=== PATIENT | male | born 1970 | race Caucasian/White ===

== ENCOUNTER 2018-01-31 11:06 | Inpatient (IN) | payer OTHER ==
--- NOTE | 2018-01-31 12:07 | PDOC ---
History of Present Illness - General Chief Complaint: Edema Stated Complaint: LEG PAIN Time Seen by Provider: 01/31/18 12:07 - History of Present Illness Initial Comments: Aaron Vigil is a 47yo man with a PMH of alcohol abuse (3-4 drinks per day) who presents complaining of bilateral leg swelling for the past week. He states that his legs are also painful and throbbing. He has not tried anything to alleviate the swelling and does not have a regular doctor; he does not take any medicatoins at home. He was seen previously in 2015 with a similar complaint. He denies any recent fevers, chills, chest pain, SOB, abdominal pain, change in bowel habits, or urinary symptoms. He does endorse increased abdominal girth over the past week. He is not aware of any underlying cardiac or renal pathology though he has not seen a doctor recently. Past History - Past Medical History Allergies/Adverse Reactions: Allergies Allergy/AdvReac Type Severity Reaction Status Date / Time No Known Drug Allergies Allergy Verified 01/31/18 11:33 cream cheese AdvReac Uncoded 01/31/18 11:33 Home Medications: Ambulatory Orders NK [No Known Home Medication] 01/31/18 Anemia: No Asthma: No Cancer: No Cardiac Disorders: No CVA: No COPD: No CHF: No Dementia: No Diabetes: No GI Disorders: No Disorders: No HTN: No Hypercholesterolemia: No Liver Disease: No Seizures: No Thyroid Disease: No - Surgical History Appendectomy: Yes - Suicide/Smoking/Psychosocial Hx Smoking History: Former smoker Have you smoked in the past 12 months: No If you are a former smoker, when did you quit?: 3 months ago Information on smoking cessation initiated: No Hx Alcohol Use: No Drug/Substance Use Hx: No Substance Use Type: Alcohol Review of Systems - Review of Systems Comments:: General: No fevers, no chills, no weight or appetite change, no malaise HEENT: No changes in vision, no changes in hearing, no congestion, no sore throat CV: No chest pain, no palpitations. +worsening LE edema Pulm: No SOB, no cough, no wheezing GI: No nausea or vomiting, no change in bowel habits, no melena. +Increased abdominal girth : No frequency, no urgency, no dysuria Musc: No back pain, no joint swelling, no recent injury Skin: No rash, no lesions, no erythema Endo: No excessive thirst, no heat/cold intolerance Heme: No unusual bruising or bleeding, no swollen glands Neuro: No syncope, no numbness/tingling, no focal weakness Vasc: No claudication Psych: No recent change in mood, no SI or HI *Physical Exam - Vital Signs Last Vital Signs Temp Pulse Resp BP Pulse Ox 99.3 F 100 H 17 147/87 99 01/31/18 11:30 01/31/18 11:30 01/31/18 11:30 01/31/18 11:30 01/31/18 11:30 - Physical Exam Comments: General: Comfortable, no acute distress HEENT: PERRL, EOMI, +scleral icterus, MMM, voice normal, normal neck ROM, no LAD Cards: RRR, no murmur appreciated Pulm: Comfortable on room air, clear to auscultation bilaterally Abd: Moderately distended, firm, no fluid wave, non-tender : No CVA tenderness Ext: Atraumatic. BLE minimally pitting edema, L 4+ and firm to knee, R 3+, mildly TTP. No skin breaks, lesions, or erythema noted. ROM intact. Strength 5/ 5 and equal bilaterally Vasc: Extremities WWP. Skin: +Mild jaundice, no rashes or lesions Neuro: A&Ox3, CN grossly intact, normal speech, motor/sensory grossly intact and symmetric Psych: Mood appropriate to situation ED Treatment Course - LABORATORY CBC & Chemistry Diagram: 01/31/18 12:40 01/31/18 12:43 Medical Decision Making - Medical Decision Making 01/31/18 12:33 Aaron Vigil is a 47yo man with a PMH of alcohol abuse, currently drinking 3-4 per day, who presents with bilateral LE edema L>R and increased abdominal girth. - Concern for underlying heart, kidney, or liver pathology. No known risk factors for DVT, but will r/o as leg swelling is asymmetric and legs are TTP. r/ o recent ACS event as a cause of new leg swelling - May have new ascites given increased abdominal girth, but abdomen is non- tender and vitals are normal - no concern for SBP at this time - CBC, CMP, lipase, mag, phos, CXR, EKG, trop. B/L duplex to r/o DVT 01/31/18 14:00 - CBC unremarkable - CMP notable for tbili 5.1, AST 93, ALT 33, alk phos 256 - Trop negative, EKG w/o concerns for ACS - CXR without acute pathology - Duplex pending - Page sent to hospitalist team for admission for suspected new liver failure, fluid overload 01/31/18 15:14 - Spoke to Pamela Byrd regarding admission. Will admit to med/surg under Dr Yu for diuresis and management of acute on chronic liver failure - 40mg IV lasix given for diuresis - On further questioning, Mr Vigil states that he does have 3-4 drinks per day, usually 24oz bottles of beer. His last was this morning, and he had one bottle. - Discussed admission with Mr Vigil. He agrees with this plan. Seen and discussed with Dr Isaacs. Edyta Hays PGY1 *DC/Admit/Observation/Transfer Diagnosis at time of Disposition: Alcoholism, Peripheral edema, Abnormal bilirubin test - Discharge Dispostion Decision to Admit order: Yes - Referrals - Patient Instructions - Post Discharge Activity
[2018-01-31 13:02] LABS: BASO % 5.6 % (0-2.0); EOS % 3.3 % (0-4.5); HEMATOCRIT 25.4 % (35.4-49); LYMPH % 22.9 % (8-40); MCH 29.1 pg (25.7-33.7); MCHC 31.6 g/dl (32.0-35.9); MEAN CELL VOLUME 92.2 fl (80-96); MEAN PLT VOLUME 9.7 fl (7.5-11.1); MONO % 23.8 % (3.8-10.2); NEUT % 44.4 % (42.8-82.8); PLATELET COUNT 148 K/MM3 (134-434); RBC 2.76 M/mm3 (4.00-5.60); RDW 20.9 % (11.9-15.9); WHITE BLOOD COUNT 4.5 K/mm3 (4.0-10.0)
--- NOTE | 2018-01-31 13:14 | PDOC ---
Attending Attestation - HPI HPI: 01/31/18 15:23 CC: Bilateral lower extremity edema. HPI: The patient is a 47 year old male, with a significant past medical history of alcohol abuse, who presents to the emergency department with, 1 week of worsening bilateral lower extremity edema L>R. Patient endorses pain to the area he describes . Patient He denies any recent fevers, chills, headache or dizziness. He denies any recent nausea, vomit, diarrhea or constipation. He denies any recent chest pain or shortness of breath. He denies any recent dysuria, frequency, urgency or hematuria. Allergies: NKDA - Physicial Exam PE: 01/31/18 15:33 Exam: Vitals: Triage Vital signs reviewed General Appearance: no acute distress, well nourished well developed, Head: Atraumatic, normocephalic +Eyes: Scleral icterus. Nose: No nasal congestion Neck: Supple;No Nuchal rigidity Chest Wall: Nontender Cardiac: Regular rate and rhythm, no murmurs, no rubs, no gallops, Lungs: Clear to auscultation bilateral, good air movement bilaterally, Abdomen: Soft, normal bowel sounds, nontender to palpation Rectal: Exam deferred +Extremities: 3+ pitting edema extending to abdomen. Full range of motion to all extremities, no cyanosis or clubbing +Skin: Jaundice. Neuro: AOX3; Cranial Nerves 2-12 grossly intact, Strength intact to all extremities, Sensation intact to all extremities Psych: normal mood, normal affect <Bishnu Puentes - Last Filed: 01/31/18 15:33> - Resident Resident Name: Edyta Hays - ED Attending Attestation I have performed the following: I have examined & evaluated the patient, The case was reviewed & discussed with the resident, I agree w/resident's findings & plan, Exceptions are as noted - Medical Decision Making 01/31/18 14:10 47 years old chronic alcoholism with evidence of jaundice and liver failure progressive edema in progressive edema spreading from legs thighs up to abdomen Patient with inability to ambulate secondary to edema We will admit hospital for diuresis and GI consultation <Juan Francisco Isaacs - Last Filed: 01/31/18 17:03> Attestations - Attestations 01/31/18 15:24 Documentation prepared by Bishnu Puentes, acting as emergency medical dispatcher for Juan Francisco Isaacs MD. <Bishnu Puentes - Last Filed: 01/31/18 15:33>
[2018-01-31 13:23] LABS: ALBUMIN 2.5 g/dl (3.4-5.0); ALK PHOS 256 U/L (45-117); ANION GAP 6 MMOL/L (8-16); BILIRUBIN,TOTAL 5.1 mg/dL (0.2-1); BLOOD UREA NITROGEN 6 mg/dL (7-18); CALCIUM 7.6 mg/dL (8.5-10.1); CHLORIDE 105 mmol/L (98-107); CHOLESTEROL 111 mg/dL (50-200); CO2 26 mmol/L (21-32); CREATININE 0.4 mg/dL (0.55-1.3); GLUCOSE,RANDOM 78 mg/dL (74-106); HDL CHOLESTEROL 37 mg/dL (40-60); MAGNESIUM 2.1 mg/dL (1.8-2.4); N-TERMINAL BNP 75.5 pg/ml (5-125); PHOSPHOROUS 3.3 mg/dL (2.5-4.9); SGOT/AST 93 U/L (15-37); SGPT/ALT 33 U/L (13-61); SODIUM 137 mmol/L (136-145); TOT PROT 6.5 g/dl (6.4-8.2); TRIGLYCERIDES 75 mg/dL (0-150)
[2018-01-31] MEDS ORDERED: FUROSEMIDE 40 MG/4 ML INJECTABLE VIAL IVPUSH ONE (13:59)
[2018-01-31] MEDS ORDERED: FUROSEMIDE 40 MG/4 ML INJECTABLE VIAL ONE (14:21)
[2018-01-31 14:48] LABS: ACANTHOCYTES 1+; ANISOCYTOSIS 2+; MACROCYTOSIS 0; OVALOCYTE 1+; PLATELET ESTIMATE DECREASED; TARGET CELLS 1+; TEAR DROP CELLS 1+
--- NOTE | 2018-01-31 15:17 | HP ---
CHIEF COMPLAINT: Bilateral lower extremity pain and swelling PCP: None HISTORY OF PRESENT ILLNESS 47 year-old male with a PMH significant for chronic alcohol abuse, cholecystitis , and pancreatitis. Presented to the ED today complaining of bilateral lower extremity pain and swelling x 1 week. Patient is a poor historian. He drinks every day, last drink this morning. He lives in a longterm. He does not take any medications, does not seek regular medical care. He denies fevers, sweats, chills. Denies chest pain, SOB, LOPEZ. Denies nausea, vomiting, diarrhea. Denies abdominal pain but does endorse increased abdominal girth over the past week. Recent Travel: No PAST MEDICAL HISTORY: Chronic alcohol abuse Cholecystitis Pancreatitis Lower extremity edema (2015) PAST SURGICAL HISTORY: Appendectomy Social History: homeless, lives in longterm Smoking: former Alcohol: 3-4 24oz beers daily; last drink today Drugs: denies Family History: Allergies No Known Drug Allergies Allergy (Verified 01/31/18 11:33) cream cheese Adverse Reaction (Uncoded 01/31/18 11:33) rash HOME MEDICATIONS: Home Medications Medication Instructions Recorded NK [No Known Home Medication] 01/31/18 REVIEW OF SYSTEMS CONSTITUTIONAL: Absent: fever, chills, diaphoresis, generalized weakness, malaise, loss of appetite, weight change HEENT: Absent: rhinorrhea, nasal congestion, throat pain, throat swelling, difficulty swallowing, mouth swelling, ear pain, eye pain, visual changes CARDIOVASCULAR: Absent: chest pain, syncope, palpitations, irregular heart rate, lightheadedness , peripheral edema RESPIRATORY: Absent: cough, shortness of breath, dyspnea with exertion, orthopnea, wheezing, stridor, hemoptysis GASTROINTESTINAL: +abdominal distension Absent: abdominal pain, abdominal distension, nausea, vomiting, diarrhea, constipation, melena, hematochezia GENITOURINARY: Absent: dysuria, frequency, urgency, hesitancy, hematuria, flank pain, genital pain MUSCULOSKELETAL: Absent: myalgia, arthralgia, joint swelling, back pain, neck pain SKIN: +lower extremity pain and swelling Absent: rash, itching, pallor HEMATOLOGIC/IMMUNOLOGIC: Absent: easy bleeding, easy bruising, lymphadenopathy, frequent infections ENDOCRINE: Absent: unexplained weight gain, unexplained weight loss, heat intolerance, cold intolerance NEUROLOGIC: Absent: headache, focal weakness or paresthesias, dizziness, unsteady gait, seizure, mental status changes, bladder or bowel incontinence PSYCHIATRIC: Absent: anxiety, depression, suicidal or homicidal ideation, hallucinations. PHYSICAL EXAMINATION Vital Signs - 24 hr 01/31/18 01/31/18 11:30 13:00 Temperature 99.3 F Pulse Rate 100 H Respiratory 17 Rate Blood Pressure 147/87 O2 Sat by Pulse 99 98 Oximetry (%) GENERAL: Awake, alert, and fully oriented, in no acute distress. EYES: Pupils equal, round and reactive to light, injected conjunctiva, icteric sclera LUNGS: Breath sounds equal, clear to auscultation bilaterally. No wheezes, and no crackles. No accessory muscle use. HEART: Regular rate and rhythm, S1 and S2 ABDOMEN: Distended, tympanic, +fluid wave, not tender; area of erythema, warmth , and small fluid filled blisters across the lower abdomen MUSCULOSKELETAL: Normal range of motion at all joints. No bony deformities or tenderness. No CVA tenderness. UPPER EXTREMITIES: 2+ pulses, warm, well-perfused. No cyanosis. No clubbing. No peripheral edema. LEFT LE: 4+ tense edema from toes to thigh, warm to touch, erythema, small fluid filled blister on top of foot RIGHT LE: 3+ edema NEUROLOGICAL: Cranial nerves II-XII intact. Laboratory Results - last 24 hr 01/31/18 01/31/18 01/31/18 12:40 12:40 12:43 WBC 4.5 RBC 2.76 L Hgb 8.0 L Hct 25.4 L D MCV 92.2 MCH 29.1 D MCHC 31.6 L RDW 20.9 H Plt Count 148 MPV 9.7 D Absolute Neuts (auto) 2.0 Neutrophils % 44.4 D Neutrophils % (Manual) 57.9 Band Neutrophils % 9.5 Lymphocytes % 22.9 D Lymphocytes % (Manual) 20.0 Monocytes % 23.8 H Monocytes % (Manual) 10 Eosinophils % 3.3 Eosinophils % (Manual) 0.0 Basophils % 5.6 H* Basophils % (Manual) 1.0 Myelocytes % (Man) 0 Promyelocytes % (Man) 0 Blast Cells % (Manual) 0 Nucleated RBC % 0 Metamyelocytes 1 Hypochromia 1+ Platelet Estimate Decreased Platelet Comment Present Polychromasia 2+ Poikilocytosis 2+ Anisocytosis 2+ Microcytosis 1+ Macrocytosis 0 Target Cells 1+ Tear Drop Cells 1+ Ovalocytes 1+ Antoine Cells 2+ Acanthocytes (Spur) 1+ Sodium 137 Potassium 4.0 Chloride 105 Carbon Dioxide 26 Anion Gap 6 L BUN 6 L Creatinine 0.4 L Creat Clearance w eGFR > 60 Random Glucose 78 Calcium 7.6 L Phosphorus Cancelled 3.3 Magnesium Cancelled 2.1 Total Bilirubin 5.1 H AST 93 H ALT 33 Alkaline Phosphatase 256 H Creatine Kinase Cancelled 178 Creatine Kinase Index 1.0 CK-MB (CK-2) 1.8 Troponin I Cancelled 0.02 B-Natriuretic Peptide 75.5 Total Protein 6.5 Albumin 2.5 L Triglycerides 75 Cholesterol 111 Total LDL Cholesterol 65 HDL Cholesterol 37 L Lipase Cancelled ASSESSMENT/PLAN: 47 year-old male with a PMH significant for chronic alcohol abuse, cholecystitis , and pancreatitis. Admitted for RLE and abdominal cellulitis, and acute alcohol withdrawal. RLE Cellulitis --CT RLE w/contrast pending --vanc, Zosyn Lower abdominal cellulitis --CTAP w/contrast pending Chronic alcohol abuse Acute alcohol withdrawal --librium taper --multi-vitamin bag --lipase wnl Visit type - Emergency Visit Emergency Visit: Yes ED Registration Date: 01/31/18 Care time: The patient presented to the Emergency Department on the above date and was hospitalized for further evaluation of their emergent condition. - New Patient This patient is new to me today: Yes Date on this admission: 02/04/18 - Critical Care Critical Care patient: No
--- NOTE | 2018-01-31 16:59 | EKG ---
Test Reason : Blood Pressure : / mmHG Vent. Rate : 089 BPM Atrial Rate : 089 BPM P-R Int : 148 ms QRS Dur : 092 ms QT Int : 402 ms P-R-T Axes : 015 -29 -04 degrees QTc Int : 489 ms NORMAL SINUS RHYTHM WITH SINUS ARRHYTHMIA PROLONGED QT ABNORMAL ECG WHEN COMPARED WITH ECG OF 06-SEP-2014 12:45, SINUS RHYTHM HAS REPLACED ECTOPIC ATRIAL RHYTHM Confirmed by BRY CORDOBA MD ([id number]) on 01/31/2018 4:58:39 PM Referred By: Confirmed By:BRY CORDOBA MD
[2018-01-31 17:31] LABS: URINE APPEARANCE CLEAR; URINE BILIRUBIN NEGATIVE (<2.0 mg/dL); URINE COLOR YELLOW; URINE GLUCOSE (UA) NEGATIVE (NEGATIVE); URINE KETONE NEGATIVE (NEGATIVE); URINE LEUK ESTERASE NEGATIVE (NEGATIVE); URINE NITRITE NEGATIVE (NEGATIVE); URINE PROTEIN NEGATIVE (NEGATIVE); URINE UROBILINOGEN 4.0 E.U/dl mg/dL (0.2-1.0)
[2018-01-31] MEDS ORDERED: VANCOMYCIN 1 GRAM (PRE-DOCKED) 1,000 MG/250 ML BAG IVPB ONE (20:08)
[2018-01-31] MEDS ORDERED: chlordiazePOXIDE HCL 25 MG CAPSULE PO ONE (20:18)
[2018-01-31] MEDS ORDERED: chlordiazePOXIDE HCL 25 MG CAPSULE PO PRN (20:18)
[2018-01-31] MEDS ORDERED: FOLIC ACID INJECTION - 1 MG, THIAMINE HCL 100 MG, MULTIVIT INJECTION ADULT 10 ML in SOD... IVPB ONE (20:19)
[2018-01-31] MEDS ORDERED: PIPERACILLIN/TAZOB 3.375 GM 3.375 GM in DEXTROSE 5%-WATER - 50 ML IVPB SCH (20:30)
[2018-01-31 21:00] VITALS: BMI 30.3
[2018-01-31] MEDS ORDERED: PIPERACILLIN/TAZOBACTAM 3.375 GM VIAL IVPB ONE (21:10)
[2018-01-31] MEDS ORDERED: DEXTROSE 5%-WATER - 50 ML IVPB ONE (21:10)
[2018-01-31] MEDS: PIPERACILLIN/TAZOB 3.375 GM 3.375 GM in DEXTROSE 5%-WATER - 50 ML IVPB SCH (21:19)
[2018-02-01 01:06] LABS: COCAINE, UR NEGATIVE ng/ml (CUTOFF=300); METHADONE, UR NEGATIVE ng/ml (CUTOFF=300); OPIATES, URI NEGATIVE ng/ml (CUTOFF=300); PHENCYCLIDINE,URINE NEGATIVE ng/ml (CUTOFF=25); URINE AMPHETAMINES NEGATIVE ng/ml (CUTOFF=500); URINE BARBITURATES NEGATIVE ng/ml (CUTOFF=200); URINE BENZODIAZEPINES NEGATIVE ng/ml (CUTOFF=200)
[2018-02-01] MEDS: chlordiazePOXIDE HCL 25 MG CAPSULE PO SCH ×5 (04:02→22:57)
[2018-02-01] MEDS ORDERED: PIPERACILLIN/TAZOBACTAM 3.375 GM VIAL IVPB ONE (05:08)
[2018-02-01] MEDS ORDERED: DEXTROSE 5%-WATER - 50 ML IVPB ONE ×3 (05:08→18:01)
[2018-02-01] MEDS: PIPERACILLIN/TAZOB 3.375 GM 3.375 GM in DEXTROSE 5%-WATER - 50 ML IVPB SCH (05:23)
[2018-02-01 07:33] LABS: BASO % 4.5 % (0-2.0); EOS % 4.4 % (0-4.5); HEMATOCRIT 22.1 % (35.4-49); LYMPH % 26.7 % (8-40); MCH 28.4 pg (25.7-33.7); MCHC 31.4 g/dl (32.0-35.9); MEAN CELL VOLUME 90.5 fl (80-96); MEAN PLT VOLUME 8.3 fl (7.5-11.1); MONO % 21.5 % (3.8-10.2); NEUT % 42.9 % (42.8-82.8); PLATELET COUNT 87 K/MM3 (134-434); RBC 2.45 M/mm3 (4.00-5.60); RDW 20.1 % (11.9-15.9); WHITE BLOOD COUNT 3.9 K/mm3 (4.0-10.0)
[2018-02-01 07:57] LABS: HEMOGLOBIN 6.9 GM/dL (11.7-16.9)
[2018-02-01 07:58] LABS: INR 1.84 (0.83-1.09); PROTHROMBIN TIME (PATIENT) 21.9 SEC (9.7-13.0)
[2018-02-01 08:00] LABS: ACTIVATED PTT 44.4 SECONDS (25.2-36.5)
[2018-02-01 08:04] LABS: ANION GAP 9 MMOL/L (8-16); BLOOD UREA NITROGEN 7 mg/dL (7-18); CALCIUM 7.3 mg/dL (8.5-10.1); CHLORIDE 106 mmol/L (98-107); CO2 26 mmol/L (21-32); CREATININE 0.4 mg/dL (0.55-1.3); GLUCOSE,RANDOM 72 mg/dL (74-106); LIPASE 186 U/L (73-393); MAGNESIUM 1.8 mg/dL (1.8-2.4); N-TERMINAL BNP 94.7 pg/ml (5-125); PHOSPHOROUS 3.6 mg/dL (2.5-4.9); POTASSIUM 3.8 mmol/L (3.5-5.1); SODIUM 140 mmol/L (136-145)
[2018-02-01] MEDS ORDERED: ENOXAPARIN NA (PORCINE) 40 MG/0.4 ML DISP.SYRIN SQ SCH (10:00)
[2018-02-01 10:43] LABS: ALK PHOS 187 U/L (45-117); BILIRUBIN,DIRECT 2.4 mg/dL (0.0-0.2); BILIRUBIN,TOTAL 4.8 mg/dL (0.2-1); SGOT/AST 70 U/L (15-37); SGPT/ALT 24 U/L (13-61); TOT PROT 5.3 g/dl (6.4-8.2)
--- NOTE | 2018-02-01 10:47 | CON.ID ---
Consult Consult Specialty:: infectious disease Referred by:: hospitalist Reason for Consultation:: erythema of the legs - History of Present Illness Chief Complaint: increaseing LE edema for last one week History of Present Illness: 47 yo man with chronic ETOH use, history of pancreatitis in the past admitted with edema and erythema of the legss he denies fevers drinks 4 to 5 beers daily origninally from [place] last hospitalized at [facility] in October no fevers no cough no sob no abdominal pain resting comfortably lives in a [facility] unknown hepatitis status - History Source History Provided By: Patient, Medical Record Limitations to Obtaining History: Poor Historian - Past Medical History Gastrointestinal: Yes: Pancreatitis, Other (etoh related liver disease) Hepatobiliary: Yes: Cirrhosis - Past Surgical History Past Surgical History: Yes: Appendectomy - Alcohol/Substance Use Hx Alcohol Use: No History of Substance Use: reports: None - Smoking History Smoking history: Former smoker Have you smoked in the past 12 months: No If you are a former smoker, when did you quit?: 3 months ago - Social History Usual Living Arrangement: Other ADL: Independent Place of : Other ([place]) History of Recent Travel: No Home Medications - Allergies Allergies/Adverse Reactions: Allergies Allergy/AdvReac Type Severity Reaction Status Date / Time No Known Drug Allergies Allergy Verified 01/31/18 11:33 cream cheese AdvReac Uncoded 01/31/18 11:33 - Home Medications Home Medications: Ambulatory Orders NK [No Known Home Medication] 01/31/18 Family Disease History - Family Disease History Family History: Denies Review of Systems - Review of Systems Constitutional: reports: No Symptoms Eyes: reports: No Symptoms HENT: reports: No Symptoms Neck: reports: No Symptoms Cardiovascular: reports: No Symptoms Respiratory: reports: No Symptoms Gastrointestinal: reports: No Symptoms. denies: Abdominal Pain, Bloating, Constipation, Diarrhea, Melena, Nausea, Rectal Bleeding, Vomiting, Vomiting Blood Genitourinary: reports: No Symptoms Physical Exam Vital Signs: Vital Signs Temperature 98.3 F 02/01/18 09:20 Pulse Rate 100 H 02/01/18 09:20 Respiratory Rate 18 02/01/18 09:20 Blood Pressure 115/78 02/01/18 09:20 O2 Sat by Pulse Oximetry (%) 99 02/01/18 05:00 Constitutional: Yes: Well Nourished, No Distress, Calm Eyes: Yes: Ptosis, Sclera Icterus HENT: Yes: Atraumatic. No: Thrush Neck: Yes: Supple, Trachea Midline Cardiovascular: Yes: Regular Rate and Rhythm Respiratory: Yes: CTA Bilaterally, Diminished (at bases) Gastrointestinal: Yes: Normal Bowel Sounds, Soft. No: Tenderness ...Rectal Exam: Yes: Deferred Renal/: Yes: WNL Edema: LLE: 2+ (slight erythema tiny blister on the foot), RLE: 2+ (slight erythema) Neurological: Yes: Alert. No: [facility] Labs: CBC, BMP 02/01/18 06:30 02/01/18 06:30 cultures pending UA negative Imaging - Results Cat Scan: Pending Problem List - Problems (1) Cellulitis Code(s): L03.90 - CELLULITIS, UNSPECIFIED (2) Peripheral edema Code(s): R60.9 - EDEMA, UNSPECIFIED (3) Liver cirrhosis, alcoholic Code(s): K70.30 - ALCOHOLIC CIRRHOSIS OF LIVER WITHOUT ASCITES Assessment/Plan continue antiibotics for cellulitis- switch to cefazolin no fevers, doesnot look toxic suspect etoh related liver cirrhosis can check hepatitis serology as well f/u imaging studies gi consult pending
[2018-02-01] MEDS ORDERED: ceFAZolin SODIUM 1 GM VIAL ONE ×2 (11:50→18:00)
[2018-02-01] MEDS: CEFAZOLIN 1 GM in DEXTROSE 5%-WATER - 50 ML IVPB SCH ×2 (12:01→18:31)
[2018-02-01 12:06] LABS: ANISOCYTOSIS 1+; MACROCYTOSIS 0; OVALOCYTE 1+; PLATELET ESTIMATE DECREASED; TARGET CELLS 1+
--- NOTE | 2018-02-01 14:02 | CON.GI ---
Consult Consult Specialty:: Gastroenterology ( covering for Dr. Rosado) Referred by:: Corine Byrd NP Reason for Consultation:: Ascites - History of Present Illness Chief Complaint: Difficulty walking due to leg swelling. History of Present Illness: 47M presents to the hospital with difficulty walking due to leg edema. He denies abdominal pain, hematemesis and melena and has not had a BM today. He denies any h/o GI bleeding and has never had an EGD or a colonoscopy. He was hospitalized her in 2014 with similar complaints and was seen by Dr Reyes after a CT scan suggested pancreatitis and GB sludge with bilirubin of 7. He had no clinical evidence of pancreatitis and his Hb was 12. His Hb is now 6.9. He drinks over a six pack of beer daily. His abdomen has been distended for " a long time". His appetite is good. - History Source History Provided By: Patient Limitations to Obtaining History: Poor Historian - Past Medical History Gastrointestinal: Yes: Pancreatitis (by imaging in 2014 byt was asymptomatic) Hepatobiliary: Yes: Cirrhosis (due to alcoholism), Cholelithiasis (sludge and ? 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year[place] age 33 History of Recent Travel: No Home Medications - Allergies Allergies/Adverse Reactions: Allergies Allergy/AdvReac Type Severity Reaction Status Date / Time No Known Drug Allergies Allergy Verified 01/31/18 11:33 cream cheese AdvReac Uncoded 01/31/18 11:33 - Home Medications Home Medications: Ambulatory Orders NK [No Known Home Medication] 01/31/18 Family Disease History - Family Disease History Family History: Unable to Obtain Review of Systems - Review of Systems Constitutional: reports: Chills Eyes: reports: No Symptoms HENT: reports: No Symptoms Neck: reports: No Symptoms Cardiovascular: reports: No Symptoms Respiratory: reports: No Symptoms Gastrointestinal: reports: Bloating, Constipation Genitourinary: reports: No Symptoms Musculoskeletal: reports: Extremity Pain Physical Exam-GI Vital Signs: Vital Signs Temperature 98.3 F 02/01/18 09:20 Pulse Rate 100 H 02/01/18 09:20 Respiratory Rate 18 02/01/18 09:20 Blood Pressure 115/78 02/01/18 09:20 O2 Sat by Pulse Oximetry (%) 99 02/01/18 05:00 CBC,CMP WBC 3.9 K/mm3 (4.0-10.0) L 02/01/18 06:30 RBC 2.45 M/mm3 (4.00-5.60) L 02/01/18 06:30 Hgb 6.9 GM/dL (11.7-16.9) L* 02/01/18 06:30 Hct 22.1 % (35.4-49) L 02/01/18 06:30 MCV 90.5 fl (80-96) 02/01/18 06:30 MCH 28.4 pg (25.7-33.7) 02/01/18 06:30 MCHC 31.4 g/dl (32.0-35.9) L 02/01/18 06:30 RDW 20.1 % (11.9-15.9) H 02/01/18 06:30 Plt Count 87 K/MM3 (134-434) L D 02/01/18 06:30 MPV 8.3 fl (7.5-11.1) D 02/01/18 06:30 Absolute Neuts (auto) 1.7 K/mm3 (1.5-8.0) 02/01/18 06:30 Neutrophils % 42.9 % (42.8-82.8) 02/01/18 06:30 Neutrophils % (Manual) 44.8 % (42.8-82.8) D 02/01/18 06:30 Band Neutrophils % 0.0 % 02/01/18 06:30 Lymphocytes % 26.7 % (8-40) 02/01/18 06:30 Lymphocytes % (Manual) 21.9 % (8-40) 02/01/18 06:30 Monocytes % 21.5 % (3.8-10.2) H 02/01/18 06:30 Monocytes % (Manual) 6 % (3.8-10.2) 02/01/18 06:30 Eosinophils % 4.4 % (0-4.5) 02/01/18 06:30 Eosinophils % (Manual) 6.2 % (0-4.5) H D 02/01/18 06:30 Basophils % 4.5 % (0-2.0) H 02/01/18 06:30 Basophils % (Manual) 14.6 % (0-2.0) H* D 02/01/18 06:30 Myelocytes % (Man) 1 % (0-2) D 02/01/18 06:30 Promyelocytes % (Man) 0 % (0-2) 02/01/18 06:30 Blast Cells % (Manual) 0 % (0-0) 02/01/18 06:30 Nucleated RBC % 0 % (0-0) 02/01/18 06:30 Metamyelocytes 1 % (0-2) 02/01/18 06:30 Hypochromia 1+ 02/01/18 06:30 Platelet Estimate Decreased 02/01/18 06:30 Platelet Comment Present 01/31/18 12:40 Polychromasia 1+ 02/01/18 06:30 Poikilocytosis 2+ 02/01/18 06:30 Anisocytosis 1+ 02/01/18 06:30 Microcytosis 1+ 02/01/18 06:30 Macrocytosis 0 02/01/18 06:30 Target Cells 1+ 02/01/18 06:30 Tear Drop Cells 1+ 01/31/18 12:40 Ovalocytes 1+ 02/01/18 06:30 [place] Cells 2+ 01/31/18 12:40 Acanthocytes (Spur) 1+ 01/31/18 12:40 Fragmented RBCs 1+ 02/01/18 06:30 Sodium 140 mmol/L (136-145) 02/01/18 06:30 Potassium 3.8 mmol/L (3.5-5.1) 02/01/18 06:30 Chloride 106 mmol/L (98-107) 02/01/18 06:30 Carbon Dioxide 26 mmol/L (21-32) 02/01/18 06:30 Anion Gap 9 MMOL/L (8-16) 02/01/18 06:30 BUN 7 mg/dL (7-18) 02/01/18 06:30 Creatinine 0.4 mg/dL (0.55-1.3) L 02/01/18 06:30 Creat Clearance w eGFR > 60 (>60) 02/01/18 06:30 Random Glucose 72 mg/dL (74-106) L 02/01/18 06:30 Calcium 7.3 mg/dL (8.5-10.1) L 02/01/18 06:30 Phosphorus 3.6 mg/dL (2.5-4.9) 02/01/18 06:30 Magnesium 1.8 mg/dL (1.8-2.4) 02/01/18 06:30 Total Bilirubin 4.8 mg/dL (0.2-1) H 02/01/18 06:30 Direct Bilirubin Cancelled 02/01/18 09:45 AST 70 U/L (15-37) H 02/01/18 06:30 ALT 24 U/L (13-61) 02/01/18 06:30 Alkaline Phosphatase 187 U/L (45-117) H 02/01/18 06:30 Creatine Kinase 98 IU/L (26-308) 02/01/18 06:30 Creatine Kinase Index 1.0 % (0.0-5.0) 01/31/18 12:43 CK-MB (CK-2) 1.8 ng/mL (0.5-3.6) 01/31/18 12:43 Troponin I 0.02 ng/ml (0.00-0.05) 02/01/18 06:30 B-Natriuretic Peptide 94.7 pg/ml (5-125) 02/01/18 06:30 Total Protein 5.3 g/dl (6.4-8.2) L 02/01/18 06:30 Albumin 2.0 g/dl (3.4-5.0) L 02/01/18 06:30 Triglycerides 75 mg/dL (0-150) 01/31/18 12:43 Cholesterol 111 mg/dL (50-200) 01/31/18 12:43 Total LDL Cholesterol 65 mg/dL (5-100) 01/31/18 12:43 HDL Cholesterol 37 mg/dL (40-60) L 01/31/18 12:43 Lipase 186 U/L (73-393) 02/01/18 06:30 Current Medications Generic Name Dose Route Start Last Admin Trade Name Freq PRN Reason Stop Dose Admin Chlordiazepoxide HCl 50 mg 01/31/18 23:00 02/01/18 10:32 Librium - PO 02/01/18 17:01 50 mg [id number] STEPHEN Administration Chlordiazepoxide HCl 25 mg 02/01/18 23:00 Librium - PO 02/02/18 17:01 [id number] STEPHEN Chlordiazepoxide HCl 15 mg 02/02/18 23:00 Librium - PO 02/03/18 17:01 [id number] STEPHEN Chlordiazepoxide HCl 25 mg 01/31/18 20:18 Librium - PO 02/03/18 20:17 Q4H PRN WITHDRAWAL(CONT SUBST) Chlordiazepoxide HCl 10 mg 02/03/18 23:00 Librium - PO 02/04/18 17:01 [id number] STEPHEN Furosemide 40 mg 02/01/18 13:00 Lasix - PO DAILY STEPHEN Cefazolin Sodium 1 gm/ 50 mls @ 100 mls/hr 02/01/18 11:00 02/01/18 12:01 Dextrose IVPB 100 mls/hr Q8H-IV STEPHEN Administration Spironolactone 100 mg 02/01/18 13:00 Aldactone - PO DAILY STEPHEN Constitutional: Yes: No Distress Eyes: Yes: Sclera Icterus HENT: Yes: Atraumatic Neck: Yes: Supple Cardiovascular: Yes: Regular Rate and Rhythm Respiratory: Yes: CTA Bilaterally Gastrointestinal Inspection: Yes: Distention (not tense), Scars (RLQ incision), Other (prominent venous pattern) ...Auscultate: Yes: Normoactive Bowel Sounds ...Palpate: Yes: Soft, Other (nontender) ...Rectal Exam: Yes: WNL (no stool in rectum, no masses, 1+ prostate no scrotal edema or hernias) Edema: LLE: 2+, RLE: 2+ Peripheral Pulses WNL: Yes Neurological: Yes: Alert Labs: CBC, BMP 02/01/18 06:30 02/01/18 06:30 INR, PTT INR 1.84 (0.83-1.09) H 02/01/18 06:30 Laboratory Tests 05/18/15 05/21/15 05/31/15 16:00 07:00 12:54 WBC Hgb 12.1 MCV Plt Count Total Bilirubin 7.8 H 3.7 H D Direct Bilirubin AST ALT Alkaline Phosphatase Albumin 09/06/14 01/31/18 01/31/18 12:54 12:40 12:43 WBC 4.5 Hgb 8.0 L MCV 92.2 Plt Count 148 Total Bilirubin 1.8 H D 5.1 H Direct Bilirubin AST ALT Alkaline Phosphatase Albumin 02/01/18 02/01/18 06:30 06:30 WBC 3.9 L Hgb 6.9 L* MCV 90.5 Plt Count 87 L D Total Bilirubin 4.8 H Direct Bilirubin 2.4 H AST 70 H ALT 24 Alkaline Phosphatase 187 H Albumin 2.0 L Imaging - Results Cat Scan: Image Reviewed (large amount of ascites) Problem List - Problems (1) Ascites due to alcoholic cirrhosis Assessment/Plan: Aaron's ascites is likely due to alcoholic cirrhosis. I will order a paracentesis to exclude SBP and for cytology. I have emphasized the need to abstain from alcohol and salt. I agree with the need to do an alcohol detox. He will eventually need an EGD to assess for varices and portal gastropathy and implement rubber band ligation if necessary. Will screen for coexisting etiologies. Need to watch for progression of liver failure and for hepatorenal syndrome. Code(s): K70.31 - ALCOHOLIC CIRRHOSIS OF LIVER WITH ASCITES (2) Pancytopenia Assessment/Plan: Suspect alcohol induced bone marrow toxicity and platelet sequestration by hypersplenism associated with cirrhosis. Would consider hematology evaluation. Will initiate this workup and screen for hemolysis. There is probably a contributor to his anemia in the form of GI bleeding from postal gastropathy or alcoholic gastritis. Code(s): D61.818 - OTHER PANCYTOPENIA (3) Jaundice, hepatocellular Code(s): K76.89 - OTHER SPECIFIED DISEASES OF LIVER (4) Sludge in gallbladder Code(s): K82.8 - OTHER SPECIFIED DISEASES OF GALLBLADDER (5) Alcoholism Code(s): F10.20 - ALCOHOL DEPENDENCE, UNCOMPLICATED (6) Cellulitis Code(s): L03.90 - CELLULITIS, UNSPECIFIED (7) Liver cirrhosis, alcoholic Code(s): K70.30 - ALCOHOLIC CIRRHOSIS OF LIVER WITHOUT ASCITES
[2018-02-01] MEDS: SPIRONOLACTONE 25 MG TABLET (FP) PO SCH (14:15)
[2018-02-01] MEDS: FUROSEMIDE 40 MG TABLET (FP) PO SCH (14:15)
--- NOTE | 2018-02-01 17:36 | PN ---
Physical Exam: SUBJECTIVE: Patient seen and examined. OBJECTIVE: Vital Signs Period Temp Pulse Resp BP Sys/Mcginnis Pulse Ox Last 24 Hr 98.2 F-98.9 F 82-100 18-20 115-157/69-83 97-99 GENERAL: Awake, alert, and fully oriented, in no acute distress. EYES: Pupils equal, round and reactive to light, injected conjunctiva, icteric sclera LUNGS: Breath sounds equal, clear to auscultation bilaterally. No wheezes, and no crackles. No accessory muscle use. HEART: Regular rate and rhythm, S1 and S2 ABDOMEN: Distended, tympanic, not tender; area of erythema, warmth, and small fluid filled blisters across the lower abdomen MUSCULOSKELETAL: Normal range of motion at all joints. No bony deformities or tenderness. No CVA tenderness. UPPER EXTREMITIES: 2+ pulses, warm, well-perfused. No cyanosis. No clubbing. No peripheral edema. LEFT LE: 4+ tense edema from toes to thigh, warm to touch, erythema, small fluid filled blister on top of foot RIGHT LE: 3+ edema NEUROLOGICAL: Cranial nerves II-XII intact. Laboratory Results - last 24 hr 01/31/18 02/01/18 02/01/18 23:00 06:30 06:30 WBC 3.9 L RBC 2.45 L Hgb 6.9 L* Hct 22.1 L MCV 90.5 MCH 28.4 MCHC 31.4 L RDW 20.1 H Plt Count 87 L D MPV 8.3 D Absolute Neuts (auto) 1.7 Neutrophils % 42.9 Neutrophils % (Manual) 44.8 D Band Neutrophils % 0.0 Lymphocytes % 26.7 Lymphocytes % (Manual) 21.9 Monocytes % 21.5 H Monocytes % (Manual) 6 Eosinophils % 4.4 Eosinophils % (Manual) 6.2 H D Basophils % 4.5 H Basophils % (Manual) 14.6 H* D Myelocytes % (Man) 1 D Promyelocytes % (Man) 0 Blast Cells % (Manual) 0 Nucleated RBC % 0 Metamyelocytes 1 Hypochromia 1+ Platelet Estimate Decreased Polychromasia 1+ Poikilocytosis 2+ Anisocytosis 1+ Microcytosis 1+ Macrocytosis 0 Target Cells 1+ Ovalocytes 1+ Fragmented RBCs 1+ PT with INR 21.90 H INR 1.84 H PTT (Actin FS) 44.4 H Sodium Potassium Chloride Carbon Dioxide Anion Gap BUN Creatinine Creat Clearance w eGFR Random Glucose Calcium Phosphorus Magnesium Total Bilirubin Direct Bilirubin AST ALT Alkaline Phosphatase Creatine Kinase Troponin I B-Natriuretic Peptide Total Protein Albumin Triglycerides Cholesterol Total LDL Cholesterol HDL Cholesterol Lipase Opiates Screen Negative Methadone Screen Negative Barbiturate Screen Negative Phencyclidine Screen Negative Ur Amphetamines Screen Negative MDMA (Ecstasy) Screen Negative Benzodiazepines Screen Negative Cocaine Screen Negative U Marijuana (THC) Screen Negative Blood Type Antibody Screen Crossmatch 02/01/18 02/01/18 02/01/18 06:30 06:30 09:45 WBC RBC Hgb Hct MCV MCH MCHC RDW Plt Count MPV Absolute Neuts (auto) Neutrophils % Neutrophils % (Manual) Band Neutrophils % Lymphocytes % Lymphocytes % (Manual) Monocytes % Monocytes % (Manual) Eosinophils % Eosinophils % (Manual) Basophils % Basophils % (Manual) Myelocytes % (Man) Promyelocytes % (Man) Blast Cells % (Manual) Nucleated RBC % Metamyelocytes Hypochromia Platelet Estimate Polychromasia Poikilocytosis Anisocytosis Microcytosis Macrocytosis Target Cells Ovalocytes Fragmented RBCs PT with INR INR PTT (Actin FS) Sodium 140 Potassium 3.8 Chloride 106 Carbon Dioxide 26 Anion Gap 9 BUN 7 Creatinine 0.4 L Creat Clearance w eGFR > 60 Random Glucose 72 L Calcium 7.3 L Phosphorus 3.6 Magnesium 1.8 Total Bilirubin 4.8 H Cancelled Direct Bilirubin 2.4 H Cancelled AST 70 H Cancelled ALT 24 Cancelled Alkaline Phosphatase 187 H Cancelled Creatine Kinase 98 Troponin I 0.02 B-Natriuretic Peptide 94.7 Total Protein 5.3 L Cancelled Albumin 2.0 L Cancelled Triglycerides Cancelled Cholesterol Cancelled Total LDL Cholesterol Cancelled HDL Cholesterol Cancelled Lipase 186 Opiates Screen Methadone Screen Barbiturate Screen Phencyclidine Screen Ur Amphetamines Screen MDMA (Ecstasy) Screen Benzodiazepines Screen Cocaine Screen U Marijuana (THC) Screen Blood Type O POSITIVE Antibody Screen Negative Crossmatch See Detail Active Medications Generic Name Dose Route Start Last Admin Trade Name Freq PRN Reason Stop Dose Admin Chlordiazepoxide HCl 25 mg 02/01/18 23:00 Librium - PO 02/02/18 17:01 [id number] STEPHEN Chlordiazepoxide HCl 15 mg 02/02/18 23:00 Librium - PO 10/28/18 17:01 [id number] STEPHEN Chlordiazepoxide HCl 25 mg 01/31/18 20:18 Librium - PO 02/03/18 20:17 Q4H PRN WITHDRAWAL(CONT SUBST) Chlordiazepoxide HCl 10 mg 02/03/18 23:00 Librium - PO 02/04/18 17:01 [id number] STEPHEN Furosemide 40 mg 02/01/18 13:00 02/01/18 14:15 Lasix - PO 40 mg DAILY STEPHEN Administration Cefazolin Sodium 1 gm/ 50 mls @ 100 mls/hr 02/01/18 11:00 02/01/18 12:01 Dextrose IVPB 100 mls/hr Q8H-IV STEPHEN Administration Pantoprazole Sodium 40 mg 02/01/18 22:00 Protonix - PO BID STEPHEN Spironolactone 100 mg 02/01/18 13:00 02/01/18 14:15 Aldactone - PO 100 mg DAILY STEPHEN Administration Thiamine HCl 100 mg 02/02/18 10:00 Vitamin B1 - PO DAILY STEPEHN ASSESSMENT/PLAN 47 year-old male with a PMH significant for chronic alcohol abuse, cholecystitis , and pancreatitis. Admitted for RLE and abdominal cellulitis, and acute alcohol withdrawal. RLE Cellulitis Lower abdominal cellulitis --afebrile, no leukocytosis --01/31 CT LE: diffuse soft tissue edema bilateral lower extremities, no discrete abscess --started on cefazolin (day #1) --ID following Liver cirrhosis Ascites Splenomegaly --01/31 CTAP: moderate ascites throughout abdomen and pelvis; small and heterogenous liver c/w cirrhosis; mild splenomegaly --seen and evaluated by GI Dr. Diaz: likely alcoholic cirrhosis; will get paracentesis to exclude SBP and for cytology --start spironolactone, lasix Chronic alcohol abuse Acute alcohol withdrawal h/o pancreatitis --lipase wnl --librium taper --multi-vitamin bag --protonix Visit type - Emergency Visit Emergency Visit: Yes ED Registration Date: 01/31/18 Care time: The patient presented to the Emergency Department on the above date and was hospitalized for further evaluation of their emergent condition. - New Patient This patient is new to me today: No - Critical Care Critical Care patient: No
[2018-02-01 19:44] LABS: URINE APPEARANCE CLEAR; URINE BILIRUBIN NEGATIVE (<2.0 mg/dL); URINE COLOR YELLOW; URINE GLUCOSE (UA) NEGATIVE (NEGATIVE); URINE KETONE NEGATIVE (NEGATIVE); URINE LEUK ESTERASE NEGATIVE (NEGATIVE); URINE NITRITE NEGATIVE (NEGATIVE); URINE PROTEIN NEGATIVE (NEGATIVE); URINE UROBILINOGEN 4.0 E.U/dl mg/dL (0.2-1.0)
[2018-02-01] MEDS: PANTOPRAZOLE 40 MG TABLET (FP) PO SCH (21:23)
[2018-02-02] MEDS ORDERED: ceFAZolin SODIUM 1 GM VIAL ONE ×3 (01:32→17:04)
[2018-02-02] MEDS ORDERED: DEXTROSE 5%-WATER - 50 ML IVPB ONE ×3 (01:32→17:04)
[2018-02-02] MEDS: CEFAZOLIN 1 GM in DEXTROSE 5%-WATER - 50 ML IVPB SCH ×3 (01:38→17:12)
[2018-02-02] MEDS: chlordiazePOXIDE HCL 25 MG CAPSULE PO SCH ×3 (06:07→17:11)
[2018-02-02 08:29] LABS: BASO % 5.4 % (0-2.0); HEMATOCRIT 32.9 % (35.4-49); HEMOGLOBIN 10.7 GM/dL (11.7-16.9); LYMPH % 23.3 % (8-40); MCH 28.9 pg (25.7-33.7); MCHC 32.5 g/dl (32.0-35.9); MEAN CELL VOLUME 88.9 fl (80-96); MEAN PLT VOLUME 8.4 fl (7.5-11.1); MONO % 19.3 % (3.8-10.2); PLATELET COUNT 110 K/MM3 (134-434); RDW 19.6 % (11.9-15.9); RETICULOCYTES 2.28 % (0.5-1.5); WHITE BLOOD COUNT 3.9 K/mm3 (4.0-10.0)
[2018-02-02] MEDS: FUROSEMIDE 40 MG TABLET (FP) PO SCH (09:55)
[2018-02-02] MEDS: THIAMINE HCL 100 MG TABLET (FP) PO SCH (09:55)
[2018-02-02] MEDS: SPIRONOLACTONE 25 MG TABLET (FP) PO SCH (09:55)
[2018-02-02] MEDS: PANTOPRAZOLE 40 MG TABLET (FP) PO SCH ×2 (09:55→21:38)
[2018-02-02 10:11] LABS: ALBUMIN 2.5 g/dl (3.4-5.0); ALK PHOS 257 U/L (45-117); ANION GAP 9 MMOL/L (8-16); BILIRUBIN,TOTAL 6.6 mg/dL (0.2-1); BLOOD UREA NITROGEN 8 mg/dL (7-18); CALCIUM 8.1 mg/dL (8.5-10.1); CHLORIDE 103 mmol/L (98-107); CO2 27 mmol/L (21-32); CREATININE 0.6 mg/dL (0.55-1.3); GLUCOSE,RANDOM 72 mg/dL (74-106); LDH 344 U/L (87-246); POTASSIUM 3.4 mmol/L (3.5-5.1); SGOT/AST 78 U/L (15-37); SGPT/ALT 29 U/L (13-61); SODIUM 139 mmol/L (136-145); TOT PROT 6.6 g/dl (6.4-8.2)
[2018-02-02 13:51] LABS: ANISOCYTOSIS 2+; MACROCYTOSIS 0; OVALOCYTE 1+; PLATELET ESTIMATE DECREASED; TARGET CELLS 1+
[2018-02-02] MEDS: POTASSIUM CHLORIDE TABS 20 MEQ TABLET.ER (FP) PO SCH ×2 (15:01→20:15)
--- NOTE | 2018-02-02 15:04 | EKG ---
Test Reason : Blood Pressure : / mmHG Vent. Rate : 084 BPM Atrial Rate : 084 BPM P-R Int : 150 ms QRS Dur : 090 ms QT Int : 422 ms P-R-T Axes : 004 -27 -20 degrees QTc Int : 498 ms NORMAL SINUS RHYTHM POSSIBLE ANTERIOR INFARCT , AGE UNDETERMINED ABNORMAL ECG WHEN COMPARED WITH ECG OF 31-JAN-2018 12:49, NO SIGNIFICANT CHANGE WAS FOUND Confirmed by MD Silverio, Bobby ([id number]) on 02/02/2018 3:03:58 PM Referred By: PATTY HUFF Confirmed By:Bobby aSwyer MD
--- NOTE | 2018-02-02 19:01 | PN ---
Progress Note, Physician History of Present Illness: No compliants of leg pain No c/o fever/ chills Tolerating antibiotic - Current Medication List Current Medications: Active Medications Chlordiazepoxide HCl (Librium -) 15 mg PO [id number] STEPHEN Stop: 02/03/18 17:01 Chlordiazepoxide HCl (Librium -) 25 mg PO Q4H PRN PRN Reason: WITHDRAWAL(CONT SUBST) Stop: 02/03/18 20:17 Chlordiazepoxide HCl (Librium -) 10 mg PO [id number] STEPHEN Stop: 02/04/18 17:01 Furosemide (Lasix -) 40 mg PO DAILY [facility] Last Admin: 02/02/18 09:55 Dose: 40 mg Cefazolin Sodium 1 gm/ (Dextrose) 50 mls @ 100 mls/hr IVPB Q8H-IV STEPHEN Last Admin: 02/02/18 17:12 Dose: 100 mls/hr Pantoprazole Sodium (Protonix -) 40 mg PO BID [facility] Last Admin: 02/02/18 09:55 Dose: 40 mg Potassium Chloride (K-Dur -) 40 meq PO Q6H [facility] Stop: 02/02/18 20:46 Last Admin: 02/02/18 15:01 Dose: 40 meq Spironolactone (Aldactone -) 100 mg PO DAILY [facility] Last Admin: 02/02/18 09:55 Dose: 100 mg Thiamine HCl (Vitamin B1 -) 100 mg PO DAILY [facility] Last Admin: 02/02/18 09:55 Dose: 100 mg - Objective Vital Signs: Vital Signs Temperature 98.7 F 02/02/18 15:04 Pulse Rate 86 02/02/18 15:04 Respiratory Rate 20 02/02/18 15:04 Blood Pressure 126/77 02/02/18 15:04 O2 Sat by Pulse Oximetry (%) 95 02/01/18 22:00 Cardiovascular: Yes: Regular Rate and Rhythm, S1, S2 Respiratory: Yes: CTA Bilaterally Gastrointestinal: Yes: Normal Bowel Sounds, Soft Extremities: Yes: Other (+ erythema/warmth L LE) Labs: CBC, BMP 02/02/18 07:16 02/02/18 07:16 INR, PTT INR 1.84 (0.83-1.09) H 02/01/18 06:30 Assessment/Plan Cellulitis L LE Pancytopenia Continue cefazolin Elevation
[2018-02-02] MEDS: chlordiazePOXIDE 5 MG CAPSULE PO SCH (23:06)
[2018-02-03] MEDS ORDERED: ceFAZolin SODIUM 1 GM VIAL ONE ×3 (02:38→17:53)
[2018-02-03] MEDS ORDERED: DEXTROSE 5%-WATER - 50 ML IVPB ONE ×3 (02:39→17:54)
[2018-02-03] MEDS: CEFAZOLIN 1 GM in DEXTROSE 5%-WATER - 50 ML IVPB SCH ×3 (02:50→17:56)
[2018-02-03] MEDS: chlordiazePOXIDE 5 MG CAPSULE PO SCH ×4 (06:11→22:24)
[2018-02-03 08:02] LABS: BASO % 3.1 % (0-2.0); EOS % 3.9 % (0-4.5); HEMATOCRIT 28.2 % (35.4-49); LYMPH % 28.9 % (8-40); MCH 28.2 pg (25.7-33.7); MEAN CELL VOLUME 88.2 fl (80-96); MONO % 21.4 % (3.8-10.2); NEUT % 42.7 % (42.8-82.8); PLATELET COUNT 92 K/MM3 (134-434); RBC 3.19 M/mm3 (4.00-5.60); RDW 19.3 % (11.9-15.9); WHITE BLOOD COUNT 4.5 K/mm3 (4.0-10.0)
[2018-02-03 09:02] LABS: ALBUMIN 2.1 g/dl (3.4-5.0); ALK PHOS 233 U/L (45-117); ANION GAP 10 MMOL/L (8-16); BILIRUBIN,DIRECT 2.2 mg/dL (0.0-0.2); BLOOD UREA NITROGEN 11 mg/dL (7-18); CALCIUM 7.7 mg/dL (8.5-10.1); CHLORIDE 106 mmol/L (98-107); CO2 26 mmol/L (21-32); CREATININE 0.6 mg/dL (0.55-1.3); GLUCOSE,RANDOM 84 mg/dL (74-106); MAGNESIUM 1.9 mg/dL (1.8-2.4); POTASSIUM 4.1 mmol/L (3.5-5.1); SGOT/AST 59 U/L (15-37); SGPT/ALT 22 U/L (13-61); SODIUM 142 mmol/L (136-145); TOT PROT 5.6 g/dl (6.4-8.2)
[2018-02-03] MEDS: THIAMINE HCL 100 MG TABLET (FP) PO SCH (09:57)
[2018-02-03] MEDS: PANTOPRAZOLE 40 MG TABLET (FP) PO SCH ×2 (09:58→21:33)
[2018-02-03] MEDS: FUROSEMIDE 40 MG TABLET (FP) PO SCH (09:58)
[2018-02-03] MEDS: SPIRONOLACTONE 25 MG TABLET (FP) PO SCH (09:58)
[2018-02-03 10:04] LABS: ACANTHOCYTES 1+; ANISOCYTOSIS 2+; MACROCYTOSIS 0; OVALOCYTE 1+; PLATELET ESTIMATE DECREASED; TARGET CELLS 1+; TEAR DROP CELLS 1+
--- NOTE | 2018-02-03 20:16 | PN ---
Physical Exam: SUBJECTIVE: Patient seen and examined OBJECTIVE: Vital Signs Period Temp Pulse Resp BP Sys/Mcginnis Pulse Ox Last 24 Hr 98.2 F-99.2 F 87-95 18-20 112-118/66-74 95-95 GENERAL: Awake, alert, and fully oriented, in no acute distress. EYES: Pupils equal, round and reactive to light, injected conjunctiva, icteric sclera LUNGS: Breath sounds equal, clear to auscultation bilaterally. No wheezes, and no crackles. No accessory muscle use. HEART: Regular rate and rhythm, S1 and S2 ABDOMEN: Not as distended, tympanic, not tender; area of erythema resolving MUSCULOSKELETAL: Normal range of motion at all joints. No bony deformities or tenderness. No CVA tenderness. UPPER EXTREMITIES: 2+ pulses, warm, well-perfused. No cyanosis. No clubbing. No peripheral edema. LEFT LE: Edema and erythema continues to improve RIGHT LE: 2+ edema improved NEUROLOGICAL: Cranial nerves II-XII intact. Laboratory Results - last 24 hr 02/03/18 02/03/18 07:09 07:09 WBC 4.5 RBC 3.19 L Hgb 9.0 L Hct 28.2 L MCV 88.2 MCH 28.2 MCHC 32.0 RDW 19.3 H Plt Count 92 L MPV 8.0 Absolute Neuts (auto) 1.9 Neutrophils % 42.7 L Neutrophils % (Manual) 45.0 Band Neutrophils % 2.2 Lymphocytes % 28.9 D Lymphocytes % (Manual) 18.7 D Monocytes % 21.4 H Monocytes % (Manual) 21 H Eosinophils % 3.9 Eosinophils % (Manual) 3.3 Basophils % 3.1 H Basophils % (Manual) 3.3 H Myelocytes % (Man) 0 Promyelocytes % (Man) 0 Blast Cells % (Manual) 0 Nucleated RBC % 0 Metamyelocytes 0 Hypochromia 1+ Platelet Estimate Decreased Polychromasia 2+ Poikilocytosis 1+ Anisocytosis 2+ Microcytosis 2+ Macrocytosis 0 Target Cells 1+ Tear Drop Cells 1+ Ovalocytes 1+ Antoine Cells 1+ Acanthocytes (Spur) 1+ Sodium 142 Potassium 4.1 Chloride 106 Carbon Dioxide 26 Anion Gap 10 BUN 11 Creatinine 0.6 Creat Clearance w eGFR > 60 Random Glucose 84 Calcium 7.7 L Magnesium 1.9 Total Bilirubin 4.0 H Direct Bilirubin 2.2 H AST 59 H ALT 22 Alkaline Phosphatase 233 H Total Protein 5.6 L Albumin 2.1 L Active Medications Generic Name Dose Route Start Last Admin Trade Name Jaylyn PRN Reason Stop Dose Admin Chlordiazepoxide HCl 25 mg 01/31/18 20:18 Librium - PO 02/03/18 20:17 Q4H PRN WITHDRAWAL(CONT SUBST) Chlordiazepoxide HCl 10 mg 02/03/18 23:00 Librium - PO 02/04/18 17:01 [id number] STEPHEN Furosemide 40 mg 02/01/18 13:00 02/03/18 09:58 Lasix - PO 40 mg DAILY STEPHEN Administration Cefazolin Sodium 1 gm/ 50 mls @ 100 mls/hr 02/01/18 11:00 02/03/18 17:56 Dextrose IVPB 100 mls/hr Q8H-IV STEPHEN Administration Pantoprazole Sodium 40 mg 02/01/18 22:00 02/03/18 09:58 Protonix - PO 40 mg BID STEPHEN Administration Spironolactone 100 mg 02/01/18 13:00 02/03/18 09:58 Aldactone - PO 100 mg DAILY STEPHEN Administration Thiamine HCl 100 mg 02/02/18 10:00 02/03/18 09:57 Vitamin B1 - PO 100 mg DAILY STEPHEN Administration ASSESSMENT/PLAN 47 year-old male with a PMH significant for chronic alcohol abuse, cholecystitis , and pancreatitis. Admitted for RLE and abdominal cellulitis, and acute alcohol withdrawal. RLE Cellulitis Lower abdominal cellulitis --afebrile, no leukocytosis --01/31 CT LE: diffuse soft tissue edema bilateral lower extremities, no discrete abscess --continue cefazolin (day #3) --ID following Liver cirrhosis Ascites Splenomegaly --01/31 CTAP: moderate ascites throughout abdomen and pelvis; small and heterogenous liver c/w cirrhosis; mild splenomegaly --seen and evaluated by GI Dr. Diaz: likely alcoholic cirrhosis; will get paracentesis to exclude SBP and for cytology --continue spironolactone, lasix Chronic alcohol abuse Acute alcohol withdrawal h/o pancreatitis --lipase wnl --continue librium taper --protonix FEN Fluids: PO intake adequate Electrolytes: replete as indicated Nutrition: low sodium Dispo: continues to require inpatient care. Full code. Visit type - Emergency Visit Emergency Visit: Yes ED Registration Date: 01/31/18 Care time: The patient presented to the Emergency Department on the above date and was hospitalized for further evaluation of their emergent condition. - New Patient This patient is new to me today: No - Critical Care Critical Care patient: No
[2018-02-04 00:06] LABS: SERUM IRON SATURATION 21 % (15-55); TOTAL IRON BINDING CAPACITY 271 ug/dL (250-450); UIBC 213 ug/dL (111-343)
[2018-02-04] MEDS ORDERED: ceFAZolin SODIUM 1 GM VIAL ONE ×2 (02:18→09:06)
[2018-02-04] MEDS ORDERED: DEXTROSE 5%-WATER - 50 ML IVPB ONE ×2 (02:19→09:06)
[2018-02-04] MEDS: CEFAZOLIN 1 GM in DEXTROSE 5%-WATER - 50 ML IVPB SCH ×2 (02:34→09:09)
[2018-02-04] MEDS: chlordiazePOXIDE 5 MG CAPSULE PO SCH ×3 (05:36→17:00)
[2018-02-04 06:40] LABS: ANION GAP 7 MMOL/L (8-16); BLOOD UREA NITROGEN 12 mg/dL (7-18); CALCIUM 7.9 mg/dL (8.5-10.1); CHLORIDE 105 mmol/L (98-107); CO2 27 mmol/L (21-32); CREATININE 0.6 mg/dL (0.55-1.3); GLUCOSE,RANDOM 76 mg/dL (74-106); POTASSIUM 3.9 mmol/L (3.5-5.1); SODIUM 140 mmol/L (136-145)
[2018-02-04] MEDS: SPIRONOLACTONE 25 MG TABLET (FP) PO SCH (09:08)
[2018-02-04] MEDS: THIAMINE HCL 100 MG TABLET (FP) PO SCH (09:08)
[2018-02-04] MEDS: PANTOPRAZOLE 40 MG TABLET (FP) PO SCH ×2 (09:08→21:23)
[2018-02-04] MEDS: FUROSEMIDE 40 MG TABLET (FP) PO SCH (09:08)
--- NOTE | 2018-02-04 10:07 | PN ---
Physical Exam: SUBJECTIVE: Patient seen and examined OBJECTIVE: Vital Signs Period Temp Pulse Resp BP Sys/Mcginnis Pulse Ox Last 24 Hr 98.5 F-98.6 F 81-87 20-20 109-118/61-69 96 GENERAL: Awake, alert, and fully oriented, in no acute distress. EYES: Pupils equal, round and reactive to light, injected conjunctiva, icteric sclera LUNGS: Breath sounds equal, clear to auscultation bilaterally. No wheezes, and no crackles. No accessory muscle use. HEART: Regular rate and rhythm, S1 and S2 ABDOMEN: Not as distended, tympanic, not tender; area of erythema resolved MUSCULOSKELETAL: Normal range of motion at all joints. No bony deformities or tenderness. No CVA tenderness. UPPER EXTREMITIES: 2+ pulses, warm, well-perfused. No cyanosis. No clubbing. No peripheral edema. LEFT LE: Edema and erythema continues to improve RIGHT LE: 2+ edema improved NEUROLOGICAL: Cranial nerves II-XII intact. Laboratory Results - last 24 hr 02/02/18 02/03/18 02/04/18 07:16 07:09 05:30 Neutrophils % (Manual) 45.0 Band Neutrophils % 2.2 Lymphocytes % (Manual) 18.7 D Monocytes % (Manual) 21 H Eosinophils % (Manual) 3.3 Basophils % (Manual) 3.3 H Myelocytes % (Man) 0 Promyelocytes % (Man) 0 Blast Cells % (Manual) 0 Metamyelocytes 0 Hypochromia 1+ Platelet Estimate Decreased Polychromasia 2+ Poikilocytosis 1+ Anisocytosis 2+ Microcytosis 2+ Macrocytosis 0 Target Cells 1+ Tear Drop Cells 1+ Ovalocytes 1+ Antoine Cells 1+ Acanthocytes (Spur) 1+ Haptoglobin < 10 L Sodium 140 Potassium 3.9 Chloride 105 Carbon Dioxide 27 Anion Gap 7 L BUN 12 Creatinine 0.6 Creat Clearance w eGFR > 60 Random Glucose 76 Calcium 7.9 L Iron 58 TIBC 271 Iron Saturation 21 Tumor Marker AFP 3.3 CA 19-9 Antigen 99 H Hep C Ab Diagnostic 0.1 Current Medications Generic Name Dose Route Start Last Admin Trade Name Freq PRN Reason Stop Dose Admin Cephalexin HCl 500 mg 02/05/18 10:00 Keflex - PO 02/09/18 22:01 TID STEPHEN Chlordiazepoxide HCl 10 mg 02/03/18 23:00 02/04/18 12:14 Librium - PO 02/04/18 17:01 10 mg [id number] STEPHEN Administration Enoxaparin Sodium 40 mg 02/04/18 14:45 02/04/18 15:06 Lovenox - SQ 40 mg DAILY STEPHEN Administration Folic Acid 1 mg 02/04/18 15:00 02/04/18 15:06 Folic Acid - PO 1 mg DAILY STEPHEN Administration Furosemide 40 mg 02/01/18 13:00 02/04/18 09:08 Lasix - PO 40 mg DAILY STEPHEN Administration Pantoprazole Sodium 40 mg 02/01/18 22:00 02/04/18 09:08 Protonix - PO 40 mg BID STEPHEN Administration Spironolactone 100 mg 02/01/18 13:00 02/04/18 09:08 Aldactone - PO 100 mg DAILY STEPHEN Administration Thiamine HCl 100 mg 02/02/18 10:00 02/04/18 09:08 Vitamin B1 - PO 100 mg DAILY STEPHEN Administration ASSESSMENT/PLAN 47 year-old male with a PMH significant for chronic alcohol abuse, cholecystitis , and pancreatitis. Admitted for RLE and abdominal cellulitis, and acute alcohol withdrawal. RLE Cellulitis Lower abdominal cellulitis --afebrile, no leukocytosis --01/31 CT LE: diffuse soft tissue edema bilateral lower extremities, no discrete abscess --cefazolin x 4 doses complete; can switch to PO Keflex 500mg TID to complete 7 days of treatment --ID following Liver cirrhosis Ascites Splenomegaly --01/31 CTAP: moderate ascites throughout abdomen and pelvis; small and heterogenous liver c/w cirrhosis; mild splenomegaly --underwent paracentesis today, labs and cytology pending --continue spironolactone, lasix --GI Dr. Diaz following Hyperproteinemia Elevated CA19-9 --heme/onc consult requested Chronic alcohol abuse Acute alcohol withdrawal h/o pancreatitis --lipase wnl --continue librium taper --protonix --thiamine, folic acid FEN Fluids: PO intake adequate Electrolytes: replete as indicated Nutrition: low sodium Dispo: continues to require inpatient care. Full code. Visit type - Emergency Visit Emergency Visit: Yes ED Registration Date: 01/31/18 Care time: The patient presented to the Emergency Department on the above date and was hospitalized for further evaluation of their emergent condition. - New Patient This patient is new to me today: No - Critical Care Critical Care patient: No
[2018-02-04 13:49] LABS: ALBUMIN 2.1 g/dl (3.4-5.0); ALK PHOS 197 U/L (45-117); SGOT/AST 57 U/L (15-37); SGPT/ALT 20 U/L (13-61); TOT PROT 5.5 g/dl (6.4-8.2)
[2018-02-04 14:28] LABS: PERITONEAL RBC 435 /mm3
[2018-02-04] MEDS: FOLIC ACID 1 MG TABLET (FP) PO SCH (15:06)
[2018-02-04] MEDS: ENOXAPARIN NA (PORCINE) 40 MG/0.4 ML DISP.SYRIN SQ SCH (15:06)
--- NOTE | 2018-02-04 15:08 | PN ---
Progress Note (short form) - Note Progress Note: doing well s/p paracentesis today Vital Signs Period Temp Pulse Resp BP Sys/Mcginnis Pulse Ox Last 24 Hr 97.8 F-98.9 F 80-86 18-20 109-118/61-68 95-96 cor-rrr lungs clear abd soft,less ascities ext less edema, less erythema CBC, BMP 02/03/18 07:09 02/04/18 05:30 Microbiology 02/04/18 11:54 Abdomen JASMYN Preparation - Preliminary 02/04/18 11:54 Abdomen Fungal Culture - Preliminary 01/31/18 08:15 Blood - Peripheral Venous Blood Culture - Preliminary NO GROWTH OBTAINED AFTER 72 HOURS, INCUBATION TO CONTINUE FOR 2 DAYS. 01/31/18 20:35 Blood - Peripheral Venous Blood Culture - Preliminary NO GROWTH OBTAINED AFTER 72 HOURS, INCUBATION TO CONTINUE FOR 2 DAYS. 02/01/18 19:00 Urine - Urine Clean Catch Urine Culture - Final NO GROWTH OBTAINED Current Medications Chlordiazepoxide HCl (Librium -) 10 mg PO [id number]-[id number] STEPHEN Stop: 02/04/18 17:01 Last Admin: 02/04/18 12:14 Dose: 10 mg Enoxaparin Sodium (Lovenox -) 40 mg SQ DAILY [facility] Last Admin: 02/04/18 15:06 Dose: 40 mg Folic Acid (Folic Acid -) 1 mg PO DAILY STEPHEN Last Admin: 02/04/18 15:06 Dose: 1 mg Furosemide (Lasix -) 40 mg PO DAILY [facility] Last Admin: 02/04/18 09:08 Dose: 40 mg Cefazolin Sodium 1 gm/ (Dextrose) 50 mls @ 100 mls/hr IVPB Q8H-IV STEPHEN Last Admin: 02/04/18 09:09 Dose: 100 mls/hr Pantoprazole Sodium (Protonix -) 40 mg PO BID STEPHEN Last Admin: 02/04/18 09:08 Dose: 40 mg Spironolactone (Aldactone -) 100 mg PO DAILY STEPHEN Last Admin: 02/04/18 09:08 Dose: 100 mg Thiamine HCl (Vitamin B1 -) 100 mg PO DAILY [facility] Last Admin: 02/04/18 09:08 Dose: 100 mg a/p cellulitis resolving day #4 antiibotics can switch to po keflex 500 tid to complete 7 days liver cirrhosis- s/p paracentesis please call back if needed Problem List - Problems (1) Cellulitis Code(s): L03.90 - CELLULITIS, UNSPECIFIED (2) Peripheral edema Code(s): R60.9 - EDEMA, UNSPECIFIED (3) Liver cirrhosis, alcoholic Code(s): K70.30 - ALCOHOLIC CIRRHOSIS OF LIVER WITHOUT ASCITES
[2018-02-04 16:28] LABS: TRANSGLUTAMINASE IGA 16 U/mL (0-3); TRANSGLUTAMINASE IGG < 2 U/mL (0-5)
[2018-02-04 17:04] LABS: PERITONEAL FLUID LYMPHOCYTE 5 %; PERITONEAL FLUID MESOTHELIAL 91 %; PERITONEAL FLUID MONOCYTE 0 %; PERITONEAL FLUID NEUTROPHIL 4 %
--- NOTE | 2018-02-04 21:33 | CONSULT ---
Consult - text type - Consultation Consultation Note: Aaron Vigil is a 47yo man with a PMH of alcohol abuse (3-4 drinks per day) who presents complaining of bilateral leg swelling,increasing abdominal girth He had paracentesis done today Being treated for cellulitis He denies any recent fevers, chills, chest pain, SOB, abdominal pain, change in bowel habits, or urinary symptoms. Allergies/Adverse Reactions: Allergies Allergy/AdvReac Type Severity Reaction Status Date / Time No Known Drug Allergies Allergy Verified 01/31/18 11:33 cream cheese AdvReac Uncoded 01/31/18 11:33 Home Medications: Ambulatory Orders NK [No Known Home Medication] 01/31/18 - Surgical History Appendectomy: Yes - Suicide/Smoking/Psychosocial Hx Smoking History: Former smoker - Vital Signs AFVSS Cor: RSR, No murmurs, No gallops Lungs: Clear to P&A Abd: Soft, Normal bowel sounds, +ascites Ext:stasis dermatitis A/P Aaron Vigil is a 47yo man with a PMH of alcohol abuse, currently drinking 3-4 per day, who presents with bilateral LE edema L>R and increased abdominal girth. - s/p paracentesis being treated for cellulitis which is improving Elevated Ca19.9 -- ? falsely elevated from ascites. AFP--nl CT with contrast was unrevealing Will check MRI/MRCP elevated total protein/reversee AG ratio --due to cirrhosis unlikely monoclonal will order protein studies
[2018-02-05 06:06] LABS: HBSAG SCREEN Negative (Negative); HEP A AB, IGM Negative (Negative); HEP B CORE AB, TOT Negative (Negative)
[2018-02-05] MEDS: FUROSEMIDE 40 MG TABLET (FP) PO SCH (09:25)
[2018-02-05] MEDS: CEPHALEXIN MONOHYDRATE 500 MG CAPSULE (UD) PO SCH ×3 (09:25→21:34)
[2018-02-05] MEDS: PANTOPRAZOLE 40 MG TABLET (FP) PO SCH ×2 (09:25→21:34)
[2018-02-05] MEDS: THIAMINE HCL 100 MG TABLET (FP) PO SCH (09:25)
[2018-02-05] MEDS: FOLIC ACID 1 MG TABLET (FP) PO SCH (09:25)
[2018-02-05] MEDS: SPIRONOLACTONE 25 MG TABLET (FP) PO SCH (09:25)
[2018-02-05 11:12] LABS: EOS % 6.7 % (0-4.5); HEMATOCRIT 32.5 % (35.4-49); HEMOGLOBIN 10.4 GM/dL (11.7-16.9); LYMPH % 30.7 % (8-40); MCH 28.7 pg (25.7-33.7); MCHC 31.9 g/dl (32.0-35.9); MEAN PLT VOLUME 8.1 fl (7.5-11.1); MONO % 22.4 % (3.8-10.2); NEUT % 35.2 % (42.8-82.8); PLATELET COUNT 106 K/MM3 (134-434); RBC 3.62 M/mm3 (4.00-5.60); RDW 19.5 % (11.9-15.9); WHITE BLOOD COUNT 3.4 K/mm3 (4.0-10.0)
--- NOTE | 2018-02-05 11:33 | PN ---
Physical Exam: SUBJECTIVE: Patient seen and examined at the bedside. Denies pain, denies shortness of breath. OBJECTIVE: Vital Signs Period Temp Pulse Resp BP Sys/Mcginnis Pulse Ox Last 24 Hr 97.8 F-99.1 F 78-94 18-20 106-122/58-68 95-96 GENERAL: The patient is awake, alert, and fully oriented, in no acute distress. HEAD: Normal with no signs of trauma. EYES: PERRL, extraocular movements intact, sclera anicteric, conjunctiva clear. No ptosis. ENT: Ears normal, nares patent, oropharynx clear without exudates, moist mucous membranes. NECK: Trachea midline, full range of motion, supple. LUNGS: Breath sounds equal, clear to auscultation bilaterally HEART: Regular rate and rhythm Laboratory Results - last 24 hr 02/01/18 02/02/18 02/04/18 06:30 07:16 05:30 WBC RBC Hgb Hct MCV MCH MCHC RDW Plt Count MPV Absolute Neuts (auto) Neutrophils % Lymphocytes % Monocytes % Eosinophils % Basophils % Nucleated RBC % Sodium 140 Potassium 3.9 Chloride 105 Carbon Dioxide 27 Anion Gap 7 L BUN 12 Creatinine 0.6 Creat Clearance w eGFR > 60 Random Glucose 76 Calcium 7.9 L Total Bilirubin 4.0 H Direct Bilirubin 2.0 H AST 57 H ALT 20 Alkaline Phosphatase 197 H Total Protein 5.5 L Albumin 2.1 L Peritoneal WBC Peritoneal RBC Periton Neutrophils Periton Lymphocytes Peritoneal Monocytes Periton Mesothelial Smooth Musc &STEEP TENDER Intrp 19 Tiss Transglutamin IgG < 2 Tiss Transglutamin IgA 16 H Hep A IgM Ab Confirm Negative Hepatitis A Ab Total Positive H Hep Bs Antigen Negative Hep Bs Antibody Non reactive Hep B Core Total Ab Negative Blood Type O POSITIVE Antibody Screen Negative Crossmatch See Detail 02/04/18 02/05/18 11:54 11:00 WBC 3.4 L RBC 3.62 L Hgb 10.4 L Hct 32.5 L D MCV 90.0 MCH 28.7 MCHC 31.9 L RDW 19.5 H Plt Count 106 L MPV 8.1 Absolute Neuts (auto) 1.2 L Neutrophils % 35.2 L Lymphocytes % 30.7 Monocytes % 22.4 H Eosinophils % 6.7 H Basophils % 5.0 H Nucleated RBC % 0 Sodium Potassium Chloride Carbon Dioxide Anion Gap BUN Creatinine Creat Clearance w eGFR Random Glucose Calcium Total Bilirubin Direct Bilirubin AST ALT Alkaline Phosphatase Total Protein Albumin Peritoneal WBC 66 Peritoneal RBC 435 Periton Neutrophils 4 Periton Lymphocytes 5 Peritoneal Monocytes 0 Periton Mesothelial 91 Smooth Musc &STEEP TENDER Intrp Tiss Transglutamin IgG Tiss Transglutamin IgA Hep A IgM Ab Confirm Hepatitis A Ab Total Hep Bs Antigen Hep Bs Antibody Hep B Core Total Ab Blood Type Antibody Screen Crossmatch Active Medications Generic Name Dose Route Start Last Admin Trade Name Freq PRN Reason Stop Dose Admin Cephalexin HCl 500 mg 02/05/18 10:00 02/05/18 09:25 Keflex - PO 02/09/18 22:01 500 mg TID STEPHEN Administration Enoxaparin Sodium 40 mg 02/04/18 14:45 02/04/18 15:06 Lovenox - SQ 40 mg DAILY STEPHEN Administration Folic Acid 1 mg 02/04/18 15:00 02/05/18 09:25 Folic Acid - PO 1 mg DAILY STEPHEN Administration Furosemide 40 mg 02/01/18 13:00 02/05/18 09:25 Lasix - PO 40 mg DAILY STEPHEN Administration Pantoprazole Sodium 40 mg 02/01/18 22:00 02/05/18 09:25 Protonix - PO 40 mg BID STEPHEN Administration Spironolactone 100 mg 02/01/18 13:00 02/05/18 09:25 Aldactone - PO 100 mg DAILY STEPHEN Administration Thiamine HCl 100 mg 02/02/18 10:00 02/05/18 09:25 Vitamin B1 - PO 100 mg DAILY STEPHEN Administration ASSESSMENT/PLAN: Patient is a 47 year old male with a significant past medical history of chronic alcohol abuse, cholecystitis, and pancreatitis. Presented to the ED with c/o of bilateral lower extremity pain and swelling x 1 week and increased abdominal girth. He is being admitted for LLE and abdominal cellulitis, and acute alcohol withdrawal. Patient currently lives in a long term and has poor medical follow up. Imaging: -vascular study, negative for dvt. -lower ext ct: moderate ascites, small and heterogenous liver consistent with cirrhosis, mild splenomegaly, irregulariety of the right colon suspicious for colitis, diffuse soft tissue edema of bilateral lower ext. no abscess. ID: Lower ext cellulitis CT LE consistent with lower ext edema on bilateral lower ext. no abscess. Patient treated with Cefazolin and transitioned to Keflex 500mg TID x 7 days of treatment. ID following GI: Liver cirrhosis Ascites Splenomegaly Patient underwent paracentesis on 02/04. cytology pending. On spironlactone and Lasix. GI following. Heme/Onc: Elevated CA19-9: Heme following. patient for abdominal MRI to exclude mass lesion. Oncology following. Thrombocytopenia: improving daily. monitor in the abstinence of alcohol. Psyche: Chronic alcohol abuse Completed librium taper. Continue thiamine, folic acid. fen PO intake sufficient monitor electrolytes low salt diet prophy on Lovenox Visit type - Emergency Visit Emergency Visit: Yes ED Registration Date: 01/31/18 Care time: The patient presented to the Emergency Department on the above date and was hospitalized for further evaluation of their emergent condition. - New Patient This patient is new to me today: No - Critical Care Critical Care patient: No - Discharge Referral Referred to [facility] Med P.C.: No
[2018-02-05] MEDS: ENOXAPARIN NA (PORCINE) 40 MG/0.4 ML DISP.SYRIN SQ SCH (11:45)
[2018-02-05 11:58] LABS: ALBUMIN 2.6 g/dl (3.4-5.0); ALK PHOS 255 U/L (45-117); ANION GAP 6 MMOL/L (8-16); BILIRUBIN,TOTAL 4.1 mg/dL (0.2-1); BLOOD UREA NITROGEN 14 mg/dL (7-18); CALCIUM 8.4 mg/dL (8.5-10.1); CHLORIDE 104 mmol/L (98-107); CO2 27 mmol/L (21-32); CREATININE 0.7 mg/dL (0.55-1.3); GLUCOSE,RANDOM 95 mg/dL (74-106); POTASSIUM 3.9 mmol/L (3.5-5.1); SGOT/AST 72 U/L (15-37); SGPT/ALT 24 U/L (13-61); SODIUM 137 mmol/L (136-145); TOT PROT 6.8 g/dl (6.4-8.2)
[2018-02-05 12:16] LABS: ANISOCYTOSIS 1+; MACROCYTOSIS 1+; OVALOCYTE 1+; PLATELET ESTIMATE DECREASED; TARGET CELLS 1+
--- NOTE | 2018-02-05 15:02 | PN ---
GI Progress Note Subjective: No acute events Had paracentesis: No SBP noted: Chemistries from peritoneal fluid still pending - Objective Vital Signs: Vital Signs Temperature 98.0 F 02/05/18 10:00 Pulse Rate 78 02/05/18 10:00 Respiratory Rate 18 02/05/18 10:00 Blood Pressure 108/64 02/05/18 10:00 O2 Sat by Pulse Oximetry (%) 96 02/05/18 09:00 Constitutional: Calm Eyes: Yes: Sclera Icterus Cardiovascular: Yes: Regular Rate and Rhythm Respiratory: Yes: Diminished (at bases bilaterally) Gastrointestinal Inspection: Yes: Ascites, Distention ...Auscultate: Yes: Normoactive Bowel Sounds ...Palpate: No: Hepatomegaly, Splenomegaly, Tenderness ...Percussion: No: Tympanitic Edema: No (No LE edema) Labs: CBC, BMP 02/05/18 11:00 02/05/18 11:00 INR, PTT INR 1.84 (0.83-1.09) H 02/01/18 06:30 Laboratory Tests 02/02/18 07:16 CA 19-9 Antigen 99 H Hep Bs Antibody Non reactive Hep C Ab Diagnostic 0.1 Problem List - Problems (1) Liver cirrhosis, alcoholic Assessment/Plan: with component of alcoholic hepatitis Elevated CA 19-9 of 99. Suspect bump in CA 19-9 secondary to cholestasis itself but patient having MRI of abdomen performed to exclude mass lesion Daily weights, I's and O's Advised alcohol abstinence Needs Hep B vaccination Code(s): K70.30 - ALCOHOLIC CIRRHOSIS OF LIVER WITHOUT ASCITES
[2018-02-06] MEDS: CEPHALEXIN MONOHYDRATE 500 MG CAPSULE (UD) PO SCH ×3 (06:16→22:10)
[2018-02-06 07:39] LABS: BASO % 4.2 % (0-2.0); EOS % 6.1 % (0-4.5); HEMATOCRIT 26.3 % (35.4-49); HEMOGLOBIN 8.4 GM/dL (11.7-16.9); LYMPH % 31.9 % (8-40); MCHC 31.9 g/dl (32.0-35.9); MEAN CELL VOLUME 87.7 fl (80-96); MONO % 27.7 % (3.8-10.2); NEUT % 30.1 % (42.8-82.8); PLATELET COUNT 80 K/MM3 (134-434); RDW 18.9 % (11.9-15.9); WHITE BLOOD COUNT 3.2 K/mm3 (4.0-10.0)
[2018-02-06 08:11] LABS: ALK PHOS 238 U/L (45-117); ANION GAP 6 MMOL/L (8-16); BILIRUBIN,TOTAL 2.9 mg/dL (0.2-1); BLOOD UREA NITROGEN 16 mg/dL (7-18); CALCIUM 7.7 mg/dL (8.5-10.1); CHLORIDE 106 mmol/L (98-107); CO2 27 mmol/L (21-32); CREATININE 0.6 mg/dL (0.55-1.3); GLUCOSE,RANDOM 75 mg/dL (74-106); MAGNESIUM 1.8 mg/dL (1.8-2.4); POTASSIUM 3.9 mmol/L (3.5-5.1); SGOT/AST 53 U/L (15-37); SGPT/ALT 21 U/L (13-61); SODIUM 139 mmol/L (136-145); TOT PROT 5.6 g/dl (6.4-8.2)
[2018-02-06 09:44] LABS: ANISOCYTOSIS 1+; MACROCYTOSIS 1+; PLATELET ESTIMATE DECREASED; TARGET CELLS 1+
--- NOTE | 2018-02-06 09:50 | PATH ---
Cytology Non-Gynecological Report Patient Name: KOJO BETANCOURT [facility]. Rec. #: [id number] /Age/Gender: 1970 (Age: 47) / M Account: [id number] Location: [address] [place] [address]/[facility] Taken: 02/04/2018 Received: 02/04/2018 Reported: 02/06/2018 Physicians: Valentina Dan M.D. Specimen(s) Received A: PERITONEAL FLUID RECEIVED IN 50% B: PERITONEAL FLUID RECEIVED FRESH Clinical History Ascites Final Diagnosis ABDOMINAL FLUID, PARACENTESIS: SATISFACTORY FOR EVALUATION. NO MALIGNANT CELLS IDENTIFIED. MESOTHELIAL CELLS, MACROPHAGES, AND LYMPHOCYTES PRESENT. Electronically Signed Anjelica Banks M.D. Gross Description A. Approximately 50cc of yellow fluid received fixed in 50% alcohol. One cytofunnel and one cellblock prepared. B. Approximately 2000cc of yellow fluid received fresh. One cytofunnel and one cellblock prepared.
[2018-02-06] MEDS: ENOXAPARIN NA (PORCINE) 40 MG/0.4 ML DISP.SYRIN SQ SCH (10:43)
[2018-02-06] MEDS: SPIRONOLACTONE 25 MG TABLET (FP) PO SCH (10:43)
[2018-02-06] MEDS: PANTOPRAZOLE 40 MG TABLET (FP) PO SCH ×2 (10:43→22:10)
[2018-02-06] MEDS: FUROSEMIDE 40 MG TABLET (FP) PO SCH (10:43)
[2018-02-06] MEDS: FOLIC ACID 1 MG TABLET (FP) PO SCH (10:43)
[2018-02-06] MEDS: THIAMINE HCL 100 MG TABLET (FP) PO SCH (10:43)
[2018-02-06 12:44] LABS: TOTAL PROTEIN,PERITONEAL FLUID 1 gm/dL
[2018-02-06] MEDS ORDERED: FLU VACCINE QUAD 60 MCG/0.5 ML (MDV 18-19) IM ONE (14:53)
--- NOTE | 2018-02-06 16:52 | PN ---
Physical Exam: SUBJECTIVE: Patient seen and examined at the bedside. denies pain or shortness of breath. stated that he had one episode of GI bleed, not witnessed, but his hmg/hct did drop Stool occult ordered. OBJECTIVE: Discontinue lovenox stool for occult blood ordered already on protonix bid hmg/hct did drop 2 points Vital Signs Period Temp Pulse Resp BP Sys/Mcginnis Pulse Ox Last 24 Hr 98 F-99.1 F 83-95 19-21 104-115/59-65 96-97 GENERAL: The patient is awake, alert, and fully oriented, in no acute distress, withdrawn. HEAD: Normal with no signs of trauma. EYES: PERRL, extraocular movements intact, sclera anicteric, conjunctiva clear. No ptosis. ENT: Ears normal, nares patent, oropharynx clear without exudates, moist mucous membranes. NECK: Trachea midline, full range of motion, supple. LUNGS: Breath sounds equal, clear to auscultation bilaterally HEART: Regular rate and rhythm Laboratory Results - last 24 hr 02/04/18 02/06/18 02/06/18 11:54 06:30 06:30 WBC 3.2 L RBC 3.00 L Hgb 8.4 L Hct 26.3 L D MCV 87.7 MCH 28.0 MCHC 31.9 L RDW 18.9 H Plt Count 80 L D MPV 8.0 Absolute Neuts (auto) 0.9 L Neutrophils % 30.1 L Neutrophils % (Manual) 35.4 L Band Neutrophils % 0.0 Lymphocytes % 31.9 Lymphocytes % (Manual) 28.3 Monocytes % 27.7 H Monocytes % (Manual) 21 H Eosinophils % 6.1 H Eosinophils % (Manual) 10.1 H D Basophils % 4.2 H Basophils % (Manual) 4.0 H Myelocytes % (Man) 1 D Promyelocytes % (Man) 0 Blast Cells % (Manual) 0 Nucleated RBC % 0 Metamyelocytes 0 Hypochromia 1+ Platelet Estimate Decreased Polychromasia 1+ Poikilocytosis 1+ Anisocytosis 1+ Microcytosis 1+ Macrocytosis 1+ Target Cells 1+ Schistocytes 1+ Sodium Potassium Chloride Carbon Dioxide Anion Gap BUN Creatinine Creat Clearance w eGFR Random Glucose Calcium Magnesium Total Bilirubin AST ALT Alkaline Phosphatase Total Protein Albumin Fzibn-2-Qkmzlyrhz (%) Cancelled Djbco-9-Xorjdkxfi (%) Cancelled Beta Globulins (%) Cancelled Gamma Globulins (%) Cancelled M-Juan Carlos % Cancelled Peritoneal Tot Protein 1 Peritoneal Albumin 1 Peritoneal LDH 50 Peritoneal Glucose 131 Peritoneal Amylase 62 Peritoneal Triglycerid 17 Ref Test Comments Cancelled 02/06/18 06:30 WBC RBC Hgb Hct MCV MCH MCHC RDW Plt Count MPV Absolute Neuts (auto) Neutrophils % Neutrophils % (Manual) Band Neutrophils % Lymphocytes % Lymphocytes % (Manual) Monocytes % Monocytes % (Manual) Eosinophils % Eosinophils % (Manual) Basophils % Basophils % (Manual) Myelocytes % (Man) Promyelocytes % (Man) Blast Cells % (Manual) Nucleated RBC % Metamyelocytes Hypochromia Platelet Estimate Polychromasia Poikilocytosis Anisocytosis Microcytosis Macrocytosis Target Cells Schistocytes Sodium 139 Potassium 3.9 Chloride 106 Carbon Dioxide 27 Anion Gap 6 L BUN 16 Creatinine 0.6 Creat Clearance w eGFR > 60 Random Glucose 75 Calcium 7.7 L Magnesium 1.8 Total Bilirubin 2.9 H AST 53 H ALT 21 Alkaline Phosphatase 238 H Total Protein 5.6 L Albumin 2.0 L Aosiu-0-Bmfwzagim (%) Yimfz-8-Pfubgexmv (%) Beta Globulins (%) Gamma Globulins (%) M-Juan Carlos % Peritoneal Tot Protein Peritoneal Albumin Peritoneal LDH Peritoneal Glucose Peritoneal Amylase Peritoneal Triglycerid Ref Test Comments Active Medications Generic Name Dose Route Start Last Admin Trade Name Freq PRN Reason Stop Dose Admin Cephalexin HCl 500 mg 02/05/18 10:00 02/06/18 14:18 Keflex - PO 02/09/18 22:01 500 mg TID STEPHEN Administration Folic Acid 1 mg 02/04/18 15:00 02/06/18 10:43 Folic Acid - PO 1 mg DAILY STEPHEN Administration Furosemide 40 mg 02/01/18 13:00 02/06/18 10:43 Lasix - PO 40 mg DAILY STEPHEN Administration Pantoprazole Sodium 40 mg 02/01/18 22:00 02/06/18 10:43 Protonix - PO 40 mg BID STEPHEN Administration Spironolactone 100 mg 02/01/18 13:00 02/06/18 10:43 Aldactone - PO 100 mg DAILY STEPHEN Administration Thiamine HCl 100 mg 02/02/18 10:00 02/06/18 10:43 Vitamin B1 - PO 100 mg DAILY STEPHEN Administration ASSESSMENT/PLAN: Patient is a 47 year old male with a significant past medical history of chronic alcohol abuse, cholecystitis, and pancreatitis. Presented to the ED with c/o of bilateral lower extremity pain and swelling x 1 week and increased abdominal girth. He is being admitted for LLE and abdominal cellulitis, and acute alcohol withdrawal. Patient currently lives in a half-way and has poor medical follow up. Imaging: -vascular study, negative for dvt. -lower ext ct: moderate ascites, small and heterogenous liver consistent with cirrhosis, mild splenomegaly, irregulariety of the right colon suspicious for colitis, diffuse soft tissue edema of bilateral lower ext. no abscess. - mrcp 02/05/18. cirrhotic liver, no masses seen. ID: Lower ext cellulitis: CT LE consistent with lower ext edema on bilateral lower ext. no abscess. Patient treated with Cefazolin and transitioned to Keflex 500mg TID x 6 days of treatment. GI: Liver cirrhosis Ascites Splenomegaly Patient underwent paracentesis on 02/04. cytology pending. On spironlactone and Lasix. GI following. Patient reports one episode of bright red blood, lovenox stopped. On protonix bid. Monitor overnight. Heme/Onc: Elevated CA19-9: Heme following. Thrombocytopenia: monitor in the abstinence of alcohol. Psyche: Chronic alcohol abuse: Completed librium taper. Continue thiamine, folic acid. Has been given referrals for outpatient follow up. fen PO intake sufficient monitor electrolytes low salt diet prophy discontinue lovenox. discharge tomorrow if hmt/hct remains stable. Visit type - Emergency Visit Emergency Visit: Yes ED Registration Date: 01/31/18 Care time: The patient presented to the Emergency Department on the above date and was hospitalized for further evaluation of their emergent condition. - New Patient This patient is new to me today: No - Critical Care Critical Care patient: No - Discharge Referral Referred to [facility] Med P.C.: No
[2018-02-07 06:09] LABS: IGM IMMUNOGLOBULIN 180 mg/dL (20-172)
[2018-02-07] MEDS: CEPHALEXIN MONOHYDRATE 500 MG CAPSULE (UD) PO SCH (06:15)
[2018-02-07 08:34] LABS: BASO % 4.3 % (0-2.0); EOS % 5.6 % (0-4.5); HEMATOCRIT 33.4 % (35.4-49); HEMOGLOBIN 10.6 GM/dL (11.7-16.9); LYMPH % 20.9 % (8-40); MCH 28.3 pg (25.7-33.7); MCHC 31.8 g/dl (32.0-35.9); MEAN CELL VOLUME 89.1 fl (80-96); MEAN PLT VOLUME 8.5 fl (7.5-11.1); MONO % 15.2 % (3.8-10.2); PLATELET COUNT 90 K/MM3 (134-434); RBC 3.75 M/mm3 (4.00-5.60); WHITE BLOOD COUNT 3.4 K/mm3 (4.0-10.0)
--- NOTE | 2018-02-07 10:14 | DS ---
Physical Exam: SUBJECTIVE: Patient seen and examined at the bedside. feels well. unfortunately patient does not have a home to be discharged to and will be going to a halfway. SW and I spoke to him about [facility] clinic for follow up and monitoring He was informed to abstain from alcohol and has resources that he can follow up with for support. OBJECTIVE: continue PO antibiotics, all meds called into [facility] Vital Signs Period Temp Pulse Resp BP Sys/Mcginnis Pulse Ox Last 24 Hr 98.5 F-99.5 F 67-95 20-20 104-112/59-68 97 PHYSICAL EXAM GENERAL: The patient is awake, alert, and fully oriented, in no acute distress, withdrawn. HEAD: Normal with no signs of trauma. EYES: PERRL, extraocular movements intact, sclera anicteric, conjunctiva clear. No ptosis. ENT: Ears normal, nares patent, oropharynx clear without exudates, moist mucous membranes. NECK: Trachea midline, full range of motion, supple. LUNGS: Breath sounds equal, clear to auscultation bilaterally HEART: Regular rate and rhythm EXTREMITIES: no edema, no redness. LABS Laboratory Results - last 24 hr 02/04/18 02/06/18 02/06/18 11:54 06:30 06:30 WBC RBC Hgb Hct MCV MCH MCHC RDW Plt Count MPV Absolute Neuts (auto) Neutrophils % Neutrophils % (Manual) Band Neutrophils % Lymphocytes % Lymphocytes % (Manual) Monocytes % Monocytes % (Manual) Eosinophils % Eosinophils % (Manual) Basophils % Basophils % (Manual) Myelocytes % (Man) Promyelocytes % (Man) Blast Cells % (Manual) Nucleated RBC % Metamyelocytes Hypochromia Platelet Estimate Polychromasia Poikilocytosis Anisocytosis Microcytosis Macrocytosis Target Cells Schistocytes Thisd-2-Bgkwbojbg (%) Cancelled Trsky-3-Bkbdunkhp (%) Cancelled Beta Globulins (%) Cancelled Gamma Globulins (%) Cancelled M-Juan Carlos % Cancelled Peritoneal Tot Protein 1 Peritoneal Albumin 1 Peritoneal LDH 50 Peritoneal Glucose 131 Peritoneal Amylase 62 Peritoneal Triglycerid 17 IgG 1067 IgM 180 H IEP IgG 1060 IEP IgA 1074 H Ref Test Comments Cancelled 02/06/18 02/07/18 06:30 08:20 WBC 3.4 L RBC 3.75 L Hgb 10.6 L Hct 33.4 L D MCV 89.1 MCH 28.3 MCHC 31.8 L RDW 19.0 H Plt Count 90 L MPV 8.5 Absolute Neuts (auto) 1.8 Neutrophils % 54.0 D Neutrophils % (Manual) 35.4 L Band Neutrophils % 0.0 Lymphocytes % 20.9 D Lymphocytes % (Manual) 28.3 Monocytes % 15.2 H Monocytes % (Manual) 21 H Eosinophils % 5.6 H Eosinophils % (Manual) 10.1 H D Basophils % 4.3 H Basophils % (Manual) 4.0 H Myelocytes % (Man) 1 D Promyelocytes % (Man) 0 Blast Cells % (Manual) 0 Nucleated RBC % 0 Metamyelocytes 0 Hypochromia 1+ Platelet Estimate Decreased Polychromasia 1+ Poikilocytosis 1+ Anisocytosis 1+ Microcytosis 1+ Macrocytosis 1+ Target Cells 1+ Schistocytes 1+ Yzzrp-2-Hgwmltfzz (%) Ugaym-4-Emiqoeagw (%) Beta Globulins (%) Gamma Globulins (%) M-Juan Carlos % Peritoneal Tot Protein Peritoneal Albumin Peritoneal LDH Peritoneal Glucose Peritoneal Amylase Peritoneal Triglycerid IgG IgM IEP IgG IEP IgA Ref Test Comments HOSPITAL COURSE: Patient is a 47 year old male with a significant past medical history of chronic alcohol abuse, cholecystitis, and pancreatitis. Presented to the ED with c/o of bilateral lower extremity pain and swelling x 1 week and increased abdominal girth. He was admitted for LLE and abdominal cellulitis, and acute alcohol withdrawal. Patient currently lives in a halfway and has poor medical follow up. Imaging: -vascular study, negative for dvt. -lower ext ct: moderate ascites, small and heterogenous liver consistent with cirrhosis, mild splenomegaly, irregularity of the right colon suspicious for colitis, diffuse soft tissue edema of bilateral lower ext. no abscess. - mrcp 02/05/18. cirrhotic liver, no masses seen. ID: Lower ext cellulitis: CT LE consistent with lower ext edema on bilateral lower ext. no abscess. Patient treated with Cefazolin and transitioned to Keflex 500mg TID x 6 more days of treatment. Discussed importance of continuing this medication as prescribed. GI: Liver cirrhosis Ascites Splenomegaly Patient underwent paracentesis on 02/04. On spironlactone and Lasix. Patient reported one episode of bright red blood stool yesterday and Lovenox was discontinued. Pt denies any further blood in his stool. Will continue on protonix daily as an outpatient. hmg/hct stable. Repeat labs as an outpatient. Heme/Onc: Elevated CA19-9: likely falsely elevated 2/2 to ascites. Thrombocytopenia: monitor in the abstinence of alcohol. Psyche: Chronic alcohol abuse: Completed librium taper. Continue thiamine, folic acid. Has been given referrals for outpatient follow up. discharge to halfway, referrals given by JEANETTE. Patient to follow up at low cost clinic, [facility] as well as [address] [place] [address] for help with ETOH abuse. Date of Admission:01/31/18 Date of Discharge: 02/07/18 Minutes to complete discharge: 60 Discharge Summary Reason For Visit: ABN BILIRUBIN TEST,PERIPHERAL EDEMA Current Active Problems Abnormal bilirubin test (Acute) Alcoholism (Acute) Ascites due to alcoholic cirrhosis (Acute) Cellulitis (Acute) Jaundice, hepatocellular (Acute) Liver cirrhosis, alcoholic (Acute) Pancytopenia (Acute) Peripheral edema (Acute) Sludge in gallbladder (Acute) Condition: Stable - Instructions Diet, Activity, Other Instructions: Mr Vigil You will be discharged today. You will be sent home with antibiotics for 5 more days. Please take Keflex three times per day for 5 more days. Take at 8am , 3pm and 8pm. This antibiotic is for your infection of the legs. After the infection is cleared, we recommend that you follow up with a primary care doctor at [facility] for a physical exam. Please bring in your discharge paperwork with you to your appointment. Here is what we recommend: Lower ext cellulitis/infection: continue Keflex 500mg, three times per day for 6 more days of treatment. Liver cirrhosis We removed 2000 cc from your abdomen on 02/04/2018. Continue taking the Spironalctone, Lasix. If you experience shortness of breath, please return to the ER. Alcohol Use: It is important that you abstain from alcohol. You life depends on stopping alcohol. You liver shows since of alcohol abuse and that is why you developed fluid in your abdomen called ascites. You will need the hepatitis B vaccine. This vaccine can be given to you at the clinic at [facility]. The vaccine is given in 3 doses and will protect you against hepatitis B. New medications: -Lasix 40mg daily -Keflex 500mg three tmes per day for 5 more days -folic acid 1mg, take daily -protonix 40mg take daily -Thiamine 100mg take daily -sprionolactone 100mg, take daily Here is the clinic information: [address] [address] [phone] Referrals: Rodrigo Bocanegra MD [Staff Physician] - Mariela Booker MD [Staff Physician] - 2 Weeks Disposition: HOME - Home Medications Comprehensive Discharge Medication List: Ambulatory Orders NK [No Known Home Medication] 01/31/18 This patient is new to me today: No Emergency Visit: Yes ED Registration Date: 01/31/18 Care time: The patient presented to the Emergency Department on the above date and was hospitalized for further evaluation of their emergent condition. Critical Care patient: No - Discharge Referral Referred to [facility] No
[2018-02-07] MEDS: PANTOPRAZOLE 40 MG TABLET (FP) PO SCH (11:00)
[2018-02-07] MEDS: SPIRONOLACTONE 25 MG TABLET (FP) PO SCH (11:00)
[2018-02-07] MEDS: FUROSEMIDE 40 MG TABLET (FP) PO SCH (11:00)
[2018-02-07] MEDS: THIAMINE HCL 100 MG TABLET (FP) PO SCH (11:00)
[2018-02-07] MEDS: FOLIC ACID 1 MG TABLET (FP) PO SCH (11:00)
[2018-02-07 12:59] VITALS: BP 114/65; PULSE 82; TEMP 98
[2018-02-20 14:55] LABS: IGA IMMUNOGLOBULIN 1074
== END 2018-02-07 13:26 | disposition home or self-care (01) | DRG 264 ==
LOC: JER 11:06 → JERBED 14:14 → J6S 18:30
PROVIDERS: ADMIT Internal Medicine; ATTEND Nurse Practitioner Family
PROC: 0W9G3ZX Drainage of Peritoneal Cavity, Percutaneous Approach, Diagnostic (ICD-10-PCS; principal; 2018-02-04)
DX: K70.31 Alcoholic cirrhosis of liver with ascites (principal); D61.818 Other pancytopenia; D69.6 Thrombocytopenia, unspecified; L03.115 Cellulitis of right lower limb; R16.1 Splenomegaly, not elsewhere classified; E88.09 Other disorders of plasma-protein metabolism, not elsewhere classified; Z87.891 Personal history of nicotine dependence; F10.230 Alcohol dependence with withdrawal, uncomplicated
CPT/HCPCS: 36415; 36430; 71046-TC-FY; 73701-TC-RT; 74177-TC; 74182-TC; 76942-TC; 80048; 80053; 80061; 80076; 80307; 81003; 82042; 82105; 82140; 82150; 82272; 82550; 82553; 82607; 82728; 82746; 82784; 82945; 83010; 83516; 83540; 83550; 83615; 83690; 83721; 83735; 83880; 84100; 84155; 84157; 84165; 84478; 84484; 85025; 85044; 85610; 85730; 86301; 86334; 86704; 86706; 86708; 86803; 86850; 86900; 86901; 86922; 87040; 87070; 87075; 87086; 87102; 87116; 87205; 87206; 87210; 87340; 88108; 88305-TC; 89051; 90688; 93005; 93010; 93970-TC; 97116-GP; 97161-GP; 99283-25; G0008; J7030; P9038; P9058

== ENCOUNTER 2018-09-29 21:52 | Inpatient (IN) | payer OTHER ==
--- NOTE | 2018-09-29 22:45 | PDOC ---
History of Present Illness - General Chief Complaint: Back Pain Stated Complaint: INTOXICATION Time Seen by Provider: 09/29/18 22:00 History Source: Patient Exam Limitations: No Limitations - History of Present Illness Initial Comments: 09/29/18 22:40 48M with a PMH of EtOH abuse who presents to the ER for complaints of back and knee pain. The patient states that he fell 3 days ago without hitting his head. He states that he injured his L knee during the fall. He admits to drinking "a few beers" today. He denies syncope. He denies fever, chills, nausea, vomiting, numbness, tingling, and weakness. Past History - Past Medical History Allergies/Adverse Reactions: Allergies Allergy/AdvReac Type Severity Reaction Status Date / Time No Known Drug Allergies Allergy Verified 09/29/18 21:58 cream cheese AdvReac Uncoded 09/29/18 21:58 Home Medications: Ambulatory Orders Cephalexin Monohydrate [Keflex -] 500 mg PO Q8H #18 capsule 02/07/18 Folic Acid 1 mg PO DAILY #30 tablet 02/07/18 Furosemide [Lasix] 40 mg PO DAILY #30 tablet 02/07/18 Pantoprazole Sodium [Protonix] 40 mg PO DAILY #30 tablet.dr 02/07/18 Spironolactone [Aldactone] 100 mg PO DAILY #30 tablet 02/07/18 Thiamine HCl [Vitamin B-1] 100 mg PO DAILY #30 tablet 02/07/18 Docusate Sodium 100 mg PO DAILY 09/30/18 Ferrous Sulfate 325 mg PO DAILY 09/30/18 Sennosides [Senna] 8.6 mg PO DAILY 09/30/18 Anemia: No Asthma: No Cancer: No Cardiac Disorders: No CVA: No COPD: No CHF: No Dementia: No Diabetes: No GI Disorders: No Disorders: No HTN: No Hypercholesterolemia: No Liver Disease: No Seizures: No Thyroid Disease: No - Surgical History Appendectomy: Yes - Suicide/Smoking/Psychosocial Hx Smoking History: Unknown if ever smoked Have you smoked in the past 12 months: Yes If you are a former smoker, when did you quit?: 3 months ago Hx Alcohol Use: Yes (6 pack beer daily) Drug/Substance Use Hx: No Substance Use Type: Alcohol Review of Systems - Review of Systems Able to Perform ROS?: No (intox) *Physical Exam - Vital Signs Last Vital Signs Temp Pulse Resp BP Pulse Ox 98.0 F 90 16 127/83 93 L 09/29/18 21:54 09/29/18 21:54 09/29/18 21:54 09/29/18 21:54 09/29/18 21:54 - Physical Exam Comments: 09/29/18 22:41 GENERAL: Well developed, well nourished. Awake and alert. No acute distress. Disheveled with alcohol on breath. HEENT: Normocephalic, atraumatic. Hearing grossly normal. Moist mucous membranes. PERRLA, EOMI. No conjunctival pallor. Sclera are non-icteric. NECK: Supple. Full ROM. No JVD. CARDIOVASCULAR: Regular rate and rhythm. PULMONARY: No evidence of respiratory distress. Lungs clear to auscultation bilaterally. No wheezing, rales or rhonchi. ABDOMINAL: Soft. Non-tender. Distended. No rebound or guarding. GENITOURINARY: No CVA tenderness bilaterally. MUSCULOSKELETAL: L knee TTP with gross ecchymosis diffusely. No spinal mindline TTP. L paraspinal tenderness in L spine. Neurovascularly intact in L leg. EXTREMITIES: No cyanosis. No clubbing. No edema. No calf tenderness or swelling. SKIN: Warm and dry. Normal capillary refill. No rashes. No jaundice. NEUROLOGICAL: Alert, awake, appropriate. Cranial nerves 2-12 grossly intact. Normal speech. PSYCHIATRIC: Cooperative. Good eye contact. Appropriate mood and affect. ED Treatment Course - LABORATORY CBC & Chemistry Diagram: 10/04/18 06:09 10/05/18 06:00 - RADIOLOGY Radiology Studies Ordered: Category Date Time Status KNEE 3 POS-LEFT [RAD] Stat Radiology 09/29/18 22:18 Ordered SPINE-LUMBAR SACRAL [RAD] Stat Radiology 09/29/18 22:18 Ordered DUPLEX VASCUL US-2LEGS [US] Stat Ultrasound 09/29/18 22:18 Ordered Medical Decision Making - Medical Decision Making 09/29/18 22:43 48M with a PMH of EtOH abuse who presents after having a fall. Pt denies hitting his head. Due to intox, will obtain imaging and CTH and c-spine. Will obtain plain films of L spine and L knee. 09/29/18 23:59 Pt signed out to Dr. Teixeira for further evaluation. *DC/Admit/Observation/Transfer Diagnosis at time of Disposition: Intoxication, Thrombocytopenia - Discharge Dispostion Condition at time of disposition: Stable Decision to Admit order: No - Referrals - Patient Instructions - Post Discharge Activity
[2018-09-29 23:46] LABS: INR 1.44 (0.83-1.09); PROTHROMBIN TIME (PATIENT) 17.1 SEC (9.7-13.0)
[2018-09-30 00:28] LABS: ALBUMIN 2.8 g/dl (3.4-5.0); BLOOD UREA NITROGEN 3.9 mg/dL (7-18); CALCIUM 7.5 mg/dL (8.5-10.1); CREATININE 0.8 mg/dL (0.55-1.3); POTASSIUM 3.6 mmol/L (3.5-5.1); TOT PROT 7.3 g/dl (6.4-8.2)
--- NOTE | 2018-09-30 00:52 | PDOC ---
Rapid Medical Evaluation Chief Complaint: Back Pain Time Seen by Provider: 09/29/18 22:00 Medical Evaluation: Allergies Allergy/AdvReac Type Severity Reaction Status Date / Time No Known Drug Allergies Allergy Verified 09/29/18 21:58 cream cheese AdvReac Uncoded 09/29/18 21:58 Vital Signs Temp Pulse Resp BP Pulse Ox 98.0 F 90 16 127/83 93 L 09/29/18 21:54 09/29/18 21:54 09/29/18 21:54 09/29/18 21:54 09/29/18 21:54 09/30/18 00:45 48 yo M with h/o Etoh abuse who p/w L knee pain and lower back pain s/p fall while intoxicated x 3 days ago. Pt. endorsed by Dr. Pappas. Patient poor historian. Physical exam notable for LLE swelling, and lower lumbarsacral spinal ttp, with absent deformity, stepoff, skin change. + BL knee ecchymosis. Patient reports fecal/stool incontinence. Absent alarm findings on history and exam. Denies DMOÍNGUEZ, vision change, palpitations, cough, N/V, F,C, CP, SOB, urinary complaints, perianal parasthesia, hematuria, BPR, abdominal pain, diarrhea, constipation, lightheadedness, weakness, sensory changes. ED Course notable for Etoh 493. Pending CT cervical and lumbar spine, DUPLEX BL LE. ED Course: 09/30/18 03:11 Left knee rad unremarkable CTH, CT L spine unremarkable Patient pending sobriety 09/30/18 05:24 Patient with thrombocytopenia 09/30/18 05:25 Laboratory Tests 09/29/18 09/29/18 09/29/18 23:25 23:25 23:25 WBC 4.5 Hgb 8.3 L Hct 25.2 L D Plt Count 27 L* D INR 1.44 H Alcohol, Quantitative 493.4 H Plan to admit medicine thrombocytopenia 09/30/18 06:03 Pt. endorsed to medicine admitted to medicine 09/30/18 06:03 Discharge Disposition - Diagnosis Intoxication, Thrombocytopenia - Discharge Dispostion Condition at time of disposition: Stable Last Admission D/C Date: 02/07/18 Decision to Admit order: Yes - Referrals - Patient Instructions - Post Discharge Activity
[2018-09-30 00:54] LABS: HEMOGLOBIN 8.3 GM/dL (11.7-16.9); RBC 2.97 M/mm3 (4.00-5.60); WHITE BLOOD COUNT 4.5 K/mm3 (4.0-10.0)
[2018-09-30 00:55] LABS: HEMATOCRIT 25.2 % (35.4-49); MCH 27.8 pg (25.7-33.7); MCHC 32.8 g/dl (32.0-35.9); MEAN CELL VOLUME 85.1 fl (80-96)
[2018-09-30 00:56] LABS: LYMPH % 80.4 % (8-40); MEAN PLT VOLUME 8.4 fl (7.5-11.1); MONO % 7.7 % (3.8-10.2); NEUT % 10.7 % (42.8-82.8)
[2018-09-30 00:57] LABS: BASO % 0.6 % (0-2.0); EOS % 0.6 % (0-4.5)
[2018-09-30 00:58] LABS: PLATELET ESTIMATE DECREASED
[2018-09-30 01:00] LABS: PLATELET COUNT 27 K/MM3 (134-434)
[2018-09-30 01:03] LABS: SMUDGE CELLS FEW
[2018-09-30 01:04] LABS: ANISOCYTOSIS 3+; MACROCYTOSIS 1+; TARGET CELLS FEW; TEAR DROP CELLS 1+
--- NOTE | 2018-09-30 05:26 | PDOC ---
Documentation entered by Michelle Gregorio SCRIBE, acting as scribe for Kaylee Blackman MD. Kaylee Blackman MD: This documentation has been prepared by the Darline moody Mackenzie, SCRIBE, under my direction and personally reviewed by me in its entirety. I confirm that the documentation accurately reflects all work, treatment, procedures, and medical decision making performed by me. Attending Attestation - Resident Resident Name: [email or web address] - ED Attending Attestation I have performed the following: I have examined & evaluated the patient, The case was reviewed & discussed with the resident, I agree w/resident's findings & plan - HPI HPI: The patient is a 48 year old male, with a significant PMH of ETOH abuse who presents to the emergency department intoxicated with complaints of back and left knee pain. Patient admits falling 3 days ago injuring his left knee and right hip, denies striking his head or any LOC upon fall. The patient denies any changes in sensation, chest pain, shortness of breath, syncope, headache and dizziness. Denies fever, chills, nausea, vomiting, diarrhea and constipation. Denies dysuria, frequency, urgency and hematuria. Allergies: NKDA Past surgical history: None reported Social history: ETOH dependence and tobacco use PCP: None reported. 09/29/18 23:45 - Physicial Exam PE: GENERAL: Awake, alert, and fully oriented, in no acute distress HEAD: No signs of trauma EYES: PERRLA, EOMI, sclera anicteric, conjunctiva clear ENT: Auricles normal inspection, hearing grossly normal, nares patent, oropharynx clear without exudates. Moist mucosa NECK: Normal ROM, supple, no lymphadenopathy, JVD, or masses LUNGS: Breath sounds equal, clear to auscultation bilaterally. No wheezes, and no crackles HEART: Regular rate and rhythm, normal S1 and S2, no murmurs, rubs or gallops ABDOMEN: Soft, nontender, normoactive bowel sounds. No guarding, no rebound. No masses EXTREMITIES: (+)Left knee hematoma and swelling around knee cap.(+)Left LE black and blue bruising extending from mid thigh to mid calf. (+)Small hematoma at medial aspect of right knee. (+)Right knee edema. Calves soft bilaterally, No sign of compartment syndrome. (+)Good PT and DP pulses bilaterally. No pain with ankle ambulation or movement of toes bilaterally. No clubbing or cyanosis. No cords, erythema, or tenderness NEUROLOGICAL: Cranial nerves II through XII grossly intact. Normal speech, normal gait SKIN: Warm, Dry, normal turgor, no rashes or lesions noted. 09/29/18 23:46 - Medical Decision Making 09/29/18 22:49 Pt has a swollen L knee that is deformed 09/30/18 00:46 Patient Name: KOJO BETANCOURT THIS IS A PRELIMINARY REPORT FROM IMAGING DOOR OPERATOR DATE OF SERVICE: 2018-09-29 23:34:22 IMAGES: 149 EXAM: CT head without contrast HISTORY: Fall, intoxication COMPARISON: None. FINDINGS: . No skull fracture is seen. There is no acute intracranial hemorrhage. There is mild diffuse cortical atrophy, out of proportion to patient's age. There is no evidence of acute infarction. No mass lesion is seen. Mucous retention cyst noted in the right maxillary sinus. There is minimal bilateral mastoid effusion 09/30/18 00:47 Patient Name: KOJO BETANCOURT THIS IS A PRELIMINARY REPORT FROM IMAGING DOOR OPERATOR DATE OF SERVICE: 2018-09-29 23:30:10 IMAGES: 338 EXAM: CT cervical spine without contrast REASON FOR EXAM: Fall FINDINGS: No fracture is identified. Alignment is within normal limits There are degenerative endplate and facet changes noted. Osteophytic encroachment of the neural foramina at multiple levels. There is diffuse bony demineralization Carotid calcification noted. 09/30/18 00:47 Patient Name: KOJO BETANCOURT THIS IS A PRELIMINARY REPORT FROM IMAGING DOOR OPERATOR EXAM: Bilateral lower extremity venous duplex ultrasound IMAGES: 56 DATE OF EXAM: 2018-09-29 22:36:44 REASON FOR EXAM: Rule out DVT COMPARISON: None. FINDINGS: No evidence for deep venous thrombosis. No Hylton's cyst. 09/30/18 02:28 Patient Name: KOJO BETANCOURT THIS IS A PRELIMINARY REPORT FROM IMAGING DOOR OPERATOR DATE OF SERVICE: 2018-09-29 23:37:45 IMAGES: 302 EXAM: CT lumbar spine without contrast HISTORY: Fall, intoxication COMPARISON: None. FINDINGS: Lumbar alignment is within normal limits. No acute lumbar fracture is seen. There is no paraspinal hematoma seen. There is advanced lumbar endplate spondylosis. There is degenerative facet arthropathy. There is degenerative loss of disc space height at L2-L3 and L3-L4. There is bulging of the disc noted at each of the lumbar levels with associated central spinal stenosis due to the bulging annulus and ligamentum flavum hypertrophy. XRAYS knees and tib/fib normal 09/30/18 05:22 Pt has ABNORMAL CBC; thrombocytopenia, of liver disease. With diffuse bleeding in his soft tissues, after falling this past week while drunk. Pt has had platelet count of 80 in the past; but never as low as 27. Pt also with anemia, though he has had this anemia in the past. Pt has back pains and decreased strength in his legs at times.
--- NOTE | 2018-09-30 05:46 | PN ---
Teaching Attending Note Name of Resident: Darrick Quinteros ATTENDING PHYSICIAN STATEMENT I saw and evaluated the patient. I reviewed the resident's note and discussed the case with the resident. I agree with the resident's findings and plan as documented. SUBJECTIVE: Patient is a 48 year old man with a PMH of Alcohol abuse, Pancreatitis, Liver cirrhosis, Tobacco use and Cholelithiasis who presents to the ER intoxicated with complaints of back and left knee pain. Patient admits falling 3 days ago injuring his left knee and right hip, denies striking his head or any LOC upon fall. The patient denies any changes in sensation, chest pain, shortness of breath, syncope, headache and dizziness. Denies fever, chills, nausea, vomiting , diarrhea and constipation. Denies dysuria, frequency, urgency and hematuria. OBJECTIVE: Vital Signs Period Temp Pulse Resp BP Sys/Mcginnis Pulse Ox Last 24 Hr 97.7 F-98.0 F 90-92 16-16 108-127/69-83 93-93 HEENT: No Jaundice, eye redness or discharge, PERRLA, EOMI. Normocephalic, atraumatic. External ears are normal and hearing is grossly intact. No nasal discharge. Neck: Supple, nontender. No palpable adenopathy or thyromegaly. No JVD Chest: Good effort. Clear to auscultation and percussion. Heart: Regular. No S3, rub or murmur Abdomen: Not distended, soft, nontender and no HSM. No rebound or guarding. Normal bowel sounds. Ext: Peripheral pulses intact. Left knee swelling and hematoma; LLE bruising extending from midthigh to midcalf. Swollen right knee with hematoma at medial aspect of right knee. No leg edema Skin: Warm and dry. No petechiae or rash. Neuro: Alert. Oriented x3. CN 2-12 grossly intact. Sensation grossly intact in all four extremities and DTR are symmetric. Psych: Appropriate mood and affect. Good insight. Home Medications Medication Instructions Recorded Cephalexin Monohydrate [Keflex -] 500 mg PO Q8H #18 capsule 02/07/18 Folic Acid 1 mg PO DAILY #30 tablet 02/07/18 Furosemide [Lasix] 40 mg PO DAILY #30 tablet 02/07/18 Pantoprazole Sodium [Protonix] 40 mg PO DAILY #30 tablet. 02/07/18 Spironolactone [Aldactone] 100 mg PO DAILY #30 tablet 02/07/18 Thiamine HCl [Vitamin B-1] 100 mg PO DAILY #30 tablet 02/07/18 Abnormal Lab Results 09/29/18 09/29/18 09/29/18 23:25 23:25 23:25 RBC 2.97 L Hgb 8.3 L Hct 25.2 L D RDW 28.0 H Plt Count 27 L* D Absolute Neuts (auto) 0.5 L Neutrophils % 10.7 L D Neutrophils % (Manual) 20.0 L D Lymphocytes % 80.4 H D Lymphocytes % (Manual) 67.0 H D PT with INR 17.10 H INR 1.44 H Chloride 109 H Anion Gap 5 L BUN 3.9 L Calcium 7.5 L Total Bilirubin 5.0 H AST 194 H Alkaline Phosphatase 297 H Albumin 2.8 L Alcohol, Quantitative 493.4 H ASSESSMENT AND PLAN: 1. Alcohol intoxication/Falls/Severe thrombocytopenia - Recurrent falls may be due to patient being intoxicated. Preliminary reading of the head, lumbar and cervical spine CT didnot reveal any acute abnormality and also no fracture was noted on knee, tibia and fibula xrays. No DVT on doppler scan. Will get CXR and urinalysis stat. Abnormal LFTs, anemia and low platelets are all likely sequelae of alcoholism and alcoholic liver disease. Unclear if he has any other contributing factors causing severe thrombocytopenia (?lymphocytosis). Will trend platelet count, monitor closely for bleeding and consult Hematology for guidance on further workup and ?timing of platelet transfusion. Hold protonix and aldactone. Being treated with banana bag. Will implement CIWA ativan alcohol withdrawal protocol and do neurochecks. Implement seizure, fall and aspiration precautions. Treat with thiamine and folic acid and monitor electrolytes (Ca,Mg, K,P). Counseled patient about abstaining from alcohol. Will consult online merchandising specialist and refer to alcohol detox upon discharge. 2. Hypoalbuminemia - Possibly due to combined effects of malnutrition and inflammation associated with comorbid chronic conditions. Will ensure adequate dietary protein intake and also consult [facility]. 3. Tobacco Use Counseled on risks associated with tobacco use. We will provide patient all the necessary assistance to facilitate smoking cessation and prescribe Nicotine patch. 4. Anemia - Likely mostly due to alcoholism. Will do basic anemia work up including serial stool guaiacs, reticulocyte count and iron studies. 5. DVT prophylaxis - Platelet count is too low for either heparin or SCD. 6. Advance directives - Full code
--- NOTE | 2018-09-30 06:45 | HP ---
CHIEF COMPLAINT: PCP: None HISTORY OF PRESENT ILLNESS: Pt. is a 48 y.o. M w/ PMHx. of EtOH abuse, Lower extremity edema, GERD, and paracentesis presents after a fall in alcohol intoxication. Pt. is a poor historian, oriented to name only. Pt. endorses pain on the left side. Pt. endorses intermittent urinary and bowel incontinence. Pt. endorses intermittent lower extremity weakness. Pt. endorses chest pain but points to his abdomen. Pt. endorses pain over the ecchymosis on his chest. Pt. endorses abdominal swelling. Pt. endorses auditory and visual hallucinations and feeling things crawling on his skin. Pt. denies any fever or chills. Pt. denies any cough, diarrhea, constipation, shortness of breath. Per chart review Pt,. was admitted in January for B/L lower extremity swelling, ascites, cellulitis and had paracentesis, removing 2L of fluids, no malignant cells were identified. ER course was notable for: (1)Heme/Onc Consult (2) Head/C-spine/Lumbar CT, L. Knee and Tib/Fib Xray (3)Duplex LE Recent Travel: No PAST MEDICAL HISTORY: As above PAST SURGICAL HISTORY: Appendectomy Social History: Smoking: Former Cigar Alcohol: 3-4 24 Oz. 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 Family History: Denies Allergies No Known Drug Allergies Allergy (Verified 09/29/18 21:58) cream cheese Adverse Reaction (Uncoded 09/29/18 21:58) rash HOME MEDICATIONS: Home Medications Medication Instructions Recorded Cephalexin Monohydrate [Keflex -] 500 mg PO Q8H #18 capsule 02/07/18 Folic Acid 1 mg PO DAILY #30 tablet 02/07/18 Furosemide [Lasix] 40 mg PO DAILY #30 tablet 02/07/18 Pantoprazole Sodium [Protonix] 40 mg PO DAILY #30 tablet 02/07/18 Spironolactone [Aldactone] 100 mg PO DAILY #30 tablet 02/07/18 Thiamine HCl [Vitamin B-1] 100 mg PO DAILY #30 tablet 02/07/18 REVIEW OF SYSTEMS As above PHYSICAL EXAMINATION Vital Signs - 24 hr 09/29/18 09/30/18 21:54 04:35 Temperature 98.0 F 97.7 F Pulse Rate 90 Pulse Rate [ 92 H Right Radial] Respiratory 16 16 Rate Blood Pressure 127/83 Blood Pressure 108/69 [Right Arm] O2 Sat by Pulse 93 L 93 L Oximetry (%) GENERAL: Awake, alert, and fully oriented, in no acute distress. HEAD: Normal with no signs of trauma. EYES: Extraocular movements intact, sclera anicteric, conjunctiva clear. EARS, NOSE, THROAT: Ears normal, nares patent, oropharynx clear without exudates. Dry mucous membranes. NECK: Normal range of motion, supple without lymphadenopathy, JVD, or masses. LUNGS: Breath sounds equal, clear to auscultation bilaterally. No wheezes, and no crackles. No accessory muscle use. HEART: Regular rate and rhythm, normal S1 and S2 with diastolic murmur ABDOMEN: Soft, RUQ, Epigastric, LLQ suprapubic tenderness, 5cm fluid wave shift , not distended, mild caput medusa, normoactive bowel sounds, no guarding, no rebound MUSCULOSKELETAL: Normal range of motion at all joints. Lumbar spinal tenderness. UPPER EXTREMITIES: 2+ radial pulses, warm, well-perfused. No cyanosis. No clubbing. No peripheral edema. LOWER EXTREMITIES: 2+ dorsal pedal pulses, warm, well-perfused. No calf tenderness. Non-pitting edema. NEUROLOGICAL: Confused speech. Gait not assessed. Groin numbness PSYCHIATRIC: Cooperative. Good eye contact. Appropriate mood and affect. SKIN: Warm, dry, normal turgor, large left knee ecchymosis, b/l feet eschars, small chest ecchymosis Laboratory Results - last 24 hr 09/29/18 09/29/18 09/29/18 23:25 23:25 23:25 WBC 4.5 RBC 2.97 L Hgb 8.3 L Hct 25.2 L D MCV 85.1 MCH 27.8 MCHC 32.8 RDW 28.0 H Plt Count 27 L* D MPV 8.4 Absolute Neuts (auto) 0.5 L Total Counted 100 Neutrophils % 10.7 L D Neutrophils % (Manual) 20.0 L D Band Neutrophils % 3.0 Lymphocytes % 80.4 H D Lymphocytes % (Manual) 67.0 H D Monocytes % 7.7 Monocytes % (Manual) 8 Eosinophils % 0.6 D Eosinophils % (Manual) 4.0 Basophils % 0.6 Basophils % (Manual) 2.0 Smudge Cells Few Hypochromia 2+ Platelet Estimate Decreased Platelet Comment No clotting detected Polychromasia 2+ Poikilocytosis 2+ Anisocytosis 3+ Microcytosis 1+ Macrocytosis 1+ Spherocytes 1+ Target Cells Few Tear Drop Cells 1+ Fragmented RBCs Few PT with INR 17.10 H INR 1.44 H Sodium 142 Potassium 3.6 Chloride 109 H Carbon Dioxide 28 Anion Gap 5 L BUN 3.9 L Creatinine 0.8 Est GFR (CKD-EPI)AfAm 120.72 Est GFR (CKD-EPI)NonAf 104.16 Random Glucose 106 Calcium 7.5 L Total Bilirubin 5.0 H AST 194 H ALT 58 Alkaline Phosphatase 297 H Total Protein 7.3 Albumin 2.8 L Alcohol, Quantitative 493.4 H ASSESSMENT/PLAN: Pt. is a 48 y.o. M w/ PMHx. of EtOH abuse, Lower extremity edema, GERD, and paracentesis presents after a fall in alcohol intoxication. Pt. found to be thrombocytopenic to 27k. #Syncope Pt. does not remember events of fall f/u Echo EKG appreciated: QTC-484, TWI in III and V1 f/u Carotid Doppler f/u Orthostatic Vital signs Duplex LE negative L. Knee and Tib/Fib Negative for acute pathology Head CT: Negative for acute pathology, shows mild diffuse cortical atrophy inconsistent with Pt.'s age, mucus retention cyst in maxillary sinus C-Spine CT: no acute pathology, osteophyte encroachment of neural foramina, diffuse degenerative disease Lumbar CT: No acute pathology, advanced endplate spondylosis, degenerative facet arthropathy, bulging discs at each level w/ associated spinal stenosis #Thrombocytopenia Platelets: 27k; on previous admissions Platelets were ~80k f/u Heme/Onc consults (Dr. Callahan) likely due to EtOH abuse #Lymphocytosis WBCs wnl, however 80% shift in Lymphocytes my be 2/2 underlying bone pathology f/u Heme/Onc Consult #EtOH Abuse and Withdrawal CIWA: 15 EtOH: 493 on admission c/w Librium protocol Thiamine Folic Acid Avoid QT-prolonging agents f/u Lipase TBili: 5.0 (Hx. of admission of 6+) f/u CT AP w/ contrast consider doing Hepatitis panel INR: 1.44 MADDREY: 28.5, not a candidate for steroids at this time. #FEN LR @ 100 x 2 bag monitor electrolytes and replete as needed Regular Diet #DVT Ppx. No AC, given thrombocytopenia TEDs Visit type - Emergency Visit Emergency Visit: Yes ED Registration Date: 09/30/18 Care time: The patient presented to the Emergency Department on the above date and was hospitalized for further evaluation of their emergent condition. - New Patient This patient is new to me today: Yes Date on this admission: 09/30/18 - Critical Care Critical Care patient: No
[2018-09-30] MEDS ORDERED: chlordiazePOXIDE HCL 10 MG CAPSULE PO PRN (08:09)
[2018-09-30 08:50] LABS: BASO % 2.1 % (0-2.0); EOS % 3.3 % (0-4.5); HEMATOCRIT 22.9 % (35.4-49); HEMOGLOBIN 7.4 GM/dL (11.7-16.9); LYMPH % 33.9 % (8-40); MCH 27.9 pg (25.7-33.7); MCHC 32.1 g/dl (32.0-35.9); MEAN CELL VOLUME 86.8 fl (80-96); MEAN PLT VOLUME 8.5 fl (7.5-11.1); MONO % 21.9 % (3.8-10.2); NEUT % 38.8 % (42.8-82.8); RBC 2.64 M/mm3 (4.00-5.60); RDW 28.8 % (11.9-15.9)
[2018-09-30 08:58] LABS: INR 1.49 (0.83-1.09); PROTHROMBIN TIME (PATIENT) 17.7 SEC (9.7-13.0)
[2018-09-30] MEDS ORDERED: chlordiazePOXIDE 5 MG CAPSULE ONE (09:02)
[2018-09-30] MEDS: LACTATED RINGERS SOLUTION 1,000 ML/1,000 ML INFUS.BAG IV SCH (09:04)
[2018-09-30] MEDS: chlordiazePOXIDE HCL 25 MG CAPSULE PO SCH ×2 (09:04→16:35)
[2018-09-30 09:05] LABS: BLOOD UREA NITROGEN 4.7 mg/dL (7-18); CALCIUM 7.1 mg/dL (8.5-10.1); CREATININE 0.6 mg/dL (0.55-1.3); MAGNESIUM 2.1 mg/dL (1.8-2.4); PHOSPHOROUS 3.6 mg/dL (2.5-4.9); POTASSIUM 3.5 mmol/L (3.5-5.1)
[2018-09-30 09:51] LABS: PLATELET COUNT 24 K/MM3 (134-434)
--- NOTE | 2018-09-30 10:33 | EKG ---
Test Reason : Blood Pressure : / mmHG Vent. Rate : 083 BPM Atrial Rate : 083 BPM P-R Int : 152 ms QRS Dur : 094 ms QT Int : 412 ms P-R-T Axes : 027 -29 006 degrees QTc Int : 484 ms NORMAL SINUS RHYTHM BASELINE ARTIFACT ABNORMAL ECG WHEN COMPARED WITH ECG OF 01-FEB-2018 11:41, T WAVE VARIATION Confirmed by GERRY BARILLAS MD ([id number]) on 09/30/2018 10:32:44 AM Referred By: Confirmed By:GERRY BARILLAS MD
[2018-09-30 10:34] LABS: ANISOCYTOSIS 2+; MACROCYTOSIS 1+; PLATELET ESTIMATE DECREASED; TARGET CELLS 1+; TEAR DROP CELLS 1+
--- NOTE | 2018-09-30 11:56 | ECHO ---
Name: KOJO BETANCOURT Exam:Adult Echocardiogram Study Date: 09/30/2018 10:00 AM Age: 48 yrs Reason For Study: DIASTOLIC MURMUR Height: 64 in Weight: 150 lb BSA: 1.7 m2 MMode/2D Measurements & Calculations IVSd: 0.78 cm Ao root diam: 2.8 cm LVIDd: 5.7 cm LA dimension: 4.0 cm LVIDs: 3.9 cm LVPWd: 0.75 cm EDV(Teich): 161.0 ml LVOT diam: 2.1 cm ESV(Teich): 64.4 ml Doppler Measurements & Calculations MV E max fransico: 119.7 cm/sec Ao V2 max: 213.6 cm/sec MV A max fransico: 89.5 cm/sec Ao max P.2 mmHg MV E/A: 1.3 Ao V2 mean: 151.5 cm/sec MV dec time: 0.27 sec Ao mean P.5 mmHg Ao V2 VTI: 44.8 cm DISHA(I,D): 1.6 cm2 DISHA(V,D): 1.7 cm2 LV V1 max P.3 mmHg SV(LVOT): 73.3 ml LV V1 mean P.7 mmHg LV V1 max: 104.1 cm/sec LV V1 mean: 79.6 cm/sec LV V1 VTI: 21.6 cm TR max fransico: 252.8 cm/sec Med Peak E' Fransico: 6.5 cm/sec TR max P.3 mmHg Med E/e': 18.3 Lat Peak E' Fransico: 6.8 cm/sec Lat E/e': 17.5 Procedure A complete two-dimensional transthoracic echocardiogram was performed (2D, M-mode, Doppler and color flow Doppler). Left Ventricle The left ventricle is normal in size. Left ventricular systolic function is normal. Ejection Fraction = 55- 60%. Diastolic dysfunction, Grade II (pseudonormalization pattern). No regional wall motion abnormali ties noted. Right Ventricle The right ventricle is normal size. The right ventricular systolic function is normal. Atria The left atrial size is normal. Right atrial size is normal. Mitral Valve There is mild mitral annular calcification. There is mild mitral regurgitation. Tricuspid Valve The tricuspid valve is normal in structure and function. There is mild tricuspid regurgitation. Pulmo nary artery systolic pressure is at least 38 mmHg assuming RA pressure of 3 mmHg. Aortic Valve The aortic valve is normal in structure and function. Mild aortic regurgitation. Pulmonic Valve The pulmonic valve is not well visualized. Great Vessels The aortic root is normal size. Pericardium/Pleura There is no pericardial effusion. Interpretation Summary The left ventricle is normal in size. Left ventricular systolic function is normal. No regional wall motion abnormalities noted. Ejection Fraction = 55-60%. Diastolic dysfunction, Grade II (pseudonormalization pattern). The right ventricular systolic function is normal. The left atrial size is normal. Right atrial size is normal. There is mild mitral annular calcification. There is mild mitral regurgitation. There is mild tricuspid regurgitation. Pulmonary artery systolic pressure is at least 38 mmHg assuming RA pressure of 3 mmHg Mild aortic regurgitation. There is no pericardial effusion. Previous study is not available for comparison Paul Chacko MD 09/30/2018 11:55 AM
[2018-09-30] MEDS: THIAMINE HCL 200 MG/2 ML VIAL IVPB SCH (12:01)
[2018-09-30] MEDS: FOLIC ACID 1 MG TABLET (FP) PO SCH (12:01)
[2018-09-30] MEDS ORDERED: MORPHINE SULFATE 2 MG/ML VIAL IVPUSH PRN (14:00)
--- NOTE | 2018-09-30 14:02 | PN ---
Physical Exam: SUBJECTIVE: Patient seen and examined at bedside. Endorses right knee pain. OBJECTIVE: Vital Signs Period Temp Pulse Resp BP Sys/Mcginnis Pulse Ox Last 24 Hr 97.7 F-98.0 F 86-92 16-19 105-127/69-83 89-97 GENERAL: NAD HEAD: NC/AT EYES: EOMI, Scleral icterus ENT: MMM NECK: Trachea midline, full range of motion, supple. LUNGS: CTAB HEART: 2/6 Systolic Ejection Murmur RUSB. ABDOMEN: TTP throughout EXTREMITIES: Diffuse Erythema R knee and b/l lower extremities. NEUROLOGICAL: Cranial nerves II through XII grossly intact. Normal speech. PSYCH: Normal mood, normal affect. SKIN: Warm, dry, normal turgor, no rashes or lesions noted Laboratory Results - last 24 hr 09/29/18 09/29/18 09/29/18 23:25 23:25 23:25 WBC 4.5 RBC 2.97 L Hgb 8.3 L Hct 25.2 L D MCV 85.1 MCH 27.8 MCHC 32.8 RDW 28.0 H Plt Count 27 L* D MPV 8.4 Absolute Neuts (auto) 0.5 L Total Counted 100 Neutrophils % 10.7 L D Neutrophils % (Manual) 20.0 L D Band Neutrophils % 3.0 Lymphocytes % 80.4 H D Lymphocytes % (Manual) 67.0 H D Monocytes % 7.7 Monocytes % (Manual) 8 Eosinophils % 0.6 D Eosinophils % (Manual) 4.0 Basophils % 0.6 Basophils % (Manual) 2.0 Myelocytes % (Man) Promyelocytes % (Man) Blast Cells % (Manual) Nucleated RBC % Metamyelocytes Smudge Cells Few Hypochromia 2+ Platelet Estimate Decreased Platelet Comment No clotting detected Polychromasia 2+ Poikilocytosis 2+ Anisocytosis 3+ Microcytosis 1+ Macrocytosis 1+ Spherocytes 1+ Target Cells Few Tear Drop Cells 1+ Fragmented RBCs Few PT with INR 17.10 H INR 1.44 H Sodium 142 Potassium 3.6 Chloride 109 H Carbon Dioxide 28 Anion Gap 5 L BUN 3.9 L Creatinine 0.8 Est GFR (CKD-EPI)AfAm 120.72 Est GFR (CKD-EPI)NonAf 104.16 Random Glucose 106 Calcium 7.5 L Phosphorus Magnesium Total Bilirubin 5.0 H AST 194 H ALT 58 Alkaline Phosphatase 297 H Total Protein 7.3 Albumin 2.8 L Lipase Alcohol, Quantitative 493.4 H Blood Type Antibody Screen 09/30/18 09/30/18 09/30/18 08:28 08:28 08:28 WBC 3.0 L RBC 2.64 L Hgb 7.4 L Hct 22.9 L MCV 86.8 MCH 27.9 MCHC 32.1 RDW 28.8 H Plt Count 24 L* MPV 8.5 Absolute Neuts (auto) 1.2 L Total Counted Neutrophils % 38.8 L D Neutrophils % (Manual) 37.2 L D Band Neutrophils % 2.0 Lymphocytes % 33.9 D Lymphocytes % (Manual) 30.4 D Monocytes % 21.9 H D Monocytes % (Manual) 19 H D Eosinophils % 3.3 D Eosinophils % (Manual) 2.9 Basophils % 2.1 H D Basophils % (Manual) 6.9 H* Myelocytes % (Man) 1 Promyelocytes % (Man) 0 Blast Cells % (Manual) 0 Nucleated RBC % 1 H Metamyelocytes 1 D Smudge Cells Hypochromia 1+ Platelet Estimate Decreased Platelet Comment Polychromasia 1+ Poikilocytosis 2+ Anisocytosis 2+ Microcytosis 2+ Macrocytosis 1+ Spherocytes Target Cells 1+ Tear Drop Cells 1+ Fragmented RBCs PT with INR 17.70 H INR 1.49 H Sodium 145 Potassium 3.5 Chloride 110 H Carbon Dioxide 29 Anion Gap 7 L BUN 4.7 L Creatinine 0.6 Est GFR (CKD-EPI)AfAm 135.87 Est GFR (CKD-EPI)NonAf 117.23 Random Glucose 91 Calcium 7.1 L Phosphorus 3.6 Magnesium 2.1 Total Bilirubin AST ALT Alkaline Phosphatase Total Protein Albumin Lipase 191 Alcohol, Quantitative Blood Type Antibody Screen 09/30/18 08:28 WBC RBC Hgb Hct MCV MCH MCHC RDW Plt Count MPV Absolute Neuts (auto) Total Counted Neutrophils % Neutrophils % (Manual) Band Neutrophils % Lymphocytes % Lymphocytes % (Manual) Monocytes % Monocytes % (Manual) Eosinophils % Eosinophils % (Manual) Basophils % Basophils % (Manual) Myelocytes % (Man) Promyelocytes % (Man) Blast Cells % (Manual) Nucleated RBC % Metamyelocytes Smudge Cells Hypochromia Platelet Estimate Platelet Comment Polychromasia Poikilocytosis Anisocytosis Microcytosis Macrocytosis Spherocytes Target Cells Tear Drop Cells Fragmented RBCs PT with INR INR Sodium Potassium Chloride Carbon Dioxide Anion Gap BUN Creatinine Est GFR (CKD-EPI)AfAm Est GFR (CKD-EPI)NonAf Random Glucose Calcium Phosphorus Magnesium Total Bilirubin AST ALT Alkaline Phosphatase Total Protein Albumin Lipase Alcohol, Quantitative Blood Type O POSITIVE Antibody Screen Negative Active Medications Generic Name Dose Route Start Last Admin Trade Name Freq PRN Reason Stop Dose Admin Chlordiazepoxide HCl 10 mg 10/02/18 05:00 Librium - PO 10/03/18 05:00 Q12H PRN Signs/symptoms of Withdrawal Chlordiazepoxide HCl 10 mg 09/30/18 08:09 Librium - PO 10/02/18 08:08 Q8H PRN Signs/symptoms of Withdrawal Chlordiazepoxide HCl 25 mg 09/30/18 08:15 09/30/18 09:04 Librium - PO 10/01/18 00:16 25 mg Q8H STEPHEN Administration Chlordiazepoxide HCl 15 mg 10/01/18 08:15 Librium - PO 10/02/18 00:16 Q8H STEPHEN Chlordiazepoxide HCl 10 mg 10/02/18 08:15 Librium - PO 10/03/18 08:16 Q8H STEPHEN Folic Acid 1 mg 09/30/18 10:00 09/30/18 12:01 Folic Acid - PO 1 mg DAILY STEPHEN Administration Lactated Ringer's 1,000 ml in 1,000 mls @ 100 mls/hr 09/30/18 07:30 09/30/18 09:04 Lactated Ringers Solution IV 10/01/18 17:29 100 mls/hr ASDIR STEPHEN Administration Morphine Sulfate 2 mg 09/30/18 14:00 Morphine Injection - IVPUSH Q6H PRN PAIN LEVEL 6-10 Thiamine HCl 200 mg 09/30/18 10:00 09/30/18 12:01 Vitamin B1 Injection - IVPB 200 mg DAILY STEPHEN Administration ASSESSMENT/PLAN: Pt. is a 48 y.o. M w/ PMHx. of EtOH abuse, Lower extremity edema, GERD, and paracentesis presents after a fall in alcohol intoxication. Pt. found to be thrombocytopenic to 27k. #Syncope Pt. does not remember events of fall Echo----> mild aortic regurg, tricuspid regurg, and mitral regurg, no pericardial effusion EF 55-60% EKG appreciated: QTC-484, TWI in III and V1 Carotid Doppler-----> [place] Left anf R common carotid. No hemodynamically significant stenosis appreciated. f/u Orthostatic Vital signs Duplex LE negative L. Knee and Tib/Fib Negative for acute pathology Head CT: Negative for acute pathology, shows mild diffuse cortical atrophy inconsistent with Pt.'s age, mucus retention cyst in maxillary sinus C-Spine CT: no acute pathology, osteophyte encroachment of neural foramina, diffuse degenerative disease Lumbar CT: No acute pathology, advanced endplate spondylosis, degenerative facet arthropathy, bulging discs at each level w/ associated spinal stenosis #Thrombocytopenia Platelets: 27k; on previous admissions Platelets were ~80k Heme/Onc consult Dr. Callahan on board. -----> transfuse platelets. S/p 1 Unit likely due to EtOH abuse -Orthopedic Surgery consult in light of possible hemarthrosis. Recs appreciated. #Lymphocytosis f/u Heme/Onc Consult #EtOH Abuse and Withdrawal EtOH: 493 on admission Librium protocol Thiamine Folic Acid CT AP w/ contrast ---> Hepatosplenomegaly w/ cirrhosis and portal hypertension. Spontaneous bacterial peritonitis cannot be radiographically excluded. Cholelithiasis w/ wall thickening. #FEN LR @ 100 monitor electrolytes and replete as needed Regular Diet #DVT Ppx. No AC, given thrombocytopenia TEDs Visit type - Emergency Visit Emergency Visit: Yes ED Registration Date: 09/30/18 Care time: The patient presented to the Emergency Department on the above date and was hospitalized for further evaluation of their emergent condition. - New Patient This patient is new to me today: No - Critical Care Critical Care patient: No - Discharge Referral Referred to [facility] No
[2018-09-30] MEDS ORDERED: chlordiazePOXIDE HCL 25 MG CAPSULE ONE (16:28)
--- NOTE | 2018-09-30 16:50 | CONSULT ---
Consult - text type - Consultation Consultation Note: Patient seen and examined 48 y.o. M w/ PMHx. of EtOH abuse, Lower extremity edema, GERD, and paracentesis presents after a fall in alcohol intoxication. Has left knee ecchymosis/ bruising ?bleeding. Pt. endorses pain on the left side. Pt. endorses intermittent urinary and bowel incontinence. Pt. endorses intermittent lower extremity weakness. Pt. endorses chest pain but points to his chest. Pt. endorses pain over the ecchymosis on his chest. Pt. endorses abdominal swelling. Pt. endorses auditory and visual hallucinations and feeling things crawling on his skin. Pt. denies any fever or chills. Pt. denies any cough, diarrhea, constipation, shortness of breath. Per chart review Pt,. was admitted in January for B/L lower extremity swelling, ascites and cellulitis. and had paracentesis, removing 2L of fluids, no malignant cells were identified. PAST MEDICAL HISTORY: As above PAST SURGICAL HISTORY: Appendectomy Social History: Smoking: Former Cigar Alcohol: 3-4 24 Oz. 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 02/07/18 Spironolactone [Aldactone] 100 mg PO DAILY #30 tablet 02/07/18 Thiamine HCl [Vitamin B-1] 100 mg PO DAILY #30 tablet 02/07/18 Last Vital Signs Temp Pulse Resp BP Pulse Ox 97.7 F 100 H 19 124/73 97 09/30/18 04:35 09/30/18 16:37 09/30/18 08:19 09/30/18 16:37 09/30/18 09:00 Cor: RSR, No murmurs, No gallops Lungs: Clear to P&A Abd: Soft, Normal bowel sounds, ascites+ Ext:1+ edema b/l Left knee -- ecchymosis, erythema, tenderness Labs/Meds reviewed ASSESSMENT/PLAN: Patient. is a 48 y.o. M w/ PMHx. of EtOH abuse, Lower extremity edema, GERD, and paracentesis presents after a fall in alcohol intoxication. Thrombocytopenia --- given the left knee bleed will consider platelet transfusion orthopaedics consult check PT/PTT/fibrinogen CT head --neg. Duplex lower ext. neg.
--- NOTE | 2018-09-30 19:11 | PN ---
Progress Note (short form) - Note Progress Note: ORTHOPEDIC SURGERY PROGRESS NOTE Department of Orthopedic Surgery SUBJECTIVE No acute events overnight. Resting comfortably. Denies chest pain, shortness of breath, or calf pain. No nausea or vomiting. Tolerating oral intake. Pain control difficult overnight, but improving. PHYSICAL EXAMINATION General: Alert, oriented, cooperative and no distress. Left Lower Extremity: Dressing knee immobilizer intact; Skin intact, no lesions , rashes or ulcers noted. Muscle mass equal and symmetric to contralateral side. No atrophy noted. No masses. No tenderness to palpation. EHL/TA/GS motor intact; SILT distally; 2+ DP pulses; Cap refill brisk. DVT Exam: No evidence of DVT seen on physical exam; No cords or calf tenderness ; No significant calf/ankle edema. Intake & Output 09/28/18 09/29/18 09/30/18 23:59 23:59 23:59 Other: Voiding Method Urinal Weight 150 lb Height 5 ft 4 in Body Mass Index (BMI) 25.7 Weight Measurement Method Est/Stated by Patient Active Medications Generic Name Dose Route Start Last Admin Trade Name Freq PRN Reason Stop Dose Admin Chlordiazepoxide HCl 10 mg 10/02/18 05:00 Librium - PO 10/03/18 05:00 Q12H PRN Signs/symptoms of Withdrawal Chlordiazepoxide HCl 10 mg 09/30/18 08:09 Librium - PO 10/02/18 08:08 Q8H PRN Signs/symptoms of Withdrawal Chlordiazepoxide HCl 25 mg 09/30/18 08:15 09/30/18 16:35 Librium - PO 10/01/18 00:16 25 mg Q8H STEPHEN Administration Chlordiazepoxide HCl 15 mg 10/01/18 08:15 Librium - PO 10/02/18 00:16 Q8H STEPHEN Chlordiazepoxide HCl 10 mg 10/02/18 08:15 Librium - PO 10/03/18 08:16 Q8H STEPHEN Folic Acid 1 mg 09/30/18 10:00 09/30/18 12:01 Folic Acid - PO 1 mg DAILY STEPHEN Administration Lactated Ringer's 1,000 ml in 1,000 mls @ 100 mls/hr 09/30/18 07:30 09/30/18 09:04 Lactated Ringers Solution IV 10/01/18 17:29 100 mls/hr ASDIR STEPHEN Administration Morphine Sulfate 2 mg 09/30/18 14:00 Morphine Sulfate IVPUSH Q6H PRN PAIN LEVEL 6-10 Thiamine HCl 200 mg 09/30/18 10:00 09/30/18 12:01 Vitamin B1 Injection - IVPB 200 mg DAILY STEPHEN Administration Vital Signs (last) Temp Pulse Resp BP Pulse Ox 97.7 F 100 H 19 124/73 97 09/30/18 04:35 09/30/18 16:37 09/30/18 08:19 09/30/18 16:37 09/30/18 09:00 Laboratory (coagulation) PT with INR 17.70 SEC (9.7-13.0) H 09/30/18 08:28 Laboratory 09/30/18 08:28 09/30/18 08:28 IMAGING ASSESSMENT AND PLAN - Pain control: Transition to oral pain medications, minimize narcotic use - DVT prophylaxis - Ice/Elevation - Elevate HOB, encourage oral intake - Appreciate medical management (Nutrition optimization, decubitus precautions heel/sacrum) - PT/OT; WB Status - Dispo planning
--- NOTE | 2018-09-30 20:54 | PN ---
Teaching Attending Note Name of Resident: Chip Manrique ATTENDING PHYSICIAN STATEMENT I saw and evaluated the patient. I reviewed the resident's note and discussed the case with the resident. I agree with the resident's findings and plan as documented. SUBJECTIVE: Patient has no new complain. lying in bed with no acute distress. OBJECTIVE: Vital Signs Temperature 97.7 F 09/30/18 04:35 Pulse Rate 100 H 09/30/18 16:37 Respiratory Rate 19 09/30/18 08:19 Blood Pressure 124/73 09/30/18 16:37 O2 Sat by Pulse Oximetry (%) 97 09/30/18 09:00 GENERAL: The patient is awake, alert, and oriented, no tremors. HEAD: Normal with no signs of trauma. EYES: PERRL, extraocular movements intact, sclera positive for anicteric, conjunctiva clear. ENT: Ears normal, oropharynx clear without exudates, moist mucous membranes. NECK: Trachea midline, full range of motion, supple. LUNGS: Breath sounds equal, clear to auscultation bilaterally, no wheezes, no crackles, no accessory muscle use. HEART: Regular rate and rhythm, S1, S2 without murmur, rub or gallop. ABDOMEN: Soft, nontender, nondistended, normoactive bowel sounds, no guarding, no rebound, no hepatosplenomegaly, no masses. EXTREMITIES: 2+ pulses, warm, multiple bruises of LEs with left knee hematoma , bruises of right lower extremity as well. NEUROLOGICAL: Cranial nerves II through XII grossly intact. Normal speech, gait not observed. PSYCH: Normal mood, normal affect. SKIN: Warm, dry, normal turgor, no rashes or lesions noted CBCD WBC 3.0 K/mm3 (4.0-10.0) L 09/30/18 08:28 RBC 2.64 M/mm3 (4.00-5.60) L 09/30/18 08:28 Hgb 7.4 GM/dL (11.7-16.9) L 09/30/18 08:28 Hct 22.9 % (35.4-49) L 09/30/18 08:28 MCV 86.8 fl (80-96) 09/30/18 08:28 MCHC 32.1 g/dl (32.0-35.9) 09/30/18 08:28 RDW 28.8 % (11.9-15.9) H 09/30/18 08:28 Plt Count 24 K/MM3 (134-434) L* 09/30/18 08:28 MPV 8.5 fl (7.5-11.1) 09/30/18 08:28 CMP Sodium 145 mmol/L (136-145) 09/30/18 08:28 Potassium 3.5 mmol/L (3.5-5.1) 09/30/18 08:28 Chloride 110 mmol/L (98-107) H 09/30/18 08:28 Carbon Dioxide 29 mmol/L (21-32) 09/30/18 08:28 Anion Gap 7 MMOL/L (8-16) L 09/30/18 08:28 BUN 4.7 mg/dL (7-18) L 09/30/18 08:28 Creatinine 0.6 mg/dL (0.55-1.3) 09/30/18 08:28 Random Glucose 91 mg/dL (74-106) 09/30/18 08:28 Calcium 7.1 mg/dL (8.5-10.1) L 09/30/18 08:28 Total Bilirubin 5.0 mg/dL (0.2-1) H 09/29/18 23:25 AST 194 U/L (15-37) H 09/29/18 23:25 ALT 58 U/L (13-61) 09/29/18 23:25 Alkaline Phosphatase 297 U/L (45-117) H 09/29/18 23:25 Total Protein 7.3 g/dl (6.4-8.2) 09/29/18 23:25 Albumin 2.8 g/dl (3.4-5.0) L 09/29/18 23:25 Current Medications Generic Name Dose Route Start Last Admin Trade Name Freq PRN Reason Stop Dose Admin Chlordiazepoxide HCl 10 mg 10/02/18 05:00 Librium - PO 10/03/18 05:00 Q12H PRN Signs/symptoms of Withdrawal Chlordiazepoxide HCl 10 mg 09/30/18 08:09 Librium - PO 10/02/18 08:08 Q8H PRN Signs/symptoms of Withdrawal Chlordiazepoxide HCl 25 mg 09/30/18 08:15 09/30/18 16:35 Librium - PO 10/01/18 00:16 25 mg Q8H STEPHEN Administration Chlordiazepoxide HCl 15 mg 10/01/18 08:15 Librium - PO 10/02/18 00:16 Q8H STEPHEN Chlordiazepoxide HCl 10 mg 10/02/18 08:15 Librium - PO 10/03/18 08:16 Q8H STEPHEN Folic Acid 1 mg 09/30/18 10:00 09/30/18 12:01 Folic Acid - PO 1 mg DAILY STEPHEN Administration Lactated Ringer's 1,000 ml in 1,000 mls @ 100 mls/hr 09/30/18 07:30 09/30/18 09:04 Lactated Ringers Solution IV 10/01/18 17:29 100 mls/hr ASDIR STEPHEN Administration Morphine Sulfate 2 mg 09/30/18 14:00 Morphine Sulfate IVPUSH Q6H PRN PAIN LEVEL 6-10 Thiamine HCl 200 mg 09/30/18 10:00 09/30/18 12:01 Vitamin B1 Injection - IVPB 200 mg DAILY STEPHEN Administration Home Medications Medication Instructions Recorded Cephalexin Monohydrate [Keflex -] 500 mg PO Q8H #18 capsule 02/07/18 Folic Acid 1 mg PO DAILY #30 tablet 02/07/18 Furosemide [Lasix] 40 mg PO DAILY #30 tablet 02/07/18 Pantoprazole Sodium [Protonix] 40 mg PO DAILY #30 tablet. 02/07/18 Spironolactone [Aldactone] 100 mg PO DAILY #30 tablet 02/07/18 Thiamine HCl [Vitamin B-1] 100 mg PO DAILY #30 tablet 02/07/18 Docusate Sodium 100 mg PO DAILY 09/30/18 Ferrous Sulfate 325 mg PO DAILY 09/30/18 Sennosides [Senna] 8.6 mg PO DAILY 09/30/18 ASSESSMENT AND PLAN: Patient is a 48yo male with PMHx of EtOH abuse, GERD, presents with alcohol intoxication s/p fall with knee swelling. 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
[2018-09-30 21:19] VITALS: BMI 27.1
[2018-10-01] MEDS: chlordiazePOXIDE HCL 25 MG CAPSULE PO SCH (00:12)
[2018-10-01 08:38] LABS: BASO % 2.8 % (0-2.0); EOS % 3.4 % (0-4.5); HEMOGLOBIN 7.3 GM/dL (11.7-16.9); MCH 27.5 pg (25.7-33.7); MCHC 31.7 g/dl (32.0-35.9); MEAN CELL VOLUME 86.8 fl (80-96); MEAN PLT VOLUME 6.5 fl (7.5-11.1); MONO % 22.3 % (3.8-10.2); NEUT % 47.5 % (42.8-82.8); RBC 2.64 M/mm3 (4.00-5.60); RDW 28.5 % (11.9-15.9); WHITE BLOOD COUNT 3.4 K/mm3 (4.0-10.0)
[2018-10-01 08:48] LABS: ALBUMIN 2.3 g/dl (3.4-5.0); BILIRUBIN,DIRECT 2.3 mg/dL (0.0-0.2); BILIRUBIN,TOTAL 4.6 mg/dL (0.2-1); BLOOD UREA NITROGEN 5.4 mg/dL (7-18); CALCIUM 7.5 mg/dL (8.5-10.1); CREATININE 0.5 mg/dL (0.55-1.3); PHOSPHOROUS 2.3 mg/dL (2.5-4.9); POTASSIUM 3.6 mmol/L (3.5-5.1)
[2018-10-01] MEDS: chlordiazePOXIDE 5 MG CAPSULE PO SCH ×3 (09:20→23:47)
[2018-10-01] MEDS: LACTATED RINGERS SOLUTION 1,000 ML/1,000 ML INFUS.BAG IV SCH ×2 (09:21→13:00)
[2018-10-01] MEDS: FOLIC ACID 1 MG TABLET (FP) PO SCH (09:21)
[2018-10-01] MEDS: THIAMINE HCL 200 MG/2 ML VIAL IVPB SCH (09:22)
[2018-10-01 10:02] LABS: PLATELET COUNT 24 K/MM3 (134-434)
[2018-10-01 10:41] LABS: INR 1.49 (0.83-1.09); PROTHROMBIN TIME (PATIENT) 17.6 SEC (9.7-13.0)
[2018-10-01 10:44] LABS: ACTIVATED PTT 40.1 SECONDS (25.2-36.5)
[2018-10-01 13:33] LABS: ANISOCYTOSIS 2+; MACROCYTOSIS 1+; OVALOCYTE 1+; PLATELET ESTIMATE DECREASED; TARGET CELLS 1+
--- NOTE | 2018-10-01 14:02 | PN ---
Teaching Attending Note Name of Resident: Chip Manrique ATTENDING PHYSICIAN STATEMENT I saw and evaluated the patient. I reviewed the resident's note and discussed the case with the resident. I agree with the resident's findings and plan as documented. SUBJECTIVE: Patient is feeling better but continues to have pain of lower extremities s/p fall OBJECTIVE: Vital Signs Temperature 99.6 F 10/01/18 09:35 Pulse Rate 109 H 10/01/18 09:35 Respiratory Rate 18 10/01/18 09:35 Blood Pressure 128/70 10/01/18 09:35 O2 Sat by Pulse Oximetry (%) 97 09/30/18 09:00 GENERAL: The patient is awake, alert, and oriented, no tremors. HEAD: Normal with no signs of trauma. EYES: PERRL, extraocular movements intact, sclera positive for anicteric, conjunctiva clear. ENT: Ears normal, oropharynx clear without exudates, moist mucous membranes. NECK: Trachea midline, full range of motion, supple. LUNGS: Breath sounds equal, clear to auscultation bilaterally, no wheezes, no crackles, no accessory muscle use. HEART: Regular rate and rhythm, S1, S2 without murmur, rub or gallop. ABDOMEN: Soft, nontender, nondistended, normoactive bowel sounds, no guarding, no rebound, positive for hepatomegaly. EXTREMITIES: 2+ pulses, warm, multiple bruises of LEs with left knee hematoma , bruises of right lower extremity as well. NEUROLOGICAL: Cranial nerves II through XII grossly intact. Normal speech, gait not observed. PSYCH: Normal mood, normal affect. SKIN: Warm, dry, normal turgor, no rashes or lesions noted CBCD WBC 3.4 K/mm3 (4.0-10.0) L 10/01/18 07:24 RBC 2.64 M/mm3 (4.00-5.60) L 10/01/18 07:24 Hgb 7.3 GM/dL (11.7-16.9) L 10/01/18 07:24 Hct 23.0 % (35.4-49) L 10/01/18 07:24 MCV 86.8 fl (80-96) 10/01/18 07:24 MCHC 31.7 g/dl (32.0-35.9) L 10/01/18 07:24 RDW 28.5 % (11.9-15.9) H 10/01/18 07:24 Plt Count 24 K/MM3 (134-434) L* 10/01/18 07:24 MPV 6.5 fl (7.5-11.1) L D 10/01/18 07:24 CMP Sodium 138 mmol/L (136-145) 10/01/18 07:24 Potassium 3.6 mmol/L (3.5-5.1) 10/01/18 07:24 Chloride 103 mmol/L (98-107) 10/01/18 07:24 Carbon Dioxide 27 mmol/L (21-32) 10/01/18 07:24 Anion Gap 7 MMOL/L (8-16) L 10/01/18 07:24 BUN 5.4 mg/dL (7-18) L 10/01/18 07:24 Creatinine 0.5 mg/dL (0.55-1.3) L 10/01/18 07:24 Random Glucose 74 mg/dL (74-106) 10/01/18 07:24 Calcium 7.5 mg/dL (8.5-10.1) L 10/01/18 07:24 Total Bilirubin 4.6 mg/dL (0.2-1) H 10/01/18 07:24 AST 140 U/L (15-37) H 10/01/18 07:24 ALT 41 U/L (13-61) 10/01/18 07:24 Alkaline Phosphatase 212 U/L (45-117) H 10/01/18 07:24 Total Protein 6.0 g/dl (6.4-8.2) L 10/01/18 07:24 Albumin 2.3 g/dl (3.4-5.0) L 10/01/18 07:24 Current Medications Generic Name Dose Route Start Last Admin Trade Name Freq PRN Reason Stop Dose Admin Chlordiazepoxide HCl 10 mg 10/02/18 05:00 Librium - PO 10/03/18 05:00 Q12H PRN Signs/symptoms of Withdrawal Chlordiazepoxide HCl 10 mg 09/30/18 08:09 Librium - PO 10/02/18 08:08 Q8H PRN Signs/symptoms of Withdrawal Chlordiazepoxide HCl 15 mg 10/01/18 08:15 10/01/18 09:20 Librium - PO 10/02/18 00:16 15 mg Q8H STEPHEN Administration Chlordiazepoxide HCl 10 mg 10/02/18 08:15 Librium - PO 10/03/18 08:16 Q8H STEPHEN Folic Acid 1 mg 09/30/18 10:00 10/01/18 09:21 Folic Acid - PO 1 mg DAILY STEPHEN Administration Lactated Ringer's 1,000 ml in 1,000 mls @ 100 mls/hr 09/30/18 07:30 10/01/18 09:21 Lactated Ringers Solution IV 10/01/18 17:29 Not Given ASDIR STEPHEN Morphine Sulfate 2 mg 09/30/18 14:00 Morphine Sulfate IVPUSH Q6H PRN PAIN LEVEL 6-10 Thiamine HCl 200 mg 09/30/18 10:00 10/01/18 09:22 Vitamin B1 Injection - IVPB 200 mg DAILY STEPHEN Administration Home Medications Medication Instructions Recorded Cephalexin Monohydrate [Keflex -] 500 mg PO Q8H #18 capsule 02/07/18 Folic Acid 1 mg PO DAILY #30 tablet 02/07/18 Furosemide [Lasix] 40 mg PO DAILY #30 tablet 02/07/18 Pantoprazole Sodium [Protonix] 40 mg PO DAILY #30 tablet. 02/07/18 Spironolactone [Aldactone] 100 mg PO DAILY #30 tablet 02/07/18 Thiamine HCl [Vitamin B-1] 100 mg PO DAILY #30 tablet 02/07/18 Docusate Sodium 100 mg PO DAILY 09/30/18 Ferrous Sulfate 325 mg PO DAILY 09/30/18 Sennosides [Senna] 8.6 mg PO DAILY 09/30/18 Echo: mild aortic regurg, tricuspid regurg, and mitral regurg, no pericardial effusion EF 55-60% EKG appreciated: QTC-484, TWI in III and V1 Carotid Doppler: Plaques Left anf R common carotid. No hemodynamically significant stenosis appreciated. Duplex LE : negative L. Knee and Tib/Fib: Negative Head CT: Negative for acute pathology, shows mild diffuse cortical atrophy C-Spine CT: no acute pathology Lumbar CT: degenerative facet arthropathy, bulging discs with associated spinal stenosis ASSESSMENT AND PLAN: Patient is a 48yo male with PMHx of EtOH abuse, GERD, presents with alcohol intoxication s/p fall with knee swelling and hematoma. 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
[2018-10-01] MEDS ORDERED: oxyCODONE HCL 5 MG TABLET PO PRN (14:20)
--- NOTE | 2018-10-01 15:17 | PN ---
Physical Exam: SUBJECTIVE: Patient seen and examined at bedside. Endorses R knee pain. OBJECTIVE: Vital Signs Period Temp Pulse Resp BP Sys/Mcginnis Pulse Ox Last 24 Hr 98.9 F-99.8 F 92-109 18-20 113-134/68-75 GENERAL: No acute distress. HEAD: NC/AT EYES: EOMI, Scleral icterus ENT: MMM NECK: Trachea midline, full range of motion, supple. LUNGS: CTAB HEART: 2/6 Systolic Ejection Murmur RUSB. ABDOMEN: Tender to palpation epigastric area. EXTREMITIES: B/l lower extremity erythema. right knee w/ diffuse erythema. TTP. onychomycosis b/l feet. NEUROLOGICAL: Cranial nerves II through XII grossly intact. Normal speech. PSYCH: Normal mood, normal affect. SKIN: Warm, dry, normal turgor, no rashes or lesions noted Laboratory Results - last 24 hr 10/01/18 10/01/18 10/01/18 07:24 07:24 07:24 WBC 3.4 L RBC 2.64 L Hgb 7.3 L Hct 23.0 L MCV 86.8 MCH 27.5 MCHC 31.7 L RDW 28.5 H Plt Count 24 L* MPV 6.5 L D Absolute Neuts (auto) 1.6 Neutrophils % 47.5 D Neutrophils % (Manual) 63.0 D Band Neutrophils % 0.0 Lymphocytes % 24.0 D Lymphocytes % (Manual) 21.0 D Monocytes % 22.3 H Monocytes % (Manual) 12 H Eosinophils % 3.4 Eosinophils % (Manual) 3.0 Basophils % 2.8 H Basophils % (Manual) 0.0 Myelocytes % (Man) 1 Promyelocytes % (Man) 0 Blast Cells % (Manual) 0 Nucleated RBC % 1 H Metamyelocytes 0 D Hypochromia 2+ Platelet Estimate Decreased Polychromasia 1+ Poikilocytosis 2+ Anisocytosis 2+ Microcytosis 1+ Macrocytosis 1+ Target Cells 1+ Ovalocytes 1+ Schistocytes 1+ PT with INR 17.60 H INR 1.49 H PTT (Actin FS) 40.1 H Fibrinogen 127.0 L Sodium Potassium Chloride Carbon Dioxide Anion Gap BUN Creatinine Est GFR (CKD-EPI)AfAm Est GFR (CKD-EPI)NonAf Random Glucose Calcium Phosphorus Magnesium Total Bilirubin Direct Bilirubin AST ALT Alkaline Phosphatase Total Protein Albumin 10/01/18 07:24 WBC RBC Hgb Hct MCV MCH MCHC RDW Plt Count MPV Absolute Neuts (auto) Neutrophils % Neutrophils % (Manual) Band Neutrophils % Lymphocytes % Lymphocytes % (Manual) Monocytes % Monocytes % (Manual) Eosinophils % Eosinophils % (Manual) Basophils % Basophils % (Manual) Myelocytes % (Man) Promyelocytes % (Man) Blast Cells % (Manual) Nucleated RBC % Metamyelocytes Hypochromia Platelet Estimate Polychromasia Poikilocytosis Anisocytosis Microcytosis Macrocytosis Target Cells Ovalocytes Schistocytes PT with INR INR PTT (Actin FS) Fibrinogen Sodium 138 Potassium 3.6 Chloride 103 Carbon Dioxide 27 Anion Gap 7 L BUN 5.4 L Creatinine 0.5 L Est GFR (CKD-EPI)AfAm 146.45 Est GFR (CKD-EPI)NonAf 126.36 Random Glucose 74 Calcium 7.5 L Phosphorus 2.3 L Magnesium 2.0 Total Bilirubin 4.6 H Direct Bilirubin 2.3 H AST 140 H ALT 41 Alkaline Phosphatase 212 H Total Protein 6.0 L Albumin 2.3 L Active Medications Generic Name Dose Route Start Last Admin Trade Name Freq PRN Reason Stop Dose Admin Chlordiazepoxide HCl 10 mg 10/02/18 05:00 Librium - PO 10/03/18 05:00 Q12H PRN Signs/symptoms of Withdrawal Chlordiazepoxide HCl 10 mg 09/30/18 08:09 Librium - PO 10/02/18 08:08 Q8H PRN Signs/symptoms of Withdrawal Chlordiazepoxide HCl 15 mg 10/01/18 08:15 10/01/18 09:20 Librium - PO 10/02/18 00:16 15 mg Q8H STEPHEN Administration Chlordiazepoxide HCl 10 mg 10/02/18 08:15 Librium - PO 10/03/18 08:16 Q8H STEPHEN Folic Acid 1 mg 09/30/18 10:00 10/01/18 09:21 Folic Acid - PO 1 mg DAILY STEPHEN Administration Lactated Ringer's 1,000 ml in 1,000 mls @ 100 mls/hr 09/30/18 07:30 10/01/18 09:21 Lactated Ringers Solution IV 10/01/18 17:29 Not Given ASDIR STEPHEN Oxycodone HCl 2.5 mg 10/01/18 14:20 10/01/18 14:51 Roxicodone - PO 2.5 mg Q6H PRN Administration PAIN LEVEL 6-10 Thiamine HCl 200 mg 09/30/18 10:00 10/01/18 09:22 Vitamin B1 Injection - IVPB 200 mg DAILY STEPHEN Administration ASSESSMENT/PLAN: Pt. is a 48 y.o. M w/ PMHx. of EtOH abuse, Lower extremity edema, GERD, and paracentesis presents after a fall in alcohol intoxication. Pt. found to be thrombocytopenic to 27k. #Syncope Pt. does not remember events of fall Echo----> mild aortic regurg, tricuspid regurg, and mitral regurg, no pericardial effusion EF 55-60% EKG appreciated: QTC-484, TWI in III and V1 Carotid Doppler-----> Plaques Left and R common carotid. No hemodynamically significant stenosis appreciated. Orthostatic Vital signs Negative. Duplex LE negative L. Knee and Tib/Fib Negative for acute pathology Head CT: Negative for acute pathology, shows mild diffuse cortical atrophy inconsistent with Pt.'s age, mucus retention cyst in maxillary sinus C-Spine CT: no acute pathology, osteophyte encroachment of neural foramina, diffuse degenerative disease Lumbar CT: No acute pathology, advanced endplate spondylosis, degenerative facet arthropathy, bulging discs at each level w/ associated spinal stenosis #R Knee Pain/Erythema -Oxycodone 2.5 Q6H. #Thrombocytopenia Platelets: 27k; on previous admissions Platelets were ~80k Heme/Onc consult Dr. Callahan on board. -----> transfuse platelets. S/p 1 Unit likely due to EtOH abuse -Orthopedic Surgery consult in light of possible hemarthrosis. Recs appreciated. #Lymphocytosis f/u Heme/Onc Consult #EtOH Abuse and Withdrawal EtOH: 493 on admission Librium protocol Thiamine Folic Acid CT AP w/ contrast ---> Hepatosplenomegaly w/ cirrhosis and portal hypertension. Spontaneous bacterial peritonitis cannot be radiographically excluded. Cholelithiasis w/ wall thickening. #FEN LR @ 100 monitor electrolytes and replete as needed Regular Diet #DVT Ppx. No AC, given thrombocytopenia TEDs Visit type - Emergency Visit Emergency Visit: Yes ED Registration Date: 09/30/18 Care time: The patient presented to the Emergency Department on the above date and was hospitalized for further evaluation of their emergent condition. - New Patient This patient is new to me today: No - Critical Care Critical Care patient: No - Discharge Referral Referred to [facility] No
--- NOTE | 2018-10-01 19:18 | PN ---
Progress Note (short form) - Note Progress Note: Patient seen and examined Painful ecchymotic left knee with effusion No response to platelet infusion Pancytopenia secondary to cirrhosis , hypersplenism and portal hypertension . Coagulopathy with INR- 1.47 and low fibrinogen of 127 mg% Platelets 24 K. will give FFP and cryoppt.
[2018-10-02] MEDS ORDERED: chlordiazePOXIDE HCL 10 MG CAPSULE PO PRN (05:00)
[2018-10-02 08:46] LABS: CALCIUM 7.7 mg/dL (8.5-10.1); CREATININE 0.5 mg/dL (0.55-1.3); PHOSPHOROUS 2.2 mg/dL (2.5-4.9); POTASSIUM 3.6 mmol/L (3.5-5.1)
--- NOTE | 2018-10-02 08:56 | CONSULT ---
Consult Consult Specialty:: orthopedics Reason for Consultation:: Left knee - History of Present Illness History of Present Illness: 48y/o male with hx of ETOH abuse c/o left knee pain after a fall approximately 5 days ago. He came to the ER a few days after the fall and was admitted. He had an x-ray of the knee. He states he has had difficultly walking but was able to walk a little yesterday. He points to the knee cap as the area of the pain. The pain is relieved by rest. - History Source History Provided By: Patient, Medical Record Limitations to Obtaining History: No Limitations - Past Medical History Gastrointestinal: Yes: Pancreatitis (by imaging in 2014 byt was asymptomatic) Hepatobiliary: Yes: Cirrhosis (due to alcoholism), Cholelithiasis (sludge and ? 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 History of Recent Travel: No Home Medications - Allergies Allergies/Adverse Reactions: Allergies Allergy/AdvReac Type Severity Reaction Status Date / Time No Known Drug Allergies Allergy Verified 09/29/18 21:58 cream cheese AdvReac Uncoded 09/29/18 21:58 - Home Medications Home Medications: Ambulatory Orders Cephalexin Monohydrate [Keflex -] 500 mg PO Q8H #18 capsule 02/07/18 Folic Acid 1 mg PO DAILY #30 tablet 02/07/18 Furosemide [Lasix] 40 mg PO DAILY #30 tablet 02/07/18 Pantoprazole Sodium [Protonix] 40 mg PO DAILY #30 tablet 02/07/18 Spironolactone [Aldactone] 100 mg PO DAILY #30 tablet 02/07/18 Thiamine HCl [Vitamin B-1] 100 mg PO DAILY #30 tablet 02/07/18 Docusate Sodium 100 mg PO DAILY 09/30/18 Ferrous Sulfate 325 mg PO DAILY 09/30/18 Sennosides [Senna] 8.6 mg PO DAILY 09/30/18 Review of Systems - Review of Systems Constitutional: reports: No Symptoms Eyes: reports: No Symptoms HENT: reports: No Symptoms Neck: reports: No Symptoms Cardiovascular: reports: No Symptoms Respiratory: reports: No Symptoms Gastrointestinal: reports: No Symptoms Genitourinary: reports: No Symptoms Breasts: reports: No Symptoms Reported Musculoskeletal: reports: No Symptoms Integumentary: reports: Bruising Neurological: reports: No Symptoms Endocrine: reports: No Symptoms Hematology/Lymphatic: reports: No Symptoms Psychiatric: reports: No Symptoms Physical Exam Vital Signs: Vital Signs Temperature 98.2 F 10/02/18 07:53 Pulse Rate 80 10/02/18 07:53 Respiratory Rate 20 10/02/18 07:53 Blood Pressure 134/80 10/02/18 07:53 O2 Sat by Pulse Oximetry (%) 97 10/01/18 21:00 Constitutional: Yes: Well Nourished, No Distress, Calm HENT: Yes: Atraumatic, Normocephalic Extremities: Yes: Other (Left knee: diffuse ecchymosis of the leg and lower leg. There is mild edema along the prepatella bursa and mild redness here. No flutuance. There is mild tenderness along the prepatella bursa. No effusion. ROM 0-90 with minimal discomfort. No instablity. Compartments soft. NVID.) Labs: CBC, BMP 10/02/18 07:00 Imaging - Results X-ray: Report Reviewed, Image Reviewed Assessment/Plan #1 Left knee contusion without effusion -Discussed today's findings and treatment options with the patient. -Recommend rest, WBAT, PT. -Aspiration of prepatella bursa is relatively contraindicated at this time. -Please reconsult if needed.
[2018-10-02 09:17] LABS: INR 1.49 (0.83-1.09); PROTHROMBIN TIME (PATIENT) 17.7 SEC (9.7-13.0)
[2018-10-02 09:19] LABS: ACTIVATED PTT 43.2 SECONDS (25.2-36.5)
[2018-10-02] MEDS ORDERED: chlordiazePOXIDE 5 MG CAPSULE ONE ×2 (09:25→17:54)
[2018-10-02 09:37] LABS: HEMATOCRIT 23.2 % (35.4-49); HEMOGLOBIN 7.5 GM/dL (11.7-16.9); MCH 27.8 pg (25.7-33.7); MCHC 32.4 g/dl (32.0-35.9); MEAN CELL VOLUME 85.9 fl (80-96); MEAN PLT VOLUME 7.6 fl (7.5-11.1); RDW 28.5 % (11.9-15.9)
[2018-10-02 09:56] LABS: PLATELET COUNT 29 K/MM3 (134-434)
[2018-10-02] MEDS: THIAMINE HCL 200 MG/2 ML VIAL IVPB SCH (10:06)
[2018-10-02] MEDS: FOLIC ACID 1 MG TABLET (FP) PO SCH (10:06)
[2018-10-02] MEDS: chlordiazePOXIDE HCL 10 MG CAPSULE PO SCH ×2 (10:07→18:09)
--- NOTE | 2018-10-02 13:06 | PN ---
Teaching Attending Note Name of Resident: Chip Manrique ATTENDING PHYSICIAN STATEMENT I saw and evaluated the patient. I reviewed the resident's note and discussed the case with the resident. I agree with the resident's findings and plan as documented. SUBJECTIVE: Patient reports having pain in his left leg. OBJECTIVE: Vital Signs Period Temp Pulse Resp BP Sys/Mcginnis Pulse Ox Last 24 Hr 98.2 F-99.8 F 80-102 18-20 115-147/69-96 97 HEART: S1S2, RRR LUNGS: Clear ABDOMEN: Soft, (+) distention, non-tender, normal BS EXTREMITIES: No edema. Bilateral ecchymoses L>R. Fluctuance overlying left patella Laboratory Results - last 24 hr 10/01/18 10/02/18 10/02/18 07:24 07:00 07:00 WBC 4.0 RBC 2.70 L Hgb 7.5 L Hct 23.2 L MCV 85.9 MCH 27.8 MCHC 32.4 RDW 28.5 H Plt Count 29 L* D MPV 7.6 D Neutrophils % (Manual) 63.0 D Band Neutrophils % 0.0 Lymphocytes % (Manual) 21.0 D Monocytes % (Manual) 12 H Eosinophils % (Manual) 3.0 Basophils % (Manual) 0.0 Myelocytes % (Man) 1 Promyelocytes % (Man) 0 Blast Cells % (Manual) 0 Metamyelocytes 0 D Hypochromia 2+ Platelet Estimate Decreased Polychromasia 1+ Poikilocytosis 2+ Anisocytosis 2+ Microcytosis 1+ Macrocytosis 1+ Target Cells 1+ Ovalocytes 1+ Schistocytes 1+ PT with INR INR PTT (Actin FS) Fibrinogen Sodium 136 Potassium 3.6 Chloride 103 Carbon Dioxide 26 Anion Gap 8 BUN 6.0 L Creatinine 0.5 L Est GFR (CKD-EPI)AfAm 146.45 Est GFR (CKD-EPI)NonAf 126.36 Random Glucose 77 Calcium 7.7 L Phosphorus 2.2 L Magnesium 2.0 10/02/18 10/02/18 07:00 07:00 WBC RBC Hgb Hct MCV MCH MCHC RDW Plt Count MPV Neutrophils % (Manual) Band Neutrophils % Lymphocytes % (Manual) Monocytes % (Manual) Eosinophils % (Manual) Basophils % (Manual) Myelocytes % (Man) Promyelocytes % (Man) Blast Cells % (Manual) Metamyelocytes Hypochromia Platelet Estimate Polychromasia Poikilocytosis Anisocytosis Microcytosis Macrocytosis Target Cells Ovalocytes Schistocytes PT with INR 17.70 H INR 1.49 H PTT (Actin FS) 43.2 H Fibrinogen 152.0 L Sodium Potassium Chloride Carbon Dioxide Anion Gap BUN Creatinine Est GFR (CKD-EPI)AfAm Est GFR (CKD-EPI)NonAf Random Glucose Calcium Phosphorus Magnesium Current Medications Generic Name Dose Route Start Last Admin Trade Name Freq PRN Reason Stop Dose Admin Chlordiazepoxide HCl 10 mg 10/02/18 05:00 Librium - PO 10/03/18 05:00 Q12H PRN Signs/symptoms of Withdrawal Chlordiazepoxide HCl 10 mg 10/02/18 08:15 10/02/18 10:07 Librium - PO 10/03/18 08:16 10 mg Q8H STEPHEN Administration Folic Acid 1 mg 09/30/18 10:00 10/02/18 10:06 Folic Acid - PO 1 mg DAILY STEPHEN Administration Oxycodone HCl 2.5 mg 10/01/18 14:20 10/01/18 14:51 Roxicodone - PO 2.5 mg Q6H PRN Administration PAIN LEVEL 6-10 Thiamine HCl 200 mg 09/30/18 10:00 10/02/18 10:06 Vitamin B1 Injection - IVPB 200 mg DAILY STEPHEN Administration ASSESSMENT AND PLAN: This is a 48 year old man with a history of alcohol abuse, GERD who presented to the ED with alcohol intoxication and left knee pain after falling. 1. Bilateral leg ecchymoses secondary to fall and thrombocytopenia 2. Left knee hematoma vs effusion - Seen by ortho - aspiration contraindicated 3. Alcohol intoxication 4. Continuous alcohol dependence - Continue Librium detox - Continue thiamine, folic acid 5. Cirrhosis with ascites - GI consult - Paracentesis when platelet count improved 6. Pancytopenia and coagulopathy secondary to alcohol/cirrhosis - Transfused platelets, cryoprecipitate, FFP
--- NOTE | 2018-10-02 15:03 | PN ---
Physical Exam: SUBJECTIVE: Patient seen and examined at bedside. No acute events overnight. Pt received 2 units of FFP and 5 units of cryoprecipitate overnight. OBJECTIVE: Vital Signs Period Temp Pulse Resp BP Sys/Mcginnis Pulse Ox Last 24 Hr 98.2 F-99.8 F 80-102 18-20 115-147/69-96 97 GENERAL: NAD HEAD: NC/AT EYES: EOMI, Scleral icterus ENT: MMM LUNGS: CTAB HEART: 2/6 Systolic Ejection Murmur RUSB. ABDOMEN: Tender to palpation epigastric area. EXTREMITIES: Erythema R knee resolving. TTP. NEUROLOGICAL: Cranial nerves II through XII grossly intact. Normal speech. Laboratory Results - last 24 hr 10/02/18 10/02/18 10/02/18 07:00 07:00 07:00 WBC 4.0 RBC 2.70 L Hgb 7.5 L Hct 23.2 L MCV 85.9 MCH 27.8 MCHC 32.4 RDW 28.5 H Plt Count 29 L* D MPV 7.6 D PT with INR 17.70 H INR 1.49 H PTT (Actin FS) 43.2 H Fibrinogen Sodium 136 Potassium 3.6 Chloride 103 Carbon Dioxide 26 Anion Gap 8 BUN 6.0 L Creatinine 0.5 L Est GFR (CKD-EPI)AfAm 146.45 Est GFR (CKD-EPI)NonAf 126.36 Random Glucose 77 Calcium 7.7 L Phosphorus 2.2 L Magnesium 2.0 10/02/18 07:00 WBC RBC Hgb Hct MCV MCH MCHC RDW Plt Count MPV PT with INR INR PTT (Actin FS) Fibrinogen 152.0 L Sodium Potassium Chloride Carbon Dioxide Anion Gap BUN Creatinine Est GFR (CKD-EPI)AfAm Est GFR (CKD-EPI)NonAf Random Glucose Calcium Phosphorus Magnesium Active Medications Generic Name Dose Route Start Last Admin Trade Name Freq PRN Reason Stop Dose Admin Chlordiazepoxide HCl 10 mg 10/02/18 05:00 Librium - PO 10/03/18 05:00 Q12H PRN Signs/symptoms of Withdrawal Chlordiazepoxide HCl 10 mg 10/02/18 08:15 10/02/18 10:07 Librium - PO 10/03/18 08:16 10 mg Q8H STEPHEN Administration Folic Acid 1 mg 09/30/18 10:00 10/02/18 10:06 Folic Acid - PO 1 mg DAILY STEPHEN Administration Oxycodone HCl 2.5 mg 10/01/18 14:20 10/01/18 14:51 Roxicodone - PO 2.5 mg Q6H PRN Administration PAIN LEVEL 6-10 Thiamine HCl 200 mg 09/30/18 10:00 10/02/18 10:06 Vitamin B1 Injection - IVPB 200 mg DAILY STEPHEN Administration ASSESSMENT/PLAN: Pt. is a 48 y.o. M w/ PMHx. of EtOH abuse, Lower extremity edema, GERD, and paracentesis presents after a fall in alcohol intoxication. Pt. found to be thrombocytopenic to 27k. #Syncope Pt. does not remember events of fall Echo----> mild aortic regurg, tricuspid regurg, and mitral regurg, no pericardial effusion EF 55-60% EKG appreciated: QTC-484, TWI in III and V1 Carotid Doppler-----> Plaques Left and R common carotid. No hemodynamically significant stenosis appreciated. Orthostatic Vital signs Negative. Duplex LE negative L. Knee and Tib/Fib Negative for acute pathology Head CT: Negative for acute pathology, shows mild diffuse cortical atrophy inconsistent with Pt.'s age, mucus retention cyst in maxillary sinus C-Spine CT: no acute pathology, osteophyte encroachment of neural foramina, diffuse degenerative disease Lumbar CT: No acute pathology, advanced endplate spondylosis, degenerative facet arthropathy, bulging discs at each level w/ associated spinal stenosis #R Knee Pain/Erythema -Oxycodone 2.5 Q6H. #Thrombocytopenia Platelets: 27k; on previous admissions Platelets were ~80k Heme/Onc consult Dr. Callahan on board. -2 units of FFP and 5 units of cryoprecipitate overnight -likely due to EtOH abuse -Orthopedic Surgery consult in light of possible hemarthrosis. No acute intervention required at this juncture. " Aspiration of prepatella bursa is relatively contraindicated at this time." #Alcoholic Cirrhosis GI on board. Recs below: No indication for steroid therapy in light of Maddrey's Discriminint function score -Start lactulose 30ml tid titrate to 2-3 loose bms per GI -Diagnostic/therapeutic paracentesis r/o SBP -Follow up cultures -Strict etoh abstinence discussed -Miralax BID #EtOH Abuse and Withdrawal EtOH: 493 on admission Librium protocol Thiamine Folic Acid CT AP w/ contrast ---> Hepatosplenomegaly w/ cirrhosis and portal hypertension. Spontaneous bacterial peritonitis cannot be radiographically excluded. Cholelithiasis w/ wall thickening. #FEN LR @ 100 monitor electrolytes and replete as needed Regular Diet #DVT Ppx. No AC, given thrombocytopenia TEDs Visit type - Emergency Visit Emergency Visit: Yes ED Registration Date: 09/30/18 Care time: The patient presented to the Emergency Department on the above date and was hospitalized for further evaluation of their emergent condition. - New Patient This patient is new to me today: No - Critical Care Critical Care patient: No - Discharge Referral Referred to [facility] Med P.C.: No
--- NOTE | 2018-10-02 15:09 | CON.GI ---
Consult Consult Specialty:: Gastroenterology Reason for Consultation:: elevated LFTs - History of Present Illness History of Present Illness: 48yo male h/o alcoholic liver disease/cirrhosis presenting with left knee pain and swelling after fall in setting of etoh intoxication asked to evaluate for elevated LFTs. Pt reports left knee pain prompting hospitalization. He continues to drink 3-4 beers daily for more than 8 years. Reports mild abdominal distension, denies abdominal pain, n/v or fever/chills. Reports moving bowels 1-2x daily at baseline however has not had bm in 2 days. Denies melena or hematochezia. No prior EGD or colonoscopy. Denies IVDA. Pt was last hospitalized at [facility] in 01/2018 with similar complaints. Had paracentesis at that time, negative for SBP. No interval GI follow up. - History Source History Provided By: Patient - Past Medical History Gastrointestinal: Yes: Pancreatitis (by imaging in 2014 byt was asymptomatic) Hepatobiliary: Yes: Cirrhosis (due to alcoholism), Cholelithiasis (sludge and ? 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 History of Recent Travel: No Home Medications - Allergies Allergies/Adverse Reactions: Allergies Allergy/AdvReac Type Severity Reaction Status Date / Time No Known Drug Allergies Allergy Verified 09/29/18 21:58 cream cheese AdvReac Uncoded 09/29/18 21:58 - Home Medications Home Medications: Ambulatory Orders Cephalexin Monohydrate [Keflex -] 500 mg PO Q8H #18 capsule 02/07/18 Folic Acid 1 mg PO DAILY #30 tablet 02/07/18 Furosemide [Lasix] 40 mg PO DAILY #30 tablet 02/07/18 Pantoprazole Sodium [Protonix] 40 mg PO DAILY #30 tablet 02/07/18 Spironolactone [Aldactone] 100 mg PO DAILY #30 tablet 02/07/18 Thiamine HCl [Vitamin B-1] 100 mg PO DAILY #30 tablet 02/07/18 Docusate Sodium 100 mg PO DAILY 09/30/18 Ferrous Sulfate 325 mg PO DAILY 09/30/18 Sennosides [Senna] 8.6 mg PO DAILY 09/30/18 Review of Systems - Review of Systems Constitutional: reports: No Symptoms Respiratory: reports: No Symptoms Gastrointestinal: reports: Bloating, Constipation Musculoskeletal: reports: Joint Pain, Joint Swelling (left knee pain and swelling) Physical Exam-GI Vital Signs: Vital Signs Temperature 98.4 F 10/02/18 10:00 Pulse Rate 100 H 10/02/18 10:00 Respiratory Rate 18 10/02/18 10:00 Blood Pressure 147/96 10/02/18 10:00 O2 Sat by Pulse Oximetry (%) 97 10/01/18 21:00 Constitutional: Yes: Well Nourished, No Distress, Calm, Other (AAOX3, slightly slow to respond +asterixis) Cardiovascular: Yes: WNL, Regular Rate and Rhythm Respiratory: Yes: WNL, Regular, CTA Bilaterally ...Palpate: Yes: Other (Abd softly distended, nontender, no rebound, guarding or rigidity +fluid thrill, flank dullness) Labs: CBC, BMP 10/02/18 07:00 10/02/18 07:00 INR, PTT INR 1.49 (0.83-1.09) H 10/02/18 07:00 Fibrinogen 152.0 mg/dL (238-498) L 10/02/18 07:00 Imaging - Results Ultrasound: Report Reviewed Problem List - Problems (1) Alcoholic cirrhosis Assessment/Plan: 48yo male h/o alcoholic liver disease/cirrhosis presenting with left knee pain and swelling after a fall in setting of etoh intoxication asked to evaluate for elevated LFTs. LFT pattern most likely consistent with alcoholic injury ( similar on prior admission). US and CT imaging revealing large ascites, gallstones without biliary dilation. Hepatitis serologies negative (01/2018). LUPILLO 27. MELD 30. -Monitor LFT trend -No indication for steroid therapy -Start lactulose 30ml tid titrate to 2-3 loose bms -Diagnostic/therapeutic paracentesis r/o SBP -Follow up cultures -Strict etoh abstinence discussed Code(s): K70.30 - ALCOHOLIC CIRRHOSIS OF LIVER WITHOUT ASCITES (2) Pancytopenia Assessment/Plan: Likely multifactorial and in setting of etoh abuse. Thrombocytopenia more than would be expected however from cirrhosis alone. No overt bleeding. No prior endoscopy. -Check iron studies/ferritin -Hematology evaluation -Pt would require EGD for variceal screening and colonoscopy once further optimized and when hematological parameters have improved (aim plts >50). Discussed with medicine team Code(s): D61.818 - OTHER PANCYTOPENIA
[2018-10-02] MEDS ORDERED: LACTULOSE 20 GM/30 ML UDC (FOR ORAL USE ONLY) PO PRN ×2 (16:15→16:24)
--- NOTE | 2018-10-02 19:44 | PN ---
Progress Note (short form) - Note Progress Note: Patient seen and examined Complains of knee pains Last Vital Signs Temp Pulse Resp BP Pulse Ox 99.7 F H 98 H 18 123/63 97 10/02/18 16:30 10/02/18 16:30 10/02/18 16:30 10/02/18 16:30 10/01/18 21:00 HEENT: TALISHA, EOM Intact Oropharynx: No thrush, No mucositis Cor: RSR, No murmurs, No gallops Lungs: diminished breath sounds Abd: ascites Ext: edema decreased left knee Skin: ecchymoses left knee - medial and lateral aspects CBC, BMP 10/02/18 07:00 10/02/18 07:00 Current Medications Generic Name Dose Route Start Last Admin Trade Name Freq PRN Reason Stop Dose Admin Chlordiazepoxide HCl 10 mg 10/02/18 05:00 Librium - PO 10/03/18 05:00 Q12H PRN Signs/symptoms of Withdrawal Chlordiazepoxide HCl 10 mg 10/02/18 08:15 10/02/18 18:09 Librium - PO 10/03/18 08:16 10 mg Q8H STEPHEN Administration Folic Acid 1 mg 09/30/18 10:00 10/02/18 10:06 Folic Acid - PO 1 mg DAILY STEPHEN Administration Lactulose 20 gm 10/02/18 16:24 Cephulac (Oral Use) PO Q8H PRN CONSTIPATION Oxycodone HCl 2.5 mg 10/01/18 14:20 10/01/18 14:51 Roxicodone - PO 2.5 mg Q6H PRN Administration PAIN LEVEL 6-10 Thiamine HCl 200 mg 09/30/18 10:00 10/02/18 10:06 Vitamin B1 Injection - IVPB 200 mg DAILY STEPHEN Administration INR, PTT INR 1.49 (0.83-1.09) H 10/02/18 07:00 Fibrinogen 152.0 mg/dL (238-498) L 10/02/18 07:00 Impression: Portal hypertension secondary to cirrhosis anemia Thrombocytopenia Coagulopathy left knee hemarthrosis ascites No response to FFP or platelet infusion Mild increase in fibrinogen with cryo If paracentesis is planned , since no response to platelets at 24 hours , try to infuse platelets as close to procedure as possible. Ideally need 50K or greater platelet count to undergo procedure.
[2018-10-03] MEDS ORDERED: chlordiazePOXIDE 5 MG CAPSULE ONE ×2 (01:53→08:10)
[2018-10-03] MEDS: chlordiazePOXIDE HCL 10 MG CAPSULE PO SCH ×2 (02:00→08:35)
[2018-10-03] MEDS ORDERED: ACETAMINOPHEN 1000 MG/100 ML VIAL (NON FORMULARY) IVPB ONE (07:27)
[2018-10-03 08:46] LABS: BASO % 1.8 % (0-2.0); EOS % 3.7 % (0-4.5); HEMATOCRIT 23.5 % (35.4-49); HEMOGLOBIN 7.6 GM/dL (11.7-16.9); LYMPH % 13.4 % (8-40); MCH 27.8 pg (25.7-33.7); MCHC 32.1 g/dl (32.0-35.9); MEAN CELL VOLUME 86.7 fl (80-96); MEAN PLT VOLUME 8.3 fl (7.5-11.1); MONO % 11.1 % (3.8-10.2); PLATELET COUNT 70 K/MM3 (134-434); RBC 2.72 M/mm3 (4.00-5.60); RDW 27.9 % (11.9-15.9); WHITE BLOOD COUNT 2.5 K/mm3 (4.0-10.0)
[2018-10-03] MEDS: THIAMINE HCL 200 MG/2 ML VIAL IVPB SCH (10:12)
[2018-10-03] MEDS: FOLIC ACID 1 MG TABLET (FP) PO SCH (10:12)
[2018-10-03 10:13] LABS: ALBUMIN 2.5 g/dl (3.4-5.0); BILIRUBIN,TOTAL 6.3 mg/dL (0.2-1); BLOOD UREA NITROGEN 5.1 mg/dL (7-18); CALCIUM 7.9 mg/dL (8.5-10.1); CREATININE 0.6 mg/dL (0.55-1.3); MAGNESIUM 1.8 mg/dL (1.8-2.4); PHOSPHOROUS 2.9 mg/dL (2.5-4.9); POTASSIUM 3.4 mmol/L (3.5-5.1); TOT PROT 6.1 g/dl (6.4-8.2)
--- NOTE | 2018-10-03 11:05 | PN ---
Physical Exam: SUBJECTIVE: Patient seen and examined at bedside. Temp of 103.2 earlier this am after pt received platelet infusion. OBJECTIVE: Vital Signs Period Temp Pulse Resp BP Sys/Mcginnis Pulse Ox Last 24 Hr 99.6 F-99.7 F 98-101 18-18 123-132/63-77 GENERAL: No acute distress. HEAD: NC/AT EYES: EOMI, Scleral icterus ENT: MMM LUNGS: Crackles left lung field. HEART: 2/6 Systolic Ejection Murmur RUSB. ABDOMEN: Tender to palpation epigastric area. EXTREMITIES: Erythema R knee resolving. TTP. Laboratory Results - last 24 hr 10/03/18 10/03/18 08:00 08:00 WBC 2.5 L RBC 2.72 L Hgb 7.6 L Hct 23.5 L MCV 86.7 MCH 27.8 MCHC 32.1 RDW 27.9 H Plt Count 70 L D MPV 8.3 Absolute Neuts (auto) 1.8 Neutrophils % 70.0 D Lymphocytes % 13.4 D Monocytes % 11.1 H Eosinophils % 3.7 Basophils % 1.8 Nucleated RBC % 1 H Sodium 134 L Potassium 3.4 L Chloride 102 Carbon Dioxide 24 Anion Gap 8 BUN 5.1 L Creatinine 0.6 Est GFR (CKD-EPI)AfAm 135.87 Est GFR (CKD-EPI)NonAf 117.23 Random Glucose 73 L Calcium 7.9 L Phosphorus 2.9 Magnesium 1.8 Ferritin 75.9 Total Bilirubin 6.3 H AST 96 H ALT 35 Alkaline Phosphatase 193 H Total Protein 6.1 L Albumin 2.5 L Vitamin B12 2269 H Serum Folate 18 H TSH 3.88 H Active Medications Generic Name Dose Route Start Last Admin Trade Name Freq PRN Reason Stop Dose Admin Folic Acid 1 mg 09/30/18 10:00 10/03/18 10:12 Folic Acid - PO 1 mg DAILY STEPHEN Administration Lactulose 20 gm 10/02/18 16:24 Cephulac (Oral Use) PO Q8H PRN CONSTIPATION Oxycodone HCl 2.5 mg 10/01/18 14:20 10/01/18 14:51 Roxicodone - PO 2.5 mg Q6H PRN Administration PAIN LEVEL 6-10 Thiamine HCl 200 mg 09/30/18 10:00 10/03/18 10:12 Vitamin B1 Injection - IVPB 200 mg DAILY STEPHEN Administration ASSESSMENT/PLAN: Pt. is a 48 y.o. M w/ PMHx. of EtOH abuse, Lower extremity edema, GERD, and paracentesis presents after a fall in alcohol intoxication. Pt. found to be thrombocytopenic to 27k. #Syncope Pt. does not remember events of fall Echo----> mild aortic regurg, tricuspid regurg, and mitral regurg, no pericardial effusion EF 55-60% EKG appreciated: QTC-484, TWI in III and V1 Carotid Doppler-----> Plaques Left and R common carotid. No hemodynamically significant stenosis appreciated. Orthostatic Vital signs Negative. Duplex LE negative L. Knee and Tib/Fib Negative for acute pathology Head CT: Negative for acute pathology, shows mild diffuse cortical atrophy inconsistent with Pt.'s age, mucus retention cyst in maxillary sinus C-Spine CT: no acute pathology, osteophyte encroachment of neural foramina, diffuse degenerative disease Lumbar CT: No acute pathology, advanced endplate spondylosis, degenerative facet arthropathy, bulging discs at each level w/ associated spinal stenosis #R Knee Pain/Erythema -Oxycodone 2.5 Q6H. #Thrombocytopenia Platelets: 27k; on previous admissions Platelets were ~80k Heme/Onc consult Dr. Callahan on board. -s/p 2 units of FFP and 5 units of cryoprecipitate Fever 103.2 earlier this am , ofirmev administered, blood cultures pending. -likely due to EtOH abuse -Orthopedic Surgery consult in light of possible hemarthrosis. No acute intervention required at this juncture. " Aspiration of prepatella bursa is relatively contraindicated at this time." #Alcoholic Cirrhosis GI on board. Recs below: No indication for steroid therapy in light of Maddrey's Discriminint function score. For Paracentesis today as PLT count > 50 K -Start lactulose 30ml tid titrate to 2-3 loose bms per GI -Diagnostic/therapeutic paracentesis r/o SBP -Follow up cultures -Strict etoh abstinence discussed -Miralax BID #EtOH Abuse and Withdrawal EtOH: 493 on admission Librium protocol Thiamine Folic Acid CT AP w/ contrast ---> Hepatosplenomegaly w/ cirrhosis and portal hypertension. Spontaneous bacterial peritonitis cannot be radiographically excluded. Cholelithiasis w/ wall thickening. #FEN No Fluids monitor electrolytes and replete as needed Regular Diet #DVT Ppx. No AC, given thrombocytopenia TEDs Visit type - Emergency Visit Emergency Visit: Yes ED Registration Date: 09/30/18 Care time: The patient presented to the Emergency Department on the above date and was hospitalized for further evaluation of their emergent condition. - New Patient This patient is new to me today: No - Critical Care Critical Care patient: No - Discharge Referral Referred to [facility] Med P.C.: No
--- NOTE | 2018-10-03 11:35 | PN ---
Teaching Attending Note Name of Resident: Chip Manrique ATTENDING PHYSICIAN STATEMENT I saw and evaluated the patient. I reviewed the resident's note and discussed the case with the resident. I agree with the resident's findings and plan as documented. SUBJECTIVE: Patient is still having pain in his left leg, but now less severe. Had fever 102.8 this morning. OBJECTIVE: Vital Signs Period Temp Pulse Resp BP Sys/Mcginnis Pulse Ox Last 24 Hr 99.6 F-99.7 F 98-101 18-18 123-132/63-77 HEART: S1S2, RRR LUNGS: Crackles at left base ABDOMEN: Soft, (+) distention, non-tender, normal BS EXTREMITIES: No edema. Bilateral ecchymoses L>R. Fluctuance overlying left patella Laboratory Results - last 24 hr 10/03/18 10/03/18 08:00 08:00 WBC 2.5 L RBC 2.72 L Hgb 7.6 L Hct 23.5 L MCV 86.7 MCH 27.8 MCHC 32.1 RDW 27.9 H Plt Count 70 L D MPV 8.3 Absolute Neuts (auto) 1.8 Neutrophils % 70.0 D Lymphocytes % 13.4 D Monocytes % 11.1 H Eosinophils % 3.7 Basophils % 1.8 Nucleated RBC % 1 H Sodium 134 L Potassium 3.4 L Chloride 102 Carbon Dioxide 24 Anion Gap 8 BUN 5.1 L Creatinine 0.6 Est GFR (CKD-EPI)AfAm 135.87 Est GFR (CKD-EPI)NonAf 117.23 Random Glucose 73 L Calcium 7.9 L Phosphorus 2.9 Magnesium 1.8 Ferritin 75.9 Total Bilirubin 6.3 H AST 96 H ALT 35 Alkaline Phosphatase 193 H Total Protein 6.1 L Albumin 2.5 L Vitamin B12 2269 H Serum Folate 18 H TSH 3.88 H Current Medications Generic Name Dose Route Start Last Admin Trade Name Freq PRN Reason Stop Dose Admin Folic Acid 1 mg 09/30/18 10:00 10/03/18 10:12 Folic Acid - PO 1 mg DAILY STEPHEN Administration Lactulose 20 gm 10/02/18 16:24 Cephulac (Oral Use) PO Q8H PRN CONSTIPATION Oxycodone HCl 2.5 mg 10/01/18 14:20 10/01/18 14:51 Roxicodone - PO 2.5 mg Q6H PRN Administration PAIN LEVEL 6-10 Thiamine HCl 200 mg 09/30/18 10:00 10/03/18 10:12 Vitamin B1 Injection - IVPB 200 mg DAILY STEPHEN Administration ASSESSMENT AND PLAN: This is a 48 year old man with a history of alcohol abuse, GERD who presented to the ED with alcohol intoxication and left knee pain after falling. 1. SIRS (fever, tachycardia), possible sepsis - Possibly secondary to platelet transfusion - Check CXR, blood cultures - Paracentesis to evaluate for SBP - Re-evaluation of left knee by ortho 2. Bilateral leg ecchymoses secondary to fall and thrombocytopenia 3. Left knee hematoma vs effusion - Seen by ortho - felt aspiration relatively contraindicated, but patient now with fevers, so will ask to re-evaluate 4. Alcohol intoxication 5. Continuous alcohol dependence - Continue Librium detox - Continue thiamine, folic acid 6. Cirrhosis with ascites - Paracentesis today now that platelet count 70k - Will eventually need EGD to evaluate for varices 7. Pancytopenia and coagulopathy secondary to alcohol/cirrhosis - Transfused platelets, cryoprecipitate, FFP - Hemoglobin is stable - Platelets improving 8. Hypokalemia - Replete potassium
[2018-10-03 13:29] LABS: ANISOCYTOSIS 2+; MACROCYTOSIS 1+; OVALOCYTE 1+; PLATELET ESTIMATE DECREASED
[2018-10-03 14:36] LABS: BF WBC & OTHER NUCLEATED CELLS 65 /mm3
[2018-10-03] MEDS ORDERED: POTASSIUM CHLORIDE TABS 20 MEQ TABLET.ER (FP) PO ONE (15:09)
[2018-10-03 15:19] LABS: BODY FLUID MACROPHAGES 63 %; BODY FLUID MESOTHELIAL 6 %; BODY FLUID MONOCYTE 12 %
--- NOTE | 2018-10-03 15:22 | PN.GI ---
GI Progress Note Subjective: No acute events Had a fever 103 today Some knee pain No abdominal pain Diagnostic paracentesis performed (150cc per nurse). Neg for SBP - Objective Vital Signs: Vital Signs Temperature 102.8 F H 10/03/18 09:00 Pulse Rate 122 H 10/03/18 09:00 Respiratory Rate 18 10/03/18 09:00 Blood Pressure 127/78 10/03/18 09:00 O2 Sat by Pulse Oximetry (%) 97 10/01/18 21:00 Constitutional: Calm Eyes: Yes: Sclera Icterus Cardiovascular: Yes: Regular Rate and Rhythm. No: Murmur Respiratory: Yes: CTA Bilaterally Gastrointestinal Inspection: Yes: Hernia (reducible fluid filled umbilical hernia), Scars (RLQ scar) ...Auscultate: Yes: Normoactive Bowel Sounds ...Palpate: Yes: Soft. No: Hepatomegaly, Splenomegaly, Tenderness ...Percussion: No: Tympanitic Extremities: Yes: Other (B/L LE ecchymoses L>R, area of fluctuance / erythema, anterior area of left knee patella, mildly tender to palpation.) Neurological: Yes: Alert. No: Asterixis (mildly tremulous) Labs: CBC, BMP 10/03/18 08:00 10/03/18 08:00 INR, PTT INR 1.49 (0.83-1.09) H 10/02/18 07:00 Fibrinogen 152.0 mg/dL (238-498) L 10/02/18 07:00 Hepatic Panel Total Bilirubin 6.3 mg/dL (0.2-1) H 10/03/18 08:00 Direct Bilirubin 2.3 mg/dL (0.0-0.2) H 10/01/18 07:24 AST 96 U/L (15-37) H 10/03/18 08:00 ALT 35 U/L (13-61) 10/03/18 08:00 Alkaline Phosphatase 193 U/L (45-117) H 10/03/18 08:00 Albumin 2.5 g/dl (3.4-5.0) L 10/03/18 08:00 - ....Imaging Ultrasound: Report Reviewed (Ascites, cirrhotic appearing liver, distended GB with stones and sludge) Problem List - Problems (1) Alcoholic cirrhosis Assessment/Plan: Continues to drink. Likely component of alcoholic hepatitis compounding chronic liver disease. I explained to Mr. Vigil that he will likely from complications of his liver disease and that continued alcohol use will expedite the process. If he is able to achieve sobriety, consideration could be given for liver transplant evaluation if he is a candidate. Unclear what his citizenship status is at this time. He if from [place] initially and has been living in the [place] since 1989. ? naturalized citizen. This will need to be clarified Spoke with Dr. Osorio. The area of fluctuance noted on the left knee is to be investigated by ortho. ? abscess / infected hematoma as source of infection. Q 6 month hepatic US to screen for HCC Await further fluid studies. If low total protein, given degree of liver dysfunction, should be on SBP prophylaxis with cipro 500mg PO daily Will need EGD to exclude varices as well as colonoscopy when acute issues are resolved 2g sodium controlled diet Diuresis: Lasix 20mg daily, Aldactone 50mg daily Daily weights, Strict I's and O's Code(s): K70.30 - ALCOHOLIC CIRRHOSIS OF LIVER WITHOUT ASCITES
--- NOTE | 2018-10-03 22:38 | PN ---
Progress Note (short form) - Note Progress Note: Patient seen and examined s/p paracentesis feels improved AFVSS Cor: RSR, No murmurs, No gallops Lungs: Clear to P&A Abd: Soft, Normal bowel sounds, No organomegaly Ext:No significant edema Left knee effusion Labs/MEds reviewed A/P 48 y.o. M w/ PMHx. of EtOH abuse, Lower extremity edema, GERD, and paracentesis presents after a fall in alcohol intoxication. Thrombocytopenia/coagulopathy due to liver disease s/p platelet transfusion s/p FFP tolerated procedure well
[2018-10-04 07:46] LABS: ALBUMIN 2.2 g/dl (3.4-5.0); BILIRUBIN,TOTAL 5.4 mg/dL (0.2-1); BLOOD UREA NITROGEN 9.1 mg/dL (7-18); CALCIUM 7.9 mg/dL (8.5-10.1); CREATININE 0.5 mg/dL (0.55-1.3); PHOSPHOROUS 3.6 mg/dL (2.5-4.9); POTASSIUM 3.9 mmol/L (3.5-5.1); TOT PROT 5.7 g/dl (6.4-8.2)
[2018-10-04 07:59] LABS: BASO % 2.1 % (0-2.0); EOS % 4.4 % (0-4.5); HEMATOCRIT 25.8 % (35.4-49); HEMOGLOBIN 8.2 GM/dL (11.7-16.9); LYMPH % 20.1 % (8-40); MCH 27.5 pg (25.7-33.7); MCHC 31.6 g/dl (32.0-35.9); MEAN CELL VOLUME 86.9 fl (80-96); MEAN PLT VOLUME 8.9 fl (7.5-11.1); MONO % 25.5 % (3.8-10.2); NEUT % 47.9 % (42.8-82.8); RBC 2.97 M/mm3 (4.00-5.60)
[2018-10-04 08:06] LABS: SERUM IRON SATURATION 13 % (15-55); TOTAL IRON BINDING CAPACITY 273 ug/dL (250-450)
[2018-10-04 08:13] LABS: PLATELET COUNT 69 K/MM3 (134-434)
[2018-10-04] MEDS: FOLIC ACID 1 MG TABLET (FP) PO SCH (09:37)
[2018-10-04] MEDS: THIAMINE HCL 200 MG/2 ML VIAL IVPB SCH (09:37)
[2018-10-04 10:10] LABS: ANISOCYTOSIS 2+; MACROCYTOSIS 1+; OVALOCYTE 1+; PLATELET ESTIMATE DECREASED; TARGET CELLS 2+
--- NOTE | 2018-10-04 12:14 | PN ---
Physical Exam: SUBJECTIVE: Patient seen and examined at bedside. No acute events overnight. POD 1 paracentesis. OBJECTIVE: Vital Signs Period Temp Pulse Resp BP Sys/Mcginnis Pulse Ox Last 24 Hr 97.7 F-98.7 F 85-98 18-18 107-120/64-67 GENERAL: NAD HEAD: NC/AT EYES: EOMI, Scleral icterus ENT: MMM LUNGS: Crackles b/l lung bases HEART: 2/6 Systolic Ejection Murmur RUSB. ABDOMEN: Tender to deep palpation. BS+. EXTREMITIES: Echymosis b/l lower extremities. Fluctuance left knee. Laboratory Results - last 24 hr 10/03/18 10/03/18 10/03/18 08:00 08:00 08:00 WBC RBC Hgb Hct MCV MCH MCHC RDW Plt Count MPV Absolute Neuts (auto) Neutrophils % Neutrophils % (Manual) Band Neutrophils % Lymphocytes % Lymphocytes % (Manual) Monocytes % Monocytes % (Manual) Eosinophils % Eosinophils % (Manual) Basophils % Basophils % (Manual) Myelocytes % (Man) Promyelocytes % (Man) Blast Cells % (Manual) Nucleated RBC % Metamyelocytes Hypochromia 1+ Platelet Estimate Decreased Polychromasia 1+ Poikilocytosis 2+ Anisocytosis 2+ Microcytosis 1+ Macrocytosis 1+ Target Cells Ovalocytes 1+ Schistocytes 1+ Sodium Potassium Chloride Carbon Dioxide Anion Gap BUN Creatinine Est GFR (CKD-EPI)AfAm Est GFR (CKD-EPI)NonAf Random Glucose Calcium Phosphorus Magnesium Iron 36 L TIBC 273 Iron Saturation 13 L Unsaturated IBC 237 Total Bilirubin AST ALT Alkaline Phosphatase Total Protein Albumin Tumor Marker AFP 1.5 Fluid Source Fluid WBC Fluid RBC Fluid Neutrophils Fluid Lymphocytes Pleural Monocytes Pleural Macrophages Pleural Mesothelial Pleural Diff Comment Stool Occult Blood 10/03/18 10/03/18 10/04/18 11:00 15:45 06:09 WBC 4.0 RBC 2.97 L Hgb 8.2 L Hct 25.8 L MCV 86.9 MCH 27.5 MCHC 31.6 L RDW 28.0 H Plt Count 69 L MPV 8.9 Absolute Neuts (auto) 1.9 Neutrophils % 47.9 D Neutrophils % (Manual) 52.6 Band Neutrophils % 0.0 Lymphocytes % 20.1 D Lymphocytes % (Manual) 16.5 D Monocytes % 25.5 H D Monocytes % (Manual) 23 H D Eosinophils % 4.4 Eosinophils % (Manual) 7.2 H D Basophils % 2.1 H Basophils % (Manual) 1.0 D Myelocytes % (Man) 0 D Promyelocytes % (Man) 0 Blast Cells % (Manual) 0 Nucleated RBC % 0 Metamyelocytes 0 Hypochromia 1+ Platelet Estimate Decreased Polychromasia 1+ Poikilocytosis 2+ Anisocytosis 2+ Microcytosis 1+ Macrocytosis 1+ Target Cells 2+ Ovalocytes 1+ Schistocytes 1+ Sodium Potassium Chloride Carbon Dioxide Anion Gap BUN Creatinine Est GFR (CKD-EPI)AfAm Est GFR (CKD-EPI)NonAf Random Glucose Calcium Phosphorus Magnesium Iron TIBC Iron Saturation Unsaturated IBC Total Bilirubin AST ALT Alkaline Phosphatase Total Protein Albumin Tumor Marker AFP Fluid Source Peritoneal Fluid WBC 65 Fluid RBC 482 Fluid Neutrophils 0 Fluid Lymphocytes 19 Pleural Monocytes 12 Pleural Macrophages 63 Pleural Mesothelial 6 Pleural Diff Comment Stool Occult Blood Negative 10/04/18 06:09 WBC RBC Hgb Hct MCV MCH MCHC RDW Plt Count MPV Absolute Neuts (auto) Neutrophils % Neutrophils % (Manual) Band Neutrophils % Lymphocytes % Lymphocytes % (Manual) Monocytes % Monocytes % (Manual) Eosinophils % Eosinophils % (Manual) Basophils % Basophils % (Manual) Myelocytes % (Man) Promyelocytes % (Man) Blast Cells % (Manual) Nucleated RBC % Metamyelocytes Hypochromia Platelet Estimate Polychromasia Poikilocytosis Anisocytosis Microcytosis Macrocytosis Target Cells Ovalocytes Schistocytes Sodium 136 Potassium 3.9 Chloride 106 Carbon Dioxide 23 Anion Gap 8 BUN 9.1 Creatinine 0.5 L Est GFR (CKD-EPI)AfAm 146.45 Est GFR (CKD-EPI)NonAf 126.36 Random Glucose 68 L Calcium 7.9 L Phosphorus 3.6 Magnesium 2.0 Iron TIBC Iron Saturation Unsaturated IBC Total Bilirubin 5.4 H AST 79 H ALT 30 Alkaline Phosphatase 206 H Total Protein 5.7 L Albumin 2.2 L Tumor Marker AFP Fluid Source Fluid WBC Fluid RBC Fluid Neutrophils Fluid Lymphocytes Pleural Monocytes Pleural Macrophages Pleural Mesothelial Pleural Diff Comment Stool Occult Blood Active Medications Generic Name Dose Route Start Last Admin Trade Name Freq PRN Reason Stop Dose Admin Folic Acid 1 mg 09/30/18 10:00 10/04/18 09:37 Folic Acid - PO 1 mg DAILY STEPHEN Administration Furosemide 20 mg 10/04/18 11:00 Lasix - PO DAILY STEPHEN Ceftriaxone Sodium 1 gm/ 50 mls @ 100 mls/hr 10/04/18 11:00 Dextrose IVPB DAILY [facility] Protocol Lactulose 20 gm 10/02/18 16:24 Cephulac (Oral Use) PO Q8H PRN CONSTIPATION Oxycodone HCl 2.5 mg 10/01/18 14:20 10/01/18 14:51 Roxicodone - PO 2.5 mg Q6H PRN Administration PAIN LEVEL 6-10 Spironolactone 50 mg 10/04/18 11:00 Aldactone - PO DAILY [facility] Thiamine HCl 200 mg 09/30/18 10:00 10/04/18 09:37 Vitamin B1 Injection - IVPB 200 mg DAILY [facility] Administration ASSESSMENT/PLAN: Pt. is a 48 y.o. M w/ PMHx. of EtOH abuse, Lower extremity edema, GERD, and paracentesis presents after a fall in alcohol intoxication. Pt. found to be thrombocytopenic to 27k. #Syncope Pt. does not remember events of fall Echo----> mild aortic regurg, tricuspid regurg, and mitral regurg, no pericardial effusion EF 55-60% EKG appreciated: QTC-484, TWI in III and V1 Carotid Doppler-----> Plaques Left and R common carotid. No hemodynamically significant stenosis appreciated. Orthostatic Vital signs Negative. Duplex LE negative L. Knee and Tib/Fib Negative for acute pathology Head CT: Negative for acute pathology, shows mild diffuse cortical atrophy inconsistent with Pt.'s age, mucus retention cyst in maxillary sinus C-Spine CT: no acute pathology, osteophyte encroachment of neural foramina, diffuse degenerative disease Lumbar CT: No acute pathology, advanced endplate spondylosis, degenerative facet arthropathy, bulging discs at each level w/ associated spinal stenosis #R Knee Pain/Erythema -Oxycodone 2.5 Q6H. #Thrombocytopenia Platelets: 27k; on previous admissions Platelets were ~80k Heme/Onc consult Dr. Callahan on board. -s/p 2 units of FFP and 5 units of cryoprecipitate Fever 103.2 10/03/18, ofirmev administered, blood cultures prelim read neg. -likely due to EtOH abuse -Orthopedic Surgery consult in light of possible hemarthrosis. No acute intervention required at this juncture. " Aspiration of prepatella bursa is relatively contraindicated at this time." -Re-consult Orthopedic surgery in light of knee fluctuance. Awaiting Call Back. #Alcoholic Cirrhosis GI on board. Recs below: No indication for steroid therapy in light of Maddrey's Discriminint function score. POD#1 Paracentesis. Fluid analysis pending. Gram Stain pending. Aldactone 50 Daily and Lasix 20 Daily -Start lactulose 30ml tid titrate to 2-3 loose bms per GI -Diagnostic/therapeutic paracentesis r/o SBP -Strict etoh abstinence discussed -Miralax BID #EtOH Abuse and Withdrawal EtOH: 493 on admission Librium protocol Thiamine Folic Acid CT AP w/ contrast ---> Hepatosplenomegaly w/ cirrhosis and portal hypertension. Spontaneous bacterial peritonitis cannot be radiographically excluded. Cholelithiasis w/ wall thickening. #FEN No Fluids monitor electrolytes and replete as needed Diabetic Diet #DVT Ppx. No AC, given thrombocytopenia TEDs Visit type - Emergency Visit Emergency Visit: Yes ED Registration Date: 09/30/18 Care time: The patient presented to the Emergency Department on the above date and was hospitalized for further evaluation of their emergent condition. - New Patient This patient is new to me today: No - Critical Care Critical Care patient: No - Discharge Referral Referred to [facility] No
[2018-10-04] MEDS ORDERED: DEXTROSE 5%-WATER - 50 ML IVPB ONE (13:29)
[2018-10-04] MEDS ORDERED: cefTRIAXone SODIUM 1 GM VIAL ONE (13:29)
[2018-10-04] MEDS: CEFTRIAXONE 1 GM in DEXTROSE 5%-WATER - 50 ML IVPB SCH (13:32)
[2018-10-04] MEDS: FUROSEMIDE 20 MG TABLET (FP) PO SCH (13:32)
[2018-10-04] MEDS: SPIRONOLACTONE 25 MG TABLET (FP) PO SCH (13:32)
--- NOTE | 2018-10-04 14:34 | PN.GI ---
GI Progress Note Subjective: No acute events Noted guaiac negative yesterday No abdominal pain - Objective Vital Signs: Vital Signs Temperature 98.5 F 10/04/18 06:31 Pulse Rate 98 H 10/04/18 06:31 Respiratory Rate 18 10/04/18 06:31 Blood Pressure 120/64 10/04/18 06:31 O2 Sat by Pulse Oximetry (%) 97 10/01/18 21:00 Constitutional: Calm Eyes: Yes: Sclera Icterus Cardiovascular: Yes: Regular Rate and Rhythm. No: Murmur Respiratory: Yes: CTA Bilaterally Gastrointestinal Inspection: Yes: Distention ...Auscultate: Yes: Normoactive Bowel Sounds ...Palpate: Yes: Soft. No: Hepatomegaly, Splenomegaly, Tenderness ...Percussion: No: Tympanitic Extremities: Yes: Other (LE findings as noted yestrday with fluctuant left knee) Edema: No Neurological: Yes: Alert. No: [facility]ix[facility] Labs: CBC, BMP 10/04/18 06:09 10/04/18 06:09 INR, PTT INR 1.49 (0.83-1.09) H 10/02/18 07:00 Fibrinogen 152.0 mg/dL (238-498) L 10/02/18 07:00 Problem List - Problems (1) Alcoholic cirrhosis Assessment/Plan: Monitor LFTs Alcohol abstinence Discussed EGD with Mr. Vigil to screen for varices. Discussed potential risks of the procedure like but not limited to bleeding, perforation requiring surgery to repair, infection, sedation medication effects all of which could be potentially life threatening. he has agreed to the procedure. Continue IV Abx for now and pre procedure Code(s): K70.30 - ALCOHOLIC CIRRHOSIS OF LIVER WITHOUT ASCITES (2) Infection of left knee Assessment/Plan: ? left knee abscess. will need further evaluation. Code(s): M00.9 - PYOGENIC ARTHRITIS, UNSPECIFIED
--- NOTE | 2018-10-04 16:14 | PN ---
Progress Note (short form) - Note Progress Note: patient sitting in chair Left Knee: generalized swelling, ecchymosis, prepatellar bursitis - no palpable abscess/cellulitis Xrays: no fracture Imp: Left knee contusion with soft tissue pain, non septic prepatellar bursitis -elevation -ice tid -f/u as needed -no aspiration indicated given clinical exam
--- NOTE | 2018-10-04 16:19 | PN ---
Teaching Attending Note Name of Resident: Chip Manrique ATTENDING PHYSICIAN STATEMENT I saw and evaluated the patient. I reviewed the resident's note and discussed the case with the resident. I agree with the resident's findings and plan as documented. SUBJECTIVE: Seen and examined, no acute events overnight. Left knee pain persists OBJECTIVE: Vital Signs - 24 hr 10/03/18 10/03/18 10/04/18 16:30 22:00 01:29 Temperature 97.7 F 98.7 F 98.4 F Pulse Rate 89 93 H Respiratory 18 18 Rate Blood Pressure 113/65 107/64 10/04/18 10/04/18 10/04/18 06:31 08:00 09:00 Temperature 98.5 F 98.6 F Pulse Rate 98 H 96 H Respiratory 18 18 18 Rate Blood Pressure 120/64 121/73 GEN: NAD CVS: s1s2, RRR LUNGS: scant crackles, unlabored ABD: ascites, distended but soft and nontender EXT: no edema, left knee prepatellar tenderness, erythema, bruising and fluctuance, ecchymoses b/l LE L>R Current Medications Generic Name Dose Route Start Last Admin Trade Name Freq PRN Reason Stop Dose Admin Folic Acid 1 mg 09/30/18 10:00 10/04/18 09:37 Folic Acid - PO 1 mg DAILY STEPHEN Administration Furosemide 20 mg 10/04/18 11:00 10/04/18 13:32 Lasix - PO 20 mg DAILY [facility] Administration Ceftriaxone Sodium 1 gm/ 50 mls @ 100 mls/hr 10/04/18 11:00 10/04/18 13:32 Dextrose IVPB 100 mls/hr DAILY [facility] Administration Protocol Lactulose 20 gm 10/02/18 16:24 Cephulac (Oral Use) PO Q8H PRN CONSTIPATION Oxycodone HCl 2.5 mg 10/01/18 14:20 10/01/18 14:51 Roxicodone - PO 2.5 mg Q6H PRN Administration PAIN LEVEL 6-10 Spironolactone 50 mg 10/04/18 11:00 10/04/18 13:32 Aldactone - PO 50 mg DAILY [facility]PH[facility] Administration Thiamine HCl 200 mg 09/30/18 10:00 10/04/18 09:37 Vitamin B1 Injection - IVPB 200 mg DAILY [facility] Administration Laboratory Results - last 24 hr 0610/03/18 10/03/18 08:00 08:00 15:45 WBC RBC Hgb Hct MCV MCH MCHC RDW Plt Count MPV Absolute Neuts (auto) Neutrophils % Neutrophils % (Manual) Band Neutrophils % Lymphocytes % Lymphocytes % (Manual) Monocytes % Monocytes % (Manual) Eosinophils % Eosinophils % (Manual) Basophils % Basophils % (Manual) Myelocytes % (Man) Promyelocytes % (Man) Blast Cells % (Manual) Nucleated RBC % Metamyelocytes Hypochromia Platelet Estimate Polychromasia Poikilocytosis Anisocytosis Microcytosis Macrocytosis Target Cells Ovalocytes Schistocytes Sodium Potassium Chloride Carbon Dioxide Anion Gap BUN Creatinine Est GFR (CKD-EPI)AfAm Est GFR (CKD-EPI)NonAf Random Glucose Calcium Phosphorus Magnesium Iron 36 L TIBC 273 Iron Saturation 13 L Unsaturated IBC 237 Total Bilirubin AST ALT Alkaline Phosphatase Total Protein Albumin Tumor Marker AFP 1.5 Stool Occult Blood Negative 10/04/18 10/04/18 06:09 06:09 WBC 4.0 RBC 2.97 L Hgb 8.2 L Hct 25.8 L MCV 86.9 MCH 27.5 MCHC 31.6 L RDW 28.0 H Plt Count 69 L MPV 8.9 Absolute Neuts (auto) 1.9 Neutrophils % 47.9 D Neutrophils % (Manual) 52.6 Band Neutrophils % 0.0 Lymphocytes % 20.1 D Lymphocytes % (Manual) 16.5 D Monocytes % 25.5 H D Monocytes % (Manual) 23 H D Eosinophils % 4.4 Eosinophils % (Manual) 7.2 H D Basophils % 2.1 H Basophils % (Manual) 1.0 D Myelocytes % (Man) 0 D Promyelocytes % (Man) 0 Blast Cells % (Manual) 0 Nucleated RBC % 0 Metamyelocytes 0 Hypochromia 1+ Platelet Estimate Decreased Polychromasia 1+ Poikilocytosis 2+ Anisocytosis 2+ Microcytosis 1+ Macrocytosis 1+ Target Cells 2+ Ovalocytes 1+ Schistocytes 1+ Sodium 136 Potassium 3.9 Chloride 106 Carbon Dioxide 23 Anion Gap 8 BUN 9.1 Creatinine 0.5 L Est GFR (CKD-EPI)AfAm 146.45 Est GFR (CKD-EPI)NonAf 126.36 Random Glucose 68 L Calcium 7.9 L Phosphorus 3.6 Magnesium 2.0 Iron TIBC Iron Saturation Unsaturated IBC Total Bilirubin 5.4 H AST 79 H ALT 30 Alkaline Phosphatase 206 H Total Protein 5.7 L Albumin 2.2 L Tumor Marker AFP Stool Occult Blood Microbiology 10/03/18 11:00 Peritoneal Fluid AFB Smear Concentration - Preliminary 10/03/18 11:00 Peritoneal Fluid Mycobacterial Culture - Preliminary 10/03/18 09:50 Blood - Peripheral Venous Blood Culture - Preliminary NO GROWTH OBTAINED AFTER 24 HOURS, INCUBATION TO CONTINUE FOR 4 DAYS. 10/03/18 09:35 Blood - Peripheral Venous Blood Culture - Preliminary NO GROWTH OBTAINED AFTER 24 HOURS, INCUBATION TO CONTINUE FOR 4 DAYS. 10/03/18 11:00 Peritoneal Fluid Gram Stain - Final 10/03/18 11:00 Peritoneal Fluid Body Fluid Culture - Preliminary NO AEROBIC GROWTH, 24 HRS 10/03/18 11:00 Peritoneal Fluid JASMYN Preparation - Preliminary 10/03/18 11:00 Peritoneal Fluid Fungal Culture - Preliminary 09/30/18 07:58 Blood - Peripheral Venous Blood Culture - Preliminary NO GROWTH OBTAINED AFTER 72 HOURS, INCUBATION TO CONTINUE FOR 2 DAYS. 09/30/18 07:58 Blood - Peripheral Venous Blood Culture - Preliminary NO GROWTH OBTAINED AFTER 72 HOURS, INCUBATION TO CONTINUE FOR 2 DAYS. 10/01/18 00:13 Urine - Urine Clean Catch Urine Culture - Final NO GROWTH OBTAINED ASSESSMENT AND PLAN: 48 year old man with a history of alcohol abuse, GERD who presented to the ED with alcohol intoxication and left knee pain after falling. Cirrhosis secondary to alcoholism, r/o SBP -s/p paracentesis yesterday, f/u fluid studies -cover with rocephin -fu cultures -EGD to evaluate for varices -c/w aldactone and lasix -lactulose -GI eval appreciated -c/w daily alcohol cessation counseling Pancytopenia/coagulopathy secondary to alcohol/cirrhosis -s/p FFP, platelets, cryo -spiked temp during transfusion -cultures sent and pending Left knee prepatellar bursitis -no intervention per ortho -pain control -ice and elevate Continuous alcohol dependence -continue Librium detox -thiamine, folic acid
--- NOTE | 2018-10-04 18:47 | PN ---
Progress Note (short form) - Note Progress Note: Patient seen and examined S/P paracentesis under platelet coverage Left knee improved with decreased swelling, decreased effusion and decrease in ecchymoses. Last Vital Signs Temp Pulse Resp BP Pulse Ox 98.2 F 99 H 18 110/68 97 10/04/18 17:19 10/04/18 17:19 10/04/18 17:19 10/04/18 17:19 10/01/18 21:00 Lungs - decrease breath sounds Ascites Ecchymoses, suprapatellar effusion and decrease in ROM CBC, BMP 10/04/18 06:09 10/04/18 06:09 Current Medications Generic Name Dose Route Start Last Admin Trade Name Freq PRN Reason Stop Dose Admin Folic Acid 1 mg 09/30/18 10:00 10/04/18 09:37 Folic Acid - PO 1 mg DAILY STEPHEN Administration Furosemide 20 mg 10/04/18 11:00 10/04/18 13:32 Lasix - PO 20 mg DAILY [facility] Administration Ceftriaxone Sodium 1 gm/ 50 mls @ 100 mls/hr 10/04/18 11:00 10/04/18 13:32 Dextrose IVPB 100 mls/hr DAILY [facility] Administration Protocol Lactulose 20 gm 10/02/18 16:24 Cephulac (Oral Use) PO Q8H PRN CONSTIPATION Oxycodone HCl 2.5 mg 10/01/18 14:20 10/01/18 14:51 Roxicodone - PO 2.5 mg Q6H PRN Administration PAIN LEVEL 6-10 Spironolactone 50 mg 10/04/18 11:00 10/04/18 13:32 Aldactone - PO 50 mg DAILY STEPHEN Administration Thiamine HCl 200 mg 09/30/18 10:00 10/04/18 09:37 Vitamin B1 Injection - IVPB 200 mg DAILY [facility] Administration Impression: Awaiting results of paracenstesis Considering upper endoscopy Left knee- slow resolution .
[2018-10-05 07:35] LABS: HEMATOCRIT 27.4 % (35.4-49); HEMOGLOBIN 8.7 GM/dL (11.7-16.9); MCH 27.5 pg (25.7-33.7); MCHC 31.7 g/dl (32.0-35.9); MEAN CELL VOLUME 86.5 fl (80-96); MEAN PLT VOLUME 8.5 fl (7.5-11.1); PLATELET COUNT 88 K/MM3 (134-434); RBC 3.17 M/mm3 (4.00-5.60); RDW 28.3 % (11.9-15.9); WHITE BLOOD COUNT 4.6 K/mm3 (4.0-10.0)
[2018-10-05 07:54] LABS: INR 1.79 (0.83-1.09); PROTHROMBIN TIME (PATIENT) 21.3 SEC (9.7-13.0)
[2018-10-05 07:58] LABS: ALBUMIN 2.7 g/dl (3.4-5.0); BLOOD UREA NITROGEN 10.3 mg/dL (7-18); CALCIUM 8.1 mg/dL (8.5-10.1); CREATININE 0.7 mg/dL (0.55-1.3); MAGNESIUM 2.1 mg/dL (1.8-2.4); PHOSPHOROUS 3.6 mg/dL (2.5-4.9); POTASSIUM 3.6 mmol/L (3.5-5.1); TOT PROT 6.8 g/dl (6.4-8.2)
[2018-10-05] MEDS ORDERED: cefTRIAXone SODIUM 1 GM VIAL ONE (09:18)
[2018-10-05] MEDS ORDERED: DEXTROSE 5%-WATER - 50 ML IVPB ONE (09:19)
[2018-10-05] MEDS: FUROSEMIDE 20 MG TABLET (FP) PO SCH (09:23)
[2018-10-05] MEDS: SPIRONOLACTONE 25 MG TABLET (FP) PO SCH (09:23)
[2018-10-05] MEDS: FOLIC ACID 1 MG TABLET (FP) PO SCH (09:23)
[2018-10-05] MEDS: CEFTRIAXONE 1 GM in DEXTROSE 5%-WATER - 50 ML IVPB SCH (09:23)
[2018-10-05] MEDS: THIAMINE HCL 200 MG/2 ML VIAL IVPB SCH (10:54)
--- NOTE | 2018-10-05 11:04 | PN ---
Physical Exam: SUBJECTIVE: Patient seen and examined at bedside. Endorses pain when he walks. No acute events overnight. OBJECTIVE: Vital Signs Period Temp Pulse Resp BP Sys/Mcginnis Pulse Ox Last 24 Hr 98.2 F-98.6 F 95-99 18-20 110-133/68-76 GENERAL: No acute distress HEAD: NC/AT EYES: EOMI, Scleral icterus ENT: MMM LUNGS: Clear to auscultation bilaterally HEART: 2/6 Systolic Ejection Murmur RUSB. ABDOMEN: Tender to deep palpation. BS+. EXTREMITIES: Echymosis b/l lower extremities. Fluctuance less today 10/05/18 Laboratory Results - last 24 hr 10/05/18 10/05/18 10/05/18 06:00 06:00 06:00 WBC 4.6 RBC 3.17 L Hgb 8.7 L Hct 27.4 L MCV 86.5 MCH 27.5 MCHC 31.7 L RDW 28.3 H MPV 8.5 Absolute Neuts (auto) 1.9 Neutrophils % No Result Required. Lymphocytes % No Result Required. Nucleated RBC % 0 PT with INR 21.30 H INR 1.79 H Sodium 133 L Potassium 3.6 Chloride 102 Carbon Dioxide 24 Anion Gap 7 L BUN 10.3 Creatinine 0.7 Est GFR (CKD-EPI)AfAm 127.53 Est GFR (CKD-EPI)NonAf 110.04 Random Glucose 69 L Calcium 8.1 L Phosphorus 3.6 Magnesium 2.1 Total Bilirubin 7.0 H AST 82 H ALT 35 Alkaline Phosphatase 241 H Total Protein 6.8 Albumin 2.7 L Active Medications Generic Name Dose Route Start Last Admin Trade Name Freq PRN Reason Stop Dose Admin Folic Acid 1 mg 09/30/18 10:00 10/05/18 09:23 Folic Acid - PO 1 mg DAILY [facility] Administration Furosemide 20 mg 10/04/18 11:00 10/05/18 09:23 Lasix - PO 20 mg DAILY [facility] Administration Ceftriaxone Sodium 1 gm/ 50 mls @ 100 mls/hr 10/04/18 11:00 10/05/18 09:23 Dextrose IVPB 100 mls/hr DAILY [facility] Administration Protocol Lactulose 20 gm 10/02/18 16:24 Cephulac (Oral Use) PO Q8H PRN CONSTIPATION Oxycodone HCl 2.5 mg 10/01/18 14:20 10/01/18 14:51 Roxicodone - PO 2.5 mg Q6H PRN Administration PAIN LEVEL 6-10 Spironolactone 50 mg 10/04/18 11:00 10/05/18 09:23 Aldactone - PO 50 mg DAILY [facility] Administration Thiamine HCl 200 mg 09/30/18 10:00 10/05/18 10:54 Vitamin B1 Injection - IVPB 200 mg DAILY [facility] Administration ASSESSMENT/PLAN: Pt. is a 48 y.o. M w/ PMHx. of EtOH abuse, Lower extremity edema, GERD, and paracentesis presents after a fall in alcohol intoxication. Pt. found to be thrombocytopenic to 27k. #Syncope Pt. does not remember events of fall Echo----> mild aortic regurg, tricuspid regurg, and mitral regurg, no pericardial effusion EF 55-60% EKG appreciated: QTC-484, TWI in III and V1 Carotid Doppler-----> Plaques Left and R common carotid. No hemodynamically significant stenosis appreciated. Orthostatic Vital signs Negative. Duplex LE negative L. Knee and Tib/Fib Negative for acute pathology Head CT: Negative for acute pathology, shows mild diffuse cortical atrophy inconsistent with Pt.'s age, mucus retention cyst in maxillary sinus C-Spine CT: no acute pathology, osteophyte encroachment of neural foramina, diffuse degenerative disease Lumbar CT: No acute pathology, advanced endplate spondylosis, degenerative facet arthropathy, bulging discs at each level w/ associated spinal stenosis #R Knee Pain/Erythema -Oxycodone 2.5 Q6H. #Thrombocytopenia Platelets: 27k; on previous admissions Platelets were ~80k Heme/Onc consult Dr. Callahan on board. -s/p 2 units of FFP and 5 units of cryoprecipitate Fever 103.2 10/03/18, ofirmev administered, blood cultures prelim read neg. -likely due to EtOH abuse -Orthopedic Surgery consult in light of possible hemarthrosis. No acute intervention required at this juncture. " Aspiration of prepatella bursa is relatively contraindicated at this time." -Orth: No need for aspiration. #Alcoholic Cirrhosis GI on board. Recs below: No indication for steroid therapy in light of Maddrey's Discriminint function score. POD#2 Paracentesis. Fluid analysis pending. Gram Stain NO GROWTH AFTER 48 HOURS. 65 WBC, 0 NEUTROPHILS -Aldactone 50 Daily and Lasix 20 Daily -Start lactulose 30ml tid titrate to 2-3 loose bms per GI -Diagnostic/therapeutic paracentesis r/o SBP -Strict etoh abstinence discussed -Miralax BID -For EGD w/ Dr Rsoado this Sunday #EtOH Abuse and Withdrawal EtOH: 493 on admission Librium protocol Thiamine Folic Acid CT AP w/ contrast ---> Hepatosplenomegaly w/ cirrhosis and portal hypertension. Spontaneous bacterial peritonitis cannot be radiographically excluded. Cholelithiasis w/ wall thickening. #FEN No Fluids monitor electrolytes and replete as needed Diabetic Diet #DVT Ppx. No AC, given thrombocytopenia TEDs Visit type - Emergency Visit Emergency Visit: Yes ED Registration Date: 09/30/18 Care time: The patient presented to the Emergency Department on the above date and was hospitalized for further evaluation of their emergent condition. - New Patient This patient is new to me today: No - Critical Care Critical Care patient: No - Discharge Referral Referred to [facility] No
[2018-10-05 11:22] LABS: ANISOCYTOSIS 1+; MACROCYTOSIS 1+; PLATELET ESTIMATE DECREASED; TARGET CELLS 1+
--- NOTE | 2018-10-05 14:18 | PN ---
Teaching Attending Note Name of Resident: Chip Manrique ATTENDING PHYSICIAN STATEMENT I saw and evaluated the patient. I reviewed the resident's note and discussed the case with the resident. I agree with the resident's findings and plan as documented. SUBJECTIVE: Patient complains of left leg pain. OBJECTIVE: Vital Signs Period Temp Pulse Resp BP Sys/Mcginnis Pulse Ox Last 24 Hr 98.0 F-98.6 F 94-99 18-20 110-133/68-76 HEART: S1S2, RRR LUNGS: Clear ABDOMEN: Soft, non-tender, (+) mild distention, normal BS EXTREMITIES: Bilateral leg ecchymoses, resolving. Decreased swelling of left knee with decreased fluctuance overlying left patella Laboratory Results - last 24 hr 10/05/18 10/05/18 10/05/18 06:00 06:00 06:00 WBC 4.6 RBC 3.17 L Hgb 8.7 L Hct 27.4 L MCV 86.5 MCH 27.5 MCHC 31.7 L RDW 28.3 H Plt Count 88 L D MPV 8.5 Absolute Neuts (auto) 1.9 Neutrophils % No Result Required. Neutrophils % (Manual) 47.9 Band Neutrophils % 2.1 Lymphocytes % No Result Required. Lymphocytes % (Manual) 23.4 D Monocytes % (Manual) 19 H Eosinophils % (Manual) 3.2 Basophils % (Manual) 4.3 H D Myelocytes % (Man) 0 Promyelocytes % (Man) 0 Blast Cells % (Manual) 0 Nucleated RBC % 0 Metamyelocytes 0 Hypochromia 1+ Platelet Estimate Decreased Platelet Comment No clumping noted Polychromasia 0 Poikilocytosis 3+ Anisocytosis 1+ Microcytosis 1+ Macrocytosis 1+ Target Cells 1+ Acanthocytes (Spur) 1+ PT with INR 21.30 H INR 1.79 H Sodium 133 L Potassium 3.6 Chloride 102 Carbon Dioxide 24 Anion Gap 7 L BUN 10.3 Creatinine 0.7 Est GFR (CKD-EPI)AfAm 127.53 Est GFR (CKD-EPI)NonAf 110.04 Random Glucose 69 L Calcium 8.1 L Phosphorus 3.6 Magnesium 2.1 Total Bilirubin 7.0 H AST 82 H ALT 35 Alkaline Phosphatase 241 H Total Protein 6.8 Albumin 2.7 L Current Medications Generic Name Dose Route Start Last Admin Trade Name Freq PRN Reason Stop Dose Admin Folic Acid 1 mg 09/30/18 10:00 10/05/18 09:23 Folic Acid - PO 1 mg DAILY STEPHEN Administration Furosemide 20 mg 10/04/18 11:00 10/05/18 09:23 Lasix - PO 20 mg DAILY STEPHEN Administration Ceftriaxone Sodium 1 gm/ 50 mls @ 100 mls/hr 10/04/18 11:00 10/05/18 09:23 Dextrose IVPB 100 mls/hr DAILY STEPHEN Administration Protocol Lactulose 20 gm 10/02/18 16:24 Cephulac (Oral Use) PO Q8H PRN CONSTIPATION Oxycodone HCl 2.5 mg 10/01/18 14:20 10/01/18 14:51 Roxicodone - PO 2.5 mg Q6H PRN Administration PAIN LEVEL 6-10 Spironolactone 50 mg 10/04/18 11:00 10/05/18 09:23 Aldactone - PO 50 mg DAILY STEPHEN Administration Thiamine HCl 200 mg 09/30/18 10:00 10/05/18 10:54 Vitamin B1 Injection - IVPB 200 mg DAILY STEPHEN Administration ASSESSMENT AND PLAN: This is a 48 year old man with a history of alcohol abuse, GERD who presented to the ED with alcohol intoxication and left knee pain after falling. 1. SIRS (fever, tachycardia) - Resolved - Likely secondary to platelet transfusion - No evidence of infection 2. Bilateral leg ecchymoses secondary to fall and thrombocytopenia - Resolving 3. Traumatic left knee prepatellar bursitis - Improving 4. Alcohol intoxication 5. Continuous alcohol dependence - Completed Librium detox - Continue thiamine, folic acid 6. Cirrhosis with ascites - s/p paracentesis 10/03 - Continue Aldactone, Lasix - Will need EGD to evaluate for varices 7. Pancytopenia and coagulopathy secondary to alcohol/cirrhosis - Transfused platelets, cryoprecipitate, FFP - Hemoglobin is stable - Platelets improving 8. Hypokalemia - Improved 9. Hyponatremia
--- NOTE | 2018-10-05 16:32 | PN.GI ---
GI Progress Note Subjective: States feeling well No abdominal pain Seen by ortho who feels left knee findings attributable to bursitis - Objective Vital Signs: Vital Signs Temperature 98.6 F 10/05/18 14:00 Pulse Rate 93 H 10/05/18 14:00 Respiratory Rate 20 10/05/18 14:00 Blood Pressure 117/58 L 10/05/18 14:00 O2 Sat by Pulse Oximetry (%) 97 10/01/18 21:00 Constitutional: Calm Eyes: Yes: Sclera Icterus Cardiovascular: Yes: Regular Rate and Rhythm Respiratory: Yes: CTA Bilaterally Gastrointestinal Inspection: Yes: Distention ...Auscultate: Yes: Normoactive Bowel Sounds ...Palpate: Yes: Soft. No: Tenderness Edema: No (No LE edema) Neurological: Yes: Alert. No: Asterixis Labs: CBC, BMP 10/05/18 06:00 10/05/18 06:00 INR, PTT INR 1.79 (0.83-1.09) H 10/05/18 06:00 Fibrinogen 152.0 mg/dL (238-498) L 10/02/18 07:00 Hepatic Panel Total Bilirubin 7.0 mg/dL (0.2-1) H 10/05/18 06:00 Direct Bilirubin 2.3 mg/dL (0.0-0.2) H 10/01/18 07:24 AST 82 U/L (15-37) H 10/05/18 06:00 ALT 35 U/L (13-61) 10/05/18 06:00 Alkaline Phosphatase 241 U/L (45-117) H 10/05/18 06:00 Albumin 2.7 g/dl (3.4-5.0) L 10/05/18 06:00 Problem List - Problems (1) Alcoholic cirrhosis Assessment/Plan: Likely with component of alcoholic hepatitis. MRCP to evaluate rising bili/ALP. Suspect just secondary to his alcoholic liver disease. If continued derterioration in liver function and if left knee infection has been excluded, trial of prednisolone Code(s): K70.30 - ALCOHOLIC CIRRHOSIS OF LIVER WITHOUT ASCITES (2) Infection of left knee Code(s): M00.9 - PYOGENIC ARTHRITIS, UNSPECIFIED
[2018-10-05] MEDS ORDERED: PHYTONADIONE 10 MG/1 ML AMP SQ ONE (16:33)
[2018-10-06 08:32] LABS: HEMATOCRIT 26.9 % (35.4-49); HEMOGLOBIN 8.5 GM/dL (11.7-16.9); MCH 27.5 pg (25.7-33.7); MCHC 31.8 g/dl (32.0-35.9); MEAN CELL VOLUME 86.6 fl (80-96); MEAN PLT VOLUME 8.5 fl (7.5-11.1); RDW 27.5 % (11.9-15.9); WHITE BLOOD COUNT 3.6 K/mm3 (4.0-10.0)
[2018-10-06 08:44] LABS: INR 1.64 (0.83-1.09); PROTHROMBIN TIME (PATIENT) 19.5 SEC (9.7-13.0)
[2018-10-06 08:48] LABS: ALBUMIN 2.8 g/dl (3.4-5.0); BILIRUBIN,DIRECT 3.1 mg/dL (0.0-0.2); BILIRUBIN,TOTAL 6.3 mg/dL (0.2-1); CALCIUM 8.3 mg/dL (8.5-10.1); CREATININE 0.6 mg/dL (0.55-1.3); MAGNESIUM 2.3 mg/dL (1.8-2.4); PHOSPHOROUS 3.1 mg/dL (2.5-4.9); POTASSIUM 3.6 mmol/L (3.5-5.1); TOT PROT 6.8 g/dl (6.4-8.2)
--- NOTE | 2018-10-06 08:59 | PN ---
Physical Exam: SUBJECTIVE: Patient seen and examined. He has no complaints. OBJECTIVE: Vital Signs Period Temp Pulse Resp BP Sys/Mcginnis Pulse Ox Last 24 Hr 98.0 F-99.3 F 93-97 18-20 108-129/56-74 GENERAL: The patient is awake, alert, and fully oriented, in no acute distress. LUNGS: Breath sounds equal, clear to auscultation bilaterally, no wheezes, no crackles, no accessory muscle use. HEART: Regular rate and rhythm, S1, S2 without murmur, rub or gallop. ABDOMEN: Soft, nontender, nondistended, normoactive bowel sounds, no guarding, no rebound, no hepatosplenomegaly, no masses. EXTREMITIES: 2+ pulses, warm, well-perfused, no edema. Left knee less swollen. Decreased swelling overlying left patella. SKIN: Resolving ecchymoses of both legs. Laboratory Results - last 24 hr 10/05/18 10/06/18 10/06/18 06:00 07:16 07:16 WBC 4.6 RBC 3.17 L Hgb 8.7 L Hct 27.4 L MCV 86.5 MCH 27.5 MCHC 31.7 L RDW 28.3 H Plt Count 88 L D MPV 8.5 Absolute Neuts (auto) 1.9 Neutrophils % No Result Required. Neutrophils % (Manual) 47.9 Band Neutrophils % 2.1 Lymphocytes % No Result Required. Lymphocytes % (Manual) 23.4 D Monocytes % (Manual) 19 H Eosinophils % (Manual) 3.2 Basophils % (Manual) 4.3 H D Myelocytes % (Man) 0 Promyelocytes % (Man) 0 Blast Cells % (Manual) 0 Nucleated RBC % 0 Metamyelocytes 0 Hypochromia 1+ Platelet Estimate Decreased Platelet Comment No clumping noted Polychromasia 0 Poikilocytosis 3+ Anisocytosis 1+ Microcytosis 1+ Macrocytosis 1+ Target Cells 1+ Acanthocytes (Spur) 1+ PT with INR 19.50 H INR 1.64 H Sodium 133 L Potassium 3.6 Chloride 105 Carbon Dioxide 24 Anion Gap 4 L BUN 9.0 Creatinine 0.6 Est GFR (CKD-EPI)AfAm 135.87 Est GFR (CKD-EPI)NonAf 117.23 Random Glucose 73 L Calcium 8.3 L Phosphorus 3.1 Magnesium 2.3 Total Bilirubin 6.3 H Direct Bilirubin 3.1 H AST 78 H ALT 33 Alkaline Phosphatase 243 H Total Protein 6.8 Albumin 2.8 L Active Medications Generic Name Dose Route Start Last Admin Trade Name Jaylyn PRN Reason Stop Dose Admin Folic Acid 1 mg 09/30/18 10:00 10/05/18 09:23 Folic Acid - PO 1 mg DAILY STEPHEN Administration Furosemide 20 mg 10/04/18 11:00 10/05/18 09:23 Lasix - PO 20 mg DAILY STEPHEN Administration Ceftriaxone Sodium 1 gm/ 50 mls @ 100 mls/hr 10/04/18 11:00 10/05/18 09:23 Dextrose IVPB 100 mls/hr DAILY STEPHEN Administration Protocol Lactulose 20 gm 10/02/18 16:24 Cephulac (Oral Use) PO Q8H PRN CONSTIPATION Oxycodone HCl 2.5 mg 10/01/18 14:20 10/01/18 14:51 Roxicodone - PO 2.5 mg Q6H PRN Administration PAIN LEVEL 6-10 Spironolactone 50 mg 10/04/18 11:00 10/05/18 09:23 Aldactone - PO 50 mg DAILY STEPHEN Administration Thiamine HCl 200 mg 09/30/18 10:00 10/05/18 10:54 Vitamin B1 Injection - IVPB 200 mg DAILY STEPHEN Administration ASSESSMENT/PLAN: This is a 48 year old man with a history of alcohol abuse, GERD who presented to the ED with alcohol intoxication and left knee pain after falling. 1. SIRS - Resolved - Likely secondary to platelet transfusion - No evidence of infection 2. Bilateral leg ecchymoses secondary to fall and thrombocytopenia - Resolving 3. Traumatic left knee prepatellar bursitis - Improving 4. Alcohol intoxication 5. Continuous alcohol dependence - Completed Librium detox - Continue thiamine, folic acid - Add multivitamin 6. Cirrhosis with ascites - s/p paracentesis 10/03 - Continue Aldactone, Lasix - Continue prophylactic ceftriaxone - Plan for EGD tomorrow to evaluate for varices 7. Pancytopenia and coagulopathy secondary to alcohol/cirrhosis - Transfused platelets, cryoprecipitate, FFP - Continue to monitor CBC 8. Hypokalemia - Improved 9. Hyponatremia secondary to cirrhosis - Stable Visit type - Emergency Visit Emergency Visit: Yes ED Registration Date: 09/30/18 Care time: The patient presented to the Emergency Department on the above date and was hospitalized for further evaluation of their emergent condition. - New Patient This patient is new to me today: No - Critical Care Critical Care patient: No - Discharge Referral Referred to [facility] Med P.C.: No
[2018-10-06 09:21] LABS: PLATELET COUNT 82 K/MM3 (134-434)
[2018-10-06] MEDS ORDERED: DEXTROSE 5%-WATER - 50 ML IVPB ONE (09:50)
[2018-10-06] MEDS ORDERED: cefTRIAXone SODIUM 1 GM VIAL ONE (09:50)
[2018-10-06] MEDS: CEFTRIAXONE 1 GM in DEXTROSE 5%-WATER - 50 ML IVPB SCH (10:10)
[2018-10-06] MEDS: FOLIC ACID 1 MG TABLET (FP) PO SCH (10:10)
[2018-10-06] MEDS: FUROSEMIDE 20 MG TABLET (FP) PO SCH (10:10)
[2018-10-06] MEDS: THIAMINE HCL 200 MG/2 ML VIAL IVPB SCH (10:10)
[2018-10-06] MEDS: SPIRONOLACTONE 25 MG TABLET (FP) PO SCH (10:11)
[2018-10-06 11:41] LABS: ANISOCYTOSIS 2+; MACROCYTOSIS 1+; PLATELET ESTIMATE DECREASED; TARGET CELLS 2+
[2018-10-07 08:17] LABS: ALBUMIN 2.8 g/dl (3.4-5.0); BILIRUBIN,TOTAL 5.8 mg/dL (0.2-1); BLOOD UREA NITROGEN 9.5 mg/dL (7-18); CALCIUM 8.2 mg/dL (8.5-10.1); CREATININE 0.6 mg/dL (0.55-1.3); POTASSIUM 4.3 mmol/L (3.5-5.1)
[2018-10-07 08:18] LABS: HEMATOCRIT 28.7 % (35.4-49); HEMOGLOBIN 9.1 GM/dL (11.7-16.9); MCH 27.4 pg (25.7-33.7); MEAN CELL VOLUME 86.7 fl (80-96); RBC 3.31 M/mm3 (4.00-5.60)
[2018-10-07 08:19] LABS: ADD RBC MORPHOLOGY YES; MCHC 31.6 g/dl (32.0-35.9); MEAN PLT VOLUME 8.7 fl (7.5-11.1); PLATELET COUNT 87 K/MM3 (134-434); RDW 27.1 % (11.9-15.9)
[2018-10-07 09:32] LABS: ANISOCYTOSIS 2+; MACROCYTOSIS 1+; OVALOCYTE 2+; PLATELET ESTIMATE DECREASED; TARGET CELLS 1+; TEAR DROP CELLS 2+
[2018-10-07] MEDS ORDERED: cefTRIAXone SODIUM 1 GM VIAL ONE (09:40)
[2018-10-07] MEDS ORDERED: DEXTROSE 5%-WATER - 50 ML IVPB ONE (09:40)
[2018-10-07] MEDS: CEFTRIAXONE 1 GM in DEXTROSE 5%-WATER - 50 ML IVPB SCH (11:20)
[2018-10-07] MEDS: THIAMINE HCL 200 MG/2 ML VIAL IVPB SCH (11:20)
[2018-10-07] MEDS: FUROSEMIDE 20 MG TABLET (FP) PO SCH (11:21)
[2018-10-07] MEDS: FOLIC ACID 1 MG TABLET (FP) PO SCH (11:21)
[2018-10-07] MEDS: SPIRONOLACTONE 25 MG TABLET (FP) PO SCH (11:21)
[2018-10-07] MEDS: MULTIVITAMINS THER W-MINERALS COMBO TABLET (FP) PO SCH (11:22)
[2018-10-07 13:12] LABS: BODY FLUID ALBUMIN 0.4 g/dL (.)
--- NOTE | 2018-10-07 15:53 | PN ---
Teaching Attending Note Name of Resident: Phyllis Aponte ATTENDING PHYSICIAN STATEMENT I saw and evaluated the patient. I reviewed the resident's note and discussed the case with the resident. I agree with the resident's findings and plan as documented. SUBJECTIVE: No fever or chills. No DOMÍNGUEZ , no SOB , no diarrhea . No Abd pain. upset about havign to wait for EGD OBJECTIVE: NAD,awake , alert and cooperative. jaundiced CV: RRR, 2/6 SM at the apex Lungs: CTAB Abd: soft, slightly distended, ND , NL BS , small reducible umbilical hernia. Ext : bruises on both legs. possible small effusion in L knee. DP 2+ and has normal sensation in L leg, an foot and normal movement of ankle and toes and knee ASSESSMENT AND PLAN: 48 y/o man with h/o liver cirrhosis , alcohol abuse, GERD, who presented intoxicated after a fall. 1- s/p fall: with possible suprapatellar effusion /bursitis . no signs of compartment syndrome - no FX on xrays . No fx on L spine CT - leg elevation . - f/u as out pt for disc bulge with neuro sx 3- Liver Cirrhosis: - previous serology reviewed: not immune to hep B, Hep C not reactive and immune to hep A. - need Hep B vaccination series started and completed as out pt - Cont lasix and aldactone - No evidence of SBP - EGD today still pending - dc ceftriaxone 4- ETOH abuse: completed detox. no signs of withdrawal 5- Thrombocytopenia/pancytopenia : due to alcohol use and liver disease - monitor 6- DVT px: Teds on. can't us eheparin . can;t use SCDs due to severe bruising and thrombocytopenia,. ambulatory dispo : if EGD is not concerning, an o more procedures needed. can dc hoem today f/u with GI, heme, PCP
--- NOTE | 2018-10-07 15:53 | PN ---
Progress Note (short form) - Note Progress Note: Upper endoscopy was done with no complication small esophageal varices that flatten with insuflation possible scaring from prior banding in esophagus sever portal gastropathy with oozing in the distal antrum recommend : * resume diet * trend H/H * repeat EGD in 1-2 years * Alcohol abstinence
--- NOTE | 2018-10-07 20:29 | DS ---
Physical Exam: SUBJECTIVE: Patient seen and examined by the bedside. Pt. was seated, well oriented in time and place. No active complaints other than pain in Left knee. OBJECTIVE: Vital Signs Period Temp Pulse Resp BP Sys/Mcginnis Pulse Ox Last 24 Hr 97.8 F-98.8 F 65-102 12-20 114-134/64-73 98-100 PHYSICAL EXAM GENERAL: The patient is awake, alert, and fully oriented, in no acute distress. HEAD: Normal with no signs of trauma. EYES: No ptosis ENT: Ears normal, nares patent, oropharynx clear without exudates, moist mucous membranes. EXTREMITIES: Left knee appears to be inflamed, tender, bruising seen around the knees B/L NEUROLOGICAL: Normal speech, gait not observed. PSYCH: Normal mood, normal affect. LABS CBC, BMP 10/07/18 07:15 10/07/18 07:15 HOSPITAL COURSE: Date of Admission:09/30/18 -Patient was admitted due to history of fall. Medications: Folic Acid (Folic Acid -) 1 mg PO DAILY [facility] Last Admin: 10/07/18 11:21 Dose: 1 mg Furosemide (Lasix -) 20 mg PO DAILY [facility] Last Admin: 10/07/18 11:21 Dose: 20 mg Lactulose (Cephulac (Oral Use)) 20 gm PO Q8H PRN PRN Reason: CONSTIPATION Multivitamins/Minerals (Theragran-M) 1 each PO DAILY [facility] Last Admin: 10/07/18 11:22 Dose: 1 each Spironolactone (Aldactone -) 50 mg PO DAILY [facility] Last Admin: 10/07/18 11:21 Dose: 50 mg Thiamine HCl (Vitamin B1 Injection -) 200 mg IVPB DAILY [facility] Last Admin: 10/07/18 11:20 Dose: 200 mg Ceftriaxone 1gm IV (DC 10/04) Date of Discharge: 10/07/18 Patient is a 48 y/o male past medical history of alcohol abuse, GERD, and lower extremity edema, who was admitted for cirrhosis. He presented with fever and signs of infection, including fever and thrombocytopenia. He had a paracentesis done after platelets were transfused. Parecentesis did not show signs of infection. Patient had an EGD, which showed varices distally and severe portal hypertensive gastropathy, but was otherwise normal. Maddrey's discriminant function was low, and therefore did not indicate steroids at this time. Vitals are stable, and patient is stable for discharge. Tests: -Blood cx: No growth after 5 days. -Echo showed mild aortic regurg -EKG showed QTC-484 TWI in III and V1\ -CT Lumbar, head, and spine showed no abnormalities Discharge Summary Reason For Visit: THROMBOCYTOPENIA Current Active Problems Alcoholic cirrhosis (Chronic) Thrombocytopenia (Chronic) Condition: Improved - Instructions Diet, Activity, Other Instructions: You were admitted to the hospital and found to have cirrhosis. this is chronic changes in your liver from your drinking. It is very important that you stop drinking so it does not further negatively affect your health. While you were here you had an EGD ( scope down your throat) that did not show anything abnormal. Also while you were here we removed some fluid from your abdomen and it did not show any signs of infection. To continue treatment of your cirrhosis please take: spironolactone 50mg by mouth daily lactulose 20 mg by mouth every day three times a day ( make sure you only have 2-3 bowel movements a day, if you are having more then that discuss with your primary care doctor) folic acid 1 pill by mouth daily thiamine 250 mg by mouth daily lasix daily We have provided you with a referral with a County Records Management Officer. Please follow up within one week. you need hepatitis B vaccination through GI or PCP You should make an appointment to follow up with your primary care physician within one week, if you do not have one we will provide you with a referral to follow up with us at clinic Please resume your other home medications as prescribed. Return to the Emergency Department if you have any nausea, vomiting, vomiting blood, chest pain, shortness of breath, or dizziness. Referrals: [facility] [place] [Provider Group] Mika Rosado DO [Staff Physician] - Disposition: HOME - Home Medications Comprehensive Discharge Medication List: Ambulatory Orders Docusate Sodium 100 mg PO DAILY 09/30/18 Ferrous Sulfate 325 mg PO DAILY 09/30/18 Sennosides [Senna] 8.6 mg PO DAILY 09/30/18 Folic Acid - 1 mg PO DAILY #30 tablet 10/07/18 Furosemide [Lasix] 20 mg PO DAILY #30 tablet 10/07/18 Lactulose (Oral Use) [Cephulac -] 20 gm PO Q8H PRN #60 udc 10/07/18 Spironolactone [Aldactone -] 50 mg PO DAILY #30 tablet 10/07/18 Thiamine HCl 250 mg PO DAILY #30 tablet 10/07/18 - Discharge Referral Referred to [facility] Med P.C.: No
[2018-10-08 06:53] VITALS: BP 119/66; PULSE 76; TEMP 98.2
[2018-10-08] MEDS ORDERED: THIAMINE HCL 100 MG TABLET (FP) PO ONE (07:54)
[2018-10-08] MEDS: FUROSEMIDE 20 MG TABLET (FP) PO SCH (09:21)
[2018-10-08] MEDS: SPIRONOLACTONE 25 MG TABLET (FP) PO SCH (09:21)
[2018-10-08] MEDS: FOLIC ACID 1 MG TABLET (FP) PO SCH (09:21)
[2018-10-08] MEDS: MULTIVITAMINS THER W-MINERALS COMBO TABLET (FP) PO SCH (09:21)
[2018-10-08] MEDS ORDERED: CYANOCOBALAMIN 1,000 MCG TABLET (FP) PO SCH (10:00)
--- NOTE | 2018-10-08 16:11 | PATH ---
Cytology Non-Gynecological Report Patient Name: KOJO BETANCOURT Med. Rec. #: [id number] /Age/Gender: 1970 (Age: 48) / M Account: [id number] Location: [facility] MED/SURG Taken: 10/03/2018 Received: 10/04/2018 Reported: 10/08/2018 Physicians: Allan Rodrigues M.D. Specimen(s) Received A: ABDOMINAL FLUID B: ABDOMINAL FLUID Clinical History Ascites Final Diagnosis A & B. ABDOMINAL FLUID, PARACENTESIS: SATISFACTORY FOR EVALUATION. NO MALIGNANT CELLS IDENTIFIED. MESOTHELIAL CELLS AND LYMPHOCYTES PRESENT. Comment: Recommend correlation with clinical findings and follow up as clinically indicated. Electronically Signed Phyllis Caruso M.D. Gross Description A. Approximately 50 cc of yellow fluid received fixed in 50% alcohol. One cytofunnel prepared and Pap stained. One cellblock prepared. B. Approximately 200 cc of yellow fluid received fresh. One cytofunnel prepared and Pap stained. One cellblock prepared.
== END 2018-10-08 10:42 | disposition home or self-care (01) | DRG 651 ==
LOC: JER 21:52 → JERBED 09-30 05:27 → J8W 09-30 18:51
PROVIDERS: ADMIT Internal Medicine; ATTEND Internal Medicine
PROC: HZ2ZZZZ Detoxification Services for Substance Abuse Treatment (ICD-10-PCS; principal; 2018-09-29)
PROC: 30233R1 Transfusion of Nonautologous Platelets into Peripheral Vein, Percutaneous Approach (ICD-10-PCS; 2018-09-30)
PROC: 30233K1 Transfusion of Nonautologous Frozen Plasma into Peripheral Vein, Percutaneous Approach (ICD-10-PCS; 2018-10-01)
PROC: 30233M1 Transfusion of Nonautologous Plasma Cryoprecipitate into Peripheral Vein, Percutaneous Approach (ICD-10-PCS; 2018-10-03)
PROC: 0W9G3ZX Drainage of Peritoneal Cavity, Percutaneous Approach, Diagnostic (ICD-10-PCS; 2018-10-03)
PROC: 0DJ08ZZ Inspection of Upper Intestinal Tract, Via Natural or Artificial Opening Endoscopic (ICD-10-PCS; 2018-10-07)
DX: D69.6 Thrombocytopenia, unspecified (principal); K70.31 Alcoholic cirrhosis of liver with ascites; F10.220 Alcohol dependence with intoxication, uncomplicated; F10.230 Alcohol dependence with withdrawal, uncomplicated; Y90.8 Blood alcohol level of 240 mg/100 ml or more; E87.1 Hypo-osmolality and hyponatremia; K76.6 Portal hypertension; K31.89 Other diseases of stomach and duodenum; R16.2 Hepatomegaly with splenomegaly, not elsewhere classified; E87.6 Hypokalemia; Y92.9 Unspecified place or not applicable; D64.9 Anemia, unspecified; R65.10 Systemic inflammatory response syndrome (SIRS) of non-infectious origin without acute organ dysfunction; M51.36 Other intervertebral disc degeneration, lumbar region; K21.9 Gastro-esophageal reflux disease without esophagitis; D72.820 Lymphocytosis (symptomatic); R55 Syncope and collapse; I35.1 Nonrheumatic aortic (valve) insufficiency; M47.9 Spondylosis, unspecified; S80.02XA Contusion of left knee, initial encounter; D68.9 Coagulation defect, unspecified; R32 Unspecified urinary incontinence; R15.9 Full incontinence of feces; R60.9 Edema, unspecified; M70.42 Prepatellar bursitis, left knee; I85.00 Esophageal varices without bleeding; R44.0 Auditory hallucinations; K42.9 Umbilical hernia without obstruction or gangrene; E80.6 Other disorders of bilirubin metabolism; M27.40 Unspecified cyst of jaw; M48.061 Spinal stenosis, lumbar region without neurogenic claudication; D61.818 Other pancytopenia; K80.80 Other cholelithiasis without obstruction; M25.062 Hemarthrosis, left knee; R50.9 Fever, unspecified; R00.0 Tachycardia, unspecified; W18.39XA Other fall on same level, initial encounter; Z59.0 Homelessness
CPT/HCPCS: 36415; 36430; 36511; 70450-TC; 71045-TC-FY; 72125-TC; 72131-TC; 73562-TC-LT-FY; 73590-TC-LT-FY; 74177-TC; 74181-TC; 76705-TC; 76942-TC; 80048; 80053; 80076; 80307; 82042; 82105; 82150; 82272; 82465; 82607; 82728; 82746; 82945; 83540; 83550; 83615; 83690; 83735; 83986; 84100; 84157; 84443; 84478; 85025; 85027; 85384; 85610; 85730; 86850; 86900; 86901; 86965; 87040; 87070; 87075; 87086; 87102; 87116; 87205; 87206; 87210; 88108; 88305-TC; 93005; 93010; 93306-TC; 93880-TC; 93970-TC; 94010; 97116-GP; 97161-GP; 99285-25; J0131; P9012; P9017; P9034; P9038

== ENCOUNTER 2019-02-04 20:25 | Inpatient (IN) | payer OTHER ==
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
[2019-02-04] MEDS ORDERED: PIPERACILLIN/TAZOB 3.375 GM 3.375 GM in DEXTROSE 5%-WATER - 50 ML IVPB ONE (21:29)
[2019-02-04] MEDS ORDERED: THIAMINE HCL 200 MG/2 ML VIAL IM ONE (21:31)
[2019-02-04] MEDS ORDERED: SODIUM CHLORIDE 1,000 ML IV STA (21:31)
[2019-02-04 21:41] LABS: BASO % 4.2 % (0-2.0); EOS % 3.1 % (0-4.5); HEMATOCRIT 26.9 % (35.4-49); HEMOGLOBIN 8.6 GM/dL (11.7-16.9); LYMPH % 34.5 % (8-40); MCH 28.4 pg (25.7-33.7); MCHC 31.9 g/dl (32.0-35.9); MEAN PLT VOLUME 8.2 fl (7.5-11.1); MONO % 16.3 % (3.8-10.2); NEUT % 41.9 % (42.8-82.8); PLATELET COUNT 80 K/MM3 (134-434); RBC 3.02 M/mm3 (4.00-5.60); RDW 20.7 % (11.9-15.9); WHITE BLOOD COUNT 3.6 K/mm3 (4.0-10.0)
[2019-02-04] MEDS ORDERED: THIAMINE HCL 200 MG/2 ML VIAL ONE (21:57)
[2019-02-04] MEDS ORDERED: PIPERACILLIN/TAZOB 3.375 GM 3.375 GM/50 ML BAG IVPB ONE (21:58)
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
[2019-02-04 22:07] LABS: ALBUMIN 3.4 g/dl (3.4-5.0); BILIRUBIN,TOTAL 2.6 mg/dL (0.2-1); BLOOD UREA NITROGEN 5.8 mg/dL (7-18); CALCIUM 8.4 mg/dL (8.5-10.1); CREATININE 0.5 mg/dL (0.55-1.3); POTASSIUM 3.6 mmol/L (3.5-5.1); TOT PROT 7.1 g/dl (6.4-8.2)
[2019-02-04 22:52] LABS: BILIRUBIN,DIRECT 1.4 mg/dL (0.0-0.2)
[2019-02-05 00:41] VITALS: BMI 24.3
[2019-02-05] MEDS ORDERED: IBUPROFEN 400 MG TABLET (FP) PO PRN (01:16)
[2019-02-05] MEDS ORDERED: VANCOMYCIN 1 GM in D5W (PRE-DOCKED) 1,000 MG/250 ML IVPB ONE (01:24)
[2019-02-05] MEDS ORDERED: LORazepam 1 MG TABLET PO PRN (01:27)
[2019-02-05] MEDS ORDERED: SODIUM CHLORIDE 1,000 ML IV SCH (01:30)
[2019-02-05] MEDS ORDERED: FOLIC ACID INJECTION - 1 MG, THIAMINE HCL 100 MG, MULTIVIT INJECTION ADULT 10 ML in SOD... IVPB ONE (02:00)
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
[2019-02-05] MEDS: LORazepam 1 MG TABLET PO SCH ×4 (05:43→23:29)
[2019-02-05] MEDS ORDERED: HEPARIN NA (PORCINE) 5,000 UNITS/ML 1ML VIAL SQ SCH (06:00)
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
[2019-02-05 08:36] LABS: HEMATOCRIT 22.5 % (35.4-49); HEMOGLOBIN 7.4 GM/dL (11.7-16.9); MCH 29.1 pg (25.7-33.7); MCHC 32.8 g/dl (32.0-35.9); MEAN CELL VOLUME 88.7 fl (80-96); MEAN PLT VOLUME 8.1 fl (7.5-11.1); PLATELET COUNT 68 K/MM3 (134-434); RBC 2.54 M/mm3 (4.00-5.60); WHITE BLOOD COUNT 2.1 K/mm3 (4.0-10.0)
[2019-02-05 09:02] LABS: IRON SERUM 19 ug/dL (50-175); TOTAL IRON BINDING CAPACITY 288 ug/dL (250-450)
[2019-02-05 09:15] LABS: ALBUMIN 2.7 g/dl (3.4-5.0); BILIRUBIN,TOTAL 2.2 mg/dL (0.2-1); BLOOD UREA NITROGEN 5.7 mg/dL (7-18); CALCIUM 7.7 mg/dL (8.5-10.1); CREATININE 0.4 mg/dL (0.55-1.3); PHOSPHOROUS 3.9 mg/dL (2.5-4.9); POTASSIUM 3.5 mmol/L (3.5-5.1); TOT PROT 5.8 g/dl (6.4-8.2)
[2019-02-05 09:41] LABS: ERYTHROCYTE SEDIMENTATION RATE 10 mm/hr (0-20)
[2019-02-05 10:15] LABS: ANISOCYTOSIS 2+; MACROCYTOSIS 0; PLATELET ESTIMATE DECREASED
[2019-02-05 10:42] LABS: RETICULOCYTES 1.84 % (0.5-1.5)
[2019-02-05] MEDS ORDERED: COLLAGENASE CLOSTRIDIUM HIST. 30 GRAMS TUBE TP SCH (10:45)
[2019-02-05] MEDS: FOLIC ACID 1 MG TABLET (FP) PO SCH (11:08)
[2019-02-05] MEDS: THIAMINE HCL 100 MG TABLET (FP) PO SCH (11:09)
[2019-02-05] MEDS: MULTIVITAMINS (DAILY MVI) TABLET (FP) PO SCH (11:09)
[2019-02-05] MEDS: GENTAMICIN SO4 0.1% TOPICAL OINTMENT 15 GM/TUBE TUBE TP SCH ×2 (11:10→21:23)
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
--- NOTE | 2019-02-05 11:45 | PN ---
Progress Note (short form) - Note Progress Note: ID consult dictated imp/reccd 48 uo man found laying in the street and brought to [facility] +etoh use, history of LLe swelling and injusry to the leg- wound sutured at [facility] one month ago, opened, was cleaned at [facility] never took antibiotics as prescribed no fevers chronic wound anterior tibia with mild erythema surrounding the wound, no purulence +pulses cellulitis not diabetic wound care per vascular iv cefazolin for cellulitis etoh abuse- per hospitalist service pancytopenia due to etoh use please offer patient HIV testing Problem List - Problems (1) Cellulitis Code(s): L03.90 - CELLULITIS, UNSPECIFIED (2) Leg wound, left Code(s): S81.802A - UNSPECIFIED OPEN WOUND, LEFT LOWER LEG, INITIAL ENCOUNTER (3) Alcoholism Code(s): F10.20 - ALCOHOL DEPENDENCE, UNCOMPLICATED (4) Pancytopenia Code(s): D61.818 - OTHER PANCYTOPENIA
--- NOTE | 2019-02-05 12:10 | EKG ---
Test Reason : Blood Pressure : / mmHG Vent. Rate : 078 BPM Atrial Rate : 078 BPM P-R Int : 154 ms QRS Dur : 090 ms QT Int : 390 ms P-R-T Axes : 078 -31 021 degrees QTc Int : 444 ms POOR DATA QUALITY, INTERPRETATION MAY BE ADVERSELY AFFECTED NORMAL SINUS RHYTHM LEFT AXIS DEVIATION NONSPECIFIC T WAVE ABNORMALITY ABNORMAL ECG WHEN COMPARED WITH ECG OF 30-SEP-2018 06:16, NONSPECIFIC T WAVE ABNORMALITY NOW EVIDENT IN ANTEROLATERAL LEADS Confirmed by RAAD COLEMAN, GINNY ([id number]) on 02/05/2019 12:09:54 PM Referred By: Confirmed By:GINNY SHANKAR MD
[2019-02-05] MEDS: CEFAZOLIN 1 GM/D5W 1 GM/50 ML BAG IVPB SCH ×2 (12:38→17:15)
[2019-02-05] MEDS: NYSTATIN 100,000 UNIT/GM TOPICAL CREAM 15 GM TUBE TP SCH ×2 (12:39→21:24)
[2019-02-05] MEDS ORDERED: VANCOMYCIN HCL 1,500 MG in DEXTROSE 5%-WATER - 500 ML IVPB ONE (15:00)
--- NOTE | 2019-02-05 16:21 | PN ---
Teaching Attending Note Name of Resident: Phyllis Aponte ATTENDING PHYSICIAN STATEMENT I saw and evaluated the patient. I reviewed the resident's note and discussed the case with the resident. I agree with the resident's findings and plan as documented. SUBJECTIVE: No fever or chills . has chronic intermittent Abd pain, which is not present at this time. No N/V. No diarrhea. did not comply with any of his out pt meds. does not take anything. he was prescribe abx which he never took. he shows me levaquin pills. in a plastic bag. he reports feeling depressed at times, with previous thought of hurting himself. now he has no SI . OBJECTIVE: NAD,awake , alert , and cooperative CV: RRR, 3/6 SM all over precordium but mainly LLSB. Lungs: CTAB Abd: soft, slightly distended, ND , NL BS , tender in all quadrants . neg shifting dullness. L lobe of liver is palpated 2 cm,. Ext: no edema or erythema on RLE. LLE with an open wound on mcdaniels with surrounding erythema, and edema /erytehma on lower leg and dorsal foot. DP 2+ b/ l. serosanguinous discharge from wound . ASSESSMENT AND PLAN: 48 y/o man with h/o liver cirrhosis , alcohol abuse, GERD, portal gastropathy, pancreatitis, seizures, pancytopenia, esophageal varices, s/p banding, recent LLE wound with cellulitis and s/p I&D , who presented with worsening erythema, p ainand discharge form wound . 1- LLE infected wound with cellulitis : no signs of compartment sx . no signs of sepsis, has l eukopenia at his base line - cont cefazolin - follow wound and bood cx - consult wound care as there are eschars on wound that might need to be cleaned up either by sx or santyl 2- ETOH WD: - cont thiamin, folate - cont Ativan protocol . 3- H/o pancytopenia: likely due to ETOH induced BM suppression . iron studies might indicate iron def component especially with his h/o ETOH and gastropathy - check B12 and folate - will start iron supp at dc - last EGD reviewed. - add PPI 4- H/o Cirrhosis: due to alcohol use. - needs Hep B vaccine as out pt - needs f/u with GI as outpt - resume his out pt lasix and spironolactone - despite abd tenderness, he has no shifting dullness and US showed very minimal R sided ascitis. SBP is not suspected. now abd pain free 5- SCDs due to thrombocytopenia
--- NOTE | 2019-02-05 19:03 | PN ---
Physical Exam: SUBJECTIVE: Patient seen and examined in the morning. No acute events overnight. Complains of headache. Has no abdominal pain, chest pain, shortness of breath, nausea,vomiting, diarrhea. OBJECTIVE: Vital Signs Period Temp Pulse Resp BP Sys/Mcginnis Pulse Ox Last 24 Hr 97.9 F-98.3 F 80-85 20-20 115-133/58-78 96-98 GENERAL: The patient is awake, alert, and fully oriented, looks to be tired. HEAD: Normal with no signs of trauma. NECK: Trachea midline, full range of motion, supple. LUNGS: Breath sounds equal, clear to auscultation bilaterally, no wheezes, HEART: Regular rate and rhythm, S1, S2 without murmur, rub or gallop. ABDOMEN: Soft,distended, tender to palpation. Hepatomegaly. EXTREMITIES: 2+ pulses, warm, well-perfused, Patient has open wound on the left anterior mcdaniels. Some serosanginous pus draining, but no blood. Erythema surrounding wound. NEUROLOGICAL: Cranial nerves II through XII grossly intact. PSYCH: Patient's mood is down, mentions suicidal thoughts from the previous week. Laboratory Results - last 24 hr 02/04/19 02/04/19 02/05/19 21:20 21:20 07:08 WBC 3.6 L 2.1 L RBC 3.02 L 2.54 L Hgb 8.6 L 7.4 L Hct 26.9 L 22.5 L D MCV 89.0 88.7 MCH 28.4 29.1 MCHC 31.9 L 32.8 RDW 20.7 H 21.0 H Plt Count 80 L 68 L MPV 8.2 8.1 Absolute Neuts (auto) 1.5 Neutrophils % 41.9 L No Result Required. Neutrophils % (Manual) 40.0 L Band Neutrophils % 0.0 Lymphocytes % 34.5 D No Result Required. Lymphocytes % (Manual) 28.0 D Monocytes % 16.3 H Monocytes % (Manual) 13 H Eosinophils % 3.1 Eosinophils % (Manual) 9.0 H Basophils % 4.2 H Basophils % (Manual) 8.0 H* D Myelocytes % (Man) 0 Promyelocytes % (Man) 0 Blast Cells % (Manual) 0 Nucleated RBC % 0 0 Metamyelocytes 2 D Hypochromia 2+ Platelet Estimate Decreased Platelet Comment Present Polychromasia 1+ Poikilocytosis 2+ Anisocytosis 2+ Microcytosis 2+ Macrocytosis 0 Acanthocytes (Spur) 1+ Schistocytes 2+ ESR 10 Retic Count 1.84 H D Sodium 146 H Potassium 3.6 Chloride 110 H Carbon Dioxide 28 Anion Gap 7 L BUN 5.8 L Creatinine 0.5 L Est GFR (CKD-EPI)AfAm 146.45 Est GFR (CKD-EPI)NonAf 126.36 Random Glucose 105 Calcium 8.4 L Phosphorus Magnesium Iron TIBC Iron Saturation Unsaturated IBC Ferritin Total Bilirubin 2.6 H Direct Bilirubin 1.4 H AST 74 H ALT 26 Alkaline Phosphatase 276 H C-Reactive Protein Total Protein 7.1 Albumin 3.4 Alcohol, Quantitative 395 H 02/05/19 02/05/19 02/05/19 07:08 07:08 07:08 WBC RBC Hgb Hct MCV MCH MCHC RDW Plt Count MPV Absolute Neuts (auto) Neutrophils % Neutrophils % (Manual) Band Neutrophils % Lymphocytes % Lymphocytes % (Manual) Monocytes % Monocytes % (Manual) Eosinophils % Eosinophils % (Manual) Basophils % Basophils % (Manual) Myelocytes % (Man) Promyelocytes % (Man) Blast Cells % (Manual) Nucleated RBC % Metamyelocytes Hypochromia Platelet Estimate Platelet Comment Polychromasia Poikilocytosis Anisocytosis Microcytosis Macrocytosis Acanthocytes (Spur) Schistocytes ESR Cancelled Retic Count Cancelled Sodium 147 H Potassium 3.5 Chloride 113 H Carbon Dioxide 27 Anion Gap 7 L BUN 5.7 L Creatinine 0.4 L Est GFR (CKD-EPI)AfAm 160.51 Est GFR (CKD-EPI)NonAf 138.49 Random Glucose 91 Calcium 7.7 L Phosphorus 3.9 Magnesium 2.0 Iron 19 L TIBC 288 Iron Saturation 6 L Unsaturated IBC 269 Ferritin 28.1 Total Bilirubin 2.2 H Direct Bilirubin AST 59 H ALT 21 Alkaline Phosphatase 209 H C-Reactive Protein < 0.3 Total Protein 5.8 L Albumin 2.7 L Alcohol, Quantitative Active Medications Generic Name Dose Route Start Last Admin Trade Name Freq PRN Reason Stop Dose Admin Folic Acid 1 mg 02/05/19 10:00 02/05/19 11:08 Folic Acid - PO 1 mg DAILY STEPHEN Administration Furosemide 20 mg 02/06/19 10:00 Lasix - PO DAILY STEPHEN Gentamicin Sulfate 1 applic 02/05/19 10:00 02/05/19 11:10 Garamycin 0.1% Ointment - TP 1 applic BID STEPHEN Administration Cefazolin Sodium 1 gm in 50 mls @ 100 mls/hr 02/05/19 11:45 02/05/19 17:15 Ancef 1 Gm Premixed Ivpb - IVPB 100 mls/hr Q8H-IV STEPHEN Administration Ibuprofen 400 mg 02/05/19 01:16 Motrin - PO Q6H PRN PAIN LEVEL 1-5 Lorazepam 2 mg 02/05/19 05:00 02/05/19 17:14 Ativan - PO 02/05/19 23:01 2 mg 0500,1100,1700,2300 STEPHEN Administration Lorazepam 0.5 mg 02/07/19 05:00 Ativan - PO 02/07/19 23:01 Q6H STEPHEN Lorazepam 0.5 mg 02/07/19 00:00 Ativan - PO 02/08/19 00:00 Q4H PRN Symptoms of Withdrawal Lorazepam 0.5 mg 02/08/19 05:00 Ativan - PO 02/08/19 05:01 ONCE ONE Lorazepam 1 mg 02/06/19 05:00 Ativan - PO 02/06/19 23:01 0500,1100,1700,2300 STEPHEN Lorazepam 1 mg 02/05/19 01:27 Ativan - PO 02/07/19 00:00 Q4H PRN Symptoms of Withdrawal Multivitamins/Minerals/Vitamin C 1 tab 02/05/19 10:00 02/05/19 11:09 Tab-A-Vit - PO 1 tab DAILY STEPHEN Administration Nystatin 1 applic 02/05/19 10:45 02/05/19 12:39 Mycostatin Cream - TP 1 applic BID STEPHEN Administration Pantoprazole Sodium 40 mg 02/06/19 10:00 Protonix - PO DAILY STEPHEN Spironolactone 50 mg 02/06/19 10:00 Aldactone - PO DAILY STEPHEN Thiamine HCl 100 mg 02/05/19 10:00 02/05/19 11:09 Vitamin B1 - PO 100 mg DAILY STEPHEN Administration ASSESSMENT/PLAN: 48 M with PMH significant for EtOH abuse, HTN, HLD who present with cellulitis on left anterior mcdaniels. 1)Cellulitis -U/S duplex negative -Cefazolin 1 gram Q8H IV -F/U wound and blood cultures -ID consulted, appreciate recs -Wound Care consulted, appreciate recs -Gentamicin cream to wound 2) Alcohol intoxication/ withdrawal -Ativan protocol, CIWA 13 -Fall and seizure precautions -Alcohol cessation counseling -Thiamine 100 mg PO Daily -Folic acid 1 mg PO Daily 3)Suicidal thoughts -Psychiatry consulted, appreciate recs -No current harmful thoughts, psychiatric medicines not needed 4)Pancytopenia -Likely chronic secondary to alcoholism -Iron studies did not show iron deficiency anemia -Folate and B12 levels 5) HTN Furosemide 20 mg PO Daily Spironolactone 50 mg PO Daily F:no fluids E:Monitor CMP N:Salt restricted diet DVT: SCDs Visit type - Emergency Visit Emergency Visit: Yes ED Registration Date: 02/04/19 Care time: The patient presented to the Emergency Department on the above date and was hospitalized for further evaluation of their emergent condition. - New Patient This patient is new to me today: Yes Date on this admission: 02/05/19 - Critical Care Critical Care patient: No ATTENDING PHYSICIAN STATEMENT I saw and evaluated the patient. I reviewed the resident's note and discussed the case with the resident. I agree with the resident's findings and plan as documented. SUBJECTIVE: OBJECTIVE: ASSESSMENT AND PLAN:
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
[2019-02-06] MEDS: CEFAZOLIN 1 GM/D5W 1 GM/50 ML BAG IVPB SCH ×3 (02:00→17:32)
[2019-02-06 04:01] LABS: PH,URINE 8.5 (5.0-8.0); URINE APPEARANCE CLEAR; URINE BILIRUBIN NEGATIVE (NEGATIVE); URINE COLOR YELLOW; URINE GLUCOSE (UA) NEGATIVE (NEGATIVE); URINE KETONE NEGATIVE (NEGATIVE); URINE LEUK ESTERASE NEGATIVE (NEGATIVE); URINE NITRITE NEGATIVE (NEGATIVE); URINE PROTEIN NEGATIVE (NEGATIVE)
[2019-02-06] MEDS: LORazepam 1 MG TABLET PO SCH ×4 (05:49→23:01)
[2019-02-06 09:12] LABS: BASO % 2.4 % (0-2.0); EOS % 4.9 % (0-4.5); HEMATOCRIT 24.1 % (35.4-49); HEMOGLOBIN 7.8 GM/dL (11.7-16.9); LYMPH % 30.2 % (8-40); MCH 28.6 pg (25.7-33.7); MCHC 32.5 g/dl (32.0-35.9); MEAN PLT VOLUME 8.3 fl (7.5-11.1); MONO % 19.3 % (3.8-10.2); NEUT % 43.2 % (42.8-82.8); PLATELET COUNT 56 K/MM3 (134-434); RBC 2.74 M/mm3 (4.00-5.60); RDW 19.8 % (11.9-15.9); WHITE BLOOD COUNT 2.9 K/mm3 (4.0-10.0)
[2019-02-06] MEDS: NYSTATIN 100,000 UNIT/GM TOPICAL CREAM 15 GM TUBE TP SCH ×2 (10:11→21:33)
[2019-02-06] MEDS: GENTAMICIN SO4 0.1% TOPICAL OINTMENT 15 GM/TUBE TUBE TP SCH ×2 (10:11→21:33)
[2019-02-06] MEDS: THIAMINE HCL 100 MG TABLET (FP) PO SCH (10:12)
[2019-02-06] MEDS: MULTIVITAMINS (DAILY MVI) TABLET (FP) PO SCH (10:12)
[2019-02-06] MEDS: FOLIC ACID 1 MG TABLET (FP) PO SCH (10:12)
[2019-02-06] MEDS: FUROSEMIDE 20 MG TABLET (FP) PO SCH (10:13)
[2019-02-06] MEDS: SPIRONOLACTONE 25 MG TABLET (FP) PO SCH (10:13)
[2019-02-06] MEDS: PANTOPRAZOLE 40 MG TABLET (FP) PO SCH (10:13)
[2019-02-06 10:27] LABS: ALBUMIN 2.6 g/dl (3.4-5.0); BILIRUBIN,TOTAL 3.4 mg/dL (0.2-1); BLOOD UREA NITROGEN 7.4 mg/dL (7-18); CALCIUM 8.3 mg/dL (8.5-10.1); CREATININE 0.5 mg/dL (0.55-1.3); POTASSIUM 3.6 mmol/L (3.5-5.1); TOT PROT 5.8 g/dl (6.4-8.2)
--- NOTE | 2019-02-06 15:46 | PN ---
Progress Note (short form) - Note Progress Note: no complaints Vital Signs Period Temp Pulse Resp BP Sys/Mcginnis Pulse Ox Last 24 Hr 98.3 F-100.0 F 86-113 18-20 127-145/75-82 96-97 cor-rrr lungs clear abd soft,nt ext less erythema and induration, open wound no drainage CBC, BMP 02/06/19 07:10 02/06/19 07:10 Microbiology 02/05/19 00:30 Leg - Left Lower Gram Stain - Final 02/05/19 00:30 Leg - Left Lower Wound Culture - Preliminary Lactose Fermenting Neg Bacilli Staphylococcus Latex Coag Pos Group D Strep Or Entero Coccus 02/04/19 21:00 Blood - Peripheral Venous Blood Culture - Preliminary NO GROWTH OBTAINED AFTER 24 HOURS, INCUBATION TO CONTINUE FOR 4 DAYS. 02/04/19 21:20 Blood - Peripheral Venous Blood Culture - Preliminary NO GROWTH OBTAINED AFTER 24 HOURS, INCUBATION TO CONTINUE FOR 4 DAYS. a/p cellulitis not diabetic wound care per vascular iv cefazolin for cellulitis duplex no dvt would get xray r/o fracture etoh abuse- per hospitalist service pancytopenia due to etoh use please offer patient HIV testing Problem List - Problems (1) Cellulitis Code(s): L03.90 - CELLULITIS, UNSPECIFIED (2) Leg wound, left Code(s): S81.802A - UNSPECIFIED OPEN WOUND, LEFT LOWER LEG, INITIAL ENCOUNTER (3) Alcoholism Code(s): F10.20 - ALCOHOL DEPENDENCE, UNCOMPLICATED (4) Pancytopenia Code(s): D61.818 - OTHER PANCYTOPENIA
--- NOTE | 2019-02-06 17:19 | PN ---
Teaching Attending Note Name of Resident: Phyllis Aponte ATTENDING PHYSICIAN STATEMENT I saw and evaluated the patient. I reviewed the resident's note and discussed the case with the resident. I agree with the resident's findings and plan as documented. SUBJECTIVE: No fever or chills. has pain in his leg. has minimal abd pain OBJECTIVE: NAD,awake , alert , and cooperative CV: RRR, 3/6 SM all over precordium but mainly LLSB. Lungs: CTAB Abd: soft, slightly distended, ND , NL BS , tender in all quadrants . neg shifting dullness. L lobe of liver is palpated 2 cm,. Ext: no edema or erythema on RLE. LLE with an open wound on mcdaniels with surrounding erythema ( improved ) . DP 2+ b/l. fungal infection in few interdigital spaces in feet ASSESSMENT AND PLAN: 48 y/o man with h/o liver cirrhosis , alcohol abuse, GERD, portal gastropathy, pancreatitis, seizures, pancytopenia, esophageal varices, s/p banding, recent LLE wound with cellulitis and s/p I&D , who presented with worsening erythema, p ainand discharge form wound . 1- LLE infected wound with cellulitis: - cont cefazolin - wound cx noted . will follow sensitivity - records were requested form OSH regarding previous cx - apply santyl on wound ( necrotic areas ) - will offer HIV testing 2- ETOH WD: - cont thiamin, folate - cont Ativan protocol . 3- H/o pancytopenia: likely due to ETOH induced BM suppression . iron studies might indicate iron def component especially with his h/o ETOH, varices and gastropathy - B12 and folate Nl. - will start iron supp at dc - last EGD 10/25 with small varices and oozing from gastropathy . Hb at base line , and no obvert bleeding despite + OB. will have him f/u with GI as out pt if no drop in HB and no overt bleeding - cont PPI 4- H/o Cirrhosis: due to alcohol use. - needs Hep B vaccine as out pt - needs f/u with GI as outpt - cont lasix and spironolactone 5- SCDs due to thrombocytopenia
--- NOTE | 2019-02-06 19:28 | PN ---
Physical Exam: SUBJECTIVE: Patient seen and examined in the morning. No acute events overnight. Patient complains of generalized myalgias, but no chest pains, shortness of breath, or abdominal pains. OBJECTIVE: Vital Signs Period Temp Pulse Resp BP Sys/Mcginnis Pulse Ox Last 24 Hr 98.3 F-100.0 F 86-113 18-20 127-145/74-82 96-97 GENERAL: The patient is awake, alert, and fully oriented, looks to be tired. HEAD: Normal with no signs of trauma. NECK: Trachea midline, full range of motion, supple. LUNGS: Breath sounds equal, clear to auscultation bilaterally, no wheezes, HEART: Regular rate and rhythm, S1, S2 without murmur, rub or gallop. ABDOMEN: Soft,distended, tender to palpation. Hepatomegaly. EXTREMITIES: 2+ pulses, warm, well-perfused, Patient has dressing on his wound on the left anterior mcdaniels. No pus draining, erythema still surrounding the wound. NEUROLOGICAL: Cranial nerves II through XII grossly intact. PSYCH: Patient's mood is down, mentions suicidal thoughts from the previous week. Laboratory Results - last 24 hr 02/05/19 02/06/19 02/06/19 21:45 03:00 07:10 WBC RBC Hgb Hct MCV MCH MCHC RDW Plt Count MPV Absolute Neuts (auto) Neutrophils % Lymphocytes % Monocytes % Eosinophils % Basophils % Nucleated RBC % Sodium 138 Potassium 3.6 Chloride 105 Carbon Dioxide 25 Anion Gap 8 BUN 7.4 Creatinine 0.5 L Est GFR (CKD-EPI)AfAm 146.45 Est GFR (CKD-EPI)NonAf 126.36 Random Glucose 82 Calcium 8.3 L Total Bilirubin 3.4 H AST 65 H ALT 22 Alkaline Phosphatase 240 H Total Protein 5.8 L Albumin 2.6 L Vitamin B12 2325 H Serum Folate 18 H Urine Color Yellow Urine Appearance Clear Urine pH 8.5 H Ur Specific [place] 1.011 Urine Protein Negative Urine Glucose (UA) Negative Urine Ketones Negative Urine Blood Negative Urine Nitrite Negative Urine Bilirubin Negative Urine Urobilinogen 1.0 Ur Leukocyte Esterase Negative Stool Occult Blood Positive 02/06/19 07:10 WBC 2.9 L RBC 2.74 L Hgb 7.8 L Hct 24.1 L MCV 88.0 MCH 28.6 MCHC 32.5 RDW 19.8 H Plt Count 56 L MPV 8.3 Absolute Neuts (auto) 1.3 L Neutrophils % 43.2 Lymphocytes % 30.2 Monocytes % 19.3 H Eosinophils % 4.9 H Basophils % 2.4 H Nucleated RBC % 0 Sodium Potassium Chloride Carbon Dioxide Anion Gap BUN Creatinine Est GFR (CKD-EPI)AfAm Est GFR (CKD-EPI)NonAf Random Glucose Calcium Total Bilirubin AST ALT Alkaline Phosphatase Total Protein Albumin Vitamin B12 Serum Folate Urine Color Urine Appearance Urine pH Ur Specific [place] Urine Protein Urine Glucose (UA) Urine Ketones Urine Blood Urine Nitrite Urine Bilirubin Urine Urobilinogen Ur Leukocyte Esterase Stool Occult Blood Active Medications Generic Name Dose Route Start Last Admin Trade Name Freq PRN Reason Stop Dose Admin Folic Acid 1 mg 02/05/19 10:00 02/06/19 10:12 Folic Acid - PO 1 mg DAILY STEPHEN Administration Furosemide 20 mg 02/06/19 10:00 02/06/19 10:13 Lasix - PO 20 mg DAILY STEPHEN Administration Gentamicin Sulfate 1 applic 02/05/19 10:00 02/06/19 10:11 Garamycin 0.1% Ointment - TP 1 applic BID STEPHEN Administration Cefazolin Sodium 1 gm in 50 mls @ 100 mls/hr 02/05/19 11:45 02/06/19 17:32 Ancef 1 Gm Premixed Ivpb - IVPB 100 mls/hr Q8H-IV STEPHEN Administration Ibuprofen 400 mg 02/05/19 01:16 Motrin - PO Q6H PRN PAIN LEVEL 1-5 Lorazepam 0.5 mg 02/07/19 05:00 Ativan - PO 02/07/19 23:01 Q6H STEPHEN Lorazepam 0.5 mg 02/07/19 00:00 Ativan - PO 02/08/19 00:00 Q4H PRN Symptoms of Withdrawal Lorazepam 0.5 mg 02/08/19 05:00 Ativan - PO 02/08/19 05:01 ONCE ONE Lorazepam 1 mg 02/06/19 05:00 02/06/19 17:32 Ativan - PO 02/06/19 23:01 1 mg 0500,1100,1700,2300 STEPHEN Administration Lorazepam 1 mg 02/05/19 01:27 Ativan - PO 02/07/19 00:00 Q4H PRN Symptoms of Withdrawal Multivitamins/Minerals/Vitamin C 1 tab 02/05/19 10:00 02/06/19 10:12 Tab-A-Vit - PO 1 tab DAILY STEPHEN Administration Nystatin 1 applic 02/05/19 10:45 02/06/19 10:11 Mycostatin Cream - TP 1 applic BID STEPHEN Administration Pantoprazole Sodium 40 mg 02/06/19 10:00 02/06/19 10:13 Protonix - PO 40 mg DAILY STEPHEN Administration Spironolactone 50 mg 02/06/19 10:00 02/06/19 10:13 Aldactone - PO 50 mg DAILY STEPHEN Administration Thiamine HCl 100 mg 02/05/19 10:00 02/06/19 10:12 Vitamin B1 - PO 100 mg DAILY STEPHEN Administration ASSESSMENT/PLAN: 48 M with PMH significant for EtOH abuse, HTN, HLD who present with cellulitis on left anterior mcdaniels. 1)Cellulitis -U/S duplex negative -Cefazolin 1 gram Q8H IV -F/U wound and blood cultures -ID consulted, appreciate recs -Wound Care consulted, appreciate recs -Gentamicin cream to wound -Delroy 2) Alcohol intoxication/ withdrawal -Ativan protocol, WA 13 -Fall and seizure precautions -Alcohol cessation counseling -Thiamine 100 mg PO Daily -Folic acid 1 mg PO Daily 3)Suicidal thoughts -Psychiatry consulted, appreciate recs -No current harmful thoughts, psychiatric medicines not needed 4)Pancytopenia -Likely chronic secondary to alcoholism -Iron studies did not show iron deficiency anemia -Folate and B12 levels 5) HTN Furosemide 20 mg PO Daily Spironolactone 50 mg PO Daily F:no fluids E:Monitor CMP N:Salt restricted diet DVT: SCDs Visit type - Emergency Visit Emergency Visit: Yes ED Registration Date: 02/04/19 Care time: The patient presented to the Emergency Department on the above date and was hospitalized for further evaluation of their emergent condition. - New Patient This patient is new to me today: No - Critical Care Critical Care patient: No ATTENDING PHYSICIAN STATEMENT I saw and evaluated the patient. I reviewed the resident's note and discussed the case with the resident. I agree with the resident's findings and plan as documented. SUBJECTIVE: OBJECTIVE: ASSESSMENT AND PLAN:
[2019-02-07] MEDS ORDERED: LORazepam 0.5 MG TABLET PO PRN
[2019-02-07] MEDS: CEFAZOLIN 1 GM/D5W 1 GM/50 ML BAG IVPB SCH ×2 (02:27→10:50)
[2019-02-07] MEDS: LORazepam 0.5 MG TABLET PO SCH ×4 (06:34→23:35)
[2019-02-07 09:01] LABS: BASO % 1.9 % (0-2.0); EOS % 3.4 % (0-4.5); HEMATOCRIT 27.4 % (35.4-49); HEMOGLOBIN 9.1 GM/dL (11.7-16.9); LYMPH % 43.4 % (8-40); MCHC 33.2 g/dl (32.0-35.9); MEAN CELL VOLUME 87.3 fl (80-96); MEAN PLT VOLUME 8.7 fl (7.5-11.1); MONO % 14.9 % (3.8-10.2); NEUT % 36.4 % (42.8-82.8); PLATELET COUNT 69 K/MM3 (134-434); RBC 3.14 M/mm3 (4.00-5.60); WHITE BLOOD COUNT 3.9 K/mm3 (4.0-10.0)
[2019-02-07 10:15] LABS: ALBUMIN 2.9 g/dl (3.4-5.0); CREATININE 0.6 mg/dL (0.55-1.3); POTASSIUM 3.5 mmol/L (3.5-5.1); TOT PROT 6.7 g/dl (6.4-8.2)
[2019-02-07] MEDS: MULTIVITAMINS (DAILY MVI) TABLET (FP) PO SCH (10:49)
[2019-02-07] MEDS: PANTOPRAZOLE 40 MG TABLET (FP) PO SCH (10:49)
[2019-02-07] MEDS: FOLIC ACID 1 MG TABLET (FP) PO SCH (10:50)
[2019-02-07] MEDS: GENTAMICIN SO4 0.1% TOPICAL OINTMENT 15 GM/TUBE TUBE TP SCH ×2 (10:50→23:36)
[2019-02-07] MEDS: SPIRONOLACTONE 25 MG TABLET (FP) PO SCH (10:50)
[2019-02-07] MEDS: FUROSEMIDE 20 MG TABLET (FP) PO SCH (10:50)
[2019-02-07] MEDS: COLLAGENASE CLOSTRIDIUM HIST. 30 GRAMS TUBE TP SCH (10:51)
[2019-02-07] MEDS: THIAMINE HCL 100 MG TABLET (FP) PO SCH (10:51)
[2019-02-07] MEDS: NYSTATIN 100,000 UNIT/GM TOPICAL CREAM 15 GM TUBE TP SCH ×2 (10:51→23:36)
--- NOTE | 2019-02-07 13:29 | PN ---
Progress Note (short form) - Note Progress Note: no complaints leg continues to improve Vital Signs Period Temp Pulse Resp BP Sys/Mcginnis Pulse Ox Last 24 Hr 98.2 F-98.6 F 54-93 - 112-140/69-74 96 cor-rrr lungs clear leg with no edema, +eschar, no drainage, +warmth, less induration CBC, BMP 02/07/19 07:35 02/07/19 07:35 Microbiology 02/05/19 00:30 Leg - Left Lower Gram Stain - Final 02/05/19 00:30 Leg - Left Lower Wound Culture - Preliminary Klebsiella Pneumoniae Staphylococcus Aureus Enterococcus Faecalis 02/04/19 21:00 Blood - Peripheral Venous Blood Culture - Preliminary NO GROWTH OBTAINED AFTER 48 HOURS, INCUBATION TO CONTINUE FOR 3 DAYS. 02/04/19 21:20 Blood - Peripheral Venous Blood Culture - Preliminary NO GROWTH OBTAINED AFTER 48 HOURS, INCUBATION TO CONTINUE FOR 3 DAYS. Current Medications Collagenase (Santyl -) 1 applic TP DAILY [facility]; Protocol Last Admin: 02/07/19 10:51 Dose: 1 applic Folic Acid (Folic Acid -) 1 mg PO DAILY [facility] Last Admin: 02/07/19 10:50 Dose: 1 mg Furosemide (Lasix -) 20 mg PO DAILY [facility] Last Admin: 02/07/19 10:50 Dose: 20 mg Gentamicin Sulfate (Garamycin 0.1% Ointment -) 1 applic TP BID [facility] Last Admin: 02/07/19 10:50 Dose: 1 applic Cefazolin Sodium (Ancef 1 Gm Premixed Ivpb -) 1 gm in 50 mls @ 100 mls/hr IVPB Q8H-IV [facility] Last Admin: 02/07/19 10:50 Dose: 100 mls/hr Ibuprofen (Motrin -) 400 mg PO Q6H PRN PRN Reason: PAIN LEVEL 1-5 Lorazepam (Ativan -) 0.5 mg PO Q6H [facility] Stop: 02/07/19 23:01 Last Admin: 02/07/19 10:58 Dose: 0.5 mg Lorazepam (Ativan -) 0.5 mg PO Q4H PRN PRN Reason: Symptoms of Withdrawal Stop: 02/08/19 00:00 Lorazepam (Ativan -) 0.5 mg PO ONCE ONE Stop: 02/08/19 05:01 Multivitamins/Minerals/Vitamin C (Tab-A-Vit -) 1 tab PO DAILY [facility] Last Admin: 02/07/19 10:49 Dose: 1 tab Nystatin (Mycostatin Cream -) 1 applic TP BID [facility] Last Admin: 02/07/19 10:51 Dose: 1 applic Pantoprazole Sodium (Protonix -) 40 mg PO DAILY [facility] Last Admin: 02/07/19 10:49 Dose: 40 mg Spironolactone (Aldactone -) 50 mg PO DAILY [facility] Last Admin: 02/07/19 10:50 Dose: 50 mg Thiamine HCl (Vitamin B1 -) 100 mg PO DAILY [facility] Last Admin: 02/07/19 10:51 Dose: 100 mg a/p cellulitis not diabetic wound care per vascular iv cefazolin for cellulitis duplex no dvt can switch to po keflex when ready for discharge etoh abuse- per hospitalist service pancytopenia due to etoh use please offer patient HIV testing d/w hospitalist Problem List - Problems (1) Cellulitis Code(s): L03.90 - CELLULITIS, UNSPECIFIED (2) Leg wound, left Code(s): S81.802A - UNSPECIFIED OPEN WOUND, LEFT LOWER LEG, INITIAL ENCOUNTER (3) Alcoholism Code(s): F10.20 - ALCOHOL DEPENDENCE, UNCOMPLICATED (4) Pancytopenia Code(s): D61.818 - OTHER PANCYTOPENIA
--- NOTE | 2019-02-07 14:40 | EKG ---
Test Reason : Blood Pressure : / mmHG Vent. Rate : 075 BPM Atrial Rate : 312 BPM P-R Int : 000 ms QRS Dur : 096 ms QT Int : 430 ms P-R-T Axes : 024 -30 016 degrees QTc Int : 480 ms NORMAL SINUS RHYTHM LEFT AXIS DEVIATION NONSPECIFIC T WAVE ABNORMALITY PROLONGED QT ABNORMAL ECG Confirmed by ALEKSANDER JENKINS MD ([id number]) on 02/07/2019 2:39:52 PM Referred By: Confirmed By:ALEKSANDER JENKINS MD
[2019-02-07] MEDS ORDERED: ceFAZolin SODIUM 1 GM VIAL ONE (18:14)
[2019-02-07] MEDS ORDERED: DEXTROSE 5%-WATER 100 ML IVPB ONE (18:14)
[2019-02-07] MEDS: CEFAZOLIN 2 GM in DEXTROSE 5%-WATER 100 ML IVPB SCH (18:18)
--- NOTE | 2019-02-07 18:50 | PN ---
Teaching Attending Note Name of Resident: Phyllis Aponte ATTENDING PHYSICIAN STATEMENT I saw and evaluated the patient. I reviewed the resident's note and discussed the case with the resident. I agree with the resident's findings and plan as documented. SUBJECTIVE: No fever or chills. pain in leg is better OBJECTIVE: NAD, awake, alert, and cooperative CV: RRR, 3/6 SM all over precordium but mainly LLSB. Lungs: CTAB Abd: soft, slightly distended, ND , NL BS , tender in all quadrants. neg shifting dullness. L lobe of liver is palpated 2 cm,. Ext: no edema or erythema on RLE. LLE with an open wound on mcdaniels with surrounding erythema ( improved ) . DP 2+ b/l. ASSESSMENT AND PLAN: 48 y/o man with h/o liver cirrhosis , alcohol abuse, GERD, portal gastropathy, pancreatitis, seizures, pancytopenia, esophageal varices, s/p banding, recent LLE wound with cellulitis and s/p I&D , who presented with worsening erythema, p ainand discharge form wound . 1- LLE infected wound with cellulitis: improved - cont cefazolin - wound cx noted . will follow sensitivity - records were requested form OSH regarding previous cx - apply santyl on wound ( necrotic areas ) - will offer HIV testing 2- ETOH WD: - cont thiamin, folate - cont Ativan protocol . 3- H/o pancytopenia: likely due to ETOH induced BM suppression . iron studies might indicate iron def component gastropathy - will start iron supp at dc -f/u with GI as out pt - cont PPI 4- H/o Cirrhosis: due to alcohol use. - needs Hep B vaccine as out pt - needs f/u with GI as outpt - cont lasix and spironolactone 5- SCDs due to thrombocytopenia
--- NOTE | 2019-02-07 19:52 | PN ---
Physical Exam: SUBJECTIVE:Patient seen and examined in the morning. No acute events overnight. Patient complains of generalized myalgias, but no chest pains, shortness of breath, or abdominal pains. 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 OBJECTIVE: Vital Signs Period Temp Pulse Resp BP Sys/Mcginnis Pulse Ox Last 24 Hr 98.2 F-98.4 F 54-100 17-19 112-113/69-70 96-97 GENERAL: The patient is awake, alert, and fully oriented, looks to be tired. HEAD: Normal with no signs of trauma. NECK: Trachea midline, full range of motion, supple. LUNGS: Breath sounds equal, clear to auscultation bilaterally, no wheezes, HEART: Regular rate and rhythm, S1, S2 without murmur, rub or gallop. ABDOMEN: Soft,distended, tender to palpation. Hepatomegaly. EXTREMITIES: 2+ pulses, warm, well-perfused, Patient has dressing on his wound on the left anterior mcdaniels. No pus draining, erythema still surrounding the wound. NEUROLOGICAL: Cranial nerves II through XII grossly intact. PSYCH: Patient has flat affect. Laboratory Results - last 24 hr 02/07/19 02/07/19 07:35 07:35 WBC 3.9 L RBC 3.14 L Hgb 9.1 L Hct 27.4 L MCV 87.3 MCH 29.0 MCHC 33.2 RDW 20.0 H Plt Count 69 L D MPV 8.7 Absolute Neuts (auto) 1.4 L Neutrophils % 36.4 L Lymphocytes % 43.4 H D Monocytes % 14.9 H Eosinophils % 3.4 Basophils % 1.9 Nucleated RBC % 0 Sodium 139 Potassium 3.5 Chloride 105 Carbon Dioxide 28 Anion Gap 7 L BUN 11.0 Creatinine 0.6 Est GFR (CKD-EPI)AfAm 135.87 Est GFR (CKD-EPI)NonAf 117.23 Random Glucose 91 Calcium 9.0 Total Bilirubin 3.0 H AST 60 H ALT 23 Alkaline Phosphatase 289 H Total Protein 6.7 Albumin 2.9 L Active Medications Generic Name Dose Route Start Last Admin Trade Name Freq PRN Reason Stop Dose Admin Collagenase 1 applic 02/07/19 10:00 02/07/19 10:51 Santyl - TP 1 applic DAILY STEPHEN Administration Protocol Folic Acid 1 mg 02/05/19 10:00 02/07/19 10:50 Folic Acid - PO 1 mg DAILY STEPHEN Administration Furosemide 20 mg 02/06/19 10:00 02/07/19 10:50 Lasix - PO 20 mg DAILY STEPHEN Administration Gentamicin Sulfate 1 applic 02/05/19 10:00 02/07/19 10:50 Garamycin 0.1% Ointment - TP 1 applic BID STEPHEN Administration Cefazolin Sodium 2 gm/ 100 mls @ 200 mls/hr 02/07/19 18:00 02/07/19 18:18 Dextrose IVPB 200 mls/hr Q8H-IV STEPHEN Administration Ibuprofen 400 mg 02/05/19 01:16 Motrin - PO Q6H PRN PAIN LEVEL 1-5 Lorazepam 0.5 mg 02/07/19 05:00 02/07/19 18:18 Ativan - PO 02/07/19 23:01 0.5 mg Q6H STEPHEN Administration Lorazepam 0.5 mg 02/07/19 00:00 Ativan - PO 02/08/19 00:00 Q4H PRN Symptoms of Withdrawal Lorazepam 0.5 mg 02/08/19 05:00 Ativan - PO 02/08/19 05:01 ONCE ONE Multivitamins/Minerals/Vitamin C 1 tab 02/05/19 10:00 02/07/19 10:49 Tab-A-Vit - PO 1 tab DAILY STEPHEN Administration Nystatin 1 applic 02/05/19 10:45 02/07/19 10:51 Mycostatin Cream - TP 1 applic BID STEPHEN Administration Pantoprazole Sodium 40 mg 02/06/19 10:00 02/07/19 10:49 Protonix - PO 40 mg DAILY STEPHEN Administration Spironolactone 50 mg 02/06/19 10:00 02/07/19 10:50 Aldactone - PO 50 mg DAILY STEPHEN Administration Thiamine HCl 100 mg 02/05/19 10:00 02/07/19 10:51 Vitamin B1 - PO 100 mg DAILY STEPHEN Administration ASSESSMENT/PLAN: 48 M with PMH significant for EtOH abuse, HTN, HLD who present with cellulitis on left anterior mcdaniels. 1)Cellulitis -U/S duplex negative -Cefazolin 1 gram Q8H IV -Wound culture resulted: klebsiella, stapholyococcus areus, enterococcus faecalis. -ID consulted, appreciate recs -Wound Care consulted, appreciate recs -Gentamicin cream to wound -Santyl -F/U HIV 2) Alcohol intoxication/ withdrawal -Ativan protocol, CIWA 13 -Fall and seizure precautions -Alcohol cessation counseling -Thiamine 100 mg PO Daily -Folic acid 1 mg PO Daily 3)Suicidal thoughts -Psychiatry consulted, appreciate recs -No current harmful thoughts, psychiatric medicines not needed 4)Pancytopenia -Likely chronic secondary to alcoholism -Iron studies did not show iron deficiency anemia 5) HTN Furosemide 20 mg PO Daily Spironolactone 50 mg PO Daily F:no fluids E:Monitor CMP N:Salt restricted diet DVT: SCDs Visit type - Emergency Visit Emergency Visit: Yes ED Registration Date: 02/04/19 Care time: The patient presented to the Emergency Department on the above date and was hospitalized for further evaluation of their emergent condition. - New Patient This patient is new to me today: No - Critical Care Critical Care patient: No ATTENDING PHYSICIAN STATEMENT I saw and evaluated the patient. I reviewed the resident's note and discussed the case with the resident. I agree with the resident's findings and plan as documented. SUBJECTIVE: OBJECTIVE: ASSESSMENT AND PLAN:
[2019-02-08] MEDS ORDERED: DEXTROSE 5%-WATER 100 ML IVPB ONE ×3 (02:32→17:04)
[2019-02-08] MEDS ORDERED: ceFAZolin SODIUM 1 GM VIAL ONE ×3 (02:32→17:04)
[2019-02-08] MEDS: CEFAZOLIN 2 GM in DEXTROSE 5%-WATER 100 ML IVPB SCH ×2 (02:38→09:03)
[2019-02-08] MEDS ORDERED: LORazepam 0.5 MG TABLET PO ONE (05:00)
[2019-02-08] MEDS: SPIRONOLACTONE 25 MG TABLET (FP) PO SCH (09:04)
[2019-02-08] MEDS: COLLAGENASE CLOSTRIDIUM HIST. 30 GRAMS TUBE TP SCH (09:04)
[2019-02-08] MEDS: NYSTATIN 100,000 UNIT/GM TOPICAL CREAM 15 GM TUBE TP SCH ×2 (09:04→21:21)
[2019-02-08] MEDS: THIAMINE HCL 100 MG TABLET (FP) PO SCH (09:04)
[2019-02-08] MEDS: FOLIC ACID 1 MG TABLET (FP) PO SCH (09:04)
[2019-02-08] MEDS: PANTOPRAZOLE 40 MG TABLET (FP) PO SCH (09:04)
[2019-02-08] MEDS: GENTAMICIN SO4 0.1% TOPICAL OINTMENT 15 GM/TUBE TUBE TP SCH ×2 (09:04→21:20)
[2019-02-08] MEDS: FUROSEMIDE 20 MG TABLET (FP) PO SCH (09:04)
[2019-02-08] MEDS: MULTIVITAMINS (DAILY MVI) TABLET (FP) PO SCH (09:04)
[2019-02-08 09:12] LABS: BASO % 2.3 % (0-2.0); EOS % 5.6 % (0-4.5); HEMATOCRIT 26.2 % (35.4-49); LYMPH % 31.7 % (8-40); MCH 30.4 pg (25.7-33.7); MCHC 34.4 g/dl (32.0-35.9); MEAN CELL VOLUME 88.5 fl (80-96); MEAN PLT VOLUME 9.2 fl (7.5-11.1); MONO % 18.4 % (3.8-10.2); PLATELET COUNT 63 K/MM3 (134-434); RBC 2.96 M/mm3 (4.00-5.60); RDW 19.4 % (11.9-15.9); WHITE BLOOD COUNT 3.3 K/mm3 (4.0-10.0)
[2019-02-08 09:41] LABS: ALBUMIN 2.8 g/dl (3.4-5.0); BILIRUBIN,TOTAL 3.3 mg/dL (0.2-1); BLOOD UREA NITROGEN 13.6 mg/dL (7-18); CALCIUM 8.9 mg/dL (8.5-10.1); CREATININE 0.6 mg/dL (0.55-1.3); POTASSIUM 3.9 mmol/L (3.5-5.1); TOT PROT 6.4 g/dl (6.4-8.2)
--- NOTE | 2019-02-08 11:29 | PN ---
Physical Exam: SUBJECTIVE: Patient seen this morning and without complaints. No events overnight OBJECTIVE: Vital Signs Period Temp Pulse Resp BP Sys/Mcginnis Pulse Ox Last 24 Hr 98.1 F-98.2 F 86-93 18-19 112-115/61-69 97-97 GENERAL: The patient is awake, alert, and fully oriented, in no acute distress. HEAD: Normal with no signs of trauma. LUNGS: Breath sounds equal, clear to auscultation bilaterally, no wheezes, no crackles, no accessory muscle use. HEART: Regular rate and rhythm, S1, S2 without murmur, rub or gallop. ABDOMEN: Soft, nontender, nondistended, normoactive bowel sounds, no guarding EXTREMITIES: left leg, open wound, eschar gone, some redness and warmth close to opening of skin SKIN: Warm, dry, normal turgor, no rashes or lesions noted CBC, BMP 02/08/19 07:54 02/08/19 07:54 Active Medications Collagenase (Santyl -) 1 applic TP DAILY [facility]; Protocol Last Admin: 02/08/19 09:04 Dose: 1 applic Folic Acid (Folic Acid -) 1 mg PO DAILY [facility] Last Admin: 02/08/19 09:04 Dose: 1 mg Furosemide (Lasix -) 20 mg PO DAILY [facility] Last Admin: 02/08/19 09:04 Dose: 20 mg Gentamicin Sulfate (Garamycin 0.1% Ointment -) 1 applic TP BID [facility] Last Admin: 02/08/19 09:04 Dose: 1 applic Cefazolin Sodium 2 gm/ (Dextrose) 100 mls @ 200 mls/hr IVPB Q8H-IV STEPHEN Last Admin: 02/08/19 09:03 Dose: 200 mls/hr Ibuprofen (Motrin -) 400 mg PO Q6H PRN PRN Reason: PAIN LEVEL 1-5 Multivitamins/Minerals/Vitamin C (Tab-A-Vit -) 1 tab PO DAILY [facility] Last Admin: 02/08/19 09:04 Dose: 1 tab Nystatin (Mycostatin Cream -) 1 applic TP BID [facility] Last Admin: 02/08/19 09:04 Dose: 1 applic Pantoprazole Sodium (Protonix -) 40 mg PO DAILY [facility] Last Admin: 02/08/19 09:04 Dose: 40 mg Spironolactone (Aldactone -) 50 mg PO DAILY [facility] Last Admin: 02/08/19 09:04 Dose: 50 mg Thiamine HCl (Vitamin B1 -) 100 mg PO DAILY [facility] Last Admin: 02/08/19 09:04 Dose: 100 mg ASSESSMENT/PLAN: #cellulitis - on Cefazolin - can be switched to Keflex for DC - continue care of wound as per Wound care - keep wound dry, gentamycin cream - f/u HIV labs - US negative #alcoholism abuse - continue thiamine, folic acid - protonix 40 daily - fall and seizure precautions #HTN - continue lasix 20 daily - continue spironolactone #pancytopenia - 2/2 to alcohol supression - continue to trend DVT ppx - hold medical ac in setting of thrombocytopenia FEN - low sodium diet dispo: monitor on abx until sunday Visit type - Emergency Visit Emergency Visit: Yes ED Registration Date: 02/04/19 Care time: The patient presented to the Emergency Department on the above date and was hospitalized for further evaluation of their emergent condition. - New Patient This patient is new to me today: Yes Date on this admission: 02/08/19 - Critical Care Critical Care patient: No ATTENDING PHYSICIAN STATEMENT I saw and evaluated the patient. I reviewed the resident's note and discussed the case with the resident. I agree with the resident's findings and plan as documented. SUBJECTIVE: OBJECTIVE: ASSESSMENT AND PLAN:
--- NOTE | 2019-02-08 13:55 | PN ---
Progress Note (short form) - Note Progress Note: no complaints leg continues to improve Vital Signs Period Temp Pulse Resp BP Sys/Mcginnis Pulse Ox Last 24 Hr 98.1 F-98.2 F 86-93 18-19 112-115/61-69 97-97 cor-rrr lungs clear abd soft,nt ext less erythema and less induration of the LLE wound CBC, BMP 02/08/19 07:54 02/08/19 07:54 Microbiology 02/05/19 00:30 Leg - Left Lower Gram Stain - Final 02/05/19 00:30 Leg - Left Lower Wound Culture - Final Klebsiella Pneumoniae Staphylococcus Aureus Enterococcus Faecalis 02/04/19 21:00 Blood - Peripheral Venous Blood Culture - Preliminary NO GROWTH OBTAINED AFTER 72 HOURS, INCUBATION TO CONTINUE FOR 2 DAYS. 02/04/19 21:20 Blood - Peripheral Venous Blood Culture - Preliminary NO GROWTH OBTAINED AFTER 72 HOURS, INCUBATION TO CONTINUE FOR 2 DAYS. a/p cellulitis-much improved iv cefazolin for cellulitis duplex no dvt, xray no fracture can switch to po keflex 500 tid soon etoh abuse- per hospitalist service pancytopenia due to etoh use please offer patient HIV testing Problem List - Problems (1) Cellulitis Code(s): L03.90 - CELLULITIS, UNSPECIFIED (2) Leg wound, left Code(s): S81.802A - UNSPECIFIED OPEN WOUND, LEFT LOWER LEG, INITIAL ENCOUNTER (3) Alcoholism Code(s): F10.20 - ALCOHOL DEPENDENCE, UNCOMPLICATED (4) Pancytopenia Code(s): D61.818 - OTHER PANCYTOPENIA
[2019-02-08] MEDS: CEFAZOLIN 2 GM/D5W 2 GM/50 ML ML IVPB SCH (17:12)
--- NOTE | 2019-02-08 17:23 | PN ---
Teaching Attending Note Name of Resident: Phyllis Aponte ATTENDING PHYSICIAN STATEMENT I saw and evaluated the patient. I reviewed the resident's note and discussed the case with the resident. I agree with the resident's findings and plan as documented. SUBJECTIVE: No fever or chills. No painin leg. feels tired. no and pain OBJECTIVE: NAD, awake, alert, and cooperative CV: RRR, 3/6 SM all over precordium but mainly LLSB. Lungs: CTAB Abd: soft, slightly distended, ND , NL BS , minimally tender in all quadrants. L lobe of liver is palpated 2 cm. Ext: no edema or erythema on RLE. LLE with an open wound on mcdaniels with surrounding erythema ( improved ). ASSESSMENT AND PLAN: 48 y/o man with h/o liver cirrhosis , alcohol abuse, GERD, portal gastropathy, pancreatitis, seizures, pancytopenia, esophageal varices, s/p banding, recent LLE wound with cellulitis and s/p I&D , who presented with worsening erythema, pain and discharge form wound . he was diagnosed with infected wound sand cellulitis 1- LLE infected wound with cellulitis: improved - cont cefazolin - final wound cx noted - apply santyl on woun - HIV pending 2- ETOH WD: resolved - cont thiamin, folate - finished his detox 3- H/o pancytopenia: likely due to ETOH induced BM suppression . iron studies might indicate iron def component gastropathy - will start iron supp at dc -f/u with GI as out pt - cont PPI 4- H/o Cirrhosis: due to alcohol use. - needs Hep B vaccine as out pt - needs f/u with GI as outpt - cont lasix and spironolactone 5- SCDs due to thrombocytopenia possible dc on Sunday
[2019-02-09] MEDS: CEFAZOLIN 2 GM/D5W 2 GM/50 ML ML IVPB SCH ×3 (01:37→17:09)
[2019-02-09 07:36] LABS: HEMATOCRIT 25.5 % (35.4-49); HEMOGLOBIN 8.4 GM/dL (11.7-16.9); MCH 28.7 pg (25.7-33.7); MEAN PLT VOLUME 9.2 fl (7.5-11.1); PLATELET COUNT 57 K/MM3 (134-434); RBC 2.93 M/mm3 (4.00-5.60); RDW 20.1 % (11.9-15.9)
[2019-02-09 08:15] LABS: ALBUMIN 2.8 g/dl (3.4-5.0); BLOOD UREA NITROGEN 17.4 mg/dL (7-18); CALCIUM 8.5 mg/dL (8.5-10.1); CREATININE 0.6 mg/dL (0.55-1.3); PHOSPHOROUS 3.3 mg/dL (2.5-4.9); POTASSIUM 3.8 mmol/L (3.5-5.1); TOT PROT 6.3 g/dl (6.4-8.2)
[2019-02-09] MEDS: MULTIVITAMINS (DAILY MVI) TABLET (FP) PO SCH (09:46)
[2019-02-09] MEDS: SPIRONOLACTONE 25 MG TABLET (FP) PO SCH (09:46)
[2019-02-09] MEDS: PANTOPRAZOLE 40 MG TABLET (FP) PO SCH (09:46)
[2019-02-09] MEDS: THIAMINE HCL 100 MG TABLET (FP) PO SCH (09:46)
[2019-02-09] MEDS: FUROSEMIDE 20 MG TABLET (FP) PO SCH (09:46)
[2019-02-09] MEDS: FOLIC ACID 1 MG TABLET (FP) PO SCH (09:46)
[2019-02-09] MEDS: COLLAGENASE CLOSTRIDIUM HIST. 30 GRAMS TUBE TP SCH (09:47)
[2019-02-09] MEDS: NYSTATIN 100,000 UNIT/GM TOPICAL CREAM 15 GM TUBE TP SCH ×2 (09:47→21:33)
[2019-02-09] MEDS: GENTAMICIN SO4 0.1% TOPICAL OINTMENT 15 GM/TUBE TUBE TP SCH ×2 (09:47→21:34)
--- NOTE | 2019-02-09 16:00 | PN ---
Progress Note (short form) - Note Progress Note: Subjective: no fever or chills. pain in abd and L leg Objective: Vital Signs: Last Vital Signs Temp Pulse Resp BP Pulse Ox 97.8 F 83 20 120/72 98 02/09/19 13:54 02/09/19 13:54 02/09/19 13:54 02/09/19 13:54 02/09/19 09:00 Laboratory Results - last 24 hr 02/08/19 02/09/19 02/09/19 15:00 06:56 06:56 WBC 3.0 L RBC 2.93 L Hgb 8.4 L Hct 25.5 L MCV 87.0 MCH 28.7 MCHC 33.0 RDW 20.1 H Plt Count 57 L MPV 9.2 Sodium 138 Potassium 3.8 Chloride 106 Carbon Dioxide 25 Anion Gap 7 L BUN 17.4 Creatinine 0.6 Est GFR (CKD-EPI)AfAm 135.87 Est GFR (CKD-EPI)NonAf 117.23 Random Glucose 90 Calcium 8.5 Phosphorus 3.3 Magnesium 2.0 Total Bilirubin 3.0 H AST 54 H ALT 19 Alkaline Phosphatase 271 H Total Protein 6.3 L Albumin 2.8 L HIV 1&2 Ag/Ab, 4th Gen Non reactive Physical Exam: NAD, awake, alert, and cooperative CV: RRR, 3/6 SM all over precordium but mainly LLSB. Lungs: CTAB Abd: soft, ND , NL BS , minimally tender in all quadrants. L lobe of liver is palpated 2 cm. Ext: no edema or erythema on RLE. L leg in a dressing ASSESSMENT AND PLAN: 48 y/o man with h/o liver cirrhosis , alcohol abuse, GERD, portal gastropathy, pancreatitis, seizures, pancytopenia, esophageal varices, s/p banding, recent LLE wound with cellulitis and s/p I&D , who presented with worsening erythema, pain and discharge form wound . he was diagnosed with infected wound sand cellulitis 1- LLE infected wound with cellulitis: improved - cont cefazolin - cont santyl and gentamycine - HIV neg 2- ETOH WD: resolved - cont thiamin, folate - finished his detox 3- H/o pancytopenia: likely due to ETOH induced BM suppression . iron studies might indicate iron def component gastropathy - will start iron supp at dc -f/u with GI as out pt - cont PPI 4- H/o Cirrhosis: due to alcohol use. - needs Hep B vaccine as out pt - needs f/u with GI as outpt - cont lasix and spironolactone 5- SCDs due to thrombocytopenia possible dc on Sunday Visit type - Emergency Visit Emergency Visit: Yes ED Registration Date: 02/04/19 Care time: The patient presented to the Emergency Department on the above date and was hospitalized for further evaluation of their emergent condition. - New Patient This patient is new to me today: No - Critical Care Critical Care patient: No
[2019-02-10] MEDS: CEFAZOLIN 2 GM/D5W 2 GM/50 ML ML IVPB SCH ×2 (02:48→10:05)
[2019-02-10] MEDS: THIAMINE HCL 100 MG TABLET (FP) PO SCH (10:05)
[2019-02-10] MEDS: FUROSEMIDE 20 MG TABLET (FP) PO SCH (10:05)
[2019-02-10] MEDS: MULTIVITAMINS (DAILY MVI) TABLET (FP) PO SCH (10:05)
[2019-02-10] MEDS: SPIRONOLACTONE 25 MG TABLET (FP) PO SCH (10:05)
[2019-02-10] MEDS: PANTOPRAZOLE 40 MG TABLET (FP) PO SCH (10:05)
[2019-02-10] MEDS: FOLIC ACID 1 MG TABLET (FP) PO SCH (10:05)
[2019-02-10] MEDS: NYSTATIN 100,000 UNIT/GM TOPICAL CREAM 15 GM TUBE TP SCH (10:06)
[2019-02-10 11:23] VITALS: BP 119/66; PULSE 82; TEMP 98.6
--- NOTE | 2019-02-10 14:12 | PN ---
Teaching Attending Note Name of Resident: Phyllis Aponte ATTENDING PHYSICIAN STATEMENT I saw and evaluated the patient. I reviewed the resident's note and discussed the case with the resident. I agree with the resident's findings and plan as documented. SUBJECTIVE: No fever or chills. no DOMÍNGUEZ . pain in L leg . OBJECTIVE: NAD, awake, alert, and cooperative. CV: RRR, 3/6 SM all over precordium but mainly LLSB. Lungs: CTAB Abd: soft, ND, NL BS , minimally tender in all quadrants. L lobe of liver is palpated 2 Cm. Ext: no edema or erythema on RLE. L leg wound with surrounding hyperpigmentation with no erythema or increased warmth. no discharge from wounds ASSESSMENT AND PLAN: 48 y/o man with h/o liver cirrhosis , alcohol abuse, GERD, portal gastropathy, pancreatitis, seizures, pancytopenia, esophageal varices, s/p banding, recent LLE wound with cellulitis and s/p I&D , who presented with worsening erythema, pain and discharge form wound . he was diagnosed with infected wound sand cellulitis 1- LLE infected wound with cellulitis: improved - switch to keflex x 1 week - cont gentamycin 2- ETOH WD: resolved - cont thiamin, folate - finished his Detox 3- H/o pancytopenia: likely due to ETOH induced BM suppression . iron studies might indicate iron def component gastropathy - will start iron supp at dc -f/u with GI as out pt - cont PPI 4- H/o Cirrhosis: due to alcohol use. - needs Hep B vaccine as out pt - needs f/u with GI as outpt - cont lasix and spironolactone 5- SCDs due to thrombocytopenia Dc today. he previously stated he would go to his sister's house, now he says he is going to a alf.
[2019-02-10] MEDS: GENTAMICIN SO4 0.1% TOPICAL OINTMENT 15 GM/TUBE TUBE TP SCH (14:43)
[2019-02-10] MEDS: COLLAGENASE CLOSTRIDIUM HIST. 30 GRAMS TUBE TP SCH (14:43)
--- NOTE | 2019-02-10 14:57 | PN ---
Progress Note (short form) - Note Progress Note: no complaints oob in chair Vital Signs Period Temp Pulse Resp BP Sys/Mcginnis Pulse Ox Last 24 Hr 98.1 F-98.8 F 82-88 20-20 114-134/59-99 98 cor-rrr lungs clear abd soft,nt ext less erythema and less induration of the LLE wound CBC, BMP 02/09/19 06:56 02/09/19 06:56 Microbiology 02/04/19 21:00 Blood - Peripheral Venous Blood Culture - Final NO GROWTH AFTER 5 DAYS INCUBATION 02/04/19 21:20 Blood - Peripheral Venous Blood Culture - Final NO GROWTH AFTER 5 DAYS INCUBATION 02/05/19 00:30 Leg - Left Lower Gram Stain - Final 02/05/19 00:30 Leg - Left Lower Wound Culture - Final Klebsiella Pneumoniae Staphylococcus Aureus Enterococcus Faecalis a/p cellulitis-much improved ican switch to keflex 500 tid for 7 days with wound care f/u etoh abuse- per hospitalist service pancytopenia due to etoh use HIV negative Problem List - Problems (1) Cellulitis Code(s): L03.90 - CELLULITIS, UNSPECIFIED (2) Leg wound, left Code(s): S81.802A - UNSPECIFIED OPEN WOUND, LEFT LOWER LEG, INITIAL ENCOUNTER (3) Alcoholism Code(s): F10.20 - ALCOHOL DEPENDENCE, UNCOMPLICATED (4) Pancytopenia Code(s): D61.818 - OTHER PANCYTOPENIA
--- NOTE | 2019-02-10 17:42 | DS ---
Physical Exam: SUBJECTIVE: Patient seen and examined in the morning. No acute events overnight. Patient complained of mild headache, mild abdominal pain, no chest pain, no shortness of breath, no cough, fever, or chills. OBJECTIVE: Vital Signs Period Temp Pulse Resp BP Sys/Mcginnis Pulse Ox Last 24 Hr 98.1 F-98.8 F 82-88 20-20 114-134/59-99 98 PHYSICAL EXAM GENERAL: The patient is awake, alert, and fully oriented, looks to be tired. HEAD: Normal with no signs of trauma. NECK: Trachea midline, full range of motion, supple. LUNGS: Breath sounds equal, clear to auscultation bilaterally, no wheezes, HEART: Regular rate and rhythm, S1, S2 without murmur, rub or gallop. ABDOMEN: Soft,distended, tender to palpation. Hepatomegaly. EXTREMITIES: 2+ pulses, warm, well-perfused, Patient has dressing on his wound on the left anterior mcdaniels. No pus draining, erythema still surrounding the wound. NEUROLOGICAL: Cranial nerves II through XII grossly intact. LABS CBC, BMP 02/09/19 06:56 02/09/19 06:56 Microbiology 02/04/19 21:00 Blood - Peripheral Venous Blood Culture - Final NO GROWTH AFTER 5 DAYS INCUBATION 02/04/19 21:20 Blood - Peripheral Venous Blood Culture - Final NO GROWTH AFTER 5 DAYS INCUBATION 02/05/19 00:30 Leg - Left Lower Gram Stain - Final 02/05/19 00:30 Leg - Left Lower Wound Culture - Final Klebsiella Pneumoniae Staphylococcus Aureus Enterococcus Faecalis HOSPITAL COURSE: Date of Admission:02/04/19 Date of Discharge: 02/10/19 48 M with PMH significant for EtOH abuse, HTN, HLD who present with cellulitis on left anterior mcdaniels. Patient was started on Cefazolin 1 gram Q8H IV, and gentamicin and santyl cream was applied to the wound daily. Patient completed an Ativan protocol for alcohol withdrawal before discharge. Patient was discharged on Keflex 500 mg TID, for 7 days. Imaging done this stay: Chest X-Ray: No acute pathology Abdomen U/S: cirrhotic liver with small right sided abdominal ascites and pleural effusion. Tibia/Fibula X-Ray: No sign of fracture or subluxation and no sign of blastic or lytic changes. Minutes to complete discharge: 35 Discharge Summary Problems reviewed: Yes Reason For Visit: ALCOHOLISM, CELLULITIS Current Active Problems Cellulitis (Acute) Leg wound, left (Acute) Withdrawal symptoms, alcohol (Acute) Alcoholism (Chronic) Ascites due to alcoholic cirrhosis (Chronic) Liver cirrhosis, alcoholic (Chronic) Pancytopenia (Chronic) Condition: Improved - Instructions Diet, Activity, Other Instructions: You were admitted to the hospital because of worsening of the infection on your left leg. We treated your leg with antibiotic cream and antibiotics through an IV. Your infection is improving, but you will need to finish the medications after you are discharged. You also completed medical treatment to prevent withdrawal while you were here. We also saw that you are anemic (low red blood cells)from your regular blood work. Please take the following medications to continue treating your infection: Cephalexin 500 mg by mouth, three times a day for 7 days. Apply Gentamicin cream on your wound daily ( for 1 week ) and cover with 4x4 guaze and wrap your leg. It is very important you clean and dress your wound daily so that the infection heals. Keep wound covered until it heals. Please take the following to treat your anemia: Iron 325 mg by mouth, daily. Increase to twice a day in 1 week Colace by mouth daily Folic acid pill by mouth every day Thiamine 100 mg pill by mouth every day Please have repeat blood work done in 2-4 weeks to check your low levels of red blood cells (hemoglobin) for your anemia To continue treatment of your Cirrhosis Spironolactone 25 mg daily Lasix 20 mg daily Please follow up with Dr. Bocanegra at [facility]. on Sunday02/17/19 at 09:30 am . please bring your insurance card with you Please follow up with Dr. Hamilton within a week. Return to the emergency department if you have worsening of your infection, oozing from the wound, chest pain, shortness of breath, nausea, diarrhea, or fevers. En Espanol: Fue ingresado en el hospital debido al empeoramiento de la infeccin en [place]. Tratamos leonard pierna con crema antibitica y antibiticos por va intravenosa. Leonard infeccin est mejorando, pedrito deber terminar los medicamentos despus de que le den de jayme. Tambin complet el tratamiento mdico para evitar el retiro mientras estuvo aqu. Tambin vimos que usted est anmico (bajo nivel de glbulos rojos) debido a leonard anlisis de blanca regular. [employer] los siguientes medicamentos para continuar tratando leonard infeccin: Cephalexin 500 mg por va oral, frankie veces al da diana 7 ricks. Aplique crema de gentamicina en leonard herida diariamente (diana 1 semana) y cbrala con guaze 4x4 y envuelva leonard pierna. Es muy importante que limpie y cubra leonard herida diariamente para que la infeccin sane. Mantenga la herida cubierta hasta que sane. Por favor, tome lo siguiente para tratar leonard anemia: Ricardo 325 mg por va oral, diariamente. Aumentar a dos veces al da en 1 semana Colace por va oral todos los ricks Pastilla de cido flico por va oral todos los ricks. Pastillas de tiamina de 100 mg por va oral todos los ricks Repita el anlisis de blanca en 2 a 4 semanas para controlar mark bajos niveles de glbulos rojos (hemoglobina) en busca de anemia. Para continuar el tratamiento de leonard cirrosis. Espironolactona 25 mg diarios Lasix 20 mg diarios Por favor, niko un seguimiento con el Dr. Bocanegra en el [facility]. el lun02/17/19 a 09:30 a.m. por favor traiga leonard tarjeta de seguro Niko un seguimiento con el Dr. Hamilton dentro de fortunato semana. Regrese al departamento de emergencias si tiene empeoramiento de la infeccin, exudacin de la herida, dolor en el pecho, falta de aliento, nuseas, diarrea o fiebre. Referrals: [facility] [place] [Provider Group] - 02/17/19 9:30 am Cynthia Hamilton MD [Staff Physician] - Disposition: HOME - Home Medications Comprehensive Discharge Medication List: Ambulatory Orders Cephalexin [Keflex] 500 mg PO TID #21 capsule 02/10/19 Docusate Sodium [Colace] 100 mg PO DAILY #30 capsule 02/10/19 Ferrous Sulfate [Iron] 325 mg PO DAILY #30 tablet 02/10/19 Folic Acid - 1 mg PO DAILY #30 tablet 02/10/19 Furosemide [Lasix -] 20 mg PO DAILY #30 tablet 02/10/19 Gauze Bandage [Bandage Roll] 1 each TP DAILY #15 bandage 02/10/19 Gauze Bandage [Gauze Pad] 1 each TP DAILY #15 bandage 02/10/19 Spironolactone [Aldactone -] 50 mg PO DAILY #30 tablet 02/10/19 Thiamine HCl [Vitamin B1 -] 100 mg PO DAILY #30 tablet 02/10/19 This patient is new to me today: No Emergency Visit: Yes ED Registration Date: 02/04/19 Care time: The patient presented to the Emergency Department on the above date and was hospitalized for further evaluation of their emergent condition. Critical Care patient: No - Discharge Referral Referred to [facility] Med [facility].C[facility] No ATTENDING PHYSICIAN STATEMENT I saw and evaluated the patient. I reviewed the resident's note and discussed the case with the resident. I agree with the resident's findings and plan as documented. SUBJECTIVE: OBJECTIVE: ASSESSMENT AND PLAN:
== END 2019-02-10 17:40 | disposition home or self-care (01) | DRG 380 ==
LOC: JER 20:25 → JERBED 21:30 → J6S 02-05 00:12
PROVIDERS: ADMIT Internal Medicine; ATTEND Internal Medicine
DX: L97.929 Non-pressure chronic ulcer of unspecified part of left lower leg with unspecified severity (principal); F17.210 Nicotine dependence, cigarettes, uncomplicated; D50.0 Iron deficiency anemia secondary to blood loss (chronic); F10.229 Alcohol dependence with intoxication, unspecified; K86.1 Other chronic pancreatitis; I48.92 Unspecified atrial flutter; K70.30 Alcoholic cirrhosis of liver without ascites; D61.818 Other pancytopenia; K31.9 Disease of stomach and duodenum, unspecified; K31.89 Other diseases of stomach and duodenum; E66.9 Obesity, unspecified; Z68.24 Body mass index [BMI] 24.0-24.9, adult; E78.5 Hyperlipidemia, unspecified; D69.6 Thrombocytopenia, unspecified; R63.0 Anorexia; Z59.0 Homelessness
CPT/HCPCS: 36415; 71045-TC-FY; 73590-TC-LT-FY; 76700-TC; 80053; 80307; 81003; 82248; 82272; 82607; 82728; 82746; 83540; 83550; 83735; 84100; 85025; 85027; 85044; 85651; 86140; 87040; 87070; 87186; 87205; 87389; 93005; 93010; 93971-TC; 97116-GP; 97161-GP; 99284-25; J7030

== ENCOUNTER 2019-03-18 13:07 | Emergency (ER) | payer OTHER ==
[2019-03-18 13:26] VITALS: TEMP 98.1; BMI 16.9
[2019-03-18] MEDS ORDERED: ACETAMINOPHEN 325 MG TABLET (FP) PO ONE (14:23)
--- NOTE | 2019-03-18 15:11 | PDOC ---
History of Present Illness - General Chief Complaint: Wound Stated Complaint: LF LEG PAIN Time Seen by Provider: 03/18/19 14:00 History Source: Patient Exam Limitations: No Limitations - History of Present Illness Initial Comments: Aaron is a 48 yo m w a hx of ETOH abuse, HTN, HLD, and chronic LLE pain who presents to the [facility] er with 2 days of left lower leg pain. The patient states his leg pain is between his knee and his ankle. He rates the pain as 6/10. he describes the pain as a sharp sensation but sometimes says it feels like it perez. The pain has been present for years but it occasionally acts up and the pain becomes intolerable. The pain is not associated with any fevers, chills, nausea, vomiting, diarrhea or constipation. PCP: None PSH: Left leg surgery Allergies: NKA, NKDA Social Hx: ETOH abuse, denies smoking, or other illicit drug usage Past History - Past Medical History Allergies/Adverse Reactions: Allergies Allergy/AdvReac Type Severity Reaction Status Date / Time No Known Allergies Allergy Verified 03/18/19 13:26 Home Medications: Ambulatory Orders NK [No Known Home Medication] 03/18/19 COPD: No Other medical history: DENIES - Immunization History Immunization Up to Date: Yes - Psycho Social/Smoking Cessation Hx Smoking History: Never smoked Have you smoked in the past 12 months: No Number of Cigarettes Smoked Daily: 2 Information on smoking cessation initiated: No Hx Alcohol Use: Yes (BEER) Drug/Substance Use Hx: No Review of Systems - Review of Systems Able to Perform ROS?: Yes Comments:: CONSTITUTIONAL: Absent: fever, no chills, no fatigue EYES: Absent: visual changes ENT: Absent: ear pain, no sore throat CARDIOVASCULAR: Absent: chest pain, no palpitations RESPIRATORY: Absent: cough, no SOB GI: Absent: abdominal pain, no nausea, no vomiting, no constipation, no diarrhea GENITOURINARY: Absent: dysuria, no frequency, no hematuria MUSKULOSKELETAL: Present: Arthralgia Absent: back pain, no myalgia SKIN: Present: rash NEURO: Absent: headache *Physical Exam - Vital Signs Last Vital Signs Temp Pulse Resp BP Pulse Ox 98.1 F 84 18 153/75 99 03/18/19 13:18 03/18/19 13:18 03/18/19 13:18 03/18/19 13:18 03/18/19 13:18 - Physical Exam GENERAL: Well-appearing, well-nourished. No apparent distress. HEENT: Normocephalic, atraumatic. PERRL, EOM intact. CARDIOVASCULAR: Normal S1, S2. Regular rate and rhythm. PULMONARY: No evidence of respiratory distress. Lungs clear to auscultation bilaterally. No wheezing, rales or rhonchi. ABDOMEN: Soft, non-distended, non-tender. EXTREMITIES: Normal ROM in all four extremities. No gross deformities. LEFT LEG: There is a surgical scar which is not erythematous, warm, or tender. The left leg is not swollen, there is no calf tenderness, negative tanvir sign. 2+ DP and PT pulses. Equal sensation in both legs. SKIN: Warm, dry. NEUROLOGICAL: No focal neurological deficits. ED Treatment Course - LABORATORY CBC & Chemistry Diagram: 03/18/19 16:03 03/18/19 16:03 - RADIOLOGY Radiology Studies Ordered: Category Date Time Status DUPLEX VASCUL US-1 LEG [US] Stat Ultrasound 03/18/19 14:31 Ordered Medical Decision Making - Medical Decision Making Aaron is a 48 yo m w a hx of ETOH abuse, HTN, HLD, and chronic LLE pain who presents to the [facility] er with 2 days of left lower leg pain. The patient states his leg pain is between his knee and his ankle. He rates the pain as 6/10. he describes the pain as a sharp sensation but sometimes says it feels like it perez. The pain has been present for years but it occasionally acts up and the pain becomes intolerable. The pain is not associated with any fevers, chills, nausea, vomiting, diarrhea or constipation. Senior resident called [phone] which is the number of [facility] and we spoke with medical records - They said that this patient has been there 3 times in the past month for ETOH intoxication. They assessed his left leg and noted there was no changes in his leg. They did the surgery of the leg at [facility] and they said his leg is at baseline. Vital Signs Temp Pulse Resp BP Pulse Ox 98.1 F 84 18 153/75 99 03/18/19 13:18 03/18/19 13:18 03/18/19 13:18 03/18/19 13:18 03/18/19 13:18 DDx IBNLT: Cellulitis, abscess, sciatica, surgical site infection, DVT, soft tissue infection Plan: labs, duplex, xr, analgesia, re-assess. Patient feels better after receiving motrin. Duplex: No DVT XR: No sub-Q gas Disposition: Home with [place] surgical FU Discharge - Discharge Information Problems reviewed: Yes Clinical Impression/Diagnosis: Left leg pain Condition: Stable Disposition: HOME - Admission No - Follow up/Referral Referrals: [facility] [place] [facility] [place] [Provider Group] - Patient Discharge Instructions Patient Printed Discharge Instructions: DI for Leg Pain Additional Instructions: You came into the ER with left leg pain. Please follow up with [place] where you got your surgery in the next 3 to 5 days Come back to the ER if your pain worsens, you get a fever, or have any other new or worsening concerns. Thank you for coming to the [facility] ER. We hope you feel better soon! Print Language: CHADIAN - Post Discharge Activity
[2019-03-18 16:17] LABS: HEMOGLOBIN 9.6 GM/dL (11.7-16.9); MCH 26.2 pg (25.7-33.7); MEAN PLT VOLUME 9.2 fl (7.5-11.1); RBC 3.66 M/mm3 (4.00-5.60); RDW 22.7 % (11.9-15.9); WHITE BLOOD COUNT 3.2 K/mm3 (4.0-10.0)
[2019-03-18 16:21] LABS: ADD RBC MORPHOLOGY YES
[2019-03-18 16:34] LABS: ALBUMIN 3.1 g/dl (3.4-5.0); BILIRUBIN,TOTAL 3.1 mg/dL (0.2-1); CALCIUM 8.5 mg/dL (8.5-10.1); CREATININE 0.5 mg/dL (0.55-1.3); POTASSIUM 3.9 mmol/L (3.5-5.1); TOT PROT 7.2 g/dl (6.4-8.2)
[2019-03-18] MEDS ORDERED: IBUPROFEN 600 MG TABLET (FP) PO ONE ×2 (16:37→17:49)
[2019-03-18 17:13] LABS: ANISOCYTOSIS 3+; OVALOCYTE 1+; PLATELET COUNT 100 K/MM3 (134-434); PLATELET ESTIMATE DECREASED
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
[2019-03-18 18:49] VITALS: BP 132/80; PULSE 92
== END 2019-03-18 18:49 | disposition home or self-care (01) ==
LOC: JER 13:07 → EDBD 13:07 → MERGE 13:07 → JER 18:49
DX: M79.662 Pain in left lower leg (principal); F10.10 Alcohol abuse, uncomplicated; I10 Essential (primary) hypertension; E78.5 Hyperlipidemia, unspecified; G89.29 Other chronic pain
CPT/HCPCS: 36415; 73590-TC-LT-FY; 80053; 85025; 93971-TC; 99283-25

== ENCOUNTER 2019-04-12 10:08 | Inpatient (IN) | payer OTHER ==
[2019-04-12 11:24] VITALS: BMI 24.7
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
[2019-04-12] MEDS ORDERED: MAGNESIUM CITRATE 300 ML BOTTLE PO PRN (12:32)
[2019-04-12] MEDS ORDERED: MAGNESIUM HYDROX 2400MG/30ML ORAL SUSPENSION 30 ML CUP PO PRN (12:32)
[2019-04-12] MEDS ORDERED: MELATONIN 5 MG TABLETS PO PRN (12:32)
[2019-04-12] MEDS ORDERED: MENTHOL/PHENOL 1 EACH UD MM PRN (12:32)
[2019-04-12] MEDS ORDERED: BISMUTH SUBSALICYLATE 524 MG/30 ML UD PO PRN (12:32)
[2019-04-12] MEDS ORDERED: MAG HYDROX/AL HYDROX/SIMETH 30 ML UNIT-DOSE CUP PO PRN (12:32)
[2019-04-12] MEDS ORDERED: METHOCARBAMOL 500 MG TABLET PO PRN (12:32)
[2019-04-12] MEDS ORDERED: hydrOXYzine PAMOATE 25 MG CAPSULE (FP) PO PRN (12:32)
[2019-04-12] MEDS ORDERED: IBUPROFEN 400 MG TABLET (FP) PO PRN (12:32)
[2019-04-12] MEDS ORDERED: LORazepam 1 MG TABLET PO PRN (12:32)
[2019-04-12] MEDS ORDERED: LORazepam 2 MG TABLET PO ONE (13:00)
[2019-04-12] MEDS: METHYL SALICYLATE/MENTHOL OINT 30 GM TUBE TP SCH ×2 (15:58→22:38)
[2019-04-12] MEDS: LORazepam 2 MG TABLET PO SCH ×2 (17:19→22:37)
[2019-04-12] MEDS: THIAMINE HCL 100 MG TABLET (FP) PO SCH (22:37)
[2019-04-13] MEDS: LORazepam 2 MG TABLET PO SCH ×4 (05:51→22:24)
--- NOTE | 2019-04-13 09:44 | CONSULT ---
[facility] Psychiatric Consult - Data Date of interview: 04/13/18 Admission source: [facility] Identifying data: Patient is 48 year old single [place] male, father of two, unemployed, homeless, and is not receiving financial assistance. This is patient 's first admission to detox at [facility]. Patient admitted to for alcohol dependence. Substance Abuse History: Smoking Cessation. Smoking history: Current some day smoker. Have you smoked in the past 12 months: No. Aproximately how many cigarettes per day: 1. Hx Chewing Tobacco Use: No. Initiated information on smoking cessation: No. - Substance & Tx. History. Hx Alcohol Use: Yes. Hx Substance Use: No. Substance Use Type: Alcohol. Hx Substance Use Treatment: Yes (detox). - Substances abused. Alcohol. Substance route: Oral. Frequency: Daily. Amount used: 4-(24 OZ BEERS). Age of first use: 14. Date of last use: 04/12/19 Medical History: GERD, Anemia, Chronic low back pain, Osteoarthritis Psychiatric History: Patient denies history of psychiatric hospitalization, outpatient care, and suicide attempt. At present patient denies suicidal/ homicidal ideation. States that the medication that he accepted last night made him feel fatigue this morning. Patient is also experiencing difficulty sleeping. Also states that he is interested in continuing treatment in rehab. Physical/Sexual Abuse/Trauma History: denies. Mental Status Exam - Mental Status Exam Alert and Oriented to: Time, Place, Person Cognitive Function: Fair Patient Appearance: Well Groomed Mood: Withdrawn Affect: Mood Congruent Patient Behavior: Fatigued Speech Pattern: Clear Voice Loudness: Moderately Soft/Quiet Thought Process: Goal Oriented Thought Disorder: Not Present Hallucinations: Denies Suicidal Ideation: Denies Homicidal Ideation: Denies Insight/Judgement: Poor Sleep: Poorly Appetite: Fair Muscle strength/Tone: Normal Gait/Station: Normal Psychiatric Findings - Problem List (Fiatt 1, 2,3) (1) Alcohol-induced mood disorder Current Visit: No Status: Acute (2) Alcohol dependence with withdrawal, uncomplicated Current Visit: Yes Status: Acute (3) Alcohol-induced sleep disorder Current Visit: Yes Status: Acute - Initial Treatment Plan Initial Treatment Plan: Psychoeducation provided. Detoxification in progress. Patient informed that Melatonin 5mg is available for insomnia.
[2019-04-13] MEDS: PRENATAL VITAMINS W/ FOLIC ACID TABLET (FP) PO SCH (10:37)
[2019-04-13] MEDS: METHYL SALICYLATE/MENTHOL OINT 30 GM TUBE TP SCH ×2 (10:37→22:26)
[2019-04-13] MEDS ORDERED: FLU VACCINE QUAD 60 MCG/0.5 ML (MDV 19-20) IM ONE (12:00)
[2019-04-13 13:39] LABS: HEMATOCRIT 27.2 % (35.4-49); HEMOGLOBIN 8.9 GM/dL (11.7-16.9); MCH 27.6 pg (25.7-33.7); MCHC 32.6 g/dl (32.0-35.9); MEAN CELL VOLUME 84.7 fl (80-96); MEAN PLT VOLUME 9.3 fl (7.5-11.1); PLATELET COUNT 45 K/MM3 (134-434); RBC 3.21 M/mm3 (4.00-5.60); RDW 29.9 % (11.9-15.9); WHITE BLOOD COUNT 3.4 K/mm3 (4.0-10.0)
[2019-04-13 14:01] LABS: ALBUMIN 2.3 g/dl (3.4-5.0); BILIRUBIN,TOTAL 3.5 mg/dL (0.2-1); CREATININE 0.5 mg/dL (0.55-1.3); POTASSIUM 3.7 mmol/L (3.5-5.1)
--- NOTE | 2019-04-13 17:09 | EKG ---
Test Reason : Blood Pressure : / mmHG Vent. Rate : 078 BPM Atrial Rate : 078 BPM P-R Int : 146 ms QRS Dur : 092 ms QT Int : 402 ms P-R-T Axes : 030 -30 003 degrees QTc Int : 458 ms NORMAL SINUS RHYTHM LEFT AXIS DEVIATION MINIMAL VOLTAGE CRITERIA FOR LVH, MAY BE NORMAL VARIANT ABNORMAL ECG NO PREVIOUS ECGS AVAILABLE Confirmed by GERRY BARILLAS MD ([id number]) on 04/13/2019 5:08:50 PM Referred By: Confirmed By:GERRY BARILLAS MD
--- NOTE | 2019-04-13 17:38 | PN ---
[facility] CIWA - CIWA Score Nausea/Vomitin-Mild Nausea/No Vomiting Muscle Tremors: 3 Anxiety: 3 Agitation: 3 Paroxysmal Sweats: 3 Orientation: 0-Oriented Tacttile Disturbances: 0-None Auditory Disturbances: 0-None Visual Disturbances: 0-None Headache: 0-None Present CIWA-Ar Total Score: 13 [facility] Progress Note (SOAP) Subjective: Medication working well, symptoms controlled Objective: 04/13/19 17:33 Last Vital Signs Temp Pulse Resp BP Pulse Ox 98.2 F 80 17 153/84 04/13/19 17:18 04/13/19 17:18 04/13/19 17:18 04/13/19 17:18 Elevated b/p noted: denies htn, not on med Laboratory Tests 04/13/19 04/13/19 04/13/19 07:30 07:30 07:30 WBC 3.4 L RBC 3.21 L Hgb 8.9 L Hct 27.2 L MCV 84.7 MCH 27.6 MCHC 32.6 RDW 29.9 H Plt Count 45 L D MPV 9.3 Sodium 136 Potassium 3.7 Chloride 103 Carbon Dioxide 26 Anion Gap 7 L BUN 5.0 L Creatinine 0.5 L Est GFR (CKD-EPI)AfAm 146.45 Est GFR (CKD-EPI)NonAf 126.36 Random Glucose 140 H Calcium 8.0 L Total Bilirubin 3.5 H AST 88 H ALT 32 Alkaline Phosphatase 259 H Total Protein 6.0 L Albumin 2.3 L RPR Titer Nonreactive HIV 1&2 Antibody Screen HIV P24 Antigen 04/13/19 07:30 WBC RBC Hgb Hct MCV MCH MCHC RDW Plt Count MPV Sodium Potassium Chloride Carbon Dioxide Anion Gap BUN Creatinine Est GFR (CKD-EPI)AfAm Est GFR (CKD-EPI)NonAf Random Glucose Calcium Total Bilirubin AST ALT Alkaline Phosphatase Total Protein Albumin RPR Titer HIV 1&2 Antibody Screen Negative HIV P24 Antigen Negative Labs reviewed: thrombocytopenia noted, elevated LFTs and hypocalcemia Assessment: 04/13/19 17:35 Withdrawal sxs Noted with elevated b/p, thrombocytopenia, elevated LFTs and hypocalcemia Plan: Continue detox Encouraged PO water intake Elevated b/p: denies htn, most likely withdrawal related, start clonidine prn Thrombocytopenia: most likely due to chronic alcoholism, encouraged abstinence, follow up with PCP for management, monitor for bruising/bleeding Elevated LFTs: most likely due to alcoholism, repeat hepatic function panel Hypocalcemia: start calcium carbonate 650mg PO bid x 3 days
[2019-04-13] MEDS ORDERED: cloNIDine HCL 0.1 MG TABLET PO PRN (17:40)
[2019-04-13] MEDS: THIAMINE HCL 100 MG TABLET (FP) PO SCH (22:24)
[2019-04-13] MEDS: CALCIUM CARBONATE 650 MG TABLET PO SCH (22:24)
[2019-04-14] MEDS: LORazepam 1 MG TABLET PO SCH ×4 (06:53→22:05)
[2019-04-14 09:55] LABS: URINE APPEARANCE CLEAR; URINE BILIRUBIN NEGATIVE (NEGATIVE); URINE COLOR YELLOW; URINE GLUCOSE (UA) NEGATIVE (NEGATIVE); URINE KETONE NEGATIVE (NEGATIVE); URINE LEUK ESTERASE NEGATIVE (NEGATIVE); URINE NITRITE NEGATIVE (NEGATIVE); URINE PROTEIN NEGATIVE (NEGATIVE)
[2019-04-14] MEDS: PRENATAL VITAMINS W/ FOLIC ACID TABLET (FP) PO SCH (10:06)
[2019-04-14] MEDS: METHYL SALICYLATE/MENTHOL OINT 30 GM TUBE TP SCH ×2 (10:06→22:05)
[2019-04-14] MEDS: CALCIUM CARBONATE 650 MG TABLET PO SCH ×2 (10:06→22:29)
[2019-04-14 10:13] LABS: ALBUMIN 2.6 g/dl (3.4-5.0); BILIRUBIN,DIRECT 1.9 mg/dL (0.0-0.2); BILIRUBIN,TOTAL 4.5 mg/dL (0.2-1); TOT PROT 6.8 g/dl (6.4-8.2)
--- NOTE | 2019-04-14 13:56 | PN ---
Psychiatric Progress Note Vital Signs: Vital Signs Period Temp Pulse Resp BP Sys/Mcginnis Pulse Ox Last 24 Hr 97.1 F-99.3 F 77-94 16-18 101-158/56-95 Current Medications: Active Medications Generic Name Dose Route Start Last Admin Trade Name Freq PRN Reason Stop Dose Admin Al Hydroxide/Mg Hydroxide 30 ml 04/12/19 12:32 Mylanta Oral Suspension - PO Q6H PRN DYSPEPSIA Bismuth Subsalicylate 524 mg 04/12/19 12:32 Pepto-Bismol - PO Q1H PRN DIARRHEA Calcium Carbonate 650 mg 04/13/19 22:00 04/14/19 10:06 Calcium Carbonate - PO 650 mg BID STEPHEN Administration Clonidine 0.1 mg 04/13/19 17:40 Catapres - PO Q8H PRN HYPERTENSION Eucalyptus/Menthol/Phenol/Sorbitol 1 each 04/12/19 12:32 Cepastat Lozenge - MM 04/18/19 12:32 Q4H PRN SORE THROAT Ferrous Sulfate 325 mg 04/14/19 22:00 Feosol - PO BID STEPHEN Hydroxyzine Pamoate 25 mg 04/12/19 12:32 Vistaril - PO 04/18/19 12:32 Q6H PRN For Anxiety Ibuprofen 400 mg 04/12/19 12:32 Motrin - PO Q6H PRN PAIN LEVEL 1 - 3 Lorazepam 0.5 mg 04/15/19 05:00 Ativan - PO 04/15/19 23:01 Q6H STEPHEN Lorazepam 0.5 mg 04/15/19 00:00 Ativan - PO 04/16/19 00:00 Q4H PRN Symptoms of Withdrawal Lorazepam 0.5 mg 04/16/19 05:00 Ativan - PO 04/16/19 05:01 ONCE ONE Lorazepam 1 mg 04/14/19 05:00 04/14/19 10:06 Ativan - PO 04/14/19 23:01 1 mg 0500,1100,1700,2300 STEPHEN Administration Lorazepam 1 mg 04/12/19 12:32 Ativan - PO 04/14/19 23:59 Q4H PRN Symptoms of Withdrawal Magnesium Citrate 300 ml 04/12/19 12:32 Citroma - PO Q48H PRN CONSTIPATION Magnesium Hydroxide 30 ml 04/12/19 12:32 Milk Of Magnesia - PO PRN PRN CONSTIPATION Melatonin 5 mg 04/12/19 12:32 Melatonin PO HS PRN INSOMNIA Methocarbamol 500 mg 04/12/19 12:32 Robaxin - PO 04/18/19 12:32 Q6H PRN MUSCLE SPASMS Methyl Salicylate 1 applic 04/12/19 12:45 04/14/19 10:06 Dov-Gill - TP 1 applic BID STEPHEN Administration Multivit/Folic Acid/Iron 1 tab 04/13/19 10:00 04/14/19 10:06 Vitamins (Sjr) - PO 1 tab DAILY STEPHEN Administration Thiamine HCl 100 mg 04/12/19 22:00 04/13/19 22:24 Vitamin B1 - PO 100 mg HS STEPHEN Administration Psychiatric Treatment Plan - Problem List (1) Alcohol dependence with withdrawal, uncomplicated Current Visit: Yes (2) Alcohol-induced mood disorder Current Visit: No (3) Alcohol-induced sleep disorder Current Visit: Yes
[2019-04-14] MEDS ORDERED: ACETAMINOPHEN 325 MG TABLET (FP) PO PRN (18:54)
[2019-04-14] MEDS ORDERED: IBUPROFEN 400 MG TABLET (FP) PO PRN (18:58)
[2019-04-14] MEDS: FERROUS SO4 325 MG TABLET (FP) PO SCH (22:05)
[2019-04-14] MEDS: THIAMINE HCL 100 MG TABLET (FP) PO SCH (22:05)
[2019-04-15] MEDS ORDERED: LORazepam 0.5 MG TABLET PO PRN
[2019-04-15] MEDS: LORazepam 0.5 MG TABLET PO SCH ×4 (06:02→23:05)
--- NOTE | 2019-04-15 09:28 | PN ---
S CIWA - CIWA Score Nausea/Vomitin-Mild Nausea/No Vomiting Muscle Tremors: 2 Anxiety: 1-Mildly Anxious Agitation: 0-Normal Activity Paroxysmal Sweats: No Perspiration Orientation: 0-Oriented Tacttile Disturbances: 0-None Auditory Disturbances: 0-None Visual Disturbances: 0-None Headache: 1-Very Mild CIWA-Ar Total Score: 5 BHS Progress Note (SOAP) Subjective: pt states he is feeling weak, not eating well, here for alcohol detox O: lungs clear Heart RRR abd- soft, tenderness to palpation periumbilical, no ascites noted on PE Vital Signs - 24 hr 04/14/19 04/14/19 04/14/19 17:02 17:06 21:22 Temperature 102 F H 102 F H 100.9 F H Pulse Rate 99 H 99 H 100 H Respiratory 18 18 18 Rate Blood Pressure 155/87 156/87 130/77 04/14/19 04/15/19 04/15/19 21:53 00:30 03:30 Temperature 97.9 F Pulse Rate Respiratory 18 18 Rate Blood Pressure 04/15/19 06:26 Temperature 100.9 F H Pulse Rate 114 H Respiratory 18 Rate Blood Pressure 137/88 T- 100.9 CA 114 Vital Signs Temperature 99.3 F 04/15/19 09:31 Pulse Rate 117 H 04/15/19 09:31 Respiratory Rate 18 04/15/19 09:31 Blood Pressure 128/84 04/15/19 09:31 O2 Sat by Pulse Oximetry (%) repeat VS at 10am shows lower temp, BP OK Laboratory Tests 04/13/19 04/13/19 04/13/19 07:30 07:30 07:30 WBC 3.4 L RBC 3.21 L Hgb 8.9 L Hct 27.2 L MCV 84.7 MCH 27.6 MCHC 32.6 RDW 29.9 H Plt Count 45 L D MPV 9.3 Sodium 136 Potassium 3.7 Chloride 103 Carbon Dioxide 26 Anion Gap 7 L BUN 5.0 L Creatinine 0.5 L Est GFR (CKD-EPI)AfAm 146.45 Est GFR (CKD-EPI)NonAf 126.36 Random Glucose 140 H Calcium 8.0 L Iron TIBC Iron Saturation Unsaturated IBC Ferritin Total Bilirubin 3.5 H Direct Bilirubin AST 88 H ALT 32 Alkaline Phosphatase 259 H Total Protein 6.0 L Albumin 2.3 L Vitamin B12 Serum Folate Urine Color Urine Appearance Urine pH Ur Specific [place] Urine Protein Urine Glucose (UA) Urine Ketones Urine Blood Urine Nitrite Urine Bilirubin Urine Urobilinogen Ur Leukocyte Esterase RPR Titer Nonreactive HIV 1&2 Antibody Screen HIV P24 Antigen 04/13/19 04/14/19 04/14/19 07:30 08:15 08:24 WBC RBC Hgb Hct MCV MCH MCHC RDW Plt Count MPV Sodium Potassium Chloride Carbon Dioxide Anion Gap BUN Creatinine Est GFR (CKD-EPI)AfAm Est GFR (CKD-EPI)NonAf Random Glucose Calcium Iron TIBC Iron Saturation Unsaturated IBC Ferritin Total Bilirubin 4.5 H Direct Bilirubin 1.9 H AST 92 H ALT 35 Alkaline Phosphatase 277 H Total Protein 6.8 Albumin 2.6 L Vitamin B12 Serum Folate 19 H Urine Color Yellow Urine Appearance Clear Urine pH 8.0 Ur Specific [place] 1.010 Urine Protein Negative Urine Glucose (UA) Negative Urine Ketones Negative Urine Blood Negative Urine Nitrite Negative Urine Bilirubin Negative Urine Urobilinogen 1.0 Ur Leukocyte Esterase Negative RPR Titer HIV 1&2 Antibody Screen Negative HIV P24 Antigen Negative 04/14/19 08:24 WBC RBC Hgb Hct MCV MCH MCHC RDW Plt Count MPV Sodium Potassium Chloride Carbon Dioxide Anion Gap BUN Creatinine Est GFR (CKD-EPI)AfAm Est GFR (CKD-EPI)NonAf Random Glucose Calcium Iron 229 H TIBC 274 Iron Saturation 83 H Unsaturated IBC 45 L Ferritin 78.3 Total Bilirubin Direct Bilirubin AST ALT Alkaline Phosphatase Total Protein Albumin Vitamin B12 2902 H Serum Folate Urine Color Urine Appearance Urine pH Ur Specific [place] Urine Protein Urine Glucose (UA) Urine Ketones Urine Blood Urine Nitrite Urine Bilirubin Urine Urobilinogen Ur Leukocyte Esterase RPR Titer HIV 1&2 Antibody Screen HIV P24 Antigen pancytopenia increase B12/folate increased bilirubin a/p:Pt is feeling weak, no appetite, not eating and drinking for the past few days. VS shows tachycardia, was febrile for the last few days Pt was admitted to [facility] for similar complaints last year- was seen by GI at that time. 09/2018 US of abd showed: Ascites, cirrhotic appearing liver, distended GB with stones and sludge Will transfer pt to ER for weakness/dehydration and increasing bili and alk Po4 - obstructive liver enzymes and pancytopenia, r/o cholecystitis- pt with periumbilical pain
[2019-04-15 09:32] VITALS: BP 128/84; PULSE 117; TEMP 99.3
[2019-04-15] MEDS: METHYL SALICYLATE/MENTHOL OINT 30 GM TUBE TP SCH ×2 (11:13→23:05)
[2019-04-15] MEDS: CALCIUM CARBONATE 650 MG TABLET PO SCH ×2 (11:13→23:05)
[2019-04-15] MEDS: PRENATAL VITAMINS W/ FOLIC ACID TABLET (FP) PO SCH (11:14)
[2019-04-15] MEDS: FERROUS SO4 325 MG TABLET (FP) PO SCH ×2 (11:14→23:05)
--- NOTE | 2019-04-15 11:15 | PN ---
[facility] CIWA - CIWA Score Nausea/Vomitin-Mild Nausea/No Vomiting Muscle Tremors: 2 Anxiety: 2 Agitation: 2 Paroxysmal Sweats: 1-Minimal Palms Moist Orientation: 0-Oriented Tacttile Disturbances: 1-Very Mild Itch/Numbness Auditory Disturbances: 0-None Visual Disturbances: 0-None Headache: 2-Mild CIWA-Ar Total Score: 11 S Progress Note (SOAP) Subjective: alert,irritable,anxious,interrupted sleep Objective: 04/15/19 11:13 t99,p94,r18,p94,bp 158/85 Assessment: 04/15/19 11:14 withdrawal symptom Plan: continue detox, ativan regimen
[2019-04-15] MEDS: THIAMINE HCL 100 MG TABLET (FP) PO SCH (23:05)
[2019-04-16] MEDS ORDERED: LORazepam 0.5 MG TABLET PO ONE (05:00)
== END 2019-04-16 | disposition short-term general hospital (02) | DRG 775 ==
LOC: YASAS 10:08 → MERGE 13:31 → Y6N 13:31
PROVIDERS: ADMIT Allergy & Immunology; ATTEND Allergy & Immunology
PROC: HZ2ZZZZ Detoxification Services for Substance Abuse Treatment (ICD-10-PCS; principal; 2019-04-12)
DX: F10.230 Alcohol dependence with withdrawal, uncomplicated (principal); F10.282 Alcohol dependence with alcohol-induced sleep disorder; F10.24 Alcohol dependence with alcohol-induced mood disorder; F41.9 Anxiety disorder, unspecified; K21.9 Gastro-esophageal reflux disease without esophagitis; D64.9 Anemia, unspecified; M54.5 Low back pain; G89.29 Other chronic pain; M79.605 Pain in left leg; R10.33 Periumbilical pain; R50.9 Fever, unspecified; R94.5 Abnormal results of liver function studies; R53.1 Weakness; E86.0 Dehydration; D61.818 Other pancytopenia; M19.90 Unspecified osteoarthritis, unspecified site; Z59.0 Homelessness; Z87.891 Personal history of nicotine dependence
CPT/HCPCS: 36415; 80053; 80076; 81003; 82607; 82728; 82746; 83540; 83550; 85027; 86593; 87389; 93005; 93010

== ENCOUNTER 2019-04-15 11:18 | Inpatient (IN) | payer OTHER ==
[2019-04-15 12:06] LABS: BASO % 0.1 % (0-2.0); HEMATOCRIT 29.8 % (35.4-49); HEMOGLOBIN 9.6 GM/dL (11.7-16.9); LYMPH % 9.6 % (8-40); MCH 27.5 pg (25.7-33.7); MCHC 32.2 g/dl (32.0-35.9); MEAN CELL VOLUME 85.3 fl (80-96); MEAN PLT VOLUME 8.8 fl (7.5-11.1); MONO % 7.2 % (3.8-10.2); NEUT % 83.1 % (42.8-82.8); PLATELET COUNT 50 K/MM3 (134-434); RDW 30.2 % (11.9-15.9); WHITE BLOOD COUNT 13.4 K/mm3 (4.0-10.0)
[2019-04-15] MEDS ORDERED: ACETAMINOPHEN 1000 MG/100 ML VIAL (NON FORMULARY) IVPB ONE (12:12)
[2019-04-15] MEDS ORDERED: ACETAMINOPHEN INJECTION 100 ML IVPB ONE (12:12)
[2019-04-15] MEDS ORDERED: SODIUM CHLORIDE 1,000 ML IV ONE (12:14)
[2019-04-15 12:24] LABS: INR 1.71 (0.83-1.09); PROTHROMBIN TIME (PATIENT) 20.3 SEC (9.7-13.0)
[2019-04-15 12:34] LABS: ALBUMIN 2.6 g/dl (3.4-5.0); BILIRUBIN,TOTAL 5.5 mg/dL (0.2-1); BLOOD UREA NITROGEN 8.6 mg/dL (7-18); CALCIUM 8.2 mg/dL (8.5-10.1); CREATININE 0.8 mg/dL (0.55-1.3); POTASSIUM 4.1 mmol/L (3.5-5.1); TOT PROT 6.7 g/dl (6.4-8.2)
[2019-04-15 12:38] LABS: VENOUS PC02 36.2 mmHg (38-52); VENOUS PH 7.46 (7.31-7.41)
[2019-04-15 12:57] LABS: VENOUS PO2 < 49 mmHg (28-48)
--- NOTE | 2019-04-15 13:55 | PDOC ---
Attending Attestation - Resident Resident Name: VeroLeyla - ED Attending Attestation I have performed the following: I have examined & evaluated the patient, The case was reviewed & discussed with the resident, I agree w/resident's findings & plan, Exceptions are as noted - HPI HPI: 04/15/19 13:56 48 M with h/o ETOH abuse, HTN, HLD, cirrhosis, presenting to ED with fevers, malaise, and abdominal pain. Pt is currently admitted to [facility] for ETOH detox. For the past 3 days, pt notes he has felt ill with fevers. Also complaining of abdominal pain with nausea. Denies vomiting or diarrhea. Denies CP/SOB. Endorses headache but denies neck stiffness/pain. - Physicial Exam PE: 04/15/19 14:35 "GENERAL: Awake, alert, and fully oriented, in no acute distress. HEAD: No signs of trauma EYES: PERRLA, EOMI, sclera anicteric, conjunctiva clear ENT: Auricles normal inspection, hearing grossly normal, nares patent, oropharynx clear without exudates. Moist mucosa NECK: Nontender, no stepoffs, Normal ROM, supple, no lymphadenopathy, JVD, or masses LUNGS: Breath sounds equal, clear to auscultation bilaterally. No wheezes, and no crackles HEART: Regular rate and rhythm, normal S1 and S2, no murmurs, rubs or gallops ABDOMEN: + mild diffuse TTP, no fluid wave, normoactive bowel sounds. No guarding, no rebound. No masses EXTREMITIES: Normal range of motion, no edema. No clubbing or cyanosis. No cords, erythema, or tenderness NEUROLOGICAL: Cranial nerves II through XII intact. 5/5 strength and sensation in all extremities, Normal speech, normal gait, normal cerebellar function SKIN: Warm, Dry, normal turgor, no rashes or lesions noted. - Medical Decision Making 04/15/19 14:35 48 M with fever, abdominal pain. Will evaluate for inatraabdominal process. SBP unlikely. Pt with no fluid wave, no drainable pocket on US. - Labs, cultures - CTAP
[2019-04-15 14:03] LABS: EPI CELLS 0.6 /HPF (0-5/HPF); HYALINE CASTS 6 /lpf (0-8); PH,URINE 7.5 (5.0-8.0); URINE APPEARANCE CLEAR; URINE BACTERIA 0.8 /hpf (NEGATIVE); URINE BILIRUBIN 1+ (NEGATIVE); URINE COLOR DK YELLOW; URINE GLUCOSE (UA) NEGATIVE (NEGATIVE); URINE KETONE NEGATIVE (NEGATIVE); URINE LEUK ESTERASE TRACE (NEGATIVE); URINE NITRITE POSITIVE (NEGATIVE); URINE PROTEIN TRACE (NEGATIVE); URINE WBC 0 /hpf (0-5)
[2019-04-15] MEDS ORDERED: SODIUM CHLORIDE 0.9% 500 ML INFUS.BAG IV ONE (14:13)
[2019-04-15] MEDS ORDERED: PIPERACILLIN/TAZOB 3.375 GM 3.375 GM in DEXTROSE 5%-WATER - 50 ML IVPB ONE (14:20)
[2019-04-15] MEDS ORDERED: VANCOMYCIN 1 GM in D5W (PRE-DOCKED) 1,000 MG/250 ML IVPB ONE (14:20)
[2019-04-15] MEDS ORDERED: PIPERACILLIN/TAZOB 3.375 GM 3.375 GM/50 ML BAG IVPB ONE ×2 (14:31→15:20)
[2019-04-15] MEDS ORDERED: VANCOMYCIN 1 GRAM (PRE-DOCKED) 1,000 MG/250 ML BAG IVPB ONE ×2 (14:31→15:19)
--- NOTE | 2019-04-15 14:49 | EKG ---
Test Reason : Blood Pressure : / mmHG Vent. Rate : 106 BPM Atrial Rate : 106 BPM P-R Int : 140 ms QRS Dur : 086 ms QT Int : 346 ms P-R-T Axes : 003 -32 -12 degrees QTc Int : 459 ms SINUS TACHYCARDIA POSSIBLE LEFT ATRIAL ENLARGEMENT LEFT AXIS DEVIATION LEFT VENTRICULAR HYPERTROPHY ABNORMAL ECG WHEN COMPARED WITH ECG OF 04-FEB-2019 22:25, INVERTED T WAVES HAVE REPLACED NONSPECIFIC T WAVE ABNORMALITY IN INFERIOR LEADS NONSPECIFIC T WAVE ABNORMALITY NO LONGER EVIDENT IN ANTEROLATERAL LEADS Confirmed by Talha Bustamante ([id number]) on 04/15/2019 2:49:08 PM Referred By: Confirmed By:Talha Bustamante
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
[2019-04-15 16:43] LABS: URINE RBC 9.6 /hpf (0-4)
[2019-04-15] MEDS ORDERED: cefTRIAXone SODIUM 1 GM VIAL ONE (17:02)
--- NOTE | 2019-04-15 17:27 | HP ---
CHIEF COMPLAINT: abdominal pain HISTORY OF PRESENT ILLNESS: Mr. Vigil is a 48y/o male with alcoholic cirrhosis, ETOH use disorder, HTN, and HLD who presents with abdominal pain x 4 days. He reports intermittent cramping pain that is generalized but worse in the LLQ. Pain is currently 7/10 and max was 10/10. He started with diarrhea 8 days ago and lasted 4 days which he then developed nausea and vomiting. He denies blood in stool or vomitus. He reports chills and subjective fevers the last 2 days. He denies chest pain, shortness of breath, headache, or dizziness. He presented to [facility] for ETOH detox and reports last drink was about 4-5 days ago. He is on day 4 of ativan protocol. ER course was notable for: (1) WBC 13.4, LA 2.3 (2) Na 132 (3) CT abdomen marked thickening of right colon- colitis suspected (4) EKG sinus tachy QTc 459 (5) UA nitrite pos, +1 bilirubin, no WBCs PAST MEDICAL HISTORY: alcoholic cirrhosis, ETOH use disorder, HTN, and HLD PAST SURGICAL HISTORY: appendectomy LLE repair Social History: Smoking: denies Alcohol: 5-6 beers/daily Drugs: denies Lives alone Allergies No Known Drug Allergies Allergy (Verified 02/04/19 20:55) cream cheese Adverse Reaction (Uncoded 02/04/19 20:55) rash HOME MEDICATIONS: Home Medications Medication Instructions Recorded Cephalexin [Keflex] 500 mg PO TID #21 capsule 02/10/19 Docusate Sodium [Colace] 100 mg PO DAILY #30 capsule 02/10/19 Ferrous Sulfate [Iron] 325 mg PO DAILY #30 tablet 02/10/19 Folic Acid - 1 mg PO DAILY #30 tablet 02/10/19 Furosemide [Lasix -] 20 mg PO DAILY #30 tablet 02/10/19 Gauze Bandage [Bandage Roll] 1 each TP DAILY #15 bandage 02/10/19 Gauze Bandage [Gauze Pad] 1 each TP DAILY #15 bandage 02/10/19 Spironolactone [Aldactone -] 50 mg PO DAILY #30 tablet 02/10/19 Thiamine HCl [Vitamin B1 -] 100 mg PO DAILY #30 tablet 02/10/19 NK [No Known Home Medication] 12/10/19 REVIEW OF SYSTEMS see HPI PHYSICAL EXAMINATION Vital Signs - 24 hr 04/15/19 04/15/19 11:40 14:56 Temperature 100.2 F H 98.7 F Pulse Rate 106 H Pulse Rate [ 74 Brachial] Respiratory 20 18 Rate Blood Pressure 142/84 Blood Pressure 118/70 [Arm] O2 Sat by Pulse 97 99 Oximetry (%) GENERAL: Awake, alert, and fully oriented, in no acute distress. HEAD: Normal with no signs of trauma. EYES: Pupils equal, round and reactive to light, extraocular movements intact, sclera icteric, conjunctiva clear. EARS, NOSE, THROAT: Ears normal, nares patent. Moist mucous membranes. NECK: Normal range of motion LUNGS: Clear to auscultation bilaterally, no crackles. No accessory muscle use. HEART: Regular rate and rhythm, RUSB 3/6 systolic murmur ABDOMEN: Distended, umbilical hernia, prominent veins on abdomen, normoactive bowel sounds, no guarding, no rebound, no masses. Fluid wave, tympanic to percussion RECTAL: 3 small external hemorrhoids, no masses noted, no nodules on prostate, no blood, soft light brown stool noted on glove MUSCULOSKELETAL: Normal range of motion at all joints. UPPER EXTREMITIES: Warm, well-perfused. No peripheral edema. LOWER EXTREMITIES: Warm, well-perfused. No peripheral edema. NEUROLOGICAL: Cranial nerves II-XII intact. Normal speech. PSYCHIATRIC: Cooperative. Good eye contact. Appropriate mood and affect. SKIN: Warm, dry, normal turgor, dry, erythematous rash left inguinal area Laboratory Results - last 24 hr 04/15/19 04/15/19 04/15/19 11:40 11:40 11:40 WBC RBC Hgb Hct MCV MCH MCHC RDW Plt Count MPV Absolute Neuts (auto) Neutrophils % Lymphocytes % Monocytes % Eosinophils % Basophils % Nucleated RBC % PT with INR 20.30 H INR 1.71 H PTT (Actin FS) 43.0 H VBG pH POC VBG pCO2 POC VBG pO2 VBG HCO3 VBG O2 Sat (Juarez) VBG Base Excess Sodium Potassium Chloride Carbon Dioxide Anion Gap BUN Creatinine Est GFR (CKD-EPI)AfAm Est GFR (CKD-EPI)NonAf Random Glucose Lactic Acid 2.3 H* Calcium Total Bilirubin AST ALT Alkaline Phosphatase Ammonia Troponin I < 0.02 Total Protein Albumin Lipase Urine Color Urine Appearance Urine pH Ur Specific Mckenzie Urine Protein Urine Glucose (UA) Urine Ketones Urine Blood Urine Nitrite Urine Bilirubin Urine Urobilinogen Ur Leukocyte Esterase Urine WBC (Auto) Urine RBC (Auto) Urine Casts (Auto) U Epithel Cells (Auto) Urine Bacteria (Auto) Stool Occult Blood Influenza A (Rapid) Influenza B (Rapid) 04/15/19 04/15/19 04/15/19 11:40 11:40 11:40 WBC 13.4 H RBC 3.50 L Hgb 9.6 L Hct 29.8 L MCV 85.3 MCH 27.5 MCHC 32.2 RDW 30.2 H Plt Count 50 L MPV 8.8 Absolute Neuts (auto) 11.2 H Neutrophils % 83.1 H D Lymphocytes % 9.6 D Monocytes % 7.2 Eosinophils % 0.0 D Basophils % 0.1 Nucleated RBC % 0 PT with INR INR PTT (Actin FS) VBG pH POC VBG pCO2 POC VBG pO2 VBG HCO3 VBG O2 Sat (Juarez) VBG Base Excess Sodium 132 L Potassium 4.1 Chloride 99 Carbon Dioxide 26 Anion Gap 6 L BUN 8.6 Creatinine 0.8 Est GFR (CKD-EPI)AfAm 120.72 Est GFR (CKD-EPI)NonAf 104.16 Random Glucose 116 H Lactic Acid Calcium 8.2 L Total Bilirubin 5.5 H AST 79 H ALT 36 Alkaline Phosphatase 219 H Ammonia 33.80 H Troponin I Total Protein 6.7 Albumin 2.6 L Lipase 180 Urine Color Urine Appearance Urine pH Ur Specific Mckenzie Urine Protein Urine Glucose (UA) Urine Ketones Urine Blood Urine Nitrite Urine Bilirubin Urine Urobilinogen Ur Leukocyte Esterase Urine WBC (Auto) Urine RBC (Auto) Urine Casts (Auto) U Epithel Cells (Auto) Urine Bacteria (Auto) Stool Occult Blood Influenza A (Rapid) Influenza B (Rapid) 04/15/19 04/15/19 04/15/19 12:00 12:00 13:15 WBC RBC Hgb Hct MCV MCH MCHC RDW Plt Count MPV Absolute Neuts (auto) Neutrophils % Lymphocytes % Monocytes % Eosinophils % Basophils % Nucleated RBC % PT with INR INR PTT (Actin FS) VBG pH 7.46 H POC VBG pCO2 36.2 L POC VBG pO2 < 49 H VBG HCO3 25.6 VBG O2 Sat (Juarez) 67.4 L VBG Base Excess 2.4 H Sodium Potassium Chloride Carbon Dioxide Anion Gap BUN Creatinine Est GFR (CKD-EPI)AfAm Est GFR (CKD-EPI)NonAf Random Glucose Lactic Acid Calcium Total Bilirubin AST ALT Alkaline Phosphatase Ammonia Troponin I Total Protein Albumin Lipase Urine Color Dk yellow Urine Appearance Clear Urine pH 7.5 Ur Specific Mckenzie 1.022 Urine Protein Trace Urine Glucose (UA) Negative Urine Ketones Negative Urine Blood Negative Urine Nitrite Positive H Urine Bilirubin 1+ H Urine Urobilinogen 2.0 Ur Leukocyte Esterase Trace Urine WBC (Auto) 0 Urine RBC (Auto) 9.6 Urine Casts (Auto) 6 U Epithel Cells (Auto) 0.6 Urine Bacteria (Auto) 0.8 Stool Occult Blood Influenza A (Rapid) Negative Influenza B (Rapid) Negative 04/15/19 04/15/19 16:18 16:45 WBC RBC Hgb Hct MCV MCH MCHC RDW Plt Count MPV Absolute Neuts (auto) Neutrophils % Lymphocytes % Monocytes % Eosinophils % Basophils % Nucleated RBC % PT with INR INR PTT (Actin FS) VBG pH POC VBG pCO2 POC VBG pO2 VBG HCO3 VBG O2 Sat (Juarez) VBG Base Excess Sodium Potassium Chloride Carbon Dioxide Anion Gap BUN Creatinine Est GFR (CKD-EPI)AfAm Est GFR (CKD-EPI)NonAf Random Glucose Lactic Acid 1.8 Calcium Total Bilirubin AST ALT Alkaline Phosphatase Ammonia Troponin I Total Protein Albumin Lipase Urine Color Urine Appearance Urine pH Ur Specific Mckenzie Urine Protein Urine Glucose (UA) Urine Ketones Urine Blood Urine Nitrite Urine Bilirubin Urine Urobilinogen Ur Leukocyte Esterase Urine WBC (Auto) Urine RBC (Auto) Urine Casts (Auto) U Epithel Cells (Auto) Urine Bacteria (Auto) Stool Occult Blood Negative Influenza A (Rapid) Influenza B (Rapid) ASSESSMENT/PLAN: Mr. Vgiil is a 48 y/o male with alcoholic cirrhosis, ETOH use disorder, HTN, and HLD who presents from [facility] with abdominal pain x 4 days as well as 2 days of fever and chills. CT suspects colitis. #colitis -CT marked thickening of cecum and ascending colon -fecal occult negative -leukocytosis 13.4 -lactic acidosis improved 2.3-->1.8 -transaminitis -ceftriaxone 1g daily -flagyl 500mg Q8H -NPO- bowel rest -IV fluids -GI consulted -blood cx pending #ETOH use disorder -Ativan 0.5mg Q6H (last day of detox protocol 04/16) -banana bag 125mL/hr x 2 bags -consider vitamin supplementation -amylase- 54 -lipase- 180 #mild hyponatremia -IV fluids -monitor #alcoholic cirrhosis -anemia -transaminitis -elevated INR -MELD 19 -Maddrey discriminant function- 33, holding steroid use given source of infection #positive UA -not symptomatic -hold abx -urine cx pending DVT Ppx SCDs FEN banana bag 125mL/hr monitor Na NPO dispo med/surg Visit type - Emergency Visit Emergency Visit: Yes ED Registration Date: 04/15/19 Care time: The patient presented to the Emergency Department on the above date and was hospitalized for further evaluation of their emergent condition. - New Patient This patient is new to me today: Yes Date on this admission: 04/15/19 - Critical Care Critical Care patient: No ATTENDING PHYSICIAN STATEMENT I saw and evaluated the patient. I reviewed the resident's note and discussed the case with the resident. I agree with the resident's findings and plan as documented. SUBJECTIVE: OBJECTIVE: ASSESSMENT AND PLAN:
[2019-04-15] MEDS: CEFTRIAXONE 1 GM in DEXTROSE 5%-WATER - 50 ML IVPB SCH (17:33)
[2019-04-15] MEDS ORDERED: FOLIC ACID INJECTION - 1 MG, THIAMINE HCL 100 MG, MULTIVIT INJECTION ADULT 10 ML in SOD... IVPB ONE (17:42)
[2019-04-15] MEDS ORDERED: LORazepam 2 MG/ML SDV VIAL ONE (18:26)
[2019-04-15] MEDS: LORazepam 2 MG/ML SDV VIAL IVPUSH SCH (18:31)
--- NOTE | 2019-04-15 20:31 | PN ---
Teaching Attending Note Name of Resident: Michelle Dave ATTENDING PHYSICIAN STATEMENT I saw and evaluated the patient. I reviewed the resident's note and discussed the case with the resident. I agree with the resident's findings and plan as documented. SUBJECTIVE: Patient is a 48yom with PMhx of alcoholic liver cirrhosis, ETOH dependency , HTN, and HLD who presents with abdominal pain x 4 days. He presented to [facility] for ETOH detox and reports last drink was about 4-5 days ago. He is on day 4 of ativan protocol. OBJECTIVE: Vital Signs Temperature 98.7 F 04/15/19 14:56 Pulse Rate 74 04/15/19 14:56 Respiratory Rate 18 04/15/19 14:56 Blood Pressure 118/70 04/15/19 14:56 O2 Sat by Pulse Oximetry (%) 99 04/15/19 14:56 GENERAL: The patient is awake, alert, and fully oriented, in no acute distress. HEAD: Normal with no signs of trauma. EYES: PERRL, extraocular movements intact, sclera anicteric, conjunctiva clear. ENT: Ears normal, oropharynx clear without exudates, moist mucous membranes. NECK: Trachea midline, full range of motion, supple. LUNGS: Breath sounds equal, clear to auscultation bilaterally, no wheezes, no crackles, no accessory muscle use. HEART: Regular rate and rhythm, S1, S2 without murmur, rub or gallop. ABDOMEN: Soft, mild tenderness , positive for ascites , normoactive bowel sounds , no guarding, no rebound,+ hepatomegaly , no masses. EXTREMITIES: 2+ pulses, warm, well-perfused, no edema. NEUROLOGICAL: Cranial nerves II through XII grossly intact. Normal speech, gait not observed. PSYCH: Normal mood, normal affect. SKIN: Warm, dry, normal turgor, no rashes or lesions noted CBCD WBC 13.4 K/mm3 (4.0-10.0) H 04/15/19 11:40 RBC 3.50 M/mm3 (4.00-5.60) L 04/15/19 11:40 Hgb 9.6 GM/dL (11.7-16.9) L 04/15/19 11:40 Hct 29.8 % (35.4-49) L 04/15/19 11:40 MCV 85.3 fl (80-96) 04/15/19 11:40 MCHC 32.2 g/dl (32.0-35.9) 04/15/19 11:40 RDW 30.2 % (11.9-15.9) H 04/15/19 11:40 Plt Count 50 K/MM3 (134-434) L 04/15/19 11:40 MPV 8.8 fl (7.5-11.1) 04/15/19 11:40 CMP Sodium 132 mmol/L (136-145) L 04/15/19 11:40 Potassium 4.1 mmol/L (3.5-5.1) 04/15/19 11:40 Chloride 99 mmol/L (98-107) 04/15/19 11:40 Carbon Dioxide 26 mmol/L (21-32) 04/15/19 11:40 Anion Gap 6 MMOL/L (8-16) L 04/15/19 11:40 BUN 8.6 mg/dL (7-18) 04/15/19 11:40 Creatinine 0.8 mg/dL (0.55-1.3) 04/15/19 11:40 Random Glucose 116 mg/dL (74-106) H 04/15/19 11:40 Calcium 8.2 mg/dL (8.5-10.1) L 04/15/19 11:40 Total Bilirubin 5.5 mg/dL (0.2-1) H 04/15/19 11:40 AST 79 U/L (15-37) H 04/15/19 11:40 ALT 36 U/L (13-61) 04/15/19 11:40 Alkaline Phosphatase 219 U/L (45-117) H 04/15/19 11:40 Total Protein 6.7 g/dl (6.4-8.2) 04/15/19 11:40 Albumin 2.6 g/dl (3.4-5.0) L 04/15/19 11:40 CARDIAC ENZYMES Troponin I < 0.02 ng/ml (0.00-0.05) 04/15/19 11:40 Current Medications Generic Name Dose Route Start Last Admin Trade Name Freq PRN Reason Stop Dose Admin Ceftriaxone Sodium 1 gm/ 50 mls @ 100 mls/hr 04/15/19 15:30 04/15/19 17:33 Dextrose IVPB 100 mls/hr DAILY STEPHEN Administration Metronidazole 500 mg in 100 mls @ 100 mls/hr 04/15/19 18:00 04/15/19 18:31 Flagyl 500mg Premixed Ivpb - IVPB 100 mls/hr Q8H-IV STEPHEN Administration Folic Acid 1 mg/ Thiamine HCl 1,000 mls @ 125 mls/hr 04/15/19 17:42 04/15/19 18:51 100 mg/ Multivitamins/Minerals IVPB 04/16/19 01:41 125 mls/hr 10 ml/ Sodium Chloride ONCE ONE Administration Folic Acid 1 mg/ Thiamine HCl 1,000 mls @ 125 mls/hr 04/16/19 02:00 100 mg/ Multivitamins/Minerals IVPB 04/16/19 09:59 10 ml/ Sodium Chloride ONCE ONE Lorazepam 0.5 mg 04/15/19 18:00 04/15/19 18:31 Ativan Injection - IVPUSH 04/16/19 17:59 0.5 mg Q6H STEPHEN Administration Nystatin 1 applic 04/15/19 22:00 Nystop Powder - TP BID STEPHEN Home Medications Medication Instructions Recorded Cephalexin [Keflex] 500 mg PO TID #21 capsule 02/10/19 Docusate Sodium [Colace] 100 mg PO DAILY #30 capsule 02/10/19 Ferrous Sulfate [Iron] 325 mg PO DAILY #30 tablet 02/10/19 Folic Acid - 1 mg PO DAILY #30 tablet 02/10/19 Furosemide [Lasix -] 20 mg PO DAILY #30 tablet 02/10/19 Gauze Bandage [Bandage Roll] 1 each TP DAILY #15 bandage 02/10/19 Gauze Bandage [Gauze Pad] 1 each TP DAILY #15 bandage 02/10/19 Spironolactone [Aldactone -] 50 mg PO DAILY #30 tablet 02/10/19 Thiamine HCl [Vitamin B1 -] 100 mg PO DAILY #30 tablet 02/10/19 NK [No Known Home Medication] 03/18/19 ASSESSMENT AND PLAN: Patient is a 48yom with PMhx of alcoholic liver cirrhosis, ETOH dependency , HTN, and HLD who presents with abdominal pain x 4 days. He presented to [facility] for ETOH detox and reports last drink was about 4-5 days ago. He is on day 4 of ativan protocol. Admitted for having acute colitis that was found on CT. #Acute colitis with marked thickening of cecum and ascending colon on the CT of abdomen and pelvis , [place] cx, ivf, npo, gi on the case. IV rocephin and flagyl #ETOH use disorder: continue withdrwel protocol ; Ativan 0.5mg Q6H (last day of detox protocol 10/14) banana bag 125mL/hr x 2 bags, check amylase and lipase #mild hyponatremia continue with iVf #alcoholic liver cirrhosis: monitor Madey discriminant function- 33, holding steroid use given source of infection #positive UA : asymptomatic but on IV antibitioc for colitis will cover the urine, follow cx urinary DVT Ppx: SCDs
[2019-04-15] MEDS: NYSTATIN POWDER 100,000 UNITS/GM - 15 GM TOPICAL POWDER TP SCH (22:27)
[2019-04-16] MEDS ORDERED: LORazepam 2 MG/ML SDV VIAL ONE ×3 (00:17→12:48)
[2019-04-16] MEDS: LORazepam 2 MG/ML SDV VIAL IVPUSH SCH ×3 (00:19→12:46)
[2019-04-16] MEDS ORDERED: FOLIC ACID INJECTION - 1 MG, THIAMINE HCL 100 MG, MULTIVIT INJECTION ADULT 10 ML in SOD... IVPB ONE (02:00)
[2019-04-16 05:56] LABS: HEMATOCRIT 26.8 % (35.4-49); HEMOGLOBIN 8.8 GM/dL (11.7-16.9); MCH 28.3 pg (25.7-33.7); MCHC 32.7 g/dl (32.0-35.9); MEAN CELL VOLUME 86.7 fl (80-96); MEAN PLT VOLUME 8.7 fl (7.5-11.1); PLATELET COUNT 46 K/MM3 (134-434); RDW 30.3 % (11.9-15.9); WHITE BLOOD COUNT 7.3 K/mm3 (4.0-10.0)
[2019-04-16 07:21] LABS: ALBUMIN 2.2 g/dl (3.4-5.0); BILIRUBIN,TOTAL 4.9 mg/dL (0.2-1); BLOOD UREA NITROGEN 8.6 mg/dL (7-18); CALCIUM 7.4 mg/dL (8.5-10.1); CREATININE 0.5 mg/dL (0.55-1.3); PHOSPHOROUS 2.4 mg/dL (2.5-4.9); POTASSIUM 3.9 mmol/L (3.5-5.1); TOT PROT 5.7 g/dl (6.4-8.2)
[2019-04-16] MEDS ORDERED: POTASSIUM PHOSPHATE 20 MM in SODIUM CHLORIDE 500 ML IVPB ONE (09:09)
[2019-04-16] MEDS: NYSTATIN POWDER 100,000 UNITS/GM - 15 GM TOPICAL POWDER TP SCH ×2 (10:40→21:38)
[2019-04-16] MEDS: CEFTRIAXONE 1 GM in DEXTROSE 5%-WATER - 50 ML IVPB SCH (10:41)
--- NOTE | 2019-04-16 13:19 | CON.GI ---
Consult Consult Specialty:: Gastroenterology Referred by:: Dr. Rodrigues - History of Present Illness Chief Complaint: Abdominal pain, abnormal CT History of Present Illness: 48yo male h/o alcoholic cirrhosis, HTN, HLD presenting with abdominal pain and fever asked to evaluate for abnormal CT revealing thickening at right colon. Pt poor historian, offers limited history. Per pt and review of records, reporting abdominal pain and fevers while at [facility]. Pt also reporting loose stool over the past few days, denies melena or hematochezia. Reports diffuse upper and lower abdominal pain does not provide further details. Denies nausea or vomiting. Denies prior EGD or colonoscopy. Reports feeling hungry and asking to eat. States last drink was a few days ago. On review of records, pt seen by GI in 09/2018, had EGD in 10/2018 revealing small esophageal varices and severe portal htn though pt did not recall. No prior colonoscopy noted. - History Source History Provided By: Patient, Medical Record Limitations to Obtaining History: Poor Historian - Past Medical History Gastrointestinal: Yes: Pancreatitis, GERD Hepatobiliary: Yes: Cirrhosis (due to alcoholism), Cholelithiasis (sludge and ? 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 History of Recent Travel: No Home Medications - Allergies Allergies/Adverse Reactions: Allergies Allergy/AdvReac Type Severity Reaction Status Date / Time No Known Drug Allergies Allergy Verified 02/04/19 20:55 cream cheese AdvReac Uncoded 02/04/19 20:55 - Home Medications Home Medications: Ambulatory Orders Ferrous Sulfate [Iron] 325 mg PO DAILY #30 tablet 02/10/19 Folic Acid - 1 mg PO DAILY #30 tablet 02/10/19 Furosemide [Lasix -] 20 mg PO DAILY #30 tablet 02/10/19 Spironolactone [Aldactone -] 50 mg PO DAILY #30 tablet 02/10/19 Thiamine HCl [Vitamin B1 -] 100 mg PO DAILY #30 tablet 02/10/19 NK [No Known Home Medication] 03/18/19 Review of Systems - Review of Systems Constitutional: reports: Fever Cardiovascular: reports: No Symptoms Respiratory: reports: No Symptoms Gastrointestinal: reports: Abdominal Pain, Diarrhea Musculoskeletal: reports: No Symptoms Neurological: reports: No Symptoms Physical Exam-GI Vital Signs: Vital Signs Temperature 99.1 F 04/16/19 11:27 Pulse Rate 80 04/16/19 11:27 Respiratory Rate 18 04/16/19 07:26 Blood Pressure 104/62 04/16/19 11:27 O2 Sat by Pulse Oximetry (%) 98 04/16/19 11:27 Constitutional: Yes: No Distress, Calm, Other (Appears comfortable) Cardiovascular: Yes: WNL Respiratory: Yes: WNL ...Palpate: Yes: Other (Abd soft, diffusely tender on palpation, no rebound, guarding or rigidity) Edema: No Labs: CBC, BMP 04/16/19 05:25 04/16/19 05:25 INR, PTT INR 1.71 (0.83-1.09) H 04/15/19 11:40 Imaging - Results Cat Scan: Report Reviewed, Image Reviewed Problem List - Problems (1) Abdominal pain Assessment/Plan: 48yo male h/o alcoholic cirrhosis, HTN, HLD presenting with abdominal pain, fever and loose stools asked to evaluate for abnormal CT revealing thickening at right colon. CT imaging also revealing possible GB thickening, dilated CBD and ~2.4cm lesion at/adjacent to pancreatic head. Reviewed with radiology with similar findings of thickening in right colon noted on CT in 09/2018 though no mention of pancreatic lesion. HIDA negative. LFTs elevated though appear at baseline. -Continue supportive measures -Gradually advance diet as tolerated -Recommend check stool studies r/o infectious etiology (c diff, ova/parasites, cultures) -Follow up blood and urine cultures -Consider diagnostic paracentesis if feasible r/o SBP -MRCP to further assess pancreatic head lesion -Pending above studies and once further optimized pt would require colonoscopy to evaluate CT findings though possibly edematous changes, and pt is also due screening purposes. Would need to aim plts >50 prior to procedure. Code(s): R10.9 - UNSPECIFIED ABDOMINAL PAIN (2) Alcoholic cirrhosis Assessment/Plan: [facility]. LFTs elevated though at baseline. MELD 18. EGD in 10/2018 revealing small esophageal varices and severe portal HTN gastropathy. No evidence of bleeding currently, iron studies not suggestive of iron deficiency. -Continue supportive measures -Monitor LFT trend -Strict etoh abstinence -Withdrawal precautions per primary team -Repeat hepatitis serologies and assess HBV immunity status -MRCP as noted above to further assess pancreatic lesion Code(s): K70.30 - ALCOHOLIC CIRRHOSIS OF LIVER WITHOUT ASCITES Qualifiers: Ascites presence: with ascites Qualified Code(s): K70.31 - Alcoholic cirrhosis of liver with ascites
--- NOTE | 2019-04-16 14:12 | PN ---
Physical Exam: SUBJECTIVE: Patient seen and examined. He reports generalized abdominal pain and some nausea. He does report tolerating diet. He denies vomiting or diarrhea. No BM today. OBJECTIVE: Vital Signs Period Temp Pulse Resp BP Sys/Mcginnis Pulse Ox Last 24 Hr 98.3 F-99.1 F 74-87 16-18 104-118/62-74 96-99 GENERAL: Awake, alert, and fully oriented, in no acute distress. HEAD: Normal with no signs of trauma. EYES: Pupils equal, round and reactive to light, extraocular movements intact, sclera icteric, conjunctiva clear. EARS, NOSE, THROAT: Ears normal, nares patent. Moist mucous membranes. NECK: Normal range of motion LUNGS: Clear to auscultation bilaterally, no crackles. No accessory muscle use. HEART: Regular rate and rhythm, RUSB 3/6 systolic murmur ABDOMEN: Distended, normoactive bowel sounds, non-tender to palpation MUSCULOSKELETAL: Normal range of motion at all joints. UPPER EXTREMITIES: Warm, well-perfused. No peripheral edema. LOWER EXTREMITIES: Warm, well-perfused. No peripheral edema. Scar on left anterior lower extremity. NEUROLOGICAL: Cranial nerves II-XII intact. Normal speech. PSYCHIATRIC: Cooperative. Good eye contact. Appropriate mood and affect. SKIN: Warm, dry, normal turgor Laboratory Results - last 24 hr 04/15/19 04/15/19 04/15/19 11:40 13:15 16:18 WBC RBC Hgb Hct MCV MCH MCHC RDW Plt Count MPV Sodium 132 L Potassium 4.1 Chloride 99 Carbon Dioxide 26 Anion Gap 6 L BUN 8.6 Creatinine 0.8 Est GFR (CKD-EPI)AfAm 120.72 Est GFR (CKD-EPI)NonAf 104.16 Random Glucose 116 H Lactic Acid 1.8 Calcium 8.2 L Phosphorus Magnesium Total Bilirubin 5.5 H AST 79 H ALT 36 Alkaline Phosphatase 219 H C-Reactive Protein Total Protein 6.7 Albumin 2.6 L Total Amylase 54 Lipase 180 Urine RBC (Auto) 9.6 Stool Occult Blood 04/15/19 04/16/19 04/16/19 16:45 05:25 05:25 WBC 7.3 RBC 3.10 L Hgb 8.8 L Hct 26.8 L MCV 86.7 MCH 28.3 MCHC 32.7 RDW 30.3 H Plt Count 46 L MPV 8.7 Sodium 137 Potassium 3.9 Chloride 107 Carbon Dioxide 24 Anion Gap 6 L BUN 8.6 Creatinine 0.5 L Est GFR (CKD-EPI)AfAm 146.45 Est GFR (CKD-EPI)NonAf 126.36 Random Glucose 74 Lactic Acid Calcium 7.4 L Phosphorus 2.4 L Magnesium 2.0 Total Bilirubin 4.9 H AST 60 H ALT 27 Alkaline Phosphatase 162 H C-Reactive Protein 2.4 H Total Protein 5.7 L Albumin 2.2 L Total Amylase Lipase Urine RBC (Auto) Stool Occult Blood Negative Active Medications Generic Name Dose Route Start Last Admin Trade Name Freq PRN Reason Stop Dose Admin Ceftriaxone Sodium 1 gm/ 50 mls @ 100 mls/hr 04/15/19 15:30 04/16/19 10:41 Dextrose IVPB 100 mls/hr DAILY STEPHEN Administration Metronidazole 500 mg in 100 mls @ 100 mls/hr 04/15/19 18:00 04/16/19 10:00 Flagyl 500mg Premixed Ivpb - IVPB 100 mls/hr Q8H-IV STEPHEN Administration Potassium Phosphate 20 mm/ 506.6667 mls @ 62.5 mls/hr 04/16/19 09:09 11:50 Sodium Chloride IVPB 04/16/19 17:15 62.5 mls/hr ONCE ONE Administration Lorazepam 0.5 mg 04/15/19 18:00 04/16/19 12:46 Ativan Injection - IVPUSH 04/16/19 17:59 0.5 mg Q6H STEPHEN Administration Nystatin 1 applic 04/15/19 22:00 04/16/19 10:40 Nystop Powder - TP 1 applic BID STEPHEN Administration ASSESSMENT/PLAN: Mr. Vigil is a 48 y/o male with alcoholic cirrhosis, ETOH use disorder, HTN, and HLD who presents from [facility] with abdominal pain x 4 days as well as 2 days of fever and chills. CT suspects colitis. #abdominal pain -colitis present but cannot r/o other causes -CT marked thickening of cecum and ascending colon, dilated CBD, ~2.4cm pancreatic head lesion -HIDA negative -fecal occult negative -leukocytosis resolved -lactic acidosis resolved -transaminitis near baseline -ceftriaxone 1g daily day 2 -flagyl 500mg Q8H day 2 -advance diet -d/c IV fluids while on diet -GI following -blood cx pending #hypophosphatemia -replete -monitor #ETOH use disorder -Ativan 0.5mg Q6H (last day of detox protocol today) #fungal rash -Nystatin #alcoholic cirrhosis -anemia -thrombocytopenia-47 -transaminitis -elevated INR -MELD 19 -Nomi discriminant function- 33, holding steroid use given source of infection #positive UA -not symptomatic -on abx that would empirically cover -urine cx pending #mild hyponatremia, resolved DVT Ppx SCDs FEN PO fluids monitor Na regular diet dispo med/surg Visit type - Emergency Visit Emergency Visit: Yes ED Registration Date: 04/15/19 Care time: The patient presented to the Emergency Department on the above date and was hospitalized for further evaluation of their emergent condition. - New Patient This patient is new to me today: No - Critical Care Critical Care patient: No - Discharge Referral Referred to [facility] Med P.C.: No ATTENDING PHYSICIAN STATEMENT I saw and evaluated the patient. I reviewed the resident's note and discussed the case with the resident. I agree with the resident's findings and plan as documented. SUBJECTIVE: OBJECTIVE: ASSESSMENT AND PLAN:
[2019-04-16 15:14] VITALS: BMI 24.0
--- NOTE | 2019-04-16 17:54 | PN ---
Teaching Attending Note Name of Resident: Chip Manrique ATTENDING PHYSICIAN STATEMENT I saw and evaluated the patient. I reviewed the resident's note and discussed the case with the resident. I agree with the resident's findings and plan as documented. SUBJECTIVE: genetic physician Marian [id number] was used no fever or chills. No DOMÍNGUEZ . has abd distention . he has Abd pain. He declines N/ V but had it 3 days ago. he has No diarrhea now, but had diarrhea as well. his abd does feels distended. OBJECTIVE: declined Abd exam ASSESSMENT AND PLAN: 48 y/o man with h/o liver cirrhosis , alcohol abuse, GERD, portal gastropathy, pancreatitis, seizures, pancytopenia, esophageal varices, s/p banding, recent LLE wound with cellulitis and s/p I&D , pancytopenia, who presented with N/V/d and fever. 1- Abd pain, and N/V /diarrhea. diarrhea has resolved per patient. unfortunately , he declined abd exam. thickening in colon was seen before. HIDA neg. ? gastroenteritis , Vs . r/o SBP - appreciate dr. Ruvalcaba input - will order paracentesis - give 5 mg of po Vit K today . monitor INR in am. can give FFP before procedure if needed - monitor Plt in am , if needed can give plt transfusion for IR paracentesi. - c diff and stool studies - hold diuretics fro now - regular diet as tolerated - cont CTX and flagyl for now 2- ETOH abuse: last day of detox today cont folic and thiamine 3- H/o pancytopenia:due to cirrhosis and ETOH now WBC is normal which is considered leukocytosis . - monitor plt and WBC count 4- H/o Cirrhosis: - cont to hold diuretics in light of GI sx - needs Hep B vaccine as out pt 5- Pancreatic head lesion: - MRCP ordered. - this lesion was not seen on previous MRI 6- SCDs due to thrombocytopenia
[2019-04-16] MEDS ORDERED: PHYTONADIONE 5 MG TABLET PO ONE (19:45)
[2019-04-16] MEDS ORDERED: PT OWN MED DRAWER 7, Y5N ONE (21:30)
[2019-04-17] MEDS ORDERED: PATIENT'S OWN MEDICATION (NON-FORMULARY) (Ferrous Sulfate [Iron] 325 MG) PO SCH (10:00)
[2019-04-17 10:07] LABS: HEMATOCRIT 27.9 % (35.4-49); HEMOGLOBIN 9.1 GM/dL (11.7-16.9); MCH 28.6 pg (25.7-33.7); MCHC 32.6 g/dl (32.0-35.9); MEAN CELL VOLUME 87.6 fl (80-96); RBC 3.19 M/mm3 (4.00-5.60); RDW 30.9 % (11.9-15.9); WHITE BLOOD COUNT 4.9 K/mm3 (4.0-10.0)
[2019-04-17] MEDS ORDERED: cefTRIAXone SODIUM 1 GM VIAL ONE (10:10)
[2019-04-17] MEDS ORDERED: DEXTROSE 5%-WATER - 50 ML IVPB ONE (10:11)
[2019-04-17 10:18] LABS: INR 1.71 (0.83-1.09); PROTHROMBIN TIME (PATIENT) 20.3 SEC (9.7-13.0)
[2019-04-17] MEDS: THIAMINE HCL 100 MG TABLET (FP) PO SCH (10:21)
[2019-04-17] MEDS: FERROUS SO4 325 MG TABLET (FP) PO SCH (10:21)
[2019-04-17] MEDS: FOLIC ACID 1 MG TABLET (FP) PO SCH (10:21)
[2019-04-17] MEDS: CEFTRIAXONE 1 GM in DEXTROSE 5%-WATER - 50 ML IVPB SCH (10:22)
[2019-04-17] MEDS: NYSTATIN POWDER 100,000 UNITS/GM - 15 GM TOPICAL POWDER TP SCH ×2 (10:24→21:45)
[2019-04-17 10:42] LABS: ALBUMIN 2.2 g/dl (3.4-5.0); BILIRUBIN,TOTAL 3.2 mg/dL (0.2-1); BLOOD UREA NITROGEN 8.8 mg/dL (7-18); CALCIUM 7.7 mg/dL (8.5-10.1); CREATININE 0.6 mg/dL (0.55-1.3); PHOSPHOROUS 2.6 mg/dL (2.5-4.9); POTASSIUM 3.9 mmol/L (3.5-5.1); TOT PROT 6.1 g/dl (6.4-8.2)
[2019-04-17 11:01] LABS: MEAN PLT VOLUME 8.9 fl (7.5-11.1); PLATELET COUNT 65 K/MM3 (134-434)
--- NOTE | 2019-04-17 13:37 | PN ---
Teaching Attending Note Name of Resident: Michelle Dave ATTENDING PHYSICIAN STATEMENT I saw and evaluated the patient. I reviewed the resident's note and discussed the case with the resident. I agree with the resident's findings and plan as documented. SUBJECTIVE: No fever or chills. no DOMÍNGUEZ . has abd pain, generalized. cont to have diarrhea. cont to have nausea and vomiting. OBJECTIVE: NAD. CV: RRR, 3/6 SM at LLSB . Lungs: CATB Abd: soft, distended, inverted umbilicus. tenderness in all quadrants. liver is palpated in epigastric area, 3 cm. + shifting dullness. Ext : No edema or erythema ASSESSMENT AND PLAN: 48 y/o man with h/o liver cirrhosis , alcohol abuse, GERD, portal gastropathy, pancreatitis, seizures, pancytopenia, esophageal varices, s/p banding, recent LLE wound with cellulitis and s/p I&D, pancytopenia, who presented with N/V/d and fever. 1- Abd pain, and N/V /diarrhea. DDX includes gastroenteritis ( viral vs bacterial) , r/o SBP . colitis was seen on previous imaging. - cont ceftriaxone and flagyl for now. - if fluid analysis suggest SBP, will change to cefotaxime - INR is still 1.7 . received Vit K yesterday. plt improved. for PAracentesis today. - will get cell count, Cx, and Albumin - stool studies and c diff - cont to hole diuresis - might start IVF if cont with diarrhea 2- ETOH abuse: finished detox course . no signs of withdrawal cont folic and thiamine 3- H/o pancytopenia:due to cirrhosis and ETOH now WBC is normal which is considered leukocytosis. - monitor plt and WBC count 4- H/o Cirrhosis: - cont to hold diuretics in light of GI sx - needs Hep B vaccine as out pt 5- Pancreatic head lesion: - follow MRCP read . 6- SCDs due to thrombocytopenia
--- NOTE | 2019-04-17 15:51 | PN ---
Physical Exam: SUBJECTIVE: Patient seen and examined. He reports generalized abdominal pain as well as diarrhea overnight. He also reports dizziness. He denies nausea or vomiting. OBJECTIVE: Vital Signs Period Temp Pulse Resp BP Sys/Mcginnis Pulse Ox Last 24 Hr 97.7 F-99.3 F 76-91 20-20 110-126/67-76 98-98 GENERAL: Awake, alert, and fully oriented, in no acute distress. HEAD: Normal with no signs of trauma. EYES: Pupils equal, round and reactive to light, extraocular movements intact, sclera icteric, conjunctiva clear. EARS, NOSE, THROAT: Ears normal, nares patent. Moist mucous membranes. NECK: Normal range of motion LUNGS: Clear to auscultation bilaterally, no crackles. No accessory muscle use. HEART: Regular rate and rhythm, RUSB 3/6 systolic murmur ABDOMEN: Distended, normoactive bowel sounds, diffusely tender to palpation MUSCULOSKELETAL: Normal range of motion at all joints. UPPER EXTREMITIES: Warm, well-perfused. No peripheral edema. LOWER EXTREMITIES: Warm, well-perfused. No peripheral edema. Scar on left anterior lower extremity. NEUROLOGICAL: Cranial nerves II-XII intact. Normal speech. PSYCHIATRIC: Cooperative. Good eye contact. Appropriate mood and affect. SKIN: Warm, dry, normal turgor Laboratory Results - last 24 hr 04/17/19 04/17/19 04/17/19 08:55 08:55 08:55 WBC 4.9 RBC 3.19 L Hgb 9.1 L Hct 27.9 L MCV 87.6 MCH 28.6 MCHC 32.6 RDW 30.9 H Plt Count 65 L D MPV 8.9 Platelet Comment Present PT with INR 20.30 H INR 1.71 H Sodium 137 Potassium 3.9 Chloride 107 Carbon Dioxide 22 Anion Gap 8 BUN 8.8 Creatinine 0.6 Est GFR (CKD-EPI)AfAm 135.87 Est GFR (CKD-EPI)NonAf 117.23 Random Glucose 128 H Calcium 7.7 L Phosphorus 2.6 Magnesium 2.0 Total Bilirubin 3.2 H AST 63 H ALT 28 Alkaline Phosphatase 219 H Total Protein 6.1 L Albumin 2.2 L Active Medications Generic Name Dose Route Start Last Admin Trade Name Freq PRN Reason Stop Dose Admin Ferrous Sulfate 325 mg 04/17/19 10:00 04/17/19 10:21 Feosol - PO 325 mg DAILY STEPHEN Administration Folic Acid 1 mg 04/17/19 10:00 04/17/19 10:21 Folic Acid - PO 1 mg DAILY STEPHEN Administration Ceftriaxone Sodium 1 gm/ 50 mls @ 100 mls/hr 04/15/19 15:30 04/17/19 10:22 Dextrose IVPB 100 mls/hr DAILY STEPHEN Administration Metronidazole 500 mg in 100 mls @ 100 mls/hr 04/15/19 18:00 04/17/19 11:02 Flagyl 500mg Premixed Ivpb - IVPB 100 mls/hr Q8H-IV STEPHEN Administration Nystatin 1 applic 04/15/19 22:00 04/17/19 10:24 Nystop Powder - TP 1 applic BID STEPHEN Administration Thiamine HCl 100 mg 04/17/19 10:00 04/17/19 10:21 Vitamin B1 - PO 100 mg DAILY STEPHEN Administration ASSESSMENT/PLAN: Mr. Vigil is a 48 y/o male with alcoholic cirrhosis, ETOH use disorder, HTN, and HLD who presents from [facility] with abdominal pain x 4 days as well as 2 days of fever and chills. CT shows colitis. #abdominal pain -colitis present but cannot r/o SBP or gastroenteritis (bacterial or viral) -paracentesis done today drained 560cc, pending cultures -CT marked thickening of cecum and ascending colon, dilated CBD, ~2.4cm pancreatic head lesion -HIDA negative -fecal occult negative -leukocytosis resolved -lactic acidosis resolved -transaminitis near baseline -ceftriaxone 1g daily day 2 -flagyl 500mg Q8H day 2 -advance diet -consider IV fluids if pt continues with diarrhea, prevent hepatorenal syndrome -GI following -blood cx negative #ETOH use disorder -Ativan protocol completed -no current withdrawal symptoms #fungal rash -Nystatin #alcoholic cirrhosis -anemia -thrombocytopenia-65 -transaminitis -elevated INR- 1.71, post vitamin K administration yesterday -MELD 19 -Maddrey discriminant function- 33, holding steroid use given source of infection #positive UA -not symptomatic -on abx that would empirically cover -urine cx pending #hypophosphatemia, resolved #mild hyponatremia, resolved DVT Ppx SCDs FEN PO fluids monitor Na regular diet dispo med/surg Visit type - Emergency Visit Emergency Visit: Yes ED Registration Date: 01/07/20 Care time: The patient presented to the Emergency Department on the above date and was hospitalized for further evaluation of their emergent condition. - New Patient This patient is new to me today: No - Critical Care Critical Care patient: No - Discharge Referral Referred to [facility] Med P.C.: No ATTENDING PHYSICIAN STATEMENT I saw and evaluated the patient. I reviewed the resident's note and discussed the case with the resident. I agree with the resident's findings and plan as documented. SUBJECTIVE: OBJECTIVE: ASSESSMENT AND PLAN:
[2019-04-17 18:04] LABS: BF WBC & OTHER NUCLEATED CELLS 287 /mm3
--- NOTE | 2019-04-17 20:00 | PN.GI ---
GI Progress Note Subjective: LFTS downward trend,s/p paracentesis--results pending - Objective Vital Signs: Vital Signs Temperature 98.2 F 04/17/19 16:00 Pulse Rate 81 04/17/19 16:00 Respiratory Rate 18 04/17/19 16:00 Blood Pressure 131/71 04/17/19 16:00 O2 Sat by Pulse Oximetry (%) 98 04/17/19 09:00 Constitutional: Well Nourished Eyes: Yes: Conjunctiva Clear HENT: Yes: Atraumatic Neck: Yes: Supple Cardiovascular: Yes: Regular Rate and Rhythm Respiratory: Yes: CTA Bilaterally Gastrointestinal Inspection: Yes: Distention ...Palpate: Yes: Pulsatile Mass, Soft, Tenderness (--periumbilical). No: Firm/ Rigid, Guarding, Hepatomegaly, Splenomegaly Labs: CBC, BMP 04/17/19 08:55 04/17/19 08:55 INR, PTT INR 1.71 (0.83-1.09) H 04/17/19 08:55 Problem List - Problems (1) Ascites Assessment/Plan: --results pending Aldactone 25 mg daily Code(s): R18.8 - OTHER ASCITES (2) Alcoholic cirrhosis Code(s): K70.30 - ALCOHOLIC CIRRHOSIS OF LIVER WITHOUT ASCITES Qualifiers: Ascites presence: with ascites Qualified Code(s): K70.31 - Alcoholic cirrhosis of liver with ascites
[2019-04-17 21:04] LABS: BODY FLUID MACROPHAGES 42 %; BODY FLUID MESOTHELIAL 5 %; BODYL FLD EOSINOPHIL 1 %
[2019-04-17] MEDS ORDERED: IBUPROFEN 400 MG TABLET (FP) PO ONE (22:07)
[2019-04-18 08:58] LABS: HEMATOCRIT 32.5 % (35.4-49); HEMOGLOBIN 10.4 GM/dL (11.7-16.9); MCH 28.4 pg (25.7-33.7); MCHC 32.1 g/dl (32.0-35.9); MEAN CELL VOLUME 88.5 fl (80-96); MEAN PLT VOLUME 8.7 fl (7.5-11.1); PLATELET COUNT 73 K/MM3 (134-434); RBC 3.67 M/mm3 (4.00-5.60); RDW 32.1 % (11.9-15.9); WHITE BLOOD COUNT 3.1 K/mm3 (4.0-10.0)
[2019-04-18 09:19] LABS: ALBUMIN 2.7 g/dl (3.4-5.0); BILIRUBIN,TOTAL 3.7 mg/dL (0.2-1); BLOOD UREA NITROGEN 7.8 mg/dL (7-18); CALCIUM 8.5 mg/dL (8.5-10.1); CREATININE 0.6 mg/dL (0.55-1.3); POTASSIUM 4.1 mmol/L (3.5-5.1); TOT PROT 7.3 g/dl (6.4-8.2)
[2019-04-18 09:20] LABS: INR 1.59 (0.83-1.09); PROTHROMBIN TIME (PATIENT) 18.9 SEC (9.7-13.0)
[2019-04-18] MEDS: NYSTATIN POWDER 100,000 UNITS/GM - 15 GM TOPICAL POWDER TP SCH ×2 (10:02→21:03)
[2019-04-18] MEDS ORDERED: DEXTROSE 5%-WATER - 50 ML IVPB ONE (10:48)
[2019-04-18] MEDS ORDERED: cefTRIAXone SODIUM 1 GM VIAL ONE (10:48)
[2019-04-18] MEDS: THIAMINE HCL 100 MG TABLET (FP) PO SCH (10:57)
[2019-04-18] MEDS: FOLIC ACID 1 MG TABLET (FP) PO SCH (10:57)
[2019-04-18] MEDS: CEFTRIAXONE 1 GM in DEXTROSE 5%-WATER - 50 ML IVPB SCH (10:57)
[2019-04-18] MEDS: FERROUS SO4 325 MG TABLET (FP) PO SCH (10:57)
--- NOTE | 2019-04-18 15:19 | PN ---
Physical Exam: SUBJECTIVE: Patient seen and examined. He reports some nausea, and had 2 episodes of vomiting this morning, one of which was after breakfast. He denies chest pain or shortness of breath. OBJECTIVE: Vital Signs Period Temp Pulse Resp BP Sys/Mcginnis Pulse Ox Last 24 Hr 97.4 F-99.1 F 72-81 16-18 110-132/59-77 98-98 GENERAL: Awake, alert, and fully oriented, in no acute distress. Sitting in chair. HEAD: Normal with no signs of trauma. EYES: Pupils equal, round and reactive to light, extraocular movements intact, sclera icteric, conjunctiva clear. EARS, NOSE, THROAT: Ears normal, nares patent. Moist mucous membranes. NECK: Normal range of motion LUNGS: Clear to auscultation bilaterally, no crackles. No accessory muscle use. HEART: Regular rate and rhythm, RUSB 3/6 systolic murmur ABDOMEN: Distended, normoactive bowel sounds, non-tender to palpation. MUSCULOSKELETAL: Normal range of motion at all joints. UPPER EXTREMITIES: Warm, well-perfused. No peripheral edema. LOWER EXTREMITIES: Warm, well-perfused. No peripheral edema. Scar on left anterior lower extremity. NEUROLOGICAL: Cranial nerves II-XII intact. Normal speech. PSYCHIATRIC: Cooperative. Good eye contact. Appropriate mood and affect. SKIN: Warm, dry, normal turgor Laboratory Results - last 24 hr 04/17/19 04/18/19 04/18/19 15:00 07:40 07:40 WBC 3.1 L RBC 3.67 L Hgb 10.4 L Hct 32.5 L D MCV 88.5 MCH 28.4 MCHC 32.1 RDW 32.1 H Plt Count 73 L MPV 8.7 Platelet Comment Present PT with INR 18.90 H INR 1.59 H Sodium Potassium Chloride Carbon Dioxide Anion Gap BUN Creatinine Est GFR (CKD-EPI)AfAm Est GFR (CKD-EPI)NonAf Random Glucose Calcium Total Bilirubin AST ALT Alkaline Phosphatase Total Protein Albumin Fluid Source Peritoneal Fluid WBC 287 Fluid RBC 367 Fluid Neutrophils 52 Pleural Eosinophils 1 Pleural Macrophages 42 Pleural Mesothelial 5 Pleural Diff Comment 04/18/19 07:40 WBC RBC Hgb Hct MCV MCH MCHC RDW Plt Count MPV Platelet Comment PT with INR INR Sodium 137 Potassium 4.1 Chloride 106 Carbon Dioxide 24 Anion Gap 7 L BUN 7.8 Creatinine 0.6 Est GFR (CKD-EPI)AfAm 135.87 Est GFR (CKD-EPI)NonAf 117.23 Random Glucose 87 Calcium 8.5 Total Bilirubin 3.7 H AST 73 H ALT 35 Alkaline Phosphatase 250 H Total Protein 7.3 Albumin 2.7 L Fluid Source Fluid WBC Fluid RBC Fluid Neutrophils Pleural Eosinophils Pleural Macrophages Pleural Mesothelial Pleural Diff Comment Active Medications Generic Name Dose Route Start Last Admin Trade Name Freq PRN Reason Stop Dose Admin Ferrous Sulfate 325 mg 04/17/19 10:00 04/18/19 10:57 Feosol - PO 325 mg DAILY STEPHEN Administration Folic Acid 1 mg 04/17/19 10:00 04/18/19 10:57 Folic Acid - PO 1 mg DAILY STEPHEN Administration Ceftriaxone Sodium 1 gm/ 50 mls @ 100 mls/hr 04/15/19 15:30 04/18/19 10:57 Dextrose IVPB 100 mls/hr DAILY STEPHEN Administration Metronidazole 500 mg in 100 mls @ 100 mls/hr 04/15/19 18:00 04/18/19 10:02 Flagyl 500mg Premixed Ivpb - IVPB 100 mls/hr Q8H-IV STEPHEN Administration Nystatin 1 applic 04/15/19 22:00 04/18/19 10:02 Nystop Powder - TP 1 applic BID STEPHEN Administration Thiamine HCl 100 mg 04/17/19 10:00 04/18/19 10:57 Vitamin B1 - PO 100 mg DAILY STEPHEN Administration ASSESSMENT/PLAN: Mr. Vigil is a 48 y/o male with alcoholic cirrhosis, ETOH use disorder, HTN, and HLD who presents from [facility] with abdominal pain x 4 days as well as 2 days of fever and chills. CT shows colitis. #abdominal pain -colitis present but cannot r/o SBP or gastroenteritis (bacterial or viral) -paracentesis drained 560cc, Gram stain negative, cx pending -CT marked thickening of cecum and ascending colon, dilated CBD, ~2.4cm pancreatic head lesion -HIDA negative -fecal occult negative -leukocytosis resolved -lactic acidosis resolved -transaminitis near baseline -ceftriaxone 1g daily -flagyl 500mg Q8H -advance diet -consider IV fluids if pt continues with diarrhea, prevent hepatorenal syndrome -GI following -blood cx negative #ETOH use disorder -Ativan protocol completed -no current withdrawal symptoms #fungal rash -Nystatin #alcoholic cirrhosis -anemia -thrombocytopenia-73 -transaminitis -elevated INR- 1.59 -MELD [facility]- [facility], holding steroid use given source of infection #positive UA -not symptomatic -on abx that would empirically cover -urine cx pending #hypophosphatemia, resolved #mild hyponatremia, resolved DVT Ppx SCDs FEN PO fluids monitor Na regular diet dispo med/surg Visit type - Emergency Visit Emergency Visit: Yes ED Registration Date: 04/15/19 Care time: The patient presented to the Emergency Department on the above date and was hospitalized for further evaluation of their emergent condition. - New Patient This patient is new to me today: No - Critical Care Critical Care patient: No - Discharge Referral Referred to [facility] Med P.C.: No ATTENDING PHYSICIAN STATEMENT I saw and evaluated the patient. I reviewed the resident's note and discussed the case with the resident. I agree with the resident's findings and plan as documented. SUBJECTIVE: OBJECTIVE: ASSESSMENT AND PLAN:
--- NOTE | 2019-04-18 17:25 | PN.GI ---
GI Progress Note Subjective: Denies abdominal pain Paracentesis not compatible with SBP Had formed BM yesterday - Objective Vital Signs: Vital Signs Temperature 97.9 F 04/18/19 14:50 Pulse Rate 75 04/18/19 14:50 Respiratory Rate 18 04/18/19 14:50 Blood Pressure 110/59 L 04/18/19 14:50 O2 Sat by Pulse Oximetry (%) 98 04/18/19 10:00 Constitutional: Calm Eyes: No: Sclera Icterus Cardiovascular: Yes: Regular Rate and Rhythm Respiratory: Yes: CTA Bilaterally Gastrointestinal Inspection: No: Distention ...Auscultate: Yes: Normoactive Bowel Sounds ...Palpate: Yes: Tenderness (Mild TTP at umbilicus. No palpable hernia noted) ...Percussion: No: Tympanitic Edema: No (No LE edema) Neurological: Yes: Alert Labs: CBC, BMP 04/18/19 07:40 04/18/19 07:40 INR, PTT INR 1.59 (0.83-1.09) H 04/18/19 07:40 Problem List - Problems (1) Abdominal pain Assessment/Plan: Resolved: ? resolved gastroenteritis Suspect bowel wall thickening described secondary to third spacing and hypoalbuminemic state Clinically improved. Advance diet. If tolerating PO, outpatient follow-up to discuss screening colonoscopy Code(s): R10.9 - UNSPECIFIED ABDOMINAL PAIN (2) Pancreatic cyst Assessment/Plan: Small cyst noted on MRCP. Will need follow-up MRCP in 1 year and alcohol cessation Code(s): K86.2 - CYST OF PANCREAS
--- NOTE | 2019-04-18 19:43 | PN ---
Teaching Attending Note Name of Resident: Chip Manrique ATTENDING PHYSICIAN STATEMENT I saw and evaluated the patient. I reviewed the resident's note and discussed the case with the resident. I agree with the resident's findings and plan as documented. SUBJECTIVE: Minimal abd pain today. diarrhea improved. no nausea OBJECTIVE: NAD. CV: RRR, 3/6 SM at LLSB . Lungs: CATB Abd: soft, distended, inverted umbilicus. minimal tenderness in all quadrants. liver is palpated in epigastric area, 3 cm. Ext : No edema or erythema ASSESSMENT AND PLAN: 48 y/o man with h/o liver cirrhosis , alcohol abuse, GERD, portal gastropathy, pancreatitis, seizures, pancytopenia, esophageal varices, s/p banding, recent LLE wound with cellulitis and s/p I&D, pancytopenia, who presented with N/V/d and fever. 1- Abd pain, and N/V /diarrhea. DDX includes gastroenteritis . - cont ceftriaxone and flagyl day 4. will probably stop after tomorrows dose - Ascitis fluid analysis does not suggest SBP - stool studies pending 2- ETOH abuse: finished detox course. no signs of withdrawal cont folic and thiamine 3- H/o pancytopenia:due to cirrhosis and ETOH - follow as out pt 4- H/o Cirrhosis: - cont spironolactone. will resume lasix after dc if siarrhea does not recur - needs Hep B vaccine as out pt. 5- [facility] and cyst in liver. out pt follow up 6- SCDs due to thrombocytopenia possible dc tomorrow
[2019-04-19 08:13] LABS: HEMATOCRIT 29.9 % (35.4-49); HEMOGLOBIN 9.8 GM/dL (11.7-16.9); MCH 28.6 pg (25.7-33.7); MCHC 32.7 g/dl (32.0-35.9); MEAN CELL VOLUME 87.3 fl (80-96); MEAN PLT VOLUME 8.8 fl (7.5-11.1); PLATELET COUNT 66 K/MM3 (134-434); RBC 3.42 M/mm3 (4.00-5.60); WHITE BLOOD COUNT 2.7 K/mm3 (4.0-10.0)
--- NOTE | 2019-04-19 08:27 | PN ---
Progress Note (short form) - Note Progress Note: NO NEW COMPLAINTS - DOING OKAY TODAY CHART REVIEWED VSS NAD AAO S1S2 CLEAR LUNGS BS , NONTENDER NO EDEMA REC: DIET TOLERATED PPI OUTPT COLONOSCOPY REPEAT MRCP IN ONE YEAR SURVEILLANCE OF CYST
[2019-04-19 08:34] LABS: INR 1.63 (0.83-1.09); PROTHROMBIN TIME (PATIENT) 19.3 SEC (9.7-13.0)
[2019-04-19 08:45] LABS: ALBUMIN 2.4 g/dl (3.4-5.0); BILIRUBIN,TOTAL 3.3 mg/dL (0.2-1); BLOOD UREA NITROGEN 5.9 mg/dL (7-18); CALCIUM 8.3 mg/dL (8.5-10.1); CREATININE 0.5 mg/dL (0.55-1.3); MAGNESIUM 1.9 mg/dL (1.8-2.4); PHOSPHOROUS 3.4 mg/dL (2.5-4.9); POTASSIUM 3.9 mmol/L (3.5-5.1); TOT PROT 6.6 g/dl (6.4-8.2)
[2019-04-19] MEDS ORDERED: DEXTROSE 5%-WATER - 50 ML IVPB ONE (09:43)
[2019-04-19] MEDS ORDERED: cefTRIAXone SODIUM 1 GM VIAL ONE (09:43)
[2019-04-19] MEDS: NYSTATIN POWDER 100,000 UNITS/GM - 15 GM TOPICAL POWDER TP SCH ×2 (09:47→21:24)
[2019-04-19] MEDS: FERROUS SO4 325 MG TABLET (FP) PO SCH (09:47)
[2019-04-19] MEDS: SPIRONOLACTONE 25 MG TABLET (FP) PO SCH (09:47)
[2019-04-19] MEDS: CEFTRIAXONE 1 GM in DEXTROSE 5%-WATER - 50 ML IVPB SCH (09:47)
[2019-04-19] MEDS: FOLIC ACID 1 MG TABLET (FP) PO SCH (09:47)
[2019-04-19] MEDS: THIAMINE HCL 100 MG TABLET (FP) PO SCH (09:48)
--- NOTE | 2019-04-19 14:01 | PN ---
Teaching Attending Note Name of Resident: Michelle Dave ATTENDING PHYSICIAN STATEMENT I saw and evaluated the patient. I reviewed the resident's note and discussed the case with the resident. I agree with the resident's findings and plan as documented. SUBJECTIVE: No fever or chills. No DOMÍNGUEZ . Minimal Abd pain. NO N/V . No diarrhea . tolerated food OBJECTIVE: NAD. CV: RRR, 3/6 SM at LLSB . Lungs: CATB Abd: soft, distended, inverted umbilicus. minimal tenderness in all quadrants. liver is palpated in epigastric area, 3 cm. Ext : No edema or erythema ASSESSMENT AND PLAN: 48 y/o man with h/o liver cirrhosis , alcohol abuse, GERD, portal gastropathy, pancreatitis, seizures, pancytopenia, esophageal varices, s/p banding, recent LLE wound with cellulitis and s/p I&D, pancytopenia, who presented with N/V/d and fever. 1- Abd pain, and N/V /diarrhea. DDX includes gastroenteritis . No SBP on Ascitis fluid analysis - day 5 of Abx . dc - stool studies and ascitis fluid cx pending 2- ETOH abuse: finished detox course. no signs of withdrawal. cont folic and thiamine. 3- H/o pancytopenia: due to cirrhosis and ETOH - follow as out pt 4- H/o Cirrhosis: - cont spironolactone. will resume lasix. - needs Hep B vaccine as out pt. 5- Pancreatic head lesion: - MRCP with cystic lesion in pancreas and cyst in liver. out pt follow up 6- SCDs due to thrombocytopenia PT eval indicates need for rehab. will contact SW. d/w therapist
--- NOTE | 2019-04-19 16:01 | PN ---
Physical Exam: SUBJECTIVE: Patient seen and examined. He reports 1 episode of diarrhea overnight. He denies abdominal pain, nausea, vomiting, chest pain, or shortness of breath. OBJECTIVE: Vital Signs Period Temp Pulse Resp BP Sys/Mcginnis Pulse Ox Last 24 Hr 97.0 F-98.7 F 76-83 16-20 113-130/60-77 97 GENERAL: Awake, alert, and fully oriented, in no acute distress. HEAD: Normal with no signs of trauma. EYES: Pupils equal, round and reactive to light, extraocular movements intact, conjunctiva clear. EARS, NOSE, THROAT: Ears normal, nares patent. Moist mucous membranes. NECK: Normal range of motion LUNGS: Clear to auscultation bilaterally, no crackles. No accessory muscle use. HEART: Regular rate and rhythm, RUSB 3/6 systolic murmur ABDOMEN: Distended, normoactive bowel sounds, non-tender to palpation. MUSCULOSKELETAL: Normal range of motion at all joints. UPPER EXTREMITIES: Warm, well-perfused. No peripheral edema. LOWER EXTREMITIES: Warm, well-perfused. No peripheral edema. Scar on left anterior lower extremity. NEUROLOGICAL: Cranial nerves II-XII intact. Normal speech. PSYCHIATRIC: Cooperative. Good eye contact. Appropriate mood and affect. SKIN: Warm, dry, normal turgor, right inguinal tinea rash Laboratory Results - last 24 hr 04/19/19 04/19/19 04/19/19 07:05 07:05 07:05 WBC 2.7 L RBC 3.42 L Hgb 9.8 L Hct 29.9 L MCV 87.3 MCH 28.6 MCHC 32.7 RDW 32.0 H Plt Count 66 L MPV 8.8 PT with INR 19.30 H INR 1.63 H Sodium 136 Potassium 3.9 Chloride 106 Carbon Dioxide 24 Anion Gap 6 L BUN 5.9 L Creatinine 0.5 L Est GFR (CKD-EPI)AfAm 146.45 Est GFR (CKD-EPI)NonAf 126.36 Random Glucose 83 Calcium 8.3 L Phosphorus 3.4 Magnesium 1.9 Total Bilirubin 3.3 H AST 69 H ALT 33 Alkaline Phosphatase 194 H Total Protein 6.6 Albumin 2.4 L Active Medications Generic Name Dose Route Start Last Admin Trade Name Freq PRN Reason Stop Dose Admin Ferrous Sulfate 325 mg 04/17/19 10:00 01/11/20 09:47 Feosol - PO 325 mg DAILY STEPHEN Administration Folic Acid 1 mg 04/17/19 10:00 04/19/19 09:47 Folic Acid - PO 1 mg DAILY STEPHEN Administration Furosemide 20 mg 04/20/19 10:00 Lasix - PO DAILY STEPHEN Nystatin 1 applic 04/15/19 22:00 04/19/19 09:47 Nystop Powder - TP 1 applic BID STEPHEN Administration Spironolactone 50 mg 04/19/19 10:00 04/19/19 09:47 Aldactone - PO 50 mg DAILY STEPHEN Administration Thiamine HCl 100 mg 04/17/19 10:00 04/19/19 09:48 Vitamin B1 - PO 100 mg DAILY STEPHEN Administration ASSESSMENT/PLAN: Mr. Vigil is a 48 y/o male with alcoholic cirrhosis, ETOH use disorder, HTN, and HLD who presents from [facility] with abdominal pain x 4 days as well as 2 days of fever and chills. CT shows colitis. #abdominal pain -colitis or gastroenteritis (bacterial or viral) -paracentesis drained 560cc, Gram stain negative, cx pending, no indication of SBP -CT marked thickening of cecum and ascending colon, dilated CBD, ~2.4cm pancreatic head lesion -HIDA negative -fecal occult negative -monitor off abx -advance diet -consider IV fluids if pt continues with diarrhea, prevent hepatorenal syndrome -GI following -blood cx negative -stool studies pending #ETOH use disorder -Ativan protocol completed -no current withdrawal symptoms #fungal rash -Nystatin BID #alcoholic cirrhosis #pancytopenia #transaminitis, improved -elevated INR- 1.59-->1.63 #positive UA -not symptomatic #hypophosphatemia, resolved #mild hyponatremia, resolved DVT Ppx SCDs FEN PO fluids monitor Na regular diet dispo med/surg Will benefit from SNF, to discuss with pt and SW Visit type - Emergency Visit Emergency Visit: Yes ED Registration Date: 04/15/19 Care time: The patient presented to the Emergency Department on the above date and was hospitalized for further evaluation of their emergent condition. - New Patient This patient is new to me today: No - Critical Care Critical Care patient: No - Discharge Referral Referred to [facility] Med P.C[facility] No ATTENDING PHYSICIAN STATEMENT I saw and evaluated the patient. I reviewed the resident's note and discussed the case with the resident. I agree with the resident's findings and plan as documented. SUBJECTIVE: OBJECTIVE: ASSESSMENT AND PLAN:
[2019-04-20] MEDS ORDERED: ACETAMINOPHEN 325 MG TABLET (FP) PO ONE ×2 (05:45→21:54)
[2019-04-20 07:37] LABS: BASO % 1.5 % (0-2.0); EOS % 5.2 % (0-4.5); HEMATOCRIT 31.4 % (35.4-49); HEMOGLOBIN 10.3 GM/dL (11.7-16.9); LYMPH % 31.3 % (8-40); MCH 28.7 pg (25.7-33.7); MCHC 32.7 g/dl (32.0-35.9); MEAN CELL VOLUME 87.8 fl (80-96); MEAN PLT VOLUME 8.5 fl (7.5-11.1); MONO % 21.4 % (3.8-10.2); NEUT % 40.6 % (42.8-82.8); PLATELET COUNT 57 K/MM3 (134-434); RBC 3.58 M/mm3 (4.00-5.60); RDW 31.9 % (11.9-15.9); WHITE BLOOD COUNT 3.8 K/mm3 (4.0-10.0)
[2019-04-20 07:41] LABS: ALBUMIN 2.4 g/dl (3.4-5.0); BILIRUBIN,TOTAL 3.1 mg/dL (0.2-1); CALCIUM 8.7 mg/dL (8.5-10.1); CREATININE 0.5 mg/dL (0.55-1.3); POTASSIUM 4.2 mmol/L (3.5-5.1); TOT PROT 6.7 g/dl (6.4-8.2)
[2019-04-20 07:43] LABS: INR 1.73 (0.83-1.09); PROTHROMBIN TIME (PATIENT) 20.5 SEC (9.7-13.0)
--- NOTE | 2019-04-20 08:01 | PN.GI ---
GI Progress Note Subjective: NO NEW COMPLAINTS STILL WITH LOOSE STOOL - REPORTS DARK IN COLOR NO GROSS BLOOD. - Objective Vital Signs: Vital Signs Temperature 98.4 F 04/20/19 05:39 Pulse Rate 77 04/20/19 05:39 Respiratory Rate 20 04/20/19 05:39 Blood Pressure 117/72 04/20/19 05:39 O2 Sat by Pulse Oximetry (%) 97 04/18/19 21:00 Constitutional: Well Nourished, No Distress, Calm Eyes: Yes: WNL HENT: Yes: WNL Neck: Yes: WNL Cardiovascular: Yes: WNL, Regular Rate and Rhythm Respiratory: Yes: WNL, Regular, CTA Bilaterally Gastrointestinal Inspection: Yes: WNL ...Auscultate: Yes: Normoactive Bowel Sounds Musculoskeletal: Yes: WNL Extremities: Yes: WNL Labs: CBC, BMP 04/20/19 06:32 INR, PTT INR 1.73 (0.83-1.09) H 04/20/19 06:32 Problem List - Problems (1) Abdominal pain Assessment/Plan: STOOL FOR OCCULT BLOOD NEGATIVE DIET TOLERATED PPI OUTPT COLONOSCOPY REPEAT MRCP IN ONE YEAR SURVEILLANCE OF CYST Code(s): R10.9 - UNSPECIFIED ABDOMINAL PAIN (2) Colitis Code(s): K52.9 - NONINFECTIVE GASTROENTERITIS AND COLITIS, UNSPECIFIED (3) Alcoholic cirrhosis Code(s): K70.30 - ALCOHOLIC CIRRHOSIS OF LIVER WITHOUT ASCITES Qualifiers: Ascites presence: with ascites Qualified Code(s): K70.31 - Alcoholic cirrhosis of liver with ascites
[2019-04-20] MEDS: SPIRONOLACTONE 25 MG TABLET (FP) PO SCH (09:17)
[2019-04-20] MEDS: NYSTATIN POWDER 100,000 UNITS/GM - 15 GM TOPICAL POWDER TP SCH ×2 (09:17→21:59)
[2019-04-20] MEDS: FOLIC ACID 1 MG TABLET (FP) PO SCH (09:17)
[2019-04-20] MEDS: FUROSEMIDE 20 MG TABLET (FP) PO SCH (09:17)
[2019-04-20] MEDS: THIAMINE HCL 100 MG TABLET (FP) PO SCH (09:17)
[2019-04-20] MEDS: FERROUS SO4 325 MG TABLET (FP) PO SCH (09:17)
[2019-04-20 13:18] LABS: ANISOCYTOSIS 2+; MACROCYTOSIS 0; PLATELET ESTIMATE DECREASED; TARGET CELLS 2+
--- NOTE | 2019-04-20 18:34 | PN ---
Progress Note (short form) - Note Progress Note: Subjective: no fever or hills. No abd pain today. reprots black stool today and yesterday ( 4 BMs yesterday) per him Objective: Vital Signs: Last Vital Signs Temp Pulse Resp BP Pulse Ox 97.9 F 79 20 109/66 97 04/20/19 10:00 04/20/19 10:00 04/20/19 10:00 04/20/19 10:00 04/18/19 21:00 Laboratory Results - last 24 hr 04/20/19 04/20/19 04/20/19 06:32 06:32 06:32 WBC 3.8 L Corrected WBC (auto) 3.80 RBC 3.58 L Hgb 10.3 L Hct 31.4 L MCV 87.8 MCH 28.7 MCHC 32.7 RDW 31.9 H Plt Count 57 L MPV 8.5 Absolute Neuts (auto) 1.6 Total Counted 3.8 Neutrophils % 40.6 L D Neutrophils % (Manual) 63.2 D Band Neutrophils % 1.9 Lymphocytes % 31.3 D Lymphocytes % (Manual) 10.4 D Monocytes % 21.4 H D Monocytes % (Manual) 6 Eosinophils % 5.2 H D Eosinophils % (Manual) 9.4 H D Basophils % 1.5 D Basophils % (Manual) 0.0 Myelocytes % (Man) 4 H D Promyelocytes % (Man) 2 D Blast Cells % (Manual) 0 Nucleated RBC % 0 Metamyelocytes 2 Hypochromia 2+ Platelet Estimate Decreased Platelet Comment Present Polychromasia 2+ Poikilocytosis 2+ Anisocytosis 2+ Microcytosis 1+ Macrocytosis 0 Spherocytes 1+ Target Cells 2+ Stomatocytes 1+ Acanthocytes (Spur) 1+ Fragmented RBCs 1+ Schistocytes 1+ PT with INR 20.50 H INR 1.73 H Sodium 134 L Potassium 4.2 Chloride 105 Carbon Dioxide 23 Anion Gap 6 L BUN 7.0 Creatinine 0.5 L Est GFR (CKD-EPI)AfAm 146.45 Est GFR (CKD-EPI)NonAf 126.36 Random Glucose 77 Calcium 8.7 Total Bilirubin 3.1 H AST 69 H ALT 31 Alkaline Phosphatase 209 H Total Protein 6.7 Albumin 2.4 L Stool Occult Blood 04/20/19 14:13 WBC Corrected WBC (auto) RBC Hgb Hct MCV MCH MCHC RDW Plt Count MPV Absolute Neuts (auto) Total Counted Neutrophils % Neutrophils % (Manual) Band Neutrophils % Lymphocytes % Lymphocytes % (Manual) Monocytes % Monocytes % (Manual) Eosinophils % Eosinophils % (Manual) Basophils % Basophils % (Manual) Myelocytes % (Man) Promyelocytes % (Man) Blast Cells % (Manual) Nucleated RBC % Metamyelocytes Hypochromia Platelet Estimate Platelet Comment Polychromasia Poikilocytosis Anisocytosis Microcytosis Macrocytosis Spherocytes Target Cells Stomatocytes Acanthocytes (Spur) Fragmented RBCs Schistocytes PT with INR INR Sodium Potassium Chloride Carbon Dioxide Anion Gap BUN Creatinine Est GFR (CKD-EPI)AfAm Est GFR (CKD-EPI)NonAf Random Glucose Calcium Total Bilirubin AST ALT Alkaline Phosphatase Total Protein Albumin Stool Occult Blood Negative Physical Exam: NAD. CV: RRR, 3/6 SM at LLSB . Lungs: CATB Abd: soft, distended, inverted umbilicus. minimal tenderness in all quadrants. liver is palpated in epigastric area, 3 cm. Ext : No edema or erythema ASSESSMENT AND PLAN: 48 y/o man with h/o liver cirrhosis , alcohol abuse, GERD, portal gastropathy, pancreatitis, seizures, pancytopenia, esophageal varices, s/p banding, recent LLE wound with cellulitis and s/p I&D, pancytopenia, who presented with N/V/d and fever. 1- Abd pain, and N/V /diarrhea. DDX includes gastroenteritis . No SBP on Ascitis fluid analysis and cx - finished a course of Abx - stool studies pending - although he reprots black stool, Hb is stable and stool OB is neg . will repeat Hb in am 2- ETOH abuse: finished detox course. no signs of withdrawal. cont folic and thiamine. 3- H/o pancytopenia: due to cirrhosis and ETOH - follow as out pt 4- H/o Cirrhosis: - cont spironolactone and lasix . - needs Hep B vaccine as out pt. 5- Pancreatic head lesion: - MRCP with cystic lesion in pancreas and cyst in liver. out pt follow up 6- SCDs due to thrombocytopenia Needs rehab. he is agreeable Visit type - Emergency Visit Emergency Visit: Yes ED Registration Date: 04/15/19 Care time: The patient presented to the Emergency Department on the above date and was hospitalized for further evaluation of their emergent condition. - New Patient This patient is new to me today: No - Critical Care Critical Care patient: No
[2019-04-21 08:18] LABS: HEMATOCRIT 33.9 % (35.4-49); HEMOGLOBIN 11.4 GM/dL (11.7-16.9); MCH 29.2 pg (25.7-33.7); MCHC 33.6 g/dl (32.0-35.9); MEAN CELL VOLUME 87.1 fl (80-96); PLATELET COUNT 82 K/MM3 (134-434); RBC 3.89 M/mm3 (4.00-5.60); RDW 32.6 % (11.9-15.9); WHITE BLOOD COUNT 3.7 K/mm3 (4.0-10.0)
[2019-04-21] MEDS: SPIRONOLACTONE 25 MG TABLET (FP) PO SCH (10:09)
[2019-04-21] MEDS: FERROUS SO4 325 MG TABLET (FP) PO SCH (10:09)
[2019-04-21] MEDS: FUROSEMIDE 20 MG TABLET (FP) PO SCH (10:09)
[2019-04-21] MEDS: FOLIC ACID 1 MG TABLET (FP) PO SCH (10:09)
[2019-04-21] MEDS: THIAMINE HCL 100 MG TABLET (FP) PO SCH (10:09)
[2019-04-21] MEDS: NYSTATIN POWDER 100,000 UNITS/GM - 15 GM TOPICAL POWDER TP SCH ×2 (10:10→21:58)
[2019-04-21 12:07] LABS: BODY FLUID ALBUMIN 0.4 g/dL (Not Estab.)
--- NOTE | 2019-04-21 15:00 | PATH ---
Cytology Non-Gynecological Report Patient Name: KOJO BETANCOURT [facility]. Rec. #: [id number] /Age/Gender: 1970 (Age: 48) / M Account: [id number] Location: [address] [place] [address]/[facility] Taken: 04/17/2019 Received: 04/18/2019 Reported: 04/21/2019 Physicians: Marina Moran M.D. Specimen(s) Received A: ABDOMINAL FLUID B: ABDOMINAL FLUID Clinical History Ascites Final Diagnosis A-B. ABDOMINAL FLUID, PARACENTESIS: SATISFACTORY FOR EVALUATION. NO MALIGNANT CELLS IDENTIFIED. MESOTHELIAL CELLS, MACROPHAGES, AND LYMPHOCYTES PRESENT. Electronically Signed Phyllis Caruso M.D. Gross Description A. Approximately 50 cc of yellow fluid received fixed in 50% alcohol. One cytofunnel prepared and Pap stained. One cellblock prepared. B. Approximately 1000 cc of yellow fluid received fresh. One cytofunnel prepared and Pap stained. One cellblock prepared.
--- NOTE | 2019-04-21 18:19 | PN ---
Teaching Attending Note Name of Resident: Emeka Huff ATTENDING PHYSICIAN STATEMENT I saw and evaluated the patient. I reviewed the resident's note and discussed the case with the resident. I agree with the resident's findings and plan as documented. SUBJECTIVE: no abd pain . OBJECTIVE: NAD. CV: RRR, 3/6 SM at LLSB . Lungs: CATB Abd: soft, distended, inverted umbilicus. NT. liver is palpated in epigastric area, 3 cm. Ext : No edema or erythema ASSESSMENT AND PLAN: 48 y/o man with h/o liver cirrhosis , alcohol abuse, GERD, portal gastropathy, pancreatitis, seizures, pancytopenia, esophageal varices, s/p banding, recent LLE wound with cellulitis and s/p I&D, pancytopenia, who presented with N/V/d and fever. 1- Abd pain, and N/V /diarrhea. likely due gastroenteritis. No SBP on Ascitis fluid analysis and cx - finished a course of Abx - stool studies nrg stable hb, no evidence of bleeding . Neg OB . dark stool he has been seeign could be due to iron 2- ETOH abuse: finished detox course. no signs of withdrawal. cont folic and thiamine. 3- H/o pancytopenia: due to cirrhosis and ETOH - follow as out pt 4- H/o Cirrhosis: - cont spironolactone and lasix . - needs Hep B vaccine as out pt. 5- Pancreatic head lesion: - MRCP with cystic lesion in pancreas and cyst in liver. out pt follow up dc home . no serviced can be arranged
--- NOTE | 2019-04-21 22:43 | DS ---
Physical Exam: SUBJECTIVE: Patient seen and examined at bedside. There were no acute events overnight. This AM he offers no new complaints. OBJECTIVE: Vital Signs Period Temp Pulse Resp BP Sys/Mcginnis Pulse Ox Last 24 Hr 98 F-98.5 F 69-77 18-19 110-126/63-84 96 PHYSICAL EXAM GENERAL: AOx3, in no acute distress. HEAD: NCAT EYES: TALISHA, EOMI, conjunctiva clear. ENT: Ears normal, nares patent, oropharynx clear without exudates. Moist mucous membranes. NECK: Normal range of motion, supple without lymphadenopathy, JVD, or masses. LUNGS: CTAB. No wheezes, and no crackles. No accessory muscle use. HEART: RRR, 3/6 SM at LLSB ABDOMEN: Soft, BS present in all 4 quadrants, non-distended, no JVD, MUSCULOSKELETAL: No bony deformities or tenderness. No CVA tenderness. UPPER EXTREMITIES: 2+ pulses, warm, well-perfused. No cyanosis. No clubbing. No peripheral edema. LOWER EXTREMITIES: 2+ pulses, warm, well-perfused. No calf tenderness. No peripheral edema. NEUROLOGICAL: No focal deficits. Cranial nerves II-XII intact. Normal speech. Gait not appreciated. PSYCHIATRIC: Cooperative. Good eye contact. Appropriate mood and affect. SKIN: Warm, dry, normal turgor, no rashes or lesions noted, normal capillary refill. LABS Laboratory Results - last 24 hr 04/17/19 04/21/19 15:00 07:50 WBC 3.7 L RBC 3.89 L Hgb 11.4 L Hct 33.9 L MCV 87.1 MCH 29.2 MCHC 33.6 RDW 32.6 H Plt Count 82 L D MPV 9.0 POC Fluid pH 7.8 Fluid Glucose 136 Fluid Total Protein 0.7 Fluid Albumin 0.4 Body Fluid LDH Source 42 Fluid Amylase 34 Fluid Triglycerides 11 HOSPITAL COURSE: Date of Admission:04/15/19 48 y/o male PMH alcoholic cirrhosis, ETOH use disorder, HTN, and HLD whom presents from [facility] with abdominal pain x4 days as well as 2 days of fever and chills and admitted poss colitis vs gastroenteritis. CT: marked thickening of cecum and ascending colon. FOBT NEG. He received ceftriaxone 1g daily and flagyl 500mg Q8H and made NPO for bowel rest. His alcoholic cirrhosis manifested as transaminitis, anemia, and elevated INR. MELD 19 and Maddrey discriminant function- 33; steroids held use given source of infection. He also had a positive UA but was not symptomatic. u and stool cx NEG. He was advised to f/u pancytopenia as out-pt. He was advised to get Hep V vaccine as out-pt. MRCP with cyctic lesion in pancreas and cyst in liver, which he was advised to f /u as out-pt. He was dc to home with appointment at [facility]. Date of Discharge: 04/21/19 Minutes to complete discharge: 40 Discharge Summary Problems reviewed: Yes Reason For Visit: COLITIS,ALCOHOLIC CIRRHOSIS Current Active Problems Pancreatic cyst (Acute) Alcoholic cirrhosis (Chronic) Pancytopenia (Chronic) Condition: Improved - Instructions Diet, Activity, Other Instructions: YOUR VISIT You came to the hospital because you were feeling abdominal pain. You were admitted to the hospital for care of this concern. While here you were seen by a thread inspector. Tests suggest you do not need further care in the hospital and can be seen in the doctor's office as an out-patient. You are now stable and may return home. MEDICATIONS Please continue to take your medications as prescribed. Continue to take vitamins, including thiamine and folate. ADDITIONAL CARE Please make an appointment to see a primary care provider 1 week from today. Since you do not currently have one, you can be seen at the [facility] residents clinic located at [address] [place] [address]. Please call to make an appointment. If you would like to continue seeing Dr. Ivan Moya, please ask for a Sunday morning appointment. At this appointment you should be assessed for low blood counts (pancytopenia). Please make an appointment to see a thread inspector in 1 week. A referral has to Dr. Ruvalcaba has been provided. You should have an MRI called MRCP to further assess the pancreatic lesion found during this stay. You should have Hepatitis B vaccine at your appointment. It is important you get help with quitting drinking alcohol. Please call for [facility]. [address] [place] [address]. ADDITIONAL INFORMATION Please call [phone] or come directly to the emergency department if you experience unusual headache, vision change, shortness of breath, chest pain, numbness, tingling, loss of alertness/awareness, loss of function, unusual bleeding or any alarming symptoms. Referrals: Rodrigo Bocanegra MD [Staff Physician] - Merly Ruvalcaba MD [Staff Physician] - Luis Fernando Esqueda DO [Staff Physician] - (Rehabilitation) Disposition: HOME - Home Medications Comprehensive Discharge Medication List: Ambulatory Orders Ferrous Sulfate [Iron] 325 mg PO DAILY #30 tablet 02/10/19 Folic Acid - 1 mg PO DAILY #30 tablet 02/10/19 Thiamine HCl [Vitamin B1 -] 100 mg PO DAILY #30 tablet 02/10/19 Furosemide [Lasix -] 20 mg PO DAILY tablet 04/21/19 Nystatin Powder [Nystop Powder -] 1 applic TP BID applic 04/21/19 Spironolactone [Aldactone -] 50 mg PO DAILY tablet 04/21/19 This patient is new to me today: No Emergency Visit: No Critical Care patient: No - Discharge Referral Referred to [facility] No ATTENDING PHYSICIAN STATEMENT I saw and evaluated the patient. I reviewed the resident's note and discussed the case with the resident. I agree with the resident's findings and plan as documented. SUBJECTIVE: OBJECTIVE: ASSESSMENT AND PLAN:
[2019-04-22 09:57] VITALS: BP 110/65; PULSE 75; TEMP 98.2
[2019-04-22] MEDS: FOLIC ACID 1 MG TABLET (FP) PO SCH (10:39)
[2019-04-22] MEDS: FUROSEMIDE 20 MG TABLET (FP) PO SCH (10:39)
[2019-04-22] MEDS: THIAMINE HCL 100 MG TABLET (FP) PO SCH (10:39)
[2019-04-22] MEDS: SPIRONOLACTONE 25 MG TABLET (FP) PO SCH (10:39)
[2019-04-22] MEDS: FERROUS SO4 325 MG TABLET (FP) PO SCH (10:39)
[2019-04-22] MEDS: NYSTATIN POWDER 100,000 UNITS/GM - 15 GM TOPICAL POWDER TP SCH (10:41)
--- NOTE | 2019-04-22 19:18 | PN ---
Teaching Attending Note Name of Resident: Ivan Moya ATTENDING PHYSICIAN STATEMENT I saw and evaluated the patient. I reviewed the resident's note and discussed the case with the resident. I agree with the resident's findings and plan as documented. SUBJECTIVE: No fever or chills. No pain in abdomen, no diarrhea. feels much better OBJECTIVE: NAD. sitting in a chair getting ready CV: RRR, 3/6 SM at LLSB . Lungs: CATB Ext : No edema or erythema ASSESSMENT AND PLAN: 48 y/o man with h/o liver cirrhosis , alcohol abuse, GERD, portal gastropathy, pancreatitis, seizures, pancytopenia, esophageal varices, s/p banding, recent LLE wound with cellulitis and s/p I&D, pancytopenia, who presented with N/V/d and fever. 1- Abd pain, and N/V /diarrhea. likely due gastroenteritis. resolved 2- ETOH abuse: finished detox course. cont folic and thiamine. 3- H/o pancytopenia: due to cirrhosis and ETOH - follow as out pt 4- H/o Cirrhosis: - cont spironolactone and lasix . - needs Hep B vaccine as out pt. 5- Pancreatic head lesion: - MRCP with cystic lesion in pancreas and cyst in liver. out pt follow up dc to the snf . he was advised to go to [facility] in future for rehab is he wishes
== END 2019-04-22 11:56 | disposition home or self-care (01) | DRG 229 ==
LOC: JER 11:18 → JERBED 15:11 → J6S 04-16 13:51
PROVIDERS: ADMIT Internal Medicine; ATTEND Internal Medicine
PROC: 0W9G3ZX Drainage of Peritoneal Cavity, Percutaneous Approach, Diagnostic (ICD-10-PCS; principal; 2019-04-17)
DX: K52.9 Noninfective gastroenteritis and colitis, unspecified (principal); I10 Essential (primary) hypertension; E78.5 Hyperlipidemia, unspecified; D61.818 Other pancytopenia; R50.9 Fever, unspecified; K70.31 Alcoholic cirrhosis of liver with ascites; K86.2 Cyst of pancreas; E83.39 Other disorders of phosphorus metabolism; E87.1 Hypo-osmolality and hyponatremia; K21.9 Gastro-esophageal reflux disease without esophagitis; M54.5 Low back pain; K80.20 Calculus of gallbladder without cholecystitis without obstruction; R10.9 Unspecified abdominal pain; D72.829 Elevated white blood cell count, unspecified; R21 Rash and other nonspecific skin eruption; D69.6 Thrombocytopenia, unspecified; K76.6 Portal hypertension; K31.89 Other diseases of stomach and duodenum; R56.9 Unspecified convulsions; F10.10 Alcohol abuse, uncomplicated; K76.89 Other specified diseases of liver
CPT/HCPCS: 36415; 71045-TC-FY; 74176-TC; 74182-TC; 76705-TC; 76942-TC; 78226-TC; 80053; 81003; 82042; 82140; 82150; 82272; 82465; 82803; 82945; 83605; 83615; 83690; 83735; 83986; 84100; 84157; 84478; 84484; 85025; 85027; 85610; 85730; 86140; 87040; 87045; 87046; 87070; 87075; 87102; 87116; 87177; 87205; 87206; 87209; 87210; 87804; 88108; 88305-TC; 93005; 93010; 97116-GP; 97161-GP; 99285-25; A9537; A9579; J0131; J7030

== ENCOUNTER 2019-05-14 12:34 | Inpatient (IN) | payer OTHER ==
[2019-05-14 13:42] VITALS: BMI 24.7
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
[2019-05-14] MEDS ORDERED: MAGNESIUM CITRATE 300 ML BOTTLE PO PRN (14:48)
[2019-05-14] MEDS ORDERED: chlordiazePOXIDE HCL 25 MG CAPSULE PO PRN (14:48)
[2019-05-14] MEDS ORDERED: METHOCARBAMOL 500 MG TABLET PO PRN (14:48)
[2019-05-14] MEDS ORDERED: hydrOXYzine PAMOATE 25 MG CAPSULE (FP) PO PRN (14:48)
[2019-05-14] MEDS ORDERED: BISMUTH SUBSALICYLATE 262 MG/15 ML BTL PO PRN (14:48)
[2019-05-14] MEDS ORDERED: ACETAMINOPHEN 325 MG TABLET (FP) PO PRN ×2 (14:48)
[2019-05-14] MEDS ORDERED: MAG HYDROX/AL HYDROX/SIMETH 30 ML UNIT-DOSE CUP PO PRN (14:48)
[2019-05-14] MEDS ORDERED: MAGNESIUM HYDROX 2400MG/30ML ORAL SUSPENSION 30 ML CUP PO PRN (14:48)
[2019-05-14] MEDS ORDERED: IBUPROFEN 400 MG TABLET (FP) PO PRN (14:48)
[2019-05-14] MEDS ORDERED: MENTHOL/PHENOL 1 EACH UD MM PRN (14:48)
[2019-05-14] MEDS: chlordiazePOXIDE HCL 25 MG CAPSULE PO SCH (17:56)
[2019-05-14] MEDS: FERROUS SO4 325 MG TABLET (FP) PO SCH (17:56)
[2019-05-14 18:02] LABS: HEMATOCRIT 29.5 % (35.4-49); HEMOGLOBIN 9.7 GM/dL (11.7-16.9); MCHC 32.9 g/dl (32.0-35.9); MEAN CELL VOLUME 97.2 fl (80-96); MEAN PLT VOLUME 9.7 fl (7.5-11.1); PLATELET COUNT 85 K/MM3 (134-434); RBC 3.04 M/mm3 (4.00-5.60); RDW 25.8 % (11.9-15.9); WHITE BLOOD COUNT 3.2 K/mm3 (4.0-10.0)
[2019-05-14] MEDS: SPIRONOLACTONE 25 MG TABLET (FP) PO SCH (18:02)
[2019-05-14] MEDS: FOLIC ACID 1 MG TABLET (FP) PO SCH (18:02)
[2019-05-14] MEDS: FUROSEMIDE 20 MG TABLET (FP) PO SCH (18:03)
[2019-05-14] MEDS: THIAMINE HCL 100 MG TABLET (FP) PO SCH ×2 (18:05→22:27)
[2019-05-14 18:15] LABS: ALBUMIN 2.8 g/dl (3.4-5.0); BILIRUBIN,TOTAL 2.9 mg/dL (0.2-1); BLOOD UREA NITROGEN 7.3 mg/dL (7-18); CALCIUM 8.3 mg/dL (8.5-10.1); CREATININE 0.7 mg/dL (0.55-1.3); POTASSIUM 3.6 mmol/L (3.5-5.1); TOT PROT 7.4 g/dl (6.4-8.2)
[2019-05-14] MEDS: MELATONIN 5 MG TABLETS PO PRN (22:27)
[2019-05-15] MEDS: chlordiazePOXIDE HCL 25 MG CAPSULE PO SCH ×3 (05:15→10:13)
[2019-05-15] MEDS: FOLIC ACID 1 MG TABLET (FP) PO SCH (10:13)
[2019-05-15] MEDS: FERROUS SO4 325 MG TABLET (FP) PO SCH (10:14)
[2019-05-15] MEDS: PRENATAL VITAMINS W/ FOLIC ACID TABLET (FP) PO SCH (10:14)
[2019-05-15] MEDS: FUROSEMIDE 20 MG TABLET (FP) PO SCH (10:14)
[2019-05-15] MEDS: SPIRONOLACTONE 25 MG TABLET (FP) PO SCH (10:14)
[2019-05-15] MEDS: THIAMINE HCL 100 MG TABLET (FP) PO SCH ×2 (10:15→22:19)
[2019-05-15] MEDS ORDERED: FLU VACCINE QUAD 60 MCG/0.5 ML (MDV 19-20) IM ONE (12:00)
--- NOTE | 2019-05-15 12:57 | PN ---
S CIWA - CIWA Score Nausea/Vomitin-Mild Nausea/No Vomiting Muscle Tremors: 3 Anxiety: 2 Agitation: 1-Slight > Activity Paroxysmal Sweats: 2 Orientation: 0-Oriented Tacttile Disturbances: 0-None Auditory Disturbances: 0-None Visual Disturbances: 0-None Headache: 0-None Present CIWA-Ar Total Score: 9 BHS Progress Note (SOAP) Subjective: 48 years old male admitted on 05/14/19 for alcohol withdrawal sx management treating with librium detox regiment feeling ok today ambulating on hallway social with peer in day room encourage the patient to attend behavior and psychosocial therapies groups and meetings Objective: 05/15/19 12:57 Vital Signs Temperature 98.3 F 05/15/19 08:50 Pulse Rate 79 05/15/19 08:50 Respiratory Rate 18 05/15/19 08:50 Blood Pressure 136/80 05/15/19 08:50 O2 Sat by Pulse Oximetry (%) Laboratory Last Values WBC 3.2 K/mm3 (4.0-10.0) L 05/14/19 15:15 RBC 3.04 M/mm3 (4.00-5.60) L 05/14/19 15:15 Hgb 9.7 GM/dL (11.7-16.9) L 05/14/19 15:15 Hct 29.5 % (35.4-49) L 05/14/19 15:15 MCV 97.2 fl (80-96) H D 05/14/19 15:15 MCH 32.0 pg (25.7-33.7) 05/14/19 15:15 MCHC 32.9 g/dl (32.0-35.9) 05/14/19 15:15 RDW 25.8 % (11.9-15.9) H 05/14/19 15:15 Plt Count 85 K/MM3 (134-434) L 05/14/19 15:15 MPV 9.7 fl (7.5-11.1) 05/14/19 15:15 Sodium 140 mmol/L (136-145) 05/14/19 15:15 Potassium 3.6 mmol/L (3.5-5.1) 05/14/19 15:15 Chloride 109 mmol/L (98-107) H 05/14/19 15:15 Carbon Dioxide 25 mmol/L (21-32) 05/14/19 15:15 Anion Gap 6 MMOL/L (8-16) L 05/14/19 15:15 BUN 7.3 mg/dL (7-18) 05/14/19 15:15 Creatinine 0.7 mg/dL (0.55-1.3) 05/14/19 15:15 Est GFR (CKD-EPI)AfAm 127.53 05/14/19 15:15 Est GFR (CKD-EPI)NonAf 110.04 05/14/19 15:15 Random Glucose 118 mg/dL (74-106) H 05/14/19 15:15 Calcium 8.3 mg/dL (8.5-10.1) L 05/14/19 15:15 Total Bilirubin 2.9 mg/dL (0.2-1) H 05/14/19 15:15 AST 101 U/L (15-37) H 05/14/19 15:15 ALT 38 U/L (13-61) 05/14/19 15:15 Alkaline Phosphatase 370 U/L (45-117) H 05/14/19 15:15 Total Protein 7.4 g/dl (6.4-8.2) 05/14/19 15:15 Albumin 2.8 g/dl (3.4-5.0) L 05/14/19 15:15 05/15/19 12:59 ast elevation will change librium to ativan if patient agrees Assessment: 05/15/19 13:00 alcohol withdrawal Plan: librium regiment
--- NOTE | 2019-05-15 14:30 | EKG ---
Test Reason : Blood Pressure : / mmHG Vent. Rate : 079 BPM Atrial Rate : 079 BPM P-R Int : 148 ms QRS Dur : 098 ms QT Int : 418 ms P-R-T Axes : 021 -34 001 degrees QTc Int : 479 ms NORMAL SINUS RHYTHM LEFT AXIS DEVIATION MODERATE VOLTAGE CRITERIA FOR LVH, MAY BE NORMAL VARIANT ABNORMAL ECG WHEN COMPARED WITH ECG OF 15-APR-2019 11:23, NO SIGNIFICANT CHANGE WAS FOUND Confirmed by ADALID COLEMAN, BRY ([id number]) on 05/15/2019 2:29:45 PM Referred By: Confirmed By:BRY CORDOBA MD
[2019-05-15] MEDS ORDERED: LORazepam 0.5 MG TABLET PO PRN (15:54)
[2019-05-15] MEDS: LORazepam 1 MG TABLET PO SCH ×2 (17:46→22:19)
[2019-05-16] MEDS ORDERED: chlordiazePOXIDE HCL 25 MG CAPSULE PO SCH (05:00)
[2019-05-16] MEDS: LORazepam 0.5 MG TABLET PO SCH ×4 (05:40→22:14)
[2019-05-16] MEDS: FERROUS SO4 325 MG TABLET (FP) PO SCH (10:06)
[2019-05-16] MEDS: SPIRONOLACTONE 25 MG TABLET (FP) PO SCH (10:06)
[2019-05-16] MEDS: FOLIC ACID 1 MG TABLET (FP) PO SCH (10:06)
[2019-05-16] MEDS: PRENATAL VITAMINS W/ FOLIC ACID TABLET (FP) PO SCH (10:06)
[2019-05-16] MEDS: FUROSEMIDE 20 MG TABLET (FP) PO SCH (11:11)
[2019-05-16] MEDS: THIAMINE HCL 100 MG TABLET (FP) PO SCH ×2 (11:51→22:14)
--- NOTE | 2019-05-16 15:53 | PN ---
S CIWA - CIWA Score Nausea/Vomitin-Mild Nausea/No Vomiting Muscle Tremors: None Anxiety: 1-Mildly Anxious Agitation: 0-Normal Activity Paroxysmal Sweats: 4-Forehead w/Sweat Beads Orientation: 0-Oriented Tacttile Disturbances: 0-None Auditory Disturbances: 0-None Visual Disturbances: 0-None Headache: 2-Mild CIWA-Ar Total Score: 8 BHS Progress Note (SOAP) Subjective: Complains of frontal DOMÍNGUEZ, grades 5/10. Plans rehab on Sunday to [facility] [place] Objective: 05/16/19 15:50 Laboratory Tests 05/14/19 05/14/19 05/14/19 15:15 15:15 15:15 WBC 3.2 L RBC 3.04 L Hgb 9.7 L Hct 29.5 L MCV 97.2 H D MCH 32.0 MCHC 32.9 RDW 25.8 H Plt Count 85 L MPV 9.7 Sodium 140 Potassium 3.6 Chloride 109 H Carbon Dioxide 25 Anion Gap 6 L BUN 7.3 Creatinine 0.7 Est GFR (CKD-EPI)AfAm 127.53 Est GFR (CKD-EPI)NonAf 110.04 Random Glucose 118 H Calcium 8.3 L Total Bilirubin 2.9 H AST 101 H ALT 38 Alkaline Phosphatase 370 H Total Protein 7.4 Albumin 2.8 L RPR Titer Nonreactive 05/16/19 08:00 WBC RBC Hgb Hct MCV MCH MCHC RDW Plt Count MPV Sodium Potassium Chloride Carbon Dioxide Anion Gap BUN Creatinine Est GFR (CKD-EPI)AfAm Est GFR (CKD-EPI)NonAf Random Glucose Calcium Total Bilirubin AST 75 H ALT Alkaline Phosphatase Total Protein Albumin RPR Titer Vital Signs - 24 hr 05/15/19 05/15/19 05/16/19 17:05 21:22 00:30 Temperature 100.2 F H 99.5 F Pulse Rate 79 87 Respiratory 18 17 18 Rate Blood Pressure 154/99 127/71 05/16/19 05/16/19 05/16/19 03:30 06:39 08:34 Temperature 98.0 F 98.3 F Pulse Rate 86 90 Respiratory 18 18 18 Rate Blood Pressure 126/74 116/62 05/16/19 12:34 Temperature 99.5 F Pulse Rate 84 Respiratory 18 Rate Blood Pressure 132/78 PE Gnl: WDWN, in no distress MS: awake, alert, nl language function Motor: moves limbs symetrically Gait: ambulated in hallway Assessment: 05/16/19 15:51 1. Alcohol use disorder 2. low grade fever Plan: 1. continue alcohol withdrawal protocol 2. Tylenol prn 3. pending discharge on 05/19
[2019-05-17] MEDS ORDERED: chlordiazePOXIDE HCL 10 MG CAPSULE PO PRN
[2019-05-17] MEDS ORDERED: LORazepam 0.5 MG TABLET PO PRN (01:00)
[2019-05-17] MEDS ORDERED: chlordiazePOXIDE HCL 10 MG CAPSULE PO SCH (05:00)
[2019-05-17] MEDS: LORazepam 0.5 MG TABLET PO SCH ×3 (06:02→22:09)
[2019-05-17] MEDS: SPIRONOLACTONE 25 MG TABLET (FP) PO SCH (10:33)
[2019-05-17] MEDS: FUROSEMIDE 20 MG TABLET (FP) PO SCH (10:33)
[2019-05-17] MEDS: PRENATAL VITAMINS W/ FOLIC ACID TABLET (FP) PO SCH (10:33)
[2019-05-17] MEDS: FERROUS SO4 325 MG TABLET (FP) PO SCH (10:33)
[2019-05-17] MEDS: FOLIC ACID 1 MG TABLET (FP) PO SCH (10:34)
--- NOTE | 2019-05-17 12:14 | PN ---
S CIWA - CIWA Score Nausea/Vomitin-No Nausea/No Vomiting Muscle Tremors: None Anxiety: 2 Agitation: 0-Normal Activity Paroxysmal Sweats: 3 Orientation: 0-Oriented Tacttile Disturbances: 0-None Auditory Disturbances: 0-None Visual Disturbances: 0-None Headache: 2-Mild CIWA-Ar Total Score: 7 BHS Progress Note (SOAP) Subjective: c/o headache, sweats, and anxiety. Objective: 05/17/19 12:15 Vital Signs 05/17/19 05/17/19 06:41 08:44 Temperature 97.9 F 96.1 F L Pulse Rate 69 80 Respiratory 18 18 Rate Blood Pressure 109/64 117/70 Laboratory Last Values WBC 3.2 K/mm3 (4.0-10.0) L 05/14/19 15:15 RBC 3.04 M/mm3 (4.00-5.60) L 05/14/19 15:15 Hgb 9.7 GM/dL (11.7-16.9) L 05/14/19 15:15 Hct 29.5 % (35.4-49) L 05/14/19 15:15 MCV 97.2 fl (80-96) H D 05/14/19 15:15 MCH 32.0 pg (25.7-33.7) 05/14/19 15:15 MCHC 32.9 g/dl (32.0-35.9) 05/14/19 15:15 RDW 25.8 % (11.9-15.9) H 05/14/19 15:15 Plt Count 85 K/MM3 (134-434) L 05/14/19 15:15 MPV 9.7 fl (7.5-11.1) 05/14/19 15:15 Sodium 140 mmol/L (136-145) 05/14/19 15:15 Potassium 3.6 mmol/L (3.5-5.1) 05/14/19 15:15 Chloride 109 mmol/L (98-107) H 05/14/19 15:15 Carbon Dioxide 25 mmol/L (21-32) 05/14/19 15:15 Anion Gap 6 MMOL/L (8-16) L 05/14/19 15:15 BUN 7.3 mg/dL (7-18) 05/14/19 15:15 Creatinine 0.7 mg/dL (0.55-1.3) 05/14/19 15:15 Est GFR (CKD-EPI)AfAm 127.53 05/14/19 15:15 Est GFR (CKD-EPI)NonAf 110.04 05/14/19 15:15 Random Glucose 118 mg/dL (74-106) H 05/14/19 15:15 Calcium 8.3 mg/dL (8.5-10.1) L 05/14/19 15:15 Total Bilirubin 2.9 mg/dL (0.2-1) H 05/14/19 15:15 AST 75 U/L (15-37) H 05/16/19 08:00 ALT 38 U/L (13-61) 05/14/19 15:15 Alkaline Phosphatase 370 U/L (45-117) H 05/14/19 15:15 Total Protein 7.4 g/dl (6.4-8.2) 05/14/19 15:15 Albumin 2.8 g/dl (3.4-5.0) L 05/14/19 15:15 RPR Titer Nonreactive (NONREACTIVE) 05/14/19 15:15 Labs noted. Assessment: 05/17/19 12:15 AOX 3, in no respiratory distress. Full ROM, ambulating in the unit. Withdrawal symptoms. Plan: continue detox.
[2019-05-17] MEDS: THIAMINE HCL 100 MG TABLET (FP) PO SCH (22:09)
[2019-05-18] MEDS ORDERED: chlordiazePOXIDE HCL 10 MG CAPSULE PO SCH (05:00)
[2019-05-18] MEDS: LORazepam 0.5 MG TABLET PO SCH ×2 (06:00→17:24)
--- NOTE | 2019-05-18 09:48 | PN ---
S CIWA - CIWA Score Nausea/Vomitin-No Nausea/No Vomiting Muscle Tremors: 1-None Visible, but [place] Anxiety: 1-Mildly Anxious Agitation: 0-Normal Activity Paroxysmal Sweats: 1-Minimal Palms Moist Orientation: 0-Oriented Tacttile Disturbances: 0-None Auditory Disturbances: 0-None Visual Disturbances: 0-None Headache: 1-Very Mild CIWA-Ar Total Score: 4 BHS Progress Note (SOAP) Subjective: 48 years old male admitted on 05/14/19 for alcohol withdrawal sx management treating with ativan detox regiment feeling better today less tremor ambulating with cane due to left knee arthritis with weakness Objective: 05/18/19 09:47 Vital Signs Temperature 96.9 F L 05/18/19 08:53 Pulse Rate 79 05/18/19 08:53 Respiratory Rate 18 05/18/19 08:53 Blood Pressure 114/85 05/18/19 08:53 O2 Sat by Pulse Oximetry (%) Laboratory Last Values WBC 3.2 K/mm3 (4.0-10.0) L 05/14/19 15:15 RBC 3.04 M/mm3 (4.00-5.60) L 05/14/19 15:15 Hgb 9.7 GM/dL (11.7-16.9) L 05/14/19 15:15 Hct 29.5 % (35.4-49) L 05/14/19 15:15 MCV 97.2 fl (80-96) H D 05/14/19 15:15 MCH 32.0 pg (25.7-33.7) 05/14/19 15:15 MCHC 32.9 g/dl (32.0-35.9) 05/14/19 15:15 RDW 25.8 % (11.9-15.9) H 05/14/19 15:15 Plt Count 85 K/MM3 (134-434) L 05/14/19 15:15 MPV 9.7 fl (7.5-11.1) 05/14/19 15:15 Sodium 140 mmol/L (136-145) 05/14/19 15:15 Potassium 3.6 mmol/L (3.5-5.1) 05/14/19 15:15 Chloride 109 mmol/L (98-107) H 05/14/19 15:15 Carbon Dioxide 25 mmol/L (21-32) 05/14/19 15:15 Anion Gap 6 MMOL/L (8-16) L 05/14/19 15:15 BUN 7.3 mg/dL (7-18) 05/14/19 15:15 Creatinine 0.7 mg/dL (0.55-1.3) 05/14/19 15:15 Est GFR (CKD-EPI)AfAm 127.53 05/14/19 15:15 Est GFR (CKD-EPI)NonAf 110.04 05/14/19 15:15 Random Glucose 118 mg/dL (74-106) H 05/14/19 15:15 Calcium 8.3 mg/dL (8.5-10.1) L 05/14/19 15:15 Total Bilirubin 2.9 mg/dL (0.2-1) H 05/14/19 15:15 AST 75 U/L (15-37) H 05/16/19 08:00 ALT 38 U/L (13-61) 05/14/19 15:15 Alkaline Phosphatase 370 U/L (45-117) H 05/14/19 15:15 Total Protein 7.4 g/dl (6.4-8.2) 05/14/19 15:15 Albumin 2.8 g/dl (3.4-5.0) L 05/14/19 15:15 RPR Titer Nonreactive (NONREACTIVE) 05/14/19 15:15 lab noted 05/18/19 09:49 plt low discontinue motrin Assessment: 05/18/19 09:49 alcohol withdrawal Plan: ativan regiment
[2019-05-18] MEDS: FERROUS SO4 325 MG TABLET (FP) PO SCH (10:06)
[2019-05-18] MEDS: FOLIC ACID 1 MG TABLET (FP) PO SCH (10:06)
[2019-05-18] MEDS: PRENATAL VITAMINS W/ FOLIC ACID TABLET (FP) PO SCH (10:06)
[2019-05-18] MEDS: FUROSEMIDE 20 MG TABLET (FP) PO SCH (10:06)
[2019-05-18] MEDS: SPIRONOLACTONE 25 MG TABLET (FP) PO SCH (10:07)
[2019-05-18] MEDS: THIAMINE HCL 100 MG TABLET (FP) PO SCH (22:11)
[2019-05-18] MEDS: MELATONIN 5 MG TABLETS PO PRN (22:11)
[2019-05-19] MEDS ORDERED: chlordiazePOXIDE HCL 10 MG CAPSULE PO ONE (05:00)
[2019-05-19] MEDS ORDERED: LORazepam 0.5 MG TABLET PO ONE (05:00)
[2019-05-19 09:07] VITALS: BP 114/67; PULSE 90; TEMP 98.5
--- NOTE | 2019-05-19 09:54 | DS ---
[facility] Detox Discharge Summary Admission Date: 05/14/19 Discharge Date: 05/19/19 - History Present History: Alcohol Dependence Additional Comments: 48 years old male admitted on 05/14/19 for alcohol withdrawal sx management treated with ativan detox regiment patient has completed the ativan detox regiment and tolerated well patient is doing well through out the detox stay alert oriented x 3 cardiac s1s2 regular rate rhythm possible left ventricular hypertrophy respiratory clear lungs bilaterally on auscultation ambulating with cane steady gait skin warm and dry Pertinent Past History: time for discharge 29 minutes - Physical Exam Results Vital Signs: Vital Signs Temperature 98.5 F 05/19/19 08:34 Pulse Rate 90 05/19/19 08:34 Respiratory Rate 20 05/19/19 08:34 Blood Pressure 114/67 05/19/19 08:34 O2 Sat by Pulse Oximetry (%) Pertinent Admission Physical Exam Findings: alcohol withdrawal Laboratory Last Values WBC 3.2 K/mm3 (4.0-10.0) L 05/14/19 15:15 RBC 3.04 M/mm3 (4.00-5.60) L 05/14/19 15:15 Hgb 9.7 GM/dL (11.7-16.9) L 05/14/19 15:15 Hct 29.5 % (35.4-49) L 05/14/19 15:15 MCV 97.2 fl (80-96) H D 05/14/19 15:15 MCH 32.0 pg (25.7-33.7) 05/14/19 15:15 MCHC 32.9 g/dl (32.0-35.9) 05/14/19 15:15 RDW 25.8 % (11.9-15.9) H 05/14/19 15:15 Plt Count 85 K/MM3 (134-434) L 05/14/19 15:15 MPV 9.7 fl (7.5-11.1) 05/14/19 15:15 Sodium 140 mmol/L (136-145) 05/14/19 15:15 Potassium 3.6 mmol/L (3.5-5.1) 05/14/19 15:15 Chloride 109 mmol/L (98-107) H 05/14/19 15:15 Carbon Dioxide 25 mmol/L (21-32) 05/14/19 15:15 Anion Gap 6 MMOL/L (8-16) L 05/14/19 15:15 BUN 7.3 mg/dL (7-18) 05/14/19 15:15 Creatinine 0.7 mg/dL (0.55-1.3) 05/14/19 15:15 Est GFR (CKD-EPI)AfAm 127.53 05/14/19 15:15 Est GFR (CKD-EPI)NonAf 110.04 05/14/19 15:15 Random Glucose 118 mg/dL (74-106) H 05/14/19 15:15 Calcium 8.3 mg/dL (8.5-10.1) L 05/14/19 15:15 Total Bilirubin 2.9 mg/dL (0.2-1) H 05/14/19 15:15 AST 75 U/L (15-37) H 05/16/19 08:00 ALT 38 U/L (13-61) 05/14/19 15:15 Alkaline Phosphatase 370 U/L (45-117) H 05/14/19 15:15 Total Protein 7.4 g/dl (6.4-8.2) 05/14/19 15:15 Albumin 2.8 g/dl (3.4-5.0) L 05/14/19 15:15 RPR Titer Nonreactive (NONREACTIVE) 05/14/19 15:15 lab noted - Treatment Hospital Course: Detox Protocol Followed, Detoxed Safely, Responded well, Discharged Condition Good, Rehab Referral Accepted Patient has Accepted a Rehab Referral to: new focus - Medication Discharge Medications: Ambulatory Orders Ferrous Sulfate [Iron] 325 mg PO DAILY #30 tablet 02/10/19 Folic Acid - 1 mg PO DAILY #30 tablet 02/10/19 Thiamine HCl [Vitamin B1 -] 100 mg PO DAILY #30 tablet 02/10/19 Furosemide [Lasix -] 20 mg PO DAILY tablet 04/21/19 Spironolactone [Aldactone -] 25 mg PO DAILY 05/14/19 - Diagnosis (1) Ambulates with cane Status: Chronic (2) Alcoholic cirrhosis Status: Chronic Qualifiers: Ascites presence: with ascites Qualified Code(s): K70.31 - Alcoholic cirrhosis of liver with ascites (3) Anemia Status: Chronic Qualifiers: Anemia type: unspecified type Qualified Code(s): D64.9 - Anemia, unspecified (4) Ascites due to alcoholic cirrhosis Status: Chronic (5) Elevated LFTs Status: Chronic (6) GERD (gastroesophageal reflux disease) Status: Chronic Qualifiers: Esophagitis presence: esophagitis presence not specified Qualified Code(s) : K21.9 - Gastro-esophageal reflux disease without esophagitis (7) Liver cirrhosis, alcoholic Status: Chronic Qualifiers: Ascites presence: with ascites Qualified Code(s): K70.31 - Alcoholic cirrhosis of liver with ascites (8) Pancytopenia Status: Chronic (9) Thrombocytopenia Status: Chronic (10) Alcohol dependence with withdrawal, uncomplicated Status: Acute (11) Ascites Status: Chronic Qualifiers: Ascites type: due to alcoholic cirrhosis Qualified Code(s): K70.31 - Alcoholic cirrhosis of liver with ascites (12) Peripheral edema Status: Chronic - AMA Did Patient Leave Against Medical Advice: No CIWA Score - CIWA Score Nausea/Vomitin-No Nausea/No Vomiting Muscle Tremors: 1-None Visible, but [place] Anxiety: 1-Mildly Anxious Agitation: 0-Normal Activity Paroxysmal Sweats: No Perspiration Orientation: 0-Oriented Tacttile Disturbances: 0-None Auditory Disturbances: 0-None Visual Disturbances: 0-None Headache: 1-Very Mild CIWA-Ar Total Score: 3
[2019-05-19] MEDS: FUROSEMIDE 20 MG TABLET (FP) PO SCH (10:08)
[2019-05-19] MEDS: FOLIC ACID 1 MG TABLET (FP) PO SCH (10:08)
[2019-05-19] MEDS: FERROUS SO4 325 MG TABLET (FP) PO SCH (10:08)
[2019-05-19] MEDS: PRENATAL VITAMINS W/ FOLIC ACID TABLET (FP) PO SCH (10:08)
[2019-05-19] MEDS: SPIRONOLACTONE 25 MG TABLET (FP) PO SCH (10:08)
== END 2019-05-19 12:11 | disposition home or self-care (01) | DRG 775 ==
LOC: YASAS 12:34 → Y3N 15:35
PROVIDERS: ADMIT Allergy & Immunology; ATTEND Allergy & Immunology
PROC: HZ2ZZZZ Detoxification Services for Substance Abuse Treatment (ICD-10-PCS; principal; 2019-05-14)
DX: F10.230 Alcohol dependence with withdrawal, uncomplicated (principal); D64.9 Anemia, unspecified; D69.6 Thrombocytopenia, unspecified; D61.818 Other pancytopenia; K43.9 Ventral hernia without obstruction or gangrene; K70.31 Alcoholic cirrhosis of liver with ascites; K21.9 Gastro-esophageal reflux disease without esophagitis; M17.11 Unilateral primary osteoarthritis, right knee; R60.0 Localized edema; R94.5 Abnormal results of liver function studies; R01.1 Cardiac murmur, unspecified; Z99.89 Dependence on other enabling machines and devices; Z91.018 Allergy to other foods; Z59.0 Homelessness
CPT/HCPCS: 36415; 80053; 84450; 85027; 86593; 93005; 93010; G0008; Q2036

== ENCOUNTER 2019-09-04 07:31 | Emergency (ER) | payer OTHER ==
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
[2019-09-04 08:02] VITALS: BMI 28.3
[2019-09-04] MEDS ORDERED: ONDANSETRON 4 MG/2 ML VIAL IVPUSH ONE (08:22)
[2019-09-04] MEDS ORDERED: ACETAMINOPHEN 1000 MG/100 ML VIAL (NON FORMULARY) IVPB ONE (08:22)
[2019-09-04 08:52] LABS: BASO % 3.2 % (0-2.0); EOS % 3.7 % (0-4.5); HEMATOCRIT 30.2 % (35.4-49); HEMOGLOBIN 10.1 GM/dL (11.7-16.9); LYMPH % 40.6 % (8-40); MCH 32.3 pg (25.7-33.7); MCHC 33.3 g/dl (32.0-35.9); MEAN PLT VOLUME 8.3 fl (7.5-11.1); MONO % 22.1 % (3.8-10.2); NEUT % 30.4 % (42.8-82.8); PLATELET COUNT 42 K/MM3 (134-434); RBC 3.11 M/mm3 (4.00-5.60); RDW 19.7 % (11.9-15.9)
[2019-09-04 08:59] LABS: INR 1.28 (0.83-1.09); PROTHROMBIN TIME (PATIENT) 15.1 SEC (9.7-13.0)
[2019-09-04 09:13] LABS: ALBUMIN 2.8 g/dl (3.4-5.0); BILIRUBIN,TOTAL 3.5 mg/dL (0.2-1); BLOOD UREA NITROGEN 5.9 mg/dL (7-18); CALCIUM 7.9 mg/dL (8.5-10.1); CREATININE 0.5 mg/dL (0.55-1.3); POTASSIUM 3.9 mmol/L (3.5-5.1); TOT PROT 7.2 g/dl (6.4-8.2)
[2019-09-04] MEDS ORDERED: ACETAMINOPHEN INJECTION 100 ML IVPB ONE (09:23)
[2019-09-04] MEDS ORDERED: ONDANSETRON 4 MG/2 ML VIAL ONE (09:23)
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
[2019-09-04 09:59] LABS: ANISOCYTOSIS 1+; MACROCYTOSIS 1+; OVALOCYTE 1+; PLATELET ESTIMATE DECREASED
[2019-09-04] MEDS ORDERED: FOLIC ACID INJECTION - 1 MG, THIAMINE HCL 100 MG, MULTIVIT INJECTION ADULT 10 ML in SOD... IVPB ONE (17:37)
[2019-09-04] MEDS ORDERED: ACETAMINOPHEN 500 MG TABLET (FP) PO ONE (17:57)
[2019-09-04] MEDS ORDERED: ACETAMINOPHEN 325 MG TABLET (FP) ONE (18:04)
[2019-09-04] MEDS ORDERED: chlordiazePOXIDE HCL 25 MG CAPSULE PO ONE (19:15)
--- NOTE | 2019-09-04 19:33 | PDOC ---
*Physical Exam - Vital Signs Last Vital Signs Temp Pulse Resp BP Pulse Ox 98.3 F 84 16 132/68 97 09/04/19 13:09 09/04/19 17:32 09/04/19 17:32 09/04/19 17:32 09/04/19 17:32 ED Treatment Course - LABORATORY CBC & Chemistry Diagram: 09/04/19 08:30 09/04/19 08:20 - ADDITIONAL ORDERS Additional order review: Laboratory Results 09/04/19 09/04/19 09/04/19 11:24 08:30 08:20 PT with INR 15.10 H INR 1.28 H PTT (Actin FS) 41.0 H Sodium 145 Potassium 3.9 Chloride 111 H Carbon Dioxide 27 Anion Gap 7 L BUN 5.9 L Creatinine 0.5 L Est GFR (CKD-EPI)AfAm 145.42 Est GFR (CKD-EPI)NonAf 125.47 Random Glucose 106 Calcium 7.9 L Total Bilirubin 3.5 H AST 202 H ALT 59 Alkaline Phosphatase 262 H C-Reactive Protein < 0.3 Total Protein 7.2 Albumin 2.8 L Lipase 196 Alcohol, Quantitative 331.2 H 376.8 H 09/04/19 08:30 RBC 3.11 L MCV 97.0 H MCHC 33.3 RDW 19.7 H MPV 8.3 D Neutrophils % 30.4 L D Lymphocytes % 40.6 H D Monocytes % 22.1 H Eosinophils % 3.7 Basophils % 3.2 H - Medications Given in the ED: ED Medications Discontinued Medications Generic Name Dose Route Start Last Admin Trade Name Freq PRN Reason Stop Dose Admin Acetaminophen 1,000 mg 09/04/19 08:22 09/04/19 10:04 Ofirmev Injection - IVPB 09/04/19 08:23 1,000 mg ONCE ONE Administration Acetaminophen 975 mg 09/04/19 17:57 09/04/19 18:40 Tylenol - PO 09/04/19 17:58 975 mg ONCE ONE Administration Ondansetron HCl 4 mg 09/04/19 08:22 09/04/19 10:04 Zofran Injection IVPUSH 09/04/19 08:23 4 mg ONCE ONE Administration Medical Decision Making - Medical Decision Making 09/04/19 19:[address] Hayes 49y M with PMH of alcohol abuse hypertension hyperlipidemia known cirrhosis prior thrombocytopenia and coagulopathy presenting to the ER s/p fall. labs show low h/h (Baseline), thrombocytopenia (baseline). AST>ALT. CT head shows frontal contusion. CT cspine done with possible c3 discitis. MRI shows c3-c4 discitis/osteomyelitis. pt is afebrile CTAP: cirrhosis plain films negative for fractures or dislocations. pt received tylenol for pain. librium for withdrawal. day resident spoke to neurosurgeon in regards to mri findings. recommended biopsy which is not done at this facility, will need transfer to [facility]. waiting for call from transfer center/nsgy pt consents to transfer 09/04/19 20:[address] Baer ([facility] [place]), recommended plt and cultures. ER-ER transfer. spoke to Dr. Barone in ER. Discharge - Discharge Information Problems reviewed: Yes Clinical Impression/Diagnosis: Fall Qualifiers: Encounter type: initial encounter Qualified Code(s): W19.XXXA - Unspecified fall, initial encounter Discitis Qualifiers: Spinal region: cervical Qualified Code(s): M46.42 - Discitis, unspecified, cervical region Osteomyelitis Qualifiers: Osteomyelitis type: unspecified type Osteomyelitis location: other site Qualified Code(s): M86.9 - Osteomyelitis, unspecified Condition: Stable Disposition: TRANSFER ACUTE CARE/OTHER HOSP - Follow up/Referral - Patient Discharge Instructions - Post Discharge Activity - Transfer to Acute Care Facility Receiving Facility Name: [facility]
[2019-09-04 20:57] VITALS: BP 101/52; PULSE 86; TEMP 97.8
== END 2019-09-04 21:47 | disposition short-term general hospital (02) ==
LOC: JER 07:31
PROC: 3E033GC Introduction of Other Therapeutic Substance into Peripheral Vein, Percutaneous Approach (ICD-10-PCS; principal; 2019-09-04)
DX: M46.42 Discitis, unspecified, cervical region (principal); M86.9 Osteomyelitis, unspecified; W19.XXXA Unspecified fall, initial encounter
CPT/HCPCS: 36415; 70450-TC; 71046-TC-FY; 71101-TC-RT-FY; 72125-TC; 72142-TC; 73562-TC-RT-FY; 73590-TC-RT-FY; 74177-TC; 80053; 80307; 83690; 85025; 85610; 85651; 85730; 86140; 86850; 86900; 86901; 96365; 96366; 96375; 99285-25; J0131; Q9967; U0003